=== PATIENT | female | born 1970 | race Caucasian/White ===

== ENCOUNTER 2022-05-29 15:28 | Emergency (ER) | payer OTHER ==
--- OUTSIDE RECORDS SUMMARY | 2022-05-29 15:32 | XMS REPORT | Continuity of Care Document ---
:1970 Author Organization [facility] t Address [address] [place] [address] Care Team Providers Name Role Phone Palomo Novak MD Primary Care Physician Kyung Gomes Attending Clinician Unavailable Palomo Novak MD Attending Clinician CANDIE HAMILTON Attending Clinician Unavailable Jenelle Nix Admitting Clinician Unavailable Kyung Gomes Admitting Clinician Unavailable Anika Harper Admitting Clinician Unavailable Payers Payer Name Policy Type Policy Number Effective Date Expiration Date S ource Problems Condition Condition Condition Status Onset Resolution Last Treating Co mments Source Name Details Category Date Date Treatment Clinician Date Anxiety Anxiety Disease Active Univers 6-05 ity of 00:00: [place] 00 Medical Branch Left lower Left lower Disease Active U nivers quadrant quadrant 6-24 ity of pain pain 00:00: [place] 00 Medical Branch Fatigue Fatigue Disease Active 2016- Univers 6-24 ity of 00:00: 00 Medical Branch Hypothyroi Hypothyroi Disease Active U nivers dism due dism due 6-24 ity of to to 00:00: [place] acquired acquired 00 Medica l atrophy of atrophy of Br anch thyroid thyroid Weight Weight Disease Active Univers loss loss 6-24 ity of 00:00: 00 Medical Branch Allergies, Adverse Reactions, Alerts Allergy Allergy Status Severity Reaction(s) Onset Inactive Treating Comm ents Source Name Type Date Date Clinician Penicill DA Active SV 2019-10 [facility] ins 0-01 [place] 00:00: d 00 [facility] morphine DA Active SV 2019-10 [facility] 0- [place] 00:00: d 00 [facility] codeine DA Active SV 2019-10 [facility] 0- [place] 00:00: d 00 [facility] Penicill DA Active SV RASH, NAUSEA 2019-10 HC A ins AND VOMITING 0- Pear brandie 00:00: d 00 [facility] morphine DA Active SV NAUSEA AND 2019-10 [facility] VOMITING 0- [place] 00:00: d 00 [facility] codeine DA Active SV NAUSEA AND 2019-10 [facility] VOMITING 0-01 [place] 00:00: d 00 [facility] pcn DA Active MO rash 2019- [facility] 7-29 [facility] [place] Morphine Propensi Active Anaphylaxis 2019- U nivers ty to 7-25 ity of adverse 00:00: [place] reaction 00 [facility] Penicill Propensi Active Nausea Univer s ins ty to and/or 7-25 ity of adverse Vomiting 00:00: [place] reaction 00 [facility] morphine DA Active U 2015- [facility] 2-03 [facility] 00:00: [facility] [place] morphine DA Active U nasu 2015- [facility] 2-03 [facility] 00:[facility]: [facility] [place] Codeine Propensi Active Unknown - Univ ers ty to See comments 6-23 ity of adverse 00:00: [place] reaction 00 [facility] codeine DA Active MO 2014-0 [facility] 7-03 [facility] 00:00: [facility] [place] codeine DA Active MO HIVES/RASH 2014- [facility] 7-03 [facility] 00:[facility]: [facility] [place] Social History Social Habit Start Date Stop Date Quantity Comments Source Exposure to 2022-02-05 2022-02-15 Not sure [facility]-CoV-2 00:00:00 11:47:00 [place] Medical (event) Branch Alcohol intake 2022-02-15 2022-02-15 Current University 00:00:00 00:00:00 non-drinker of [facility] alcohol Branch (finding) Tobacco use and 2016-04-01 2016-04-01 Never used Universit y of exposure 00:00:00 [facility] Sex Ass[birth year] At [birth year] [facility] 00:00:00 [facility]:00:00 [facility] Smoking Status Start Date Stop Date Source Never smoker [facility] Branch Medications Ordered Filled Start Stop Current Ordering Indication Dosage Frequency Signature Comments Components Source Medication Medication Date Date Medication? Clinician (SIG) Name Name JEANNETTE 2021- No Take by Un darrell ROJO, 02-15 mouth. ity of VITAMIN 12:11: 00:00 [place] B-12, 18 :00 Medical (VITAMIN Branch B12 ORAL) ERGOCALCIFE 2021- No Take by Un darrell ODW, 02-15 mouth. ity of VITAMIN D2, 12:10: 00:00 [place] (VITAMIN D 51 :00 Medical ORAL) Branch traMADoL 50 Yes [id number] TAKE 1 Univ ers mg tablet - TABLET BY ity o f 00:00: MOUTH [place] 00 EVERY 6 Medical HOURS Branch NEEDED PAIN Indication s: chronic pain ALPRAZolam Yes [id number] .5mg Take 1 Univers 0.5 mg 5-09 tablet by ity of tablet 00:00: mouth 2 00 (two) Medical times Branch daily. ALPRAZOLAM 2021- No [id number] TAKE 1 Univers 0.5 mg 2-04 13- TABLET BY ity of tablet 00:00: 00:00 MOUTH [place] 00 :00 TWICE Medical DAILY Branch traMADoL 50 2021- No 2745 TAKE 1 Uni vers mg tablet 8-08 03- TABLET BY ity of 00:00: 00:00 MOUTH [place] 00 :00 EVERY 6 Medical HOURS Branch NEEDED PAIN Indication s: chronic pain ORILISSA 2021- No TK 1 T PO Uni vers 150 mg Tab 05-09 QD ity of 00:00: 00:00 [place] 00 :00 Medical Branch levothyroxi 2021- No TK 1 T PO Univers ne 50 mcg 05-09 QD ity of tablet 00:00: 00:00 [place] 00 :00 Medical Branch dicyclomine 2021- No [id number] 20mg Take 1 Univers 20 mg 05-03 tablet by ity of tablet 00:00: 00:00 mouth 4 [place] 00 :00 (four) Medical times Branch daily. traMADol 50 2021- No [id number] 50mg Take 1 Univers mg tablet 02-04 tablet by ity of 00:00: 00:00 mouth [place] 00 :00 every 6 Medical (six) Branch hours as needed for Pain (scale 4-6). MULTIVITAMI Yes Take by Uni vers N ORAL 9-10 mouth. ity of 09:55: [place] 45 Medical Branch zolpidem 2016-10- No 10mg Take 1 Univer s (AMBIEN) 10 2-15 - tablet by it y of mg tablet 00:00: 00:00 mouth at [place] as 00 :00 bedtime as Medical needed for Branch Insomnia. loratadine 2015-10 Yes [id number] 10mg Take 1 Univers (CLARITIN) 2-21 tablet by ity of 10 mg 00:00: mouth [place] tablet 00 daily. Medical Branch fluticasone 2015-10 Yes [id number] 1-2 sprays Univers 50 2-21 in each ity of mcg/actuati 00:00: nostril [place] as on nasal 00 daily Medical spray Branch Vital Signs Vital Name Observation Time Observation Value Comments Source Systolic blood 2022-02-15 17:01:00 123 mm[facility]Hg[facility] pressure Medical Branch Diastolic blood 2022-02-15 17:01:00 82 mm[facility]Hg[facility] Branch Heart rate 2022-02-15 17:01:00 78 /min [facility] Body height 2022-02-15 17:01:00 152.4 cm [facility] Body weight 2022-02-15 17:01:00 46.267 kg [facility] BMI 2022-02-15 17:01:00 19.92 kg/m2 [facility] Oxygen saturation 2022-02-15 17:01:00 99 /min [facility] in Arterial blood Medical Br anch by Pulse oximetry Procedures This patient has no known procedures. Encounters Start End Encounter Admission Attending Care Care Encounter Source Date/Time Date/Time Type Type Clinicians Facility Department ID 2021-11-04 Outpatient STLMLC STLMLC [id number] Common 12:13:58 [id number] [facility] 2020-08-31 Inpatient HCAPM [facility] [id number] [facility] 19:31:00 [id number] [facility] 2020-07-24 Inpatient HCAPM [facility] [id number] [facility] 04:15:00 [id number] [facility] 2020-07-23 Inpatient HCAWH [facility] [id number] [facility] 14:07:00 [id number] [facility] [place] 2020-07-19 Inpatient [facility] C[facility] [id number] [facility] 02:17:00 [facility] [place] 2020-07-14 Inpatient EL Gomes, [facility]CAWH DAYS [id number] [facility] 13:00:00 Kyung [facility] [place] 2020-05-07 Inpatient [facility] CRISTAL [id number] [facility] 05:57:00 [id number] [facility] [place] 2022-02-15 2022-02-15 Office LAWRENCE Novak [id number] [place] [address] 12:00:00 12:15:00 Visit [facility] [id number] it y [facility] [id number] [place] as MERCED?BLEA [phone] Tn dicfeli [address] MEDICAL OFFICE BUILDING 2020-09-24 2020-09-24 Outpatient STLMLC STLMLC [id number] Common 00:00:00 00:00:00 [facility] 2020-07-10 2020-07-10 Outpatient Gomes, HCAWH OUTD [id number] [facility] 11:30:00 11:30:00 [facility]ung [facility] [place] 2020-05-15 2020-05-15 Office MICHELLE NovakGEOVANNI [id number] 15:14:59 15:30:50 Visit Palomo rAmenta [id number] Shanna [id number] abdi [id number] nal 044 [facility] 2019-09-12 2019-09-12 Emergency [facility] [id number] 03 [place] 00:00:00 00:00:00 CANDIE Soto Method i st Results Test Description Test Time Test Comments Results Result [facility] e Comments - CT ABD PELVIS 2020-08-31 W/CONT 21:56:00 [facility] 1970 Sex: F Name: DEMETRIO FERNÁNDEZ [facility] : 1970 Age/S: 50 / F [id number] [facility] Unit #: [id number] Loc: [place] [address] Phys: Ernesto Rowley MD Acct: [id number] Dis Date: Status: REG ER PHONE #: [phone] Exam Date: 08/31/2020 2157 FAX #: Reason: diffuse abdominal pain, nausea EXAMS: CPT: [id number] CT ABD PELVIS W/CONT 72342 C3 TIME OF STUDY: 08/31/2020 9:11 PM REASON FOR EXAM: diffuse abdominal pain, nausea COMPARISON: July 23, 2020 TECHNIQUE: Helical post contrast enhanced images were obtained through the abdomen and pelvis. Sagittal and coronal reformats were obtained and reviewed. One or more of the following radiation dose reduction techniques was used: automated exposure control, adjustment of mA and/or KV according to patient size, and/or utilization of iterative reconstruction technique. FINDINGS: CT Abdomen: The included lung bases are clear. No radiopaque calculi are seen in the gallbladder. The liver, pancreas, kidneys, adrenal glands and spleen all have normal appearance. There is no mesenteric or retroperitoneal adenopathy. The bowel loops are nondilated. A normal appendix is not visualized. However, there is no inflammation in the right lower quadrant. There is no free fluid or free air. The osseous structures are age-appropriate. CT Pelvis: The ureters and bladder are grossly normal. There is no free air, free fluid, loculated collection or adenopathy in the pelvis. The osseous and soft tissue structures are age appropriate. IMPRESSION: 1. No acute abnormalities in the abdomen or pelvis. at 2156 Reported and signed by: Efrain Joshi M.D. CC: Jenelle Nix MD Technologist:Karthik Longoria, RT(R)(CT) CTDI: DLP: Trnscb Date/Time: 08/31/2020 (2155) [email or web address] Orig Print D/T: S: 08/31/2020 (0058) PAGE 1 Signed Report - XR ABD ACUTE 2020-08-31 W/CHEST 21:02:00 [facility] : 1970 Sex: F Name: DEMETRIO FERNÁNDEZ [facility] : 1970 Age/S: 50 / F [address] [address] Unit #: [id number] Loc: [place] [address] Phys: Ernesto Rowley MD Acct: [id number] Dis Date: Status: REG ER PHONE #: [phone] Exam Date: 08/31/20202046 FAX #: Reason: diffuse abdominal pain, nausea EXAMS: CPT: [id number] XR ABD ACUTE W/CHEST 14445 Fluoro Time: DAP (Gy m2): Air Kerma (mGy): C3 TIME OF STUDY: 08/31/2020 8:16 PM REASON FOR EXAM: diffuse abdominal pain, nausea COMPARISON: CT July 23, 2020 FINDINGS: Supine and upright views of the abdomen show gaseous dilatation of loops of small bowel measuring up to 3.1 cm there is moderate stool and gas present throughout the colon. No abnormal air fluid levels or collections of free intraperitoneal air are seen. No abnormal extraosseous calcifications are seen. Bony and soft tissue structures are within normal limits. No organomegaly is identified. Accompanying upright chest shows normal heart size and pulmonary vascularity. The lungs are well aerated and clear. No pleural effusion or pneumothorax is seen. IMPRESSION: 1. Mild gaseous dilatation of loops of small bowel. This may be due to ileus versus obstruction. Recommend CT or small bowel study for follow-up. 2. No acute parenchymal abnormalities. at 2101 Reported and signed by: Efrain Joshi M.D. CC: Jenelle Nix MD PAGE 1 Signed Report Name: DEMETRIO FERNÁNDEZ [place] : 1970 Age/S: 50 / F [address] [address] Unit #: [id number] Loc: [place] [address] Phys: Ernesto Rowley MD Acct: [id number] Dis Date: Status: REG ER PHONE #: [phone] Exam Date: 08/31/20202046 FAX #: Reason: diffuse abdominal pain, nausea EXAMS: CPT: [id number] XR ABD ACUTE W/CHEST 48167 Fluoro Time: DAP (Gy m2): Air Kerma (mGy): <Continued> Technologist: Karthik Longoria, RT(R)(CT) Trnscb Date/Time: 08/31/2020 (2101) [email or web address] Orig Print D/T: S: 08/31/2020 (2104) PAGE 2 Signed Report BASIC METABOLIC PANEL 2020-08-31 20:35:00 Test Item Value Reference Range Interpretation Comme nts SODIUM (test code = NA) 138 mmol/L 134-147 N POTASSIUM (test code = K) 4.0 mmol/L 3.4-5.0 N CHLORIDE (test code = CL) 106 mmol/L 100-108 N CARBON DIOXIDE (test code = CO2) 26 mmol/L 21-32 N ANION GAP (test code = GAP) 6.0 GAP calc 4.0-15.0 N GLUCOSE (test code = GLU) 137 MG/DL 70-110 H BLOOD UREA NITROGEN (test code = BUN) 27 MG/DL 7-18 H GLOMERULAR FILTRATION RATE (test code = GFR) >=60 max estimate estG FR >60 CREATININE (test code = CREAT) 0.8 MG/DL 0.6-1.0 N CALCIUM (test code = CA) 9.7 MG/DL 8.5-10.1 N HEPATIC FUNCTION [id number] 20:35:00 Test Item Value Reference Range Interpretation Comments TOTAL PROTEIN (test code = PROT) 8.8 G/DL 6.4-8.2 H ALBUMIN (test code = ALB) 5.1 G/DL 3.4-5.0 H BILIRUBIN TOTAL (test code = BILT) 0.50 MG/DL 0.2-1.2 N BILIRUBIN DIRECT (test code = 0.10 MG/DL 0.00-0.30 N BILD) BILIRUBIN INDIRECT (test code = 0.40 MG/DL 0.2-1.2 N BILIND) SGOT/AST (test code = AST) 22 Unit/L 15-37 N SGPT/ALT (test code = ALT) 48 Unit/L 12-78 N ALKALINE PHOSPHATASE TOTAL (test 83 Unit/L 45-117 N code = ALKP) [id number] 20:35:00 Test Item Value Reference Range Interpretation Comments LIPASE (test code = LIP) 44 Unit/L 114-286 L UA RFLX MICR CULT IF [id number] 20:20:00 Test Item Value Reference Range Interpretation Comments UA COLOR (test code = YELLOW discript YEL/STRAW COLU) UA APPEARANCE (test code CLEAR discript CLEAR = APPU) UA GLUCOSE DIPSTICK (test NEGATIVE mg/dL NEG code = DGLUU) UA BILIRUBIN DIPSTICK 1+ mg/dL NEG A (test code = BILU) UA KETONE DIPSTICK (test 2+ mg/dL NEG A code = KETU) UA SPECIFIC GRAVITY (test >=1.030 SG 1.005-1.030 A code = SGU) UA BLOOD DIPSTICK (test 2+ mg/DL NEG A code = JUAN MANUEL) UA PH DIPSTICK (test code 6.0 pH UNITS 5.0-7.0 = KENDY) UA PROTEIN DIPSTICK (test 1+ mg/dL NEG A code = PROU) UA UROBILINIOGEN DIPSTICK 0.2 mg/dL <2.0 (test code = URO) UA NITRITE DIPSTICK (test NEGATIVE SCREEN NEG code = MARILYN) UA LEUKOCYTE ESTERASE NEGATIVE Leuk/mcL NEGATIVE DIPSTICK (test code = LEUU) UA WBC (test code = WBCU) 1-3 #WBC/HPF 0-3 UA RBC (test code = RBCU) 1-3 #RBC/HPF 0-3 UA BACTERIA (test code = NONE SEEN /HPF NONE-TRACE BACU) UA SQUAMOUS CELLS (test 1+ /HPF NONE A code = SQU) UA CALCIUM OXALATE 2+ /HPF NONE SEEN A CRYSTALS (test code = CAOXU) UA MUCUS (test code = 3+ /LPF NONE SEEN A MUCU) UA CULTURE NEEDED? (test NO, WBC<10 Criteria Culture CHK code = UACULT) Indication for culture: Suprapubic PainCBC W/AUTO [id number] 20:12:00 Test Item Value Reference Range Interpretation Comments WHITE BLOOD CELL (test code = 13.3 K/mm3 3.5-11.0 H WBC) RED BLOOD CELL (test code = 5.00 M/mm3 4.70-6.10 N RBC) HEMOGLOBIN (test code = HGB) 15.9 G/DL 10.4-14.9 H HEMATOCRIT (test code = HCT) 47.0 % 31.5-44.1 H MEAN CELL VOLUME (test code = 94.0 Fl 84.5-98.6 N MCV) MEAN CELL HGB (test code = MCH) 31.8 pg 27.0-34.2 N MEAN CELL HGB CONCETRATION 33.8 G/DL 31.5-34.0 N (test code = MCHC) RED CELL DISTRIBUTION WIDTH 11.8 SD 11.5-14.5 N (test code = RDW) PLATELET COUNT (test code = 477 K/mm3 150-450 H PLT) MEAN PLATELET VOLUME (test code 8.90 fL 7.0-10.5 N = MPV) NEUTROPHIL % (test code = NT%) 83.1 % 40-76 H IMMATURE GRANULOCYTE % (test 0.3 % 0.0-5.0 N code = IG%) LYMPHOCYTE % (test code = LY%) 11.8 % 20.5-51.1 L MONOCYTE % (test code = MO%) 4.4 % 1.7-9.3 N EOSINOPHIL % (test code = EO%) 0.1 % 0.0-6.0 N BASOPHIL % (test code = BA%) 0.3 % 0.0-2.0 N NUCLEATED RBC % (test code = 0.0 /100WBC% 0.0-1.0 N NRBC%) NEUTROPHIL # (test code = NT#) 11.0 K/mm3 1.8-7.6 H IMMATURE GRANULOCYTE # (test 0.04 x10 3/uL 0.00-0.03 H code = IG#) LYMPHOCYTE # (test code = LY#) 1.6 K/mm3 0.6-3.2 N MONOCYTE # (test code = MO#) 0.6 K/mm3 0.3-1.1 N EOSINOPHIL # (test code = EO#) 0.0 K/mm3 0.0-0.4 N BASOPHIL # (test code = BA#) 0.0 K/mm3 0.0-0.1 N NUCLEATED RBC # (test code = 0.0 K/mm3 0.0-0.1 N NRBC#) MANUAL DIFF REQUIRED (test code NO DIFF/SCN CRITERIA = MDIFF) UA RFLX MICR CULT IF [id number] 20:12:00 Test Item Value Reference Range Interpretation Comments UA COLOR (test code = COLU) YELLOW discript YEL/STRAW UA APPEARANCE (test code = CLEAR discript CLEAR APPU) UA GLUCOSE DIPSTICK (test NEGATIVE mg/dL NEG code = DGLUU) UA BILIRUBIN DIPSTICK (test 1+ mg/dL NEG A code = BILU) UA KETONE DIPSTICK (test 2+ mg/dL NEG A code = KETU) UA SPECIFIC GRAVITY (test >=1.030 SG 1.005-1.030 A code = SGU) UA BLOOD DIPSTICK (test 2+ mg/DL NEG A code = JUAN MANUEL) UA PH DIPSTICK (test code = 6.0 pH UNITS 5.0-7.0 KENDY) UA PROTEIN DIPSTICK (test 1+ mg/dL NEG A code = PROU) UA UROBILINIOGEN DIPSTICK 0.2 mg/dL <2.0 (test code = URO) UA NITRITE DIPSTICK (test NEGATIVE SCREEN NEG code = MARILYN) UA LEUKOCYTE ESTERASE NEGATIVE Leuk/mcL NEGATIVE DIPSTICK (test code = LEUU) UA CULTURE NEEDED? (test Criteria Culture CHK code = UACULT) Indication for culture: Suprapubic Pain- CT ABD PELVIS [id number] 17:44:00 [facility] : 1970 Sex: F Patient Name: DEMETRIO FERNÁNDEZ Unit No: [id number] EXAMS: CPT CODE: [id number] CT ABD PELVIS W/CONT 41298 CTABDOMEN AND PELVIS WITH CONTRAST. INDICATION: Diffuse abdominal pain and vomiting after surgery 10 days ago. COMPARISON: 05/07/2020 CT abdomen pelvis TECHNIQUE: Helical imaging was performed from the diaphragm through the pubic symphysis with multiplanar reformations obtained. DOSE: CT imaging performed at this location utilizes radiation dose optimization technique which includes one or more of the followin) Automated exposure control; 2) Adjustment of the mA and/or kV according to patient's size; 3) Use of iterative reconstruction techniques. DLP: 155 mGy-cm IV contrast: 80 mL Isovue-300 GI con trast: 40 mL Gastrografin FINDINGS: LOWER CHEST: Visualized portions of the lung bases are clear. PERITONEUM: No free intraperitoneal air or fluid. RETROPERITONEUM: Abdominal aorta is normal in caliber. No adenopathy appreciated. SOLID ORGANS: The liver, gallbladder, spleen, pancreas, bilateral adrenal glands, and right kidney all appear normal. 3 mm nonobstructing left renal calculus at the lower pole present. PELVIS: Minimal fluid present in the bladder. The uterus is not visualized. No organized fluid collections identified in the pelvis. BOWELS/APPENDIX: There are no abnormally dilated small orlarge bowel loops. The appendix is not identified. MUSCULOSKELETAL: Anterior abdominal wall soft tissue gas is present appearing greater on the right. No organized fluid collection. No suspicious osseous abnormality identified. IMPRESSION: 1. Anterior abdominal wall soft tissue gas, [facility] NAME: DEMETRIO FERNÁNDEZ Radiology Department PHYS: Zen Larios [address] : 1970 AGE: 50 SEX: F [place] [address] LOC: LucyERS PHONE #: [phone] EXAM DATE: 07/23/2020 STATUS: REG ER FAX #: [phone] RAD NO: [id number] Page 1 Signed Report 1 Patient Name: DEMETRIO FERNÁNDEZ Unit No: [id number] EXAMS: CPT CODE: [id number] ABD PELVIS W/CONT 38375 (Continued) presumably postoperative in nature. No organized fluid collection. 2. Nonobstructing left nephrolithiasis. SL: SG-H Electronically Signed by Liang Hill 07/23/2020 at 1744 Reported and signed by: Liang Meredith MD CC: Zen Barth echnologist: Marcela Louis, RT, CT CTDI: 3.33 DLP: 155.32 Trnscrbd D/ (1744) t.[email or web address].[email or web address] NAME: DEMETRIO FERNÁNDEZ Radiology Department PHYS: Zen Larios [address] : 1970 AGE: 50 SEX: F [place] [address] [facility] PHONE #: [phone] EXAM DATE: 07/23/2020 STATUS: REG ER FAX #: [phone] RAD NO: [id number] Page 2 Signed Report 1 Patient Name: DEMETRIO FERNÁNDEZ Unit No: [id number] EXAMS: CPT CODE: [id number] CT ABD PELVIS W/CONT 67331 (Continued) Orig Print D/T: S: 07/23/2020 (1747) [facility] NAME: DEMETRIO FERNÁNDEZ Radiology Department PHYS: Zen Larios [address] : 1970 AGE: 50 SEX: F [place], [place] [address] LOC: LES PHONE #: [phone] EXAM DATE: 07/23/2020 STATUS: REG ER FAX #: [phone] RAD NO: [id number] Page 3 Signed Report 1COMPREHENSIVE METABOLIC PANEL 2020-07-23 16:13:00 Test Item Value Reference Range Interpretation Comments SODIUM (test code = NA) 139 mEq/L 135-145 N POTASSIUM (test code = K) 4.0 mEq/L 3.5-5.0 N CHLORIDE (test code = CL) 102 mEq/L 100-115 N CARBON DIOXIDE (test code = CO2) 28 mEq/L 22-31 N ANION GAP (test code = GAP) 12.80 10-20 N GLUCOSE (test code = GLU) 96 mg/dL 65-110 N BLOOD UREA NITROGEN (test code = 14 mg/dL 7-18 N BUN) GLOMERULAR FILTRATION RATE (test 89 ml/min >60 N code = GFR) CREATININE (test code = CREAT) 0.7 mg/dL 0.5-1.0 N TOTAL PROTEIN (test code = PROT) 7.0 gm/dL 6.3-8.2 N ALBUMIN (test code = ALB) 4.3 gm/dL 3.4-4.8 N CALCIUM (test code = CA) 8.7 mg/dL 8.4-10.2 N BILIRUBIN TOTAL (test code = BILT) 0.5 mg/dL 0.2-1.0 N SGOT/AST (test code = AST) 18 units/L 15-37 N SGPT/ALT (test code = ALT) 29 units/L 12-78 N ALKALINE PHOSPHATASE TOTAL (test 73 units/L 46-116 N code = ALKP) CBC W/AUTO [id number] 15:55:00 Test Item Value Reference Range Interpretation Comments WHITE BLOOD CELL (test code = WBC) 12.2 K/mm3 6.6-12.1 H RED BLOOD CELL (test code = RBC) 4.27 M/mm3 3.45-5.01 N HEMOGLOBIN (test code = HGB) 14.1 g/dL 10.7-13.9 H HEMATOCRIT (test code = HCT) 40.9 % 32.1-42.1 N MEAN CELL VOLUME (test code = MCV) 96 fL 84.1-94.8 H MEAN CELL HGB (test code = MCH) 33.0 pg 27-35 N MEAN CELL HGB CONCETRATION (test 34.5 gm/dL 32.2-34.1 H code = MCHC) RED CELL DISTRIBUTION WIDTH (test 12.0 % 12.4-16.5 L code = RDW) PLATELET COUNT (test code = PLT) 438 K/mm3 133-385 H MEAN PLATELET VOLUME (test code = 9.8 fl 9.1-12.7 N MPV) NEUTROPHIL % (test code = NT%) 78.5 % 56.5-79.4 N LYMPHOCYTE % (test code = LY%) 12.6 % 14.3-34.3 L MONOCYTE % (test code = MO%) 7.6 % 5.1-10.4 N EOSINOPHIL % (test code = EO%) 0.3 % 0.1-3.0 N BASOPHIL % (test code = BA%) 0.6 % 0.1-1.0 N NEUTROPHIL # (test code = NT#) 9.6 K/mm3 LYMPHOCYTE # (test code = LY#) 1.5 K/mm3 MONOCYTE # (test code = MO#) 0.9 K/mm3 EOSINOPHIL # (test code = EO#) 0.04 K/mm3 BASOPHIL # (test code = BA#) 0.1 K/mm3 RBC MORPHOLOGY REQUIRED (test code NORMAL NORMAL = RBCM) PLATELET MORPHOLOGY REQUIRED (test NORMAL NORMAL code = PLTMR) DRUGS OF ABUSE [id number] 15:04:00 Test Item Value Reference Range Interpretation Comments UR COCAINE (test code = NEGATIVE NEGATIVE DETE CTION CUT OFF: COCAU) 150 ng/mL UR CANNABINOIDS (test POSITIVE NEGATIVE A RESULT S CALLED TO code = CANU) DR.ECHEVERRY-GO STEPHENS AD BACK & CONFI RMED? YES.BY F.LAB.TT T 07/23/20 1503. DETECTION CUT O FF: 50 ng/mL UR AMPHETAMINE (test code NEGATIVE NEGATIVE DE TECTION CUT OFF: = AMPHU) 500 ng/mL UR BARBITURATE QUAL (test NEGATIVE NEGATIVE DE TECTION CUT OFF: code = BARBQLU) 200 ng/mL UR BENZODIAZEPINE (test POSITIVE NEGATIVE A DETE CTION CUT OFF: code = BENZU) 150 ng/mL UR OPIATES QUAL (test NEGATIVE NEGATIVE DETECT ION CUT OFF: code = OPIAQLU) 100 ng/mL UR PHENCYCLIDINE (PCP) NEGATIVE NEGATIVE DETEC TION CUT OFF: (test code = PHENCU) 25 ng/m L UA RFLX MICR CULT IF [id number] 14:56:00 Test Item Value Reference Range Interpretation Comments UA COLOR (test code = COLU) YELLOW YELLOW UA APPEARANCE (test code = CLOUDY CLEAR A APPU) UA GLUCOSE DIPSTICK (test NEGATIVE NEG code = DGLUU) UA BILIRUBIN DIPSTICK (test NEGATIVE NEG code = BILU) UA KETONE DIPSTICK (test code 1+ NEG A = KETU) UA SPECIFIC GRAVITY (test 1.012 1.001-1.035 N code = SGU) UA BLOOD DIPSTICK (test code NEG NEG = JUAN MANUEL) UA PH DIPSTICK (test code = 8.0 5-9 KENDY) UA PROTEIN DIPSTICK (test NEGATIVE NEG code = PROU) UA UROBILINIOGEN DIPSTICK NEGATIVE mg/dL NEG (test code = URO) UA NITRITE DIPSTICK (test NEG NEG code = MARILYN) UA LEUKOCYTE ESTERASE NEG NEG DIPSTICK (test code = LEUU) UA WBC (test code = WBCU) NONE SEEN #/hpf NONE SEEN UA RBC (test code = RBCU) NONE SEEN #/hpf NONE SEEN UA EPITHELIAL CELLS (test FEW #/HPF RARE-FEW code = EPIU) UA BACTERIA (test code = RARE /HPF RARE-FEW BACU) UA AMORPHOUS SEDIMENT (test 2+ code = AMORU) Indication for culture: Suprapubic PainSpecimen Description: CLEAN CATCH- US PELVIS LTD OR [id number] 04:30:00 Patient Name: DEMETRIO FERNÁNDEZ Unit No: [id number] EXAMS: CPT CODE: [id number] US PELVIS LTD OR FU [id number] EXAM: US, US PELVIS COMPLETE: 07/19/2020, 0333 hours EXAM: US, US ABDOMEN LTD: 07/19/2020, 0300 hours Clinical Indication: Status post nephrectomy. Pelvic pain. Abdominal pain. Nausea. Vomiting. Comparison: CT scan dated 05/07/2020. Pelvic ultrasound 05/07/2020 TECHNIQUE: Technique: Grayscale, color and Doppler transabdominal imaging of the pelvis was performed with standard technique. FINDINGS: Surgic ally absent. OVARIES: RIGHT: Not visualized. Right adnexa is unremarkable LEFT: Surgically absent byhistory There are no adnexal masses. OTHER FINDINGS: No free fluid in the pelvic cul-de-sac. If there is further concern, followup pelvic sonography or MRI of the pelvis may be performed. IMPRESSION:1. Post hysterectomy and left oophorectomy. 2. Otherwise unremarkable transabdominal pelvic ultrasound. SL: ALEC at 0430 Reported and signed by: Vince Locke M.D. CC: Technologist: Alize oGmes RDMS Probe: Trnscrbd D/ (0430) [email or web address] Orig Print D/T: S: 07/19/2020 (0433) [facility] NAME: DEMETRIO FERNÁNDEZ Radiology Department PHYS: Aakash Porter [address] : 1970 AGE: 50 SEX: F [place], [place] [address] LOC: CHANDNI 3 PHONE #: [phone] EXAM DATE: 07/19/2020STATUS: ADM IN FAX #: [phone] RAD NO: [id number] Page 1 Signed Report Patient Name: DEMETRIO FERNÁNDEZ Unit No: [id number] EXAMS: CPT CODE: [id number] US PELVIS LTD OR FU 00050 (Continued) [facility] NAME: DEMETRIO FERNÁNDEZ Radiology Department PHYS: ALPHONSE Avelar Aakash Cain [address] : 1970 AGE: 50 SEX: F [place], [place] [address] LOC: CHANDNI Flores PHONE #: [phone] EXAM DATE: 07/19/2020 STATUS: ADM IN FAX #: [phone] RAD NO: [id number] Page 2 Signed Report- US ABDOMEN [id number] 04:18:00 Patient Name: DEMETRIO FERNÁNDEZ Unit No: [id number] EXAMS: CPT CODE: [id number] US ABDOMEN COMPLETE [id number] EXAM: US, US ABDOMEN LTD: 07/19/2020, 0300 hours Clinical Indication: Status post nephrectomy. Pelvic pain. Abdominal pain. Nausea. Vomiting. Comparison: CT scan dated 05/07/2020. TECHNIQUE: Grayscale and limited color sonographic evaluation of the abdomen was performed with standard technique. FINDINGS: LIVER: The visualized liver shows normal contour. There is normal liver size, based on sonography at 14.3 cm. There is normal liver parenchymal echotexture. The portal vein region appears unremarkable. BILE DUCTS: The intrahepatic and extrahepatic bile ducts are not dilated with the common bile duct measuring 2 mm. There are no definite ductal stones or wall thickening noted. The distal common bile duct is not well seen. GALLBLADDER: Gallbladder wall thickness is 1.5 mm. There are no gallstones,gallbladder sludge, pericholecystic fluid or wall thickening. PANCREAS: The visualized pancreas appears unremarkable. SPLEEN: Spleen measures 10.7 x 5.7 x 5.1 cm. KIDNEYS: The right kidney measures 9.4x 3.4 x 4.5 cm. Left kidney measures 7.8 x 4.1 x 5.1 There is normal renal contour and morphology, with normal parenchymal echotexture. There is no hydronephrosis. There is a 5 mm x 5 mm x 8 mm echogeni c foci in the left kidney which may represent nonobstructing stone. AORTA AND INFERIOR VENA CAVA: The visualized abdominal aorta and inferior vena cava appear unremarkable. ASCITES: There is no trace free fluid in the right upper quadrant of the abdomen. IMPRESSION: 1. Trace free fluid in the right upper quadrant of the abdomen seen. 2. Possible nonobstructing stone left kidney. No hydronephrosis seen [facility] [place] NAME: DEMETRIO FERNÁNDEZ Radiology Department PHYS: FATEMEHRyne CainMorgan [address] : 1970 AGE: 50 SEX: F [place] [address] LOC: CHANDNI 3 PHONE #: [phone] EXAM DATE: 07/19/2020 STATUS: ADM IN FAX #: [phone] RAD NO: [id number] Page 1 Signed Report (CONTINUED) Patient Name: DEMETRIO FERNÁNDEZ Unit No: [id number] EXAMS: CPT CODE: [id number] US ABDOMEN COMPLETE 43636 (Continued) bilaterally. SL: ALEC at 0418 Reported and signed by: Vince Locke M.D. CC: Technologist: Alize Gomes RDMS Probe: Trnscrbd D/ (0418) [email or web address] Orig Print D/T: S: 07/19/2020 (0422) [facility] NAME: DEMETRIO FERNÁNDEZ Radiology Department PHYS: FATEMEHRyne Avelar Aakash Cain [address] : 1970 AGE: 50 SEX: F [place] [address] LOC: CHANDNI 3 PHONE #: [phone] EXAM DATE: 07/19/2020 STATUS: ADM IN FAX #: [phone] RAD NO: [id number] Page 2 Signed Report Patient Name: DEMETRIO FERNÁNDEZ Unit No: [id number] EXAMS: CPT CODE: [id number] US ABDOMEN COMPLETE 26980 (Continued) [facility] NAME: DEMETRIO FERNÁNDEZ Radiology Department PHYS: GENESISNICO CainAakash [address] : 1970 AGE: 50 SEX: F [place] [address] LOC: CHANDNI 3 PHONE #: [phone] EXAM DATE: 07/19/2020 STATUS: ADM IN FAX #: [phone] RAD NO: [id number] Page 3 Signed ReportHCG [id number] 03:12:00 Test Item Value Reference Range Interpretation Comments HCG SERUM (test 3 INTERPRETATI ON:VALUES BETWEEN code = HCG) 15-20 milliInte rnational units/mL NEED T O BERETESTED WITHIN 48 HOURS . All units for these ranges ar e in milliInternatio nalunits/mL0-1 WK AFTER CONCEP TION 0-50 1-2 WKS AFTER LARRY PTION 40-3002-3 WKS AFTER LARRY PTION 100-1,0003-4 WK S AFTER CONCEPTION 500- 6,0001-2 MONTHS AFTER CONCEPTIO N 5,000-200,0002- 3 MONTHS AFTER CONCEPTION 10,0 00-100,0002ND TRIMESTER 3,000 -50,0003RD TRIMESTER 1,000 -50,000 SPECIMENS WITH AN HCG LEVEL FROM 0-6 milliInternatio nalunits/mL SHOULD BE CONSI DERED NEGATIVE COMPREHENSIVE METABOLIC [id number] 03:07:00 Test Item Value Reference Range Interpretation Comments SODIUM (test code = NA) 138 mEq/L 135-145 N POTASSIUM (test code = K) 3.7 mEq/L 3.5-5.0 N CHLORIDE (test code = CL) 102 mEq/L 100-115 N CARBON DIOXIDE (test code = CO2) 26 mEq/L 22-31 N ANION GAP (test code = GAP) 14.20 10-20 N GLUCOSE (test code = GLU) 140 mg/dL 65-110 H BLOOD UREA NITROGEN (test code = 13 mg/dL 7-18 N BUN) GLOMERULAR FILTRATION RATE (test 89 ml/min >60 N code = GFR) CREATININE (test code = CREAT) 0.7 mg/dL 0.5-1.0 N TOTAL PROTEIN (test code = PROT) 7.2 gm/dL 6.3-8.2 N ALBUMIN (test code = ALB) 3.9 gm/dL 3.4-4.8 N CALCIUM (test code = CA) 8.5 mg/dL 8.4-10.2 N BILIRUBIN TOTAL (test code = BILT) 0.5 mg/dL 0.2-1.0 N SGOT/AST (test code = AST) 17 units/L 15-37 N SGPT/ALT (test code = ALT) 30 units/L 12-78 N ALKALINE PHOSPHATASE TOTAL (test 68 units/L 46-116 N code = ALKP) [id number] 03:07:00 Test Item Value Reference Range Interpretation Comments LIPASE (test code = LIP) 54 units/L 73-393 L DRUGS OF ABUSE [id number] 03:06:00 Test Item Value Reference Range Interpretation Comments UR COCAINE (test code = NEGATIVE NEGATIVE DETE CTION CUT OFF: COCAU) 150 ng/mL UR CANNABINOIDS (test POSITIVE NEGATIVE A RESULT S CALLED TO code = CANU) AMILCAR.READ BACK & CONFIRMED? YES. BY [email or web address] 07/10. DETECTION CUT OFF: 50 ng/mL UR AMPHETAMINE (test code NEGATIVE NEGATIVE DE TECTION CUT OFF: = AMPHU) 500 ng/mL UR BARBITURATE QUAL (test NEGATIVE NEGATIVE DE TECTION CUT OFF: code = BARBQLU) 200 ng/mL UR BENZODIAZEPINE (test POSITIVE NEGATIVE A RESU LTS CALLED TO code = BENZU) AMILCAR.READ BACK & CONFIRMED? YES. BY [email or web address] 07/10. DETECTION CUT OFF: 150 ng/mL UR OPIATES QUAL (test NEGATIVE NEGATIVE DETECT ION CUT OFF: code = OPIAQLU) 100 ng/mL UR PHENCYCLIDINE (PCP) NEGATIVE NEGATIVE DETEC TION CUT OFF: (test code = PHENCU) 25 ng/m L UA RFLX MICR CULT IF [id number] 03:02:00 Test Item Value Reference Range Interpretation Comments UA COLOR (test code = COLU) YELLOW YELLOW UA APPEARANCE (test code = Slightly-Cloudy CLEAR APPU) UA GLUCOSE DIPSTICK (test NEGATIVE NEG code = DGLUU) UA BILIRUBIN DIPSTICK (test NEGATIVE NEG code = BILU) UA KETONE DIPSTICK (test code 2+ NEG A = KETU) UA SPECIFIC GRAVITY (test 1.019 1.001-1.035 N code = SGU) UA BLOOD DIPSTICK (test code NEG NEG = JUAN MANUEL) UA PH DIPSTICK (test code = 7.0 5-9 KENDY) UA PROTEIN DIPSTICK (test NEGATIVE NEG code = PROU) UA UROBILINIOGEN DIPSTICK NEGATIVE mg/dL NEG (test code = URO) UA NITRITE DIPSTICK (test NEG NEG code = MARILYN) UA LEUKOCYTE ESTERASE NEG NEG DIPSTICK (test code = LEUU) UA WBC (test code = WBCU) 0-2 #/hpf NONE SEEN UA RBC (test code = RBCU) 6-10 #/hpf NONE SEEN A UA EPITHELIAL CELLS (test RARE #/HPF RARE-FEW code = EPIU) UA BACTERIA (test code = RARE /HPF RARE-FEW BACU) UA MUCUS (test code = MUCU) 2+ NONE SEEN Indication for culture: Dysuria/FrequencySpecimen Description: CLEAN CATCHCBC W/AUTO [id number] 02:46:00 Test Item Value Reference Range Interpretation Comments WHITE BLOOD CELL (test code = WBC) 10.5 K/mm3 6.6-12.1 N RED BLOOD CELL (test code = RBC) 4.39 M/mm3 3.45-5.01 N HEMOGLOBIN (test code = HGB) 14.2 g/dL 10.7-13.9 H HEMATOCRIT (test code = HCT) 41.4 % 32.1-42.1 N MEAN CELL VOLUME (test code = MCV) 94 fL 84.1-94.8 N MEAN CELL HGB (test code = MCH) 32.3 pg 27-35 N MEAN CELL HGB CONCETRATION (test 34.3 gm/dL 32.2-34.1 H code = MCHC) RED CELL DISTRIBUTION WIDTH (test 11.9 % 12.4-16.5 L code = RDW) PLATELET COUNT (test code = PLT) 392 K/mm3 133-385 H MEAN PLATELET VOLUME (test code = 9.4 fl 9.1-12.7 N MPV) NEUTROPHIL % (test code = NT%) 86.7 % 56.5-79.4 H LYMPHOCYTE % (test code = LY%) 8.6 % 14.3-34.3 L MONOCYTE % (test code = MO%) 4.1 % 5.1-10.4 L EOSINOPHIL % (test code = EO%) 0.0 % 0.1-3.0 L BASOPHIL % (test code = BA%) 0.3 % 0.1-1.0 N NEUTROPHIL # (test code = NT#) 9.1 K/mm3 LYMPHOCYTE # (test code = LY#) 0.9 K/mm3 MONOCYTE # (test code = MO#) 0.4 K/mm3 EOSINOPHIL # (test code = EO#) 0 K/mm3 BASOPHIL # (test code = BA#) 0.0 K/mm3 RBC MORPHOLOGY REQUIRED (test code NORMAL NORMAL = RBCM) PLATELET MORPHOLOGY REQUIRED (test NORMAL NORMAL code = PLTMR) [facility] [id number] 14:56:00 RUN DATE: 07/17/20 [facility] PAGE 1 RUN TIME: 1053 Specimen Inquiry RUN USER: INTERFACE --PATIENT: DEMETRIO FERNÁNDEZ LOC: [facility] U #: [id number] AGE/SX: 50/F ROOM: [facility] RE07/14/20REG DR: Kyung Gomes MD : 72 BED: A DIS: 07/15/20 STATUS: DIS Ekaterina TLOC: SPEC #: [id number] RECD: 07/14/20 STATUS: CAROLANN PALAFOX #: [id number] YUNIEL: 07/14/20- SUBM DR: Kyung Gomes MD ENTERED: 07/15/20 SP TYPE: PELVIC FEDERICO OTHR DR: Aakash Crook MD ORDERED: LEVEL IV/3 CODES: [id number] - FALLOPIAN TUBE [id number] - PELVIC GENITAL COPIES TO: Aakash Crook MD [address] [place] [address] Kyung Gomes MD [address] [place] [address] [email or web address] PROCEDURES: LEVEL IV (Incomplete) TISSUES: PELVIC GENITAL STRUCTURES, NOS - RIGHT PELVIC SIDEWALL AND UTEROSACRAL ENDOMETRIOSIS FALLOPIAN TUBE, NOS - RIGHT FALLOPIAN TUBE AND OVARY CLINICAL HISTORY 50 year old, endometriosis (kr) FINAL DIAGNOSIS Right pelvic sidewall endometriosis, excision: - endometriosis Right uterosacral endometriosis, excision: - soft tissue with fibrosis Right fallopian tube and ovary, salpingo- oophorectomy: - ovary - no significant pathologic alteration - round ligament - no significant pathologic alteration - fallopian tube - no tubal tissue identified CPT code(s): 98819 x3 ls/wpd CONTINUED ON NEXT PAGE RUN DATE: 07/17/20 [facility] PAGE 2 RUN TIME: 1053 Specimen Inquiry RUN USER: INTERFACE SPEC #: [id number] PATIENT: DEMETRIO FERNÁNDEZ #[id number] (Continued) GROSS DESCRIPTION ANATOMIC SOURCE OF TISSUE (per Requisition): 1. Right pelvic sidewall endometriosis 2. Right uterosacral endometriosis 3. Right fallopian tube and ovary Each specimen is labeled with the patient's name and medical record number. Specimen #1 is designated "right pelvic sidewall endometriosis" and consists of a 1 x 0.5 x 0.3 cm wetzel-yellow soft tissue. The tissue is submitted in toto in A1. Specimen #2 is designated "right uterosacral endometriosis" and consists of a 0.7 x 0.5 x 0.2 cm wetzel-pink soft tissue. The tissue is submitted in toto in B1. Specimen #3 is designated "right fallopian tube and ovary" and consists of a 2 x 1.7 x 0.8 cm ovary with attached wetzel-pink soft tissue. No fallopian tube is identified. The ovary is wetzel-yellow to ahumada and lobular. Sectioning reveals a wetzel-pink cut surface. Certified Income Tax Preparer sections are submitted as follows: C1 - ovary, C2 - attached wetzel-pink soft tissue. amanda 07/15/20 The remaining attached soft tissue is submitted in RE1. chel 07/16/20 Signed Carmelina Frost MD 07/16/20 1456 END OF REPORT AG HEPATITIS B [id number] 15:14:00 Test Item Value Reference Range Interpretation Comments AG HEPATITIS B SURFACE (test code NONREACTIVE NONREACTIVE = HBSAG) IS CONSENT FORM SIGNED FOR HIV TESTING? YAB HEPATITIS C [id number] 15:14:00 Test Item Value Reference Range Interpretation Comments AB HEPATITIS C (test code = NONREACTIVE NONREACTIVE HCVAB) SIGNAL TO CUTOFF (test code = 0.11 <0.80 N CUTOFF) IS CONSENT FORM SIGNED FOR HIV TESTING? JORDANB HIV 1 15:14:00 Test Item Value Reference Range Interpretation Comments AB HIV 1 2 (test NONREACTIVE NONREACTIVE [facility] = [id number]) 4th Gen HIV Ag/Ab Combo Screen IS CONSENT FORM SIGNED FOR HIV TESTING? YURINALYSIS [id number] 15:08:00 Test Item Value Reference Range Interpretation Comments UA COLOR (test code = COLU) YELLOW YELLOW UA APPEARANCE (test code = Slightly-Cloudy CLEAR APPU) UA GLUCOSE DIPSTICK (test NEGATIVE NEG code = DGLUU) UA BILIRUBIN DIPSTICK (test NEGATIVE NEG code = BILU) UA KETONE DIPSTICK (test code TRACE NEG A = KETU) UA SPECIFIC GRAVITY (test 1.020 1.001-1.035 N code = SGU) UA BLOOD DIPSTICK (test code 2+ NEG A = JUAN MANUEL) UA PH DIPSTICK (test code = 5.0 5-9 KENDY) UA PROTEIN DIPSTICK (test NEGATIVE NEG code = PROU) UA UROBILINIOGEN DIPSTICK NEGATIVE mg/dL NEG (test code = URO) UA NITRITE DIPSTICK (test NEG NEG code = MARILYN) UA LEUKOCYTE ESTERASE NEG NEG DIPSTICK (test code = LEUU) UA WBC (test code = WBCU) 0-2 #/hpf NONE SEEN UA RBC (test code = RBCU) 6-10 #/hpf NONE SEEN A UA EPITHELIAL CELLS (test RARE #/HPF RARE-FEW code = EPIU) UA BACTERIA (test code = NEGATIVE /HPF RARE-FEW BACU) UA MUCUS (test code = MUCU) 1+ NONE SEEN URINE SAMPLE: CLEAN CATCHCOVID 19 Asymptomatic IH [id number] 15:07:00 Test Item Value Reference Range Interpretation Comments COVID 19 NEGATIVE NEGATIVE This test has b een Asymptomatic IH AG authorize d only for the (test code = detection ofpro teins from COVNONPUIAG) SARS-CoV-2, not for any other viruses orpathogens. Ne gative results should be treated as presumptive andconfirmed wi th a molecular assay , if necessary for patientmanageme nt. Negative result s do not rule out COVID- 19 andshould not b e used as the sole basis for treatment orpat ient management deci sions, including infec tion controldecision s. Negative result s should be considered i n thecontext of a patient's recent exposure s, history and thepresence of clinical signs and symptoms consis tent withCOVID-19. T his test has not been FD A cleared or approved; th e test hasbeen authori judy by FDA under an Emerge ncy Use Authorization(E UA) for use by remaato tamika certified under the CLIA thatmeet the re quirements to perform mode rate, high or waivedcomple xity tests. This dipti t is authorized for use at thePoint of Car e (POC), i.e., in patien t care settingsoperati ng under a CLIA Certificat e of Waiver, Certifi chanell ofCompliance, o r Certificate of Accreditation. This test is only authori zeelis for the duration of thedeclaration that circumstances e xist justifying theauthorizatio n of emergency use o f in vitro diagnostic test sfor detection and/o r diagnosis of CO VID-19 under Ruyioog65 4(b)(1) of the Act, 21 U.S .C. 360bbb-3(b)(1), unless theauthorizatio n is terminated or r evoked sooner. AG HEPATITIS B [id number] 14:51:00 Test Item Value Reference Range Interpretation Comments AG HEPATITIS B SURFACE (test code NONREACTIVE NONREACTIVE = HBSAG) IS CONSENT FORM SIGNED FOR HIV TESTING? YAB HEPATITIS C [id number] 14:51:00 Test Item Value Reference Range Interpretation Comments AB HEPATITIS C (test code = HCVAB) NONREACTIVE SIGNAL TO CUTOFF (test code = CUTOFF) <0.80 IS CONSENT FORM SIGNED FOR HIV TESTING? YAB HIV 1 14:51:00 Test Item Value Reference Range Interpretation Comments AB HIV 1 2 (test code = [id number]) NONREACTIVE IS CONSENT FORM SIGNED FOR HIV TESTING? YCBC W/AUTO [id number] 14:06:00 Test Item Value Reference Range Interpretation Comments WHITE BLOOD CELL (test code = WBC) 8.1 K/mm3 6.6-12.1 N RED BLOOD CELL (test code = RBC) 4.25 M/mm3 3.45-5.01 N HEMOGLOBIN (test code = HGB) 13.9 g/dL 10.7-13.9 N HEMATOCRIT (test code = HCT) 41.8 % 32.1-42.1 N MEAN CELL VOLUME (test code = MCV) 98 fL 84.1-94.8 H MEAN CELL HGB (test code = MCH) 32.7 pg 27-35 N MEAN CELL HGB CONCETRATION (test 33.3 gm/dL 32.2-34.1 N code = MCHC) RED CELL DISTRIBUTION WIDTH (test 12.1 % 12.4-16.5 L code = RDW) PLATELET COUNT (test code = PLT) 378 K/mm3 133-385 N MEAN PLATELET VOLUME (test code = 9.3 fl 9.1-12.7 N MPV) NEUTROPHIL % (test code = NT%) 64.5 % 56.5-79.4 N LYMPHOCYTE % (test code = LY%) 25.6 % 14.3-34.3 N MONOCYTE % (test code = MO%) 8.4 % 5.1-10.4 N EOSINOPHIL % (test code = EO%) 0.6 % 0.1-3.0 N BASOPHIL % (test code = BA%) 0.5 % 0.1-1.0 N NEUTROPHIL # (test code = NT#) 5.2 K/mm3 LYMPHOCYTE # (test code = LY#) 2.1 K/mm3 MONOCYTE # (test code = MO#) 0.7 K/mm3 EOSINOPHIL # (test code = EO#) 0.05 K/mm3 BASOPHIL # (test code = BA#) 0.0 K/mm3 RBC MORPHOLOGY REQUIRED (test code NORMAL NORMAL = RBCM) PLATELET MORPHOLOGY REQUIRED (test NORMAL NORMAL code = PLTMR) T4 (THYROXINE)2020-05-09 14:21:00 Test Item Value Reference Range Interpretation Comments T4 (THYROXINE) (test code = T4) 5.9 mcg/dL 4.7-13.3 N THYROID STIMULATING [id number] 14:21:00 Test Item Value Reference Range Interpretation Comments THYROID STIMULATING 6.43 0.36-3.74 H Test Per formed in HORMONE (test code = MicroIn ternational Units/mL TSH) [id number] 14:21:00 Test Item Value Reference Range Interpretation Comments ESTRADIOL (test 60.9 pg/mL () Adult Femal e: code = ESTRA) Follicular pha se 12.5 - 166.0 Ovulation phase 85.8 - 498.0 Alicja teal phase 43.8 - 21 1.0 Postmenopausal <6.0 - 54.7 1st trimester 215.0 - >4300.0Roche EC MARYANA methodology [id number] 14:21:00 Test Item Value Reference Range Interpretation Comments PROGESTERONE (test 0.7 ng/mL () Follicul ar phase 0.1 - code = PROG) 0.9 Luteal phas e 1.8 - 23.9 Ovulation phase 0.1 - 12.0 Preg nant First trimester 11.0 - 44.3 Second tri mester 25.4 - 83.3 Th ird trimester 58.7 - 214.0 Postmenopausal 0.0 - 0.1Performed At : [facility] [address] [id number] ross Remy MD Ph:[phone] FOLLICLE STIMULATING [id number] 14:21:00 Test Item Value Reference Range Interpretation Comments FOLLICLE STIMULATING 43.2 mIU/mL () Adult Female: HORMONE (test code = Follicu lar phase 3.5 - FSH) 12.5 Ovulation phase 4.7 - 21.5 Lute al phase 1.7 - 7.7 Postmenopausal 25.8 - 134.8 COMPREHENSIVE METABOLIC [id number] 06:03:00 Test Item Value Reference Range Interpretation Comments SODIUM (test code = NA) 138 mEq/L 135-145 N POTASSIUM (test code = K) 3.6 mEq/L 3.5-5.0 N CHLORIDE (test code = CL) 102 mEq/L 100-115 N CARBON DIOXIDE (test code = CO2) 26 mEq/L 22-31 N ANION GAP (test code = GAP) 14.10 10-20 N GLUCOSE (test code = GLU) 119 mg/dL 65-110 H BLOOD UREA NITROGEN (test code = 15 mg/dL 7-18 N BUN) GLOMERULAR FILTRATION RATE (test 89 ml/min >60 N code = GFR) CREATININE (test code = CREAT) 0.7 mg/dL 0.5-1.0 N TOTAL PROTEIN (test code = PROT) 6.1 gm/dL 6.3-8.2 L ALBUMIN (test code = ALB) 3.6 gm/dL 3.4-4.8 N CALCIUM (test code = CA) 8.0 mg/dL 8.4-10.2 L BILIRUBIN TOTAL (test code = BILT) 0.5 mg/dL 0.2-1.0 N SGOT/AST (test code = AST) 16 units/L 15-37 N SGPT/ALT (test code = ALT) 23 units/L 12-78 N ALKALINE PHOSPHATASE TOTAL (test 63 units/L 46-116 code = ALKP) CBC W/AUTO [id number] 05:55:00 Test Item Value Reference Range Interpretation Comments WHITE BLOOD CELL (test code = WBC) 9.4 K/mm3 6.6-12.1 N RED BLOOD CELL (test code = RBC) 4.38 M/mm3 3.45-5.01 N HEMOGLOBIN (test code = HGB) 13.9 g/dL 10.7-13.9 HEMATOCRIT (test code = HCT) 41.9 % 32.1-42.1 N MEAN CELL VOLUME (test code = MCV) 96 fL 84.1-94.8 H MEAN CELL HGB (test code = MCH) 31.7 pg 27-35 N MEAN CELL HGB CONCETRATION (test 33.2 gm/dL 32.2-34.1 N code = MCHC) RED CELL DISTRIBUTION WIDTH (test 11.4 % 12.4-16.5 L code = RDW) PLATELET COUNT (test code = PLT) 350 K/mm3 133-385 N MEAN PLATELET VOLUME (test code = 9.1 fl 9.1-12.7 N MPV) NEUTROPHIL % (test code = NT%) 53.5 % 56.5-79.4 L LYMPHOCYTE % (test code = LY%) 31.2 % 14.3-34.3 N MONOCYTE % (test code = MO%) 12.0 % 5.1-10.4 H EOSINOPHIL % (test code = EO%) 2.3 % 0.1-3.0 N BASOPHIL % (test code = BA%) 0.6 % 0.1-1.0 N NEUTROPHIL # (test code = NT#) 5.0 K/mm3 LYMPHOCYTE # (test code = LY#) 2.9 K/mm3 MONOCYTE # (test code = MO#) 1.1 K/mm3 EOSINOPHIL # (test code = EO#) 0.22 K/mm3 BASOPHIL # (test code = BA#) 0.1 K/mm3 RBC MORPHOLOGY REQUIRED (test code NORMAL NORMAL = RBCM) PLATELET MORPHOLOGY REQUIRED (test NORMAL NORMAL code = PLTMR) T4 (THYROXINE)2020-05-07 21:23:00 Test Item Value Reference Range Interpretation Comments T4 (THYROXINE) (test code = T4) 5.9 mcg/dL 4.7-13.3 N THYROID STIMULATING [id number] 21:23:00 Test Item Value Reference Range Interpretation Comments THYROID STIMULATING 6.43 0.36-3.74 H Test Per formed in HORMONE (test code = MicroIn ternational Units/mL TSH) [id number] 21:23:00 Test Item Value Reference Range Interpretation Comments ESTRADIOL (test code = ESTRA) [id number] 21:23:00 Test Item Value Reference Range Interpretation Comments PROGESTERONE (test code = PROG) FOLLICLE STIMULATING [id number] 21:23:00 Test Item Value Reference Range Interpretation Comments FOLLICLE STIMULATING HORMONE (test code = FSH) Coronavirus 2019 nCoV [id number] 10:34:00 Test Item Value Reference Range Interpretation Comments Coronavirus 2019 nCoV Negative Negative RESUL TS CALLED TO READ Bedside (test code = BACK & CONFIRMED? BY [id number]) [email or web address] 05/07 1034 This result epps s not rule out co-inf ections with otherpatho gens. * False negative results may occur if a specimen isimproperly co llected, transported or handled. False negativer esults may also occur if amplification i nhibitors arepresent in t he specimen or if inadequate leve ls of virusesare pres ent in the specimen. * As with any molecular t est, if the virus mutat es in thetarget regio n, COVID-19 may no t be detected or may bedetected less predictably.DIPTI T PERFORMED UNDER AN EMERGENCY USE AUTHORIZATION F ROM FDA - CT ABD PELVIS [id number] 08:28:00 Patient Name: DEMETRIO FERNÁNDEZ Unit No: [id number] EXAMS: CPT CODE: [id number] CT ABD PELVIS W/CONT [id number] CT ABDOMEN AND PELVIS WITH CONTRAST AND MULTIPLANAR REFORMATS 05/07/2020. INDICATION: Left lower quadrant abdominal/pelvic pain for 6 days. Vomiting. History of endometriosis. COMPARISON: Pelvic ultrasound from the same day and abdomen CT 09/11/2016. TECHNIQUE: Helical imaging was performed diaphragmthrough the symphysis with axial and coronal reformations obtained. IV CONTRAST: 100 mL Isovue-300. GI CONTRAST: 10 mL Gastrografin diluted in water. DLP= 159.2 mGy-cm FINDINGS: LOWER CHEST: The lung bases are clear. No pleural or pericardial effusion. No adenopathy. SOLID ORGANS: Mild diffuse fatty liver infiltration without cirrhosis or enhancing lesion. Patent splenoportal circulation. The gallbladder, spleen, pancreas, adrenal glands and kidneys show no gross focal abnormality. BOWEL: Large volume fecal material in the ascending and transverse colon. No signs of diverticulitis. Nonobstructive bowel gas pattern. No pneumatosis. The appendix is not confidently visualized. There is no pericecal inflammation. PERITONEUM: No free intraperitoneal fluid or air. No adenopathy. RETROPERITONEUM: No adenopathy. The aorta is unremarkable. PELVIS: No pelvic adenopathy, mass or free fluid. Unremarkable bladder. Absent uterus and ovaries. No adnexal masses. No inguinal hernia or adenopathy. Scattered benign bilateral pelvic phleboliths with 2-3 mm phlebolith just laterally to the distal left ureter. No discrete ureteral stone. MUSCULOSKELETAL: No destructive bone lesions. Mild lumbosacral facet arthrosis and SI joint osteoarthritis. [facility] NAME: DEMETRIO FERNÁNDEZ Radiology DepartmentPHYS: Liz Shafer MD [address] : 1970 AGE: 49 SEX: F [place] [id number] LOC: LES PHONE #: [phone] EXAM DATE: 05/07/2020 STATUS: REG ER FAX #: [phone] RAD NO: [id number] Page 1 Signed Report 1 Patient Name: DEMETRIO FERNÁNDEZ Unit No: [id number] EXAMS: CPT CODE: [id number] CT ABD PELVIS W/CONT 76102 (Continued) IMPRESSION: 1. Constipation without acute CT explanation for the patient's symptoms. 2. Specifically, no acute findings are seen in the leftlower quadrant considering history. 3. Hysterectomy and apparent bilateral salpingo-oophorectomy. 4.No pelvic adenopathy, mass or free fluid. 5. No abnormal solid organ enhancement. Fatty liver. ____ CT imaging performed at this location utilizes radiation dose optimization techniques which include one or more of the following: -Automated exposure control -Adjustment of the mA and/or kV according to patient size -Use of iterative reconstruction technique SL: [id number] at 0828 Reported and signed by: Chris Edmonds MD CC: Liz Padilla MD Technologist: Marcela Louis, RT, CT CTDI: 7.77 DLP: 159.20 Trnscrbd D/ (0828) [email or web address] [facility] NAME: DEMETRIO FERNÁNDEZ Radiology Department PHYS: Liz Shafer MD [address] : 1970 AGE: 49 SEX: F [place], [place] [address] LOC: LES PHONE #: [phone] EXAM DATE: 05/07/2020 STATUS: REG ER FAX #: [phone] RAD NO: [id number] Page 2 Signed Report 1 Patient Name: DEMETRIO FERNÁNDEZ Unit No: [id number] EXAMS: CPT CODE: [id number] CT ABD PELVIS W/CONT 75059 (Continued) Orig Print D/T: S: 05/07/2020 (0832) [facility] NAME: DEMETRIO FERNÁNDEZ Radiology Department PHYS: Liz Shafer MD [address] : 1970 AGE:49 SEX: F [place], [place] [address] LOC: LES PHONE #: [phone] EXAM DATE: 05/07/2020 STATUS: REG ER FAX #: [phone] RAD NO: [id number] Page 3 Signed Report 1UA RFLX MICR CULT IF [id number] 08:25:00 Test Item Value Reference Range Interpretation Comments UA COLOR (test code = COLU) NIKKY YELLOW A UA APPEARANCE (test code = Slightly-Cloudy CLEAR APPU) UA GLUCOSE DIPSTICK (test NEGATIVE NEG code = DGLUU) UA BILIRUBIN DIPSTICK (test NEGATIVE NEG code = BILU) UA KETONE DIPSTICK (test code 1+ NEG A = KETU) UA SPECIFIC GRAVITY (test 1.033 1.001-1.035 N code = SGU) UA BLOOD DIPSTICK (test code NEG NEG = JUAN MANUEL) UA PH DIPSTICK (test code = 5.0 5-9 KENDY) UA PROTEIN DIPSTICK (test NEGATIVE NEG code = PROU) UA UROBILINIOGEN DIPSTICK NEGATIVE mg/dL NEG (test code = URO) UA NITRITE DIPSTICK (test NEG NEG code = MARILYN) UA LEUKOCYTE ESTERASE NEG NEG DIPSTICK (test code = LEUU) UA WBC (test code = WBCU) 3-5 #/hpf NONE SEEN A UA RBC (test code = RBCU) 0-2 #/hpf NONE SEEN UA EPITHELIAL CELLS (test MODERATE #/HPF RARE-FEW A code = EPIU) UA CALCIUM OXALATE CRYSTALS 11-15 #/LPF (test code = CAOXU) UA HYALINE CAST (test code = 3-5 #/hpf A HYALU) UA MUCUS (test code = MUCU) 2+ NONE SEEN Indication for culture: Dysuria/FrequencyCHEMISTRY 7 [id number] 08:16:00 Test Item Value Reference Range Interpretation Comments SODIUM (test code = NA) 140 mEq/L 135-145 N POTASSIUM (test code = K) 3.8 mEq/L 3.5-5.0 N CHLORIDE (test code = CL) 98 mEq/L 100-115 L CARBON DIOXIDE (test code = CO2) 29 mEq/L 22-31 N ANION GAP (test code = GAP) 17.00 10-20 N GLUCOSE (test code = GLU) 133 mg/dL 65-110 H BLOOD UREA NITROGEN (test code = 30 mg/dL 7-18 H BUN) GLOMERULAR FILTRATION RATE (test 67 ml/min >60 N code = GFR) CREATININE (test code = CREAT) 0.9 mg/dL 0.5-1.0 N CALCIUM (test code = CA) 9.1 mg/dL 8.4-10.2 N LIVER [id number] 08:16:00 Test Item Value Reference Range Interpretation Comments TOTAL PROTEIN (test code = PROT) 7.8 gm/dL 6.3-8.2 N ALBUMIN (test code = ALB) 4.7 gm/dL 3.4-4.8 N BILIRUBIN TOTAL (test code = BILT) 0.5 mg/dL 0.2-1.0 N BILIRUBIN DIRECT (test code = 0.1 mg/dL <0.2 N BILD) SGOT/AST (test code = AST) 19 units/L 15-37 N SGPT/ALT (test code = ALT) 29 units/L 12-78 N ALKALINE PHOSPHATASE TOTAL (test 85 units/L 46-116 N code = ALKP) [id number] 08:16:00 Test Item Value Reference Range Interpretation Comments LIPASE (test code = LIP) 66 units/L 73-393 L - US TRANSVAGINAL [id number] 08:14:00 Patient Name: DEMETRIO FERNÁNDEZ Unit No: [id number] EXAMS: CPT CODE: [id number] US TRANSVAGINAL [id number] TRANSVAGINAL PELVIC ULTRASOUND 05/07/2020 AT 0 713 HOURS. CLINICAL HISTORY: Abdominal/pelvic pain for 6 days. Vomiting. History of endometriosis. REPORTED LMP: Hysterectomy and left oophorectomy (2009). COMPARISON STUDIES: No recent relevant priors at this institution. Reference is made to the abdomen and pelvis CT 09/11/2016 and the pelvic ultrasound from 02/25/2015. By report the patient has an outside ultrasound from [facility] in [facility] dated 05/05/2020. This study is not available at the time of dictation. FINDINGS: Sonographic evaluation of the uterus and adnexa was performed using a transabdominal and transvaginal approach. Images were obtained using grayscale as well as limited color and pulsed Doppler. TRANSABDOMINAL SCAN: Limited detail assessment by transabdominal scanning. This required transvaginal examination. Partially distended bladder with urine with no filling defects or diverticula. TRANSVAGINAL SCAN: Prior hysterectomy. Ovaries are not visualized. No adnexal masses or free pelvic fluid. IMPRESSION: 1. No sonographic explanation for the patient's symptoms. 2. Hysterectomy and left oophorectomy by history. 3. Nonvisualized right ovary. 4. No free fluid. No adnexal mass. SL: [id number] at 0814 Reported and signed by: Chris Edmonds MD CC: Liz Padilla MD Technologist: Nory Mace RDMS Probe: [id number] Trnscrbd D/ (0814) [email or web address] Orig Print D/T: S: 05/07/2020 (0817) [facility] NAME: DEMETRIO FERNÁNDEZ Radiology Department PHYS: Liz Shafer MD [address] : 1970 AGE: 49 SEX: F [place], [place] [address] LOC: LES PHONE #: [phone] EXAM DATE: 05/07/2020 STATUS: REG ER FAX #: [phone] RAD NO: [id number] Page 1 Signed Report Patient Name: DEMETRIO FERNÁNDEZ Unit No: [id number] EXAMS: CPT CODE: [id number] US TRANSVAGINAL W/PELVIS 73342 (Continued) [facility] NAME: DEMETRIO FERNÁNDEZ Radiology Department PHYS: Liz Shafer MD [address] : 1970 AGE: 49 SEX: F [place], [place] [address] LOC: LES PHONE #: [phone] EXAM DATE: 05/07/2020 STATUS: REG ER FAX #: [phone] RAD NO: [id number] Page 2 Signed Report- US PELVIS [id number] 08:14:00 Patient Name: DEMETRIO FERNÁNDEZ Unit No: [id number] EXAMS: CPT CODE: [id number] US PELVIS COMPLETE 16204 TRANSVAGINAL PELVIC ULTRASOUND 05/07/2020 AT 0 713 HOURS. CLINICAL HISTORY: Abdominal/pelvic pain for 6 days. Vomiting. History of endometriosis. REPORTED LMP: Hysterectomy and left oophorectomy (2009). COMPARISON STUDIES: No recent relevant priors at this institution. Reference is made to the abdomenand pelvis CT 09/11/2016 and the pelvic ultrasound from 02/25/2015. By report the patient has an outside ultrasound from [facility] in [facility] dated 05/05/2020. This study is not available at the time ofdictation. FINDINGS: Sonographic evaluation of the uterus and adnexa was performed using a transabdominal and transvaginal approach. Images were obtained using grayscale as well as limited color and pulsed Doppler. TRANSABDOMINAL SCAN: Limited detail assessment by transabdominal scanning. This required transvaginal examination. Partially distended bladder with urine with no filling defects or diverticula. TRANSVAGINAL SCAN: Prior hysterectomy. Ovaries are not visualized. No adnexal masses or free pelvic fluid. IMPRESSION: 1. No sonographic explanation for the patient's symptoms. 2. Hysterectomy and left oophorectomy by history. 3. Nonvisualized right ovary. 4. No free fluid. No adnexal mass. SL: [id number] at 0814 Reportedand signed by: Chris Edmonds MD CC: Liz Padilla MD Technologist: Nory Mace, RDMSProbe: Trnscrbd D/ (0814) [email or web address] Orig Print D/T: S: 05/07/2020 (0817) [facility] NAME: DEMETRIO FERNÁNDEZ Radiology Department PHYS: Liz Shafer MD [address] : 1970 AGE: 49 SEX: F [place] [address] LOC: Delia.ERS PHONE #: [phone] EXAM DATE: 05/07/2020 STATUS: REG ER FAX #: [phone] RAD NO: [id number] Page 1 Signed Report Patient Name: DEMETRIO FERNÁNDEZ Unit No: [id number] EXAMS: CPT CODE: [id number] US PELVIS COMPLETE 74380 (Continued) [facility] NAME: DEMETRIO FERNÁNDEZ Radiology Department PHYS: Liz Shafer MD [address] : 1970 AGE: 49 SEX: F [place] [address] LOC: .ERS PHONE #: [phone] EXAM DATE: 05/07/2020 STATUS: REG ER FAX #: [phone] RAD NO: [id number] Page 2 Signed ReportCBC W/AUTO [id number] 08:07:00 Test Item Value Reference Range Interpretation Comments WHITE BLOOD CELL (test code = WBC) 14.4 K/mm3 6.6-12.1 H RED BLOOD CELL (test code = RBC) 5.36 M/mm3 3.45-5.01 H HEMOGLOBIN (test code = HGB) 17.4 g/dL 10.7-13.9 H HEMATOCRIT (test code = HCT) 50.8 % 32.1-42.1 H MEAN CELL VOLUME (test code = MCV) 95 fL 84.1-94.8 H MEAN CELL HGB (test code = MCH) 32.5 pg 27-35 N MEAN CELL HGB CONCETRATION (test 34.3 gm/dL 32.2-34.1 H code = MCHC) RED CELL DISTRIBUTION WIDTH (test 11.8 % 12.4-16.5 L code = RDW) PLATELET COUNT (test code = PLT) 472 K/mm3 133-385 H MEAN PLATELET VOLUME (test code = 9.9 fl 9.1-12.7 N MPV) NEUTROPHIL % (test code = NT%) 69.6 % 56.5-79.4 N LYMPHOCYTE % (test code = LY%) 19.3 % 14.3-34.3 N MONOCYTE % (test code = MO%) 9.6 % 5.1-10.4 N EOSINOPHIL % (test code = EO%) 0.8 % 0.1-3.0 N BASOPHIL % (test code = BA%) 0.3 % 0.1-1.0 N NEUTROPHIL # (test code = NT#) 10.1 K/mm3 LYMPHOCYTE # (test code = LY#) 2.8 K/mm3 MONOCYTE # (test code = MO#) 1.4 K/mm3 EOSINOPHIL # (test code = EO#) 0.12 K/mm3 BASOPHIL # (test code = BA#) 0.1 K/mm3 RBC MORPHOLOGY REQUIRED (test code NORMAL NORMAL = RBCM) PLATELET MORPHOLOGY REQUIRED (test NORMAL NORMAL code = PLTMR)
[2022-05-29 16:20] LABS: Hematocrit 44.2 % (36.0-45.0); Lymphocytes % 9.7 % (15.3-44.8); MCV 93.3 fL (80-100); MPV 7.3 fL (7.6-11.3); RBC Red Blood Cell Count 4.73 M/uL (3.86-4.86)
[2022-05-29] MEDS ORDERED: METOCLOPRAMIDE 10 MG/2mL INJ ONE (16:27)
[2022-05-29] MEDS ORDERED: FAMOTIDINE 20 MG/2 ML VIAL IV ONE (16:28)
[2022-05-29] MEDS ORDERED: HYDROMORPHONE HCL 0.5 MG/0.5 ML INJ ONE (16:28)
[2022-05-29] MEDS ORDERED: NA CHLORIDE 0.9% 1,000 ML ONE (16:28)
[2022-05-29] MEDS ORDERED: DIPHENHYDRAMINE 12.5MG/5ML LIQ ONE (16:28)
[2022-05-29] MEDS ORDERED: DIPHENHYDRAMINE 50 MG/ML VIAL ONE (16:29)
[2022-05-29 16:37] LABS: Albumin 4.7 g/dL (3.4-5.0); Bilirubin Total 0.4 mg/dL (0.2-1.0); Potassium 3.4 mmol/L (3.5-5.1); Protein, Total 8.1 g/dL (6.4-8.2)
[2022-05-29 17:09] LABS: Urine Blood 2+ (Negative); Urine Glucose Negative (Negative); Urine Protein 1+ (Negative); Urine Specific Gravity >=1.030 (1.005-1.030)
--- NOTE | 2022-05-29 17:15 | RAD REPORT ---
EXAM DESCRIPTION: CT - Abdomen Pelvis W Contrast - 05/29/2022 4:56 pm CLINICAL HISTORY: abdominal pain COMPARISON: Abdomen Pelvis W Contrast dated 12/04/2017 TECHNIQUE: Biphasic, helical CT imaging of the abdomen and pelvis was performed following 100 ml non -ionic IV contrast. No oral contrast administered. All CT scans are performed using dose optimization technique as appropriate and may include automated exposure control or mA/KV adjustment according to patient size. FINDINGS: No suspicious findings in the lung bases. The liver, spleen, and pancreas show no suspicious findings. Gallbladder and biliary tree are also wi thout suspicious finding. Symmetric renal function is seen with no hydronephrosis or suspicious renal mass. No pyelonephritis o r acute parenchymal process. No bladder abnormalities. No adrenal abnormalities. No dilated bowel loops or bowel wall thickening. Appendix is not identified and surgically absent by history. No free air, free fluid or inflammatory stranding. No hernia, mass or bulky lymphadenopathy . Uterus is absent. Ovaries are absent, atrophic are obscured by non-opacified adjacent bowel. No GROUP UNDERWRITER process seen. No suspicious bony findings. IMPRESSION: Contrast enhanced CT abdomen and pelvis showing no acute or emergent finding.
[2022-05-29] MEDS ORDERED: HYDROMORPHONE HCL 1 MG/ML INJ ONE (18:45)
--- NOTE | 2022-05-29 19:23 | EDPHYS ---
Physician Documentation [facility] Name: Alysha Fernández Age: 52 yrs Sex: Female : 1970 Arrival Date: 05/29/2022 Time: 15:32 Bed 14 Private MD: [place] Physician Ginny Zhou HPI: 05/29 16:00 This 52 yrs old Female presents to ER via Unassigned with complaints of Abdominal Pain. jmm 16:00 Onset: The symptoms/episode began/occurred gradually, 1 day(s) ago. The symptoms do not jmm radiate. Associated signs and symptoms: Pertinent positives: nausea and vomiting. The symptoms are described as achy. Modifying factors: The symptoms are alleviated by nothing, the symptoms are aggravated by nothing. The patient has not experienced similar symptoms in the past. This is a 52-year-old female with history of anxiety the presents emerged part with complaints of abdominal pain which is similar in character to previous episodes. Patient developed nausea and vomiting yesterday. Pain is increased today. Denies diarrhea.. 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 - Social history:: Smoking status: Patient denies any tobacco usage or history of. Patient/guardian denies using tobacco products. ROS: 16:00 Constitutional: Negative for fever, chills, and weight loss, Cardiovascular: Negative jmm for chest pain, palpitations, and edema, Respiratory: Negative for shortness of breath, cough, wheezing, and pleuritic chest pain. 16:00 Abdomen/GI: Positive for abdominal pain, nausea and vomiting. 16:00 All other systems are negative. Exam: 16:00 Constitutional: This is a well developed, well nourished patient who is awake, alert, jmm and in no acute distress. Head/Face: atraumatic. Eyes: EOMI, no conjunctival erythema appreciated ENT: Moist Mucus Membranes Neck: Trachea midline, Supple Chest/axilla: Normal chest wall appearance and motion. Cardiovascular: Regular rate and rhythm. No edema appreciated Respiratory: Normal respirations, no respiratory distress appreciated 16:00 Back: Normal ROM Skin: General appearance color normal MS/ Extremity: Moves all extremities, no obvious deformities appreciated, no edema noted to the lower extremities Neuro: Awake and alert Psych: Behavior is normal, Mood is normal, Patient is cooperative and pleasant 16:00 Abdomen/GI: Inspection: abdomen appears normal, Bowel sounds: normal, Palpation: soft, moderate abdominal tenderness, in the left upper quadrant and left lower quadrant. Vital Signs: 17:10 BP 119 / 85; Pulse 100; Resp 16; Pulse Ox 100% on R/A; Pain 10/10; bm7 18:05 BP 122 / 96; Pulse 96; Resp 16; Pulse Ox 99% on R/A; Pain 2/10; bm7 18:43 BP 119 / 83; Pulse 100; Resp 16; Pulse Ox 99% on R/A; Pain 10/10; bm7 MDM: 16:00 Patient medically screened. [facility] 19:22 Data reviewed: vital signs, nurses notes. Counseling: I had a detailed discussion with sudhakar the patient and/or guardian regarding: the historical points, exam findings, and any diagnostic results supporting the discharge/admit diagnosis, radiology results, the need for outpatient follow up, to return to the emergency department if symptoms worsen or persist or if there are any questions or concerns that arise at home. 19:22 ED course: Patient is alert nontoxic in appearance NAD. Patient states feeling much [facility] better. Patient advised to follow with her dot compliance coordinator and otherwise given strict return precautions. Patient understood agrees plan of care.. 05/29 16:00 Order name: CBC with Diff; Complete Time: 16:33 [facility] 05/29 16:00 Order name: CMP; Complete Time: 16:44 [facility] 05/29 16:00 Order name: Lipase; Complete Time: 16:44 [facility] 05/29 16:06 Order name: CT Abd/Pelvis - IV Contrast Only; Complete Time: 17:19 [facility] 05/29 17:09 Order name: Urine Dipstick-Ancillary; Complete Time: 17:09 [facility] 05/29 17:12 Order name: Urine --Ancillary (enter results); Complete Time: 18:14 05/29 16:00 Order name: IV Saline Lock; Complete Time: 16:44 [facility] 05/29 16:00 Order name: Labs collected and sent; Complete Time: 16:44 [facility] 05/29 16:00 Order name: Urine Dipstick-Ancillary (obtain specimen); Complete Time: 17:10 [facility] 05/29 16:00 Order name: Urine Test (obtain specimen); Complete Time: 17:10 [facility] Administered Medications: 16:33 Drug: NS 0.9% 1000 ml Route: IV; Rate: 1 bolus; Site: right antecubital; bm7 17:59 Follow up: IV Status: Completed infusion; IV Intake: 1000ml bm7 16:33 Drug: Reglan (metoCLOPramide) 20 mg Route: IVP; Site: right antecubital; bm7 17:12 Follow up: Response: No adverse reaction bm7 16:33 Drug: Pepcid (famotidine) 20 mg Route: IVP; Site: right antecubital; bm7 17:12 Follow up: Response: No adverse reaction bm7 16:33 Drug: Dilaudid (HYDROmorphone) 0.5 mg Route: IVP; Site: right antecubital; bm7 17:59 Follow up: Response: Pain is decreased bm7 16:40 Drug: diphenhydrAMINE 12.5 mg Route: IVP; Site: right antecubital; bm7 17:13 Follow up: Response: No adverse reaction bm7 18:43 Drug: Dilaudid (HYDROmorphone) 1 mg Route: IVP; Site: right antecubital; bm7 19:35 Follow up: Response: Pain is decreased bm7 Disposition: 05/30 08:19 STAFF ATTESTATION STATEMENT: I was immediately available onsite in the emergency sd2 department for consultation in the care of this patient. I did not see or examine this patient. Ginny Zhou MD. Disposition Summary: 05/29/22 19:22 Discharge Ordered Location: Home [facility] Condition: Stable jmm Diagnosis - Other abdominal pain jmm Followup: jmm - With: Private Physician - When: 2 - 3 days - Reason: Recheck today's complaints, Continuance of care, Re-evaluation by your physician Discharge Instructions: - Discharge Summary Sheet jmm - Abdominal Pain, Adult jmm Forms: - Medication Reconciliation Form [facility] - Thank You Letter [facility] - Antibiotic Education [facility] - Prescription Opioid Use [facility] Prescriptions: - Pepcid 20 mg Oral Tablet - take 1 tablet by ORAL route every 12 hours for 10 days; 20 tablet; Refills: 0, [facility] Product Selection Permitted - Carafate 1 gram Oral Tablet - take 2 tablets by ORAL route every 12 hours take on an empty stomach, beginning jmm on waking and last dose at bedtime; 100 tablet; Refills: 0, Product Selection Permitted - ondansetron 4 mg Oral tablet,disintegrating - take 1 tablet by ORAL route every 4-6 hours As needed; 20 tablet; Refills: 0, [facility] Product Selection Permitted Signatures: Dispatcher [employer] Edgard Choe PA PA jmm McCarthy, Brittany, RN RN [facility] Ginny Zhou MD MD sd2 Corrections: (The following items were deleted from the chart) 05/29 17:12 16:52 PSHx: None; [place] [id number]
--- NOTE | 2022-05-29 19:23 | ER ---
Nurse's Notes [facility] Name: Alysha Fernández Age: 52 yrs Sex: Female : 1970 Arrival Date: 05/29/2022 Time: 15:32 Bed 14 Private MD: Diagnosis: Other abdominal pain ATTENDING UROLOGIST: 05/29 17:10 LMP N/A - Hysterectomy bm7 Historical: - Allergies: 16:52 Codeine; bm7 16:52 Morphine; bm7 - Home Meds: 16:52 tramadol 50 mg Oral tab [Active]; Xanax 0.5 mg Oral tab [Active]; bm7 - PMHx: 16:52 Anxiety; bm7 - PSHx: 17:11 Total abdominal hysterectomy; Cholecystectomy; bm7 - Immunization history:: Adult Immunizations up to date. - Social history:: Smoking status: Patient denies any tobacco usage or history of. Patient/guardian denies using tobacco products. Screenin:52 Abuse screen: Denies threats or abuse. Nutritional screening: No deficits noted. bm7 Tuberculosis screening: No symptoms or risk factors identified. Fall Risk None identified. Assessment: 16:51 Reassessment: Patient and/or family updated on plan of care and expected duration. Pain bm7 level reassessed. Patient is alert, oriented x 3, equal unlabored respirations, skin warm/dry/pink. General: Appears distressed, uncomfortable, slender, Behavior is anxious, crying, restless. Pain: Complains of pain in left upper quadrant and left lower quadrant Pain does not radiate. Pain currently is 10 out of 10 on a pain scale. Neuro: No deficits noted. Cardiovascular: No deficits noted. Respiratory: No deficits noted. GI: Abdomen is flat, non-distended, Bowel sounds present X 4 quads. Abd is soft X 4 quads Abdomen is tender to palpation in left upper quadrant and left lower quadrant Reports nausea, vomiting. : No deficits noted. No signs and/or symptoms were reported regarding the genitourinary system. EENT: No deficits noted. No signs and/or symptoms were reported regarding the EENT system. Derm: No deficits noted. No signs and/or symptoms reported regarding the dermatologic system. Musculoskeletal: No deficits noted. No signs and/or symptoms reported regarding the musculoskeletal system. 17:12 Reassessment: Patient and/or family updated on plan of care and expected duration. Pain bm7 level reassessed. Patient states feeling better. Patient states symptoms have improved. 18:05 Reassessment: Patient states feeling better. Patient states symptoms have improved. bm7 18:30 Reassessment: Patient and/or family updated on plan of care and expected duration. Pain bm7 level reassessed. Patient is alert, oriented x 3, equal unlabored respirations, skin warm/dry/pink. 18:44 Reassessment: patient complains of a return of pain PA notified. New orders received bm7 and implemented. 19:45 Reassessment: Patient appears in no apparent distress at this time. Patient and/or jb4 family updated on plan of care and expected duration. Pain level reassessed. Patient is alert, oriented x 3, equal unlabored respirations, skin warm/dry/pink. Patient states feeling better. Vital Signs: 17:10 BP 119 / 85; Pulse 100; Resp 16; Pulse Ox 100% on R/A; Pain 10/10; bm7 18:05 BP 122 / 96; Pulse 96; Resp 16; Pulse Ox 99% on R/A; Pain 2/10; bm7 18:43 BP 119 / 83; Pulse 100; Resp 16; Pulse Ox 99% on R/A; Pain 10/10; bm7 ED Course: 15:32 Patient arrived in ED. as 15:36 Edgard Lezama PA is PHCP. [facility] 15:36 Ginny Zhou MD is Attending Physician. [facility] 16:33 Tricia Che, ALINA is Primary Nurse. bm7 16:[address] bm7 16:49 No apparent distress. Resting quietly. bm7 16:49 Patient has correct armband on for positive identification. Placed in gown. Bed in low bm7 position. Call light in reach. Adult w/ patient. Client placed on continuous cardiac and pulse oximetry monitoring. NIBP monitoring applied. Door closed. Noise minimized. Lights dimmed. Warm blanket given. Head of bed lowered. Assisted to bathroom. 16:49 No provider procedures requiring assistance completed. Initial lab(s) drawn, by fabrizio ingram sent to lab. Urine collected: clean catch specimen, clear. Inserted saline lock: 20 gauge in right antecubital area, using aseptic technique. Blood collected. Missed attempt(s): 20 gauge in left antecubital area. Bleeding controlled, band aid applied, catheter tip intact. Patient maintains SpO2 saturation greater than 95% on room air. 16:58 CT Abd/Pelvis - IV Contrast Only In Process Unspecified. EDMS 17:12 [address] back from [address]. bm7 17:42 Assisted to bathroom. bm7 19:34 IV discontinued, intact, bleeding controlled, No redness/swelling at site. Pressure bm7 dressing applied. Administered Medications: 16:33 Drug: NS 0.9% 1000 ml Route: IV; Rate: 1 bolus; Site: right antecubital; bm7 17:59 Follow up: IV Status: Completed infusion; IV Intake: 1000ml bm7 16:33 Drug: Reglan (metoCLOPramide) 20 mg Route: IVP; Site: right antecubital; bm7 17:12 Follow up: Response: No adverse reaction bm7 16:33 Drug: Pepcid (famotidine) 20 mg Route: IVP; Site: right antecubital; bm7 17:12 Follow up: Response: No adverse reaction bm7 16:33 Drug: Dilaudid (HYDROmorphone) 0.5 mg Route: IVP; Site: right antecubital; bm7 17:59 Follow up: Response: Pain is decreased bm7 16:40 Drug: diphenhydrAMINE 12.5 mg Route: IVP; Site: right antecubital; bm7 17:13 Follow up: Response: No adverse reaction bm7 18:43 Drug: Dilaudid (HYDROmorphone) 1 mg Route: IVP; Site: right antecubital; bm7 19:35 Follow up: Response: Pain is decreased bm7 Medication: 16:52 VIS not applicable for this client. bm7 Intake: 17:59 IV: 1000ml; Total: 1000ml. bm7 Outcome: 19:22 Discharge ordered by . sudhakar 19:34 Discharged to home ambulatory. bm7 19:34 Condition: improved 19:34 Discharge instructions given to patient, family, Instructed on discharge instructions, follow up and referral plans. medication usage, Demonstrated understanding of instructions, follow-up care, medications. 19:46 Patient left the ED. jb4 Signatures: Dispatcher [employer] EDMS Edgard Lezama PA PA jmm Martinez, Amelia as Bryson, James, RN RN jb4 Tricia Che RN RN bm7 Corrections: (The following items were deleted from the chart) 17:12 16:52 PSHx: None; bm7 bm7
[2022-05-29 22:27] VITALS: O2SAT 99
[2022-05-29 22:30] VITALS: BP 119/83
== END 2022-05-29 19:46 | disposition home or self-care (01) ==
LOC: ER 15:28
DX: R10.9 Unspecified abdominal pain (principal); R11.2 Nausea with vomiting, unspecified; F41.9 Anxiety disorder, unspecified; Z88.5 Allergy status to narcotic agent
CPT/HCPCS: 96361; 85025; 36415; 81025; 81003; 83690; 80053; 74177; 96375; 96374; 99285; Q9967; J2765; J1200; Q0163; J1170 ×2; J7030

== ENCOUNTER 2022-09-19 16:07 | Emergency (ER) | payer OTHER ==
--- OUTSIDE RECORDS SUMMARY | 2022-09-19 16:11 | XMS REPORT | Continuity of Care Document ---
:1970 Author Organization [facility] t Address [address] [place] [address] Care Team Providers Name Role Phone Palomo Larson MD Primary Care Physician Kyung Gomes Attending Clinician Unavailable Doctor Unassigned, [place] Attending Clinician Unavailable Palomo Larson MD Attending Clinician PALOMO LARSON Attending Clinician Unavailable Marifer Espitia Attending Clinician CANDIE HAMILTON Attending Clinician Unavailable Jenelle Nix Admitting Clinician Unavailable Kyung Gomes Admitting Clinician Unavailable Anika Harper Admitting Clinician Unavailable Payers Payer Name Policy Type Policy Number Effective Date Expiration Date Kong johnson AET[employer]OMAS HMO [id number] 2015 00:00:00 [employer]ET[employer] C1 [id number] Common [facility] Problems Condition Condition Condition Status Onset Resolution Last Treating Co mments Source Name Details Category Date Date Treatment Clinician Date Anxiety Anxiety Disease Active 2016- Univers 605 ity of 00:00: [place] 00 Medical Branch Fatigue Fatigue Disease Active Univers 6 ity of 00:00: [place] [facility] Hypothyroi Hypothyroi Disease Active U nivers dism due dism due 04-02 ity of to to 00:00: [place] acquired acquired 00 Medica l atrophy of atrophy of Br anch thyroid thyroid Weight Weight Disease Active Univers loss loss 04-02 ity of 00:00: Medical [place] [id number] LLQ Problem Active Common abdominal [facility] pain [facility] Kidney Kidney Problem Active Common stone stone [facility] Allergies, Adverse Reactions, Alerts Allergy Allergy Status Severity Reaction(s) Onset Inactive Treating Comm ents Source Name Type Date Date Clinician Penicill DA Active SV 2019-1 [facility] ins 0-01 [place] 00:00: d 00 [facility] morphine DA Active SV 2020-1 [facility] 0-01 [place] 00:00: d 00 [facility] codeine DA Active SV 2020-1 [facility] 0-01 [place] 00:00: d 00 [facility] Penicill DA Active SV RASH, NAUSEA 2019-1 HC A ins AND VOMITING 0-01 Pear brandie 00:00: d 00 [facility] morphine DA Active SV NAUSEA AND 2020-1 [facility] VOMITING 0-01 [place] 00:00: d 00 [facility] codeine DA Active SV NAUSEA AND 2020-1 [facility] VOMITING 0-01 [place] 00:00: d 00 [facility] pcn DA Active MO rash 2020-0 [facility] 7-29 [facility] 00:[facility]: [facility] [place] Morphine Propensi Active Anaphylaxis 2020-0 U nivers ty to 7-25 ity of adverse 00:00: [place] reaction 00 Medical s Branch Penicill Propensi Active Nausea 2020-0 Univer s ins ty to and/or 7-25 ity of adverse Vomiting 00:00: [place] reaction 00 Medical s Branch Codeine Propensi Active Swelling 2019- Metho di ty to 2-04 st adverse 00:00: Hospita reaction 00 l s to drug Morphine Propensi Active Swelling 2018-10 Meth junie ty to 11-13 st adverse 00:00: Hospita reaction 00 l s to drug morphine DA Active U 2015-10 [facility] 2- [facility] 00:00: [facility] [place] morphine DA Active U nasu 2015-10 [facility] 2- Woman's 00:00: [facility] [place] Codeine Propensi Active Unknown - Univ ers ty to See comments 6-23 ity of adverse 00:00: [place] reaction 00 Medical s Branch codeine DA Active MO 2014- [facility] 7- Woman's 00:00: [facility] 00 [facility] [place] codeine DA Active MO HIVES/RASH 2014- [facility] 7- Woman[facility] 00:00: [facility] [place] Social History Social Habit Start Date Stop Date Quantity Comments Source History of [facility] - Tobacco Use [facility] Exposure to 2022-05-24 2022-06-03 Not sure University SARS-CoV-2 00:00:00 13:38:00 [facility] (event) [place] Tobacco use and 2022-06-03 2022-06-03 Smokeless tobacco Un iversity of exposure 00:00:00 00:00:00 non-user [facility] Alcohol intake 2019-09-12 2019-09-[address] [facility] 00:00:00 00:00:00 of alcohol (finding) Sex Ass[birth year] [facility] 00:00:00 00:00:00 Smoking Status Start Date Stop Date Source Never Smoker Common [facility] - [facility] Tobacco smoking consumption [facility] unknown Medications Ordered Filled Start Stop Current Ordering Indication Dosage Frequency Signature Comments Components Source Medication Medication Date Date Medication? Clinician (SIG) Name Name ALPRAZolam Yes [id number] .5mg Take 1 Univers 0.5 mg 8-25 tablet by ity of tablet 00:00: mouth in [place] [address] the Medical morning Branch and 1 tablet in the evening. ALPRAZolam Yes [id number] .5mg Take 1 Univers 0.5 mg 8-25 tablet by ity of tablet 00:00: mouth in [place] [address] the Medical morning Branch and 1 tablet in the evening. HYDROmorpho 2021- No [id number] 2mg Take 1 Uni vers ne 2 mg -06-11 tablet by ity of tablet 00:00: 04:59 mouth [place] 00 :00 every 4 Medical (four) Branch hours as needed for Pain (scale 7-10) for up to 7 days. Indication s: acute pain traMADoL 50 0 Yes 2745 TAKE 1 Univ ers mg tablet 5-09 TABLET BY ity o f 00:00: MOUTH [place] 00 EVERY 6 Medical HOURS Branch NEEDED PAIN Indication s: chronic pain traMADoL 50 Yes 2745 TAKE 1 Univ ers mg tablet 5-09 TABLET BY ity o f 00:00: MOUTH [place] 00 EVERY 6 Medical HOURS Branch NEEDED PAIN Indication s: chronic pain ALPRAZolam 2021- No [id number] .5mg Take 1 Univers 0.5 mg 5-06 17- tablet by ity of tablet 00:00: 00:00 mouth 2 [place] 00 :00 (two) Medical times Branch daily. MULTIVITAMI Yes Take by Uni vers N ORAL 9-10 mouth. ity of 09:55: [address] Branch MULTIVITAMI Yes Take by Uni vers N ORAL 9-10 mouth. ity of 09:55: [address] Branch loratadine 2015-10 Yes [id number] 10mg Take 1 Univers (CLARITIN) 2-21 tablet by ity of 10 mg 00:00: mouth [place] tablet 00 daily. Medical Branch fluticasone 2015-10 Yes [id number] 1-2 sprays Univers 50 2-21 in each ity of mcg/actuati 00:00: nostril [place] as on nasal 00 daily Medical spray Branch loratadine 2015-10 Yes [id number] 10mg Take 1 Univers (CLARITIN) 2-21 tablet by ity of 10 mg 00:00: mouth [place] tablet 00 daily. Medical Branch fluticasone 2015-10 Yes [id number] 1-2 sprays Univers 50 2-21 in each ity of mcg/actuati 00:00: nostril [place] as on nasal 00 daily Medical spray Branch Vitamin E Vitamin E No 1{capsu QD Vitamin E 1000 UNIT 1000 UNIT le} 1000 UNIT tramadol tramadol No tramadol Xanax 0.5 Xanax 0.5 No 1{table BID Xanax 0.5 MG MG t} MG Vital Signs Vital Name Observation Time Observation Value Comments Source Systolic blood 2022-06-03 18:44:00 112 mm[Hg] Univer sity of pressure [facility] Diastolic blood 2022-06-03 18:44:00 74 mm[Hg] Unive rsity of [facility] Heart rate 2022-06-03 18:44:00 84 /[facility] Body height 2022-06-03 18:44:00 152.4 cm [facility] Body weight 2022-06-03 18:44:00 44.634 kg [facility] BMI 2022-06-03 18:44:00 19.22 kg/m2 [facility] Oxygen saturation in 2022-06-03 18:44:00 100 /min [facility] Arterial blood by [facility] Pulse oximetry Branch height 2020-09-24 11:30:00 60 [in_i] [facility] weight 2020-09-24 11:30:00 87 [lb_av] [facility] temperature 2020-09-24 11:30:00 97.7 [degF] [facility] bmi 2020-09-24 11:30:00 16.99 kg/m2 [facility] oximetry 2020-09-24 11:30:00 99 % [facility] blood pressure 2020-09-24 11:30:00 133 mm[Hg] [facility] - systolic [facility] blood pressure 2020-09-24 11:30:00 78 mm[Hg] [facility] - diastolic [facility] Procedures Procedure Date / Time Performed Performing Clinician Sourc e EXTERNAL PROVIDER 2022-06-17 05:01:00 [facility]igned[facility] Plan of Care Planned Activity Planned Date Details Comments Source Future Scheduled 2022-08-15 Screening for [facility] Test 00:58:01 malignant neoplasm of cervix (procedure) [code = 577122189] Future Scheduled 2022-08-15 BREAST CANCER [facility] Test 00:58:01 SCREENING [code = BREAST CANCER SCREENING] Future Scheduled 2022-08-15 COLONOSCOPY SCREENING [facility] Test 00:58:01 [code = COLONOSCOPY SCREENING] Future Scheduled 2022-08-15 SHINGLES VACCINES (1 [facility] Test 00:58:01 of 2) [code = SHINGLES VACCINES (1 of 2)] Future Scheduled 2022-08-15 INFLUENZA VACCINE [facility] Test 00:58:01 [code = INFLUENZA VACCINE] Future Scheduled 2022-08-15 HEPATITIS B VACCINES [facility] Test 00:58:01 (1 of 3 - 3-dose series) [code = HEPATITIS B VACCINES (1 of 3 - 3-dose series)] Future Scheduled 2022-08-15 COVID-19 VACCINE (#1) Me [facility] Test 00:58:01 [code = COVID-19 VACCINE (#1)] Future Scheduled 2022-08-15 Hepatitis C screening [facility] Test 00:58:01 (procedure) [code = 908111871] Encounters Start End Encounter Admission Attending Care Care Encounter Source Date/Time Date/Time Type Type Clinicians Facility Department ID 2021-11-04 Outpatient STLMLC STLC [id number] Common 12:13:58 [id number] [facility] 2021-08-07 Emergency [facility] [id number] Univers 08:48:43 ity of [facility] 2020-08-31 Inpatient HCAPM C[facility]STAL [id number] [facility] 19:31:00 63 [facility] 2020-07-24 Inpatient [facility] [id number] [facility] 04:15:00 80 [facility] 2020-07-23 Inpatient [facility]CAWH [facility] [id number] [facility] 14:07:00 82 [facility] [place] 2020-07-19 Inpatient [facility] [id number] [facility] 02:17:00 70 [facility] [place] 2020-07-14 Inpatient KATHLEEN Gomes, HCAWH DAYS [id number] [facility] 13:00:00 Kyung 53 [facility] [place] 2020-05-07 Inpatient [facility] [id number] [facility] 05:57:00 93 [facility] [place] 2022-06-17 2022-06-17 Orders Doctor MEANS [id number] Univers 00:00:00 00:00:00 Only Unassigned, EDGAR 350.1.13.10 ity of [facility] 4.2.7.2.686 [place] as [phone] [address] 2022-06-03 2022-06-03 [facility] 1.2.840.114 [id number] Univers 13:45:00 14:00:00 Visit [facility] [id number] it y of [place] 4.2.7.2.686 [place] as JOSE CRUZ?BLEA [phone] [address] OFFICE [facility] 2022-06-03 2022-06-03 Outpatient Teresa LARSON [facility] [id number] Univers 13:45:00 13:45:00 [facility] 2022-06-02 2022-06-02 Outpatient [facility] [id number] Univers 12:45:00 12:45:00 [facility] 2022-02-15 2022-02-15 [facility] 1.2.840.114 [id number] Univers 12:00:00 12:15:00 Visit [facility] [id number] it y of [place] 4.2.7.2.686 [place] as JOSE CRUZ?BLEA [phone] [address] MEDICAL OFFICE [facility] 2022-02-15 2022-02-15 Outpatient Teresa LARSON [facility] [id number] Univers 12:00:00 12:00:00 [facility] 2022-02-11 2022-02-11 [facility]angeles [facility] 1.2.840.114 [id number] Univers 00:00:00 00:00:00 [facility] [id number] it y of [facility] 4.2.7.2.686 William as JOSE CRUZ?BLEA [id number] [address] MEDICAL OFFICE [facility] 2021-11-16 2021-11-16 Refangeles [facility] 1.2.840.114 [id number] Univers 00:00:00 00:00:00 Palomo HEALTH 350.1.13.10 it y of [place] 4.2.7.2.686 [place] as JOSE CRUZ?BLEA [phone] [address] MEDICAL OFFICE BUILDING 2021-11-05 2021-11-05 Telephone [facility] 1.2.605.684 [id number] Univers 00:00:00 00:00:00 [place] [facility] 350.1.13.10 it y of [place] 4.2.7.2.686 William as JOSE CRUZ?BLEA [phone] [address] MEDICAL OFFICE BUILDING 2021-11-03 2021-11-03 Orders Doctor MIGUELANGEL 1.2.840.114 [id number] Univers 00:00:00 00:00:00 Only Unassigned, EDGAR 350.1.13.10 ity of [place] [facility] 4.2.7.2.686 William as [phone] [address] 2021-08-17 2021-08-17 Refill [facility] 1.2.840.114 [id number] Univers 00:00:00 00:00:00 [facility] 350.1.13.10 it y of [facility] 4.2.7.2.686 [place] as JOSE CRUZ?BLEA [id number] [address] MEDICAL OFFICE BUILDING 2021-06-08 2021-06-08 Office [facility] 1.2.840.114 [id number] Univers 13:07:03 13:22:03 Visit [facility] 350.1.13.10 it y of [place] 4.2.7.2.686 William as Jose Cruz?Blea [phone] [address] Medical Office [facility] 2021-06-08 2021-06-08 Outpatient R [facility] [id number] Univers 13:00:00 13:00:00 PALOMO itjhonatan [facility] [place] 2021-06-08 2021-06-08 Orders Doctor MIGUELANGEL 1.2.840.114 [id number] Univers 00:00:00 00:00:00 Only Unassigned, EDGAR 350.1.13.10 ity of [place] [facility] 4.2.7.2.686 William as [id number] [address] 2021-06-08 2021-06-08 Orders Doctor MIGUELANGEL 1.2.840.114 [id number] Univers 00:00:00 00:00:00 Only Unassigned, EDGAR 350.1.13.10 ity of [place] [facility] 4.2.7.2.686 William as [id number] [address] 2020-11-13 2020-11-13 Outpatient R KISHORE [facility] [id number] Univers 13:00:00 13:00:00 PALOMO ity [facility] [place] 2020-11-11 2020-11-11 Refill Kishore [facility] 1.2.840.114 [id number] Univers 00:00:00 00:00:00 [facility] 350.1.13.10 it y of [place] 4.2.7.2.686 [place] as Professio [phone] [address] Office [facility] One 2020-09-24 2020-09-24 OFFICE [facility] [id number] Co mmon 00:00:00 00:00:00 VISIT [facility] it PT LEVEL 2 - [facility] 2020-09-08 2020-09-08 Telephone [facility] 1.2.526.144 [id number] Univers 00:00:00 00:00:00 [facility] 350.1.13.10 it y of [place] 4.2.7.2.686 [place] as Professio [phone] [address] Office [facility] One 2020-09-03 2020-09-03 Telephone Kishore [facility] 1.2.591.703 [id number] Univers 00:00:00 00:00:00 [facility] 350.1.13.10 it y of [place] 4.2.7.2.686 [place] as Professio [phone] [address] Office [facility] One 2020-05-22 2020-05-22 Outpatient Teresa LARSON [facility] [id number] Univers 16:00:00 16:00:00 PALOMO jazminjhonatan [facility] [place] 2020-05-15 2020-05-15 Office Kishore [facility] 1.2.840.114 [id number] 15:14:59 15:30:50 Visit Palomo Armenta 350.1.13.10 [place] 4.2.7.2.686 Professio [id number] [address] 2020-05-15 2020-05-15 Office [facility] 1.2.840.114 [id number] Univers 15:14:59 15:30:50 Visit Palomo Armenta 350.1.13.10 i ty of [place]2.7.2.686 [place] Profess[place] [phone] [address] 2020-05-15 2020-05-15 Outpatient R LARSON [facility] [id number] Univers 15:15:00 15:15:00 PALOMO carrion [facility] [place] 2020-05-13 2020-05-13 Refangeles [facility] 1.2.840.114 [id number] Univers 00:00:00 00:00:00 [facility] 350.1.13.10 it y of [place] 4.2.7.2.686 [place] as Professio [id number] [address] 2020-05-09 2020-05-09 [facility] [facility] 1.2.840.114 [id number] Univers 00:00:00 00:00:00 [facility] 350.1.13.10 it y of [place] 4.2.7.2.686 [place] as Professio [phone] [address] 2020-05-06 2020-05-06 [facility] [facility] 1.2.840.114 [id number] Univers 00:00:00 00:00:00 [facility] 350.1.13.10 it y of [place] 4.2.7.2.686 [place] as Professio [id number] [address] One 2020-05-03 2020-05-03 Emergency Marifer Chauhan [facility] 1.2.840.114 [id number] Univers 15:17:13 20:15:00 Donna Kathi 350.1.13.10 i ty of [place] 4[place]2.7.2.686 [place] [phone] [address] 2020-02-07 2020-02-07 Telephone [facility] 1.2.975.732 [id number] Univers 00:00:00 00:00:00 Palomo Kathi 350.1.13.10 i ty of [place].2.7.2.686 [place] Profess[place] [phone] [address] 2020-02-05 2020-02-05 Telephone [facility] 1.2.975.373 [id number] Univers 00:00:00 00:00:00 Palomo Armenta 350.1.13.10 i ty of [place] 4.2.7.2.686 [place] Profess[place] [phone] [address] 2020-02-05 2020-02-05 Orders Doctor MIGUELANGEL 1.2.840.114 [id number] Univers 00:00:00 00:00:00 Only Unassigned, EDGAR 350.1.13.10 ity of [place] [facility] 4.2.7.2.686 William as [id number] [facility] 009 [place] 2020-02-04 2020-02-04 Ref[place]eles [facility] 1.2.840.114 [id number] Univers 00:00:00 00:00:00 [facility] 350.1.13.10 it y of [place] 4.2.7.2.686 [place] as Professio [phone] [address] 2020-01-14 2020-01-14 Martin [facility] 1.2.840.114 [id number] Univers 00:00:00 00:00:00 [facility] 350.1.13.10 it y of [place] 4.2.7.2.686 [place] as Professio [id number] [address] 2020-01-04 2020-01-04 Martin [facility] 1.2.840.114 [id number] Univers 00:00:00 00:00:00 [facility] 350.1.13.10 it y of [place] 4.2.7.2.686 [place] as Professio [phone] [address] 2019-12-26 2019-12-26 Outpatient R KISHORE [facility] [id number] Univers 12:30:00 12:30:00 PALOMO ity of [facility] 2019-12-26 2019-12-26 Refangeles Larson [facility] 1.2.840.114 [id number] Univers 00:00:00 00:00:00 [facility] 350.1.13.10 it y of [place] 4.2.7.2.686 [place] as Professio [phone] [address] Office [facility] One 2019-12-17 2019-12-17 Refangeles Larson [facility] 1.2.840.114 [id number] Univers 00:00:00 00:00:00 [facility] 350.1.13.10 it y of [place] 4.2.7.2.686 [place] as Professio [id number] [address] 2019-09-12 2019-09-12 Emergency [facility] 06 [id number] 03 [place] 00:00:00 00:00:00 CANDIE Soto [facility] 2019-06-19 2019-06-19 Office Kishore [facility] 1.2.840.114 [id number] Univers 09:32:01 10:07:10 Visit [facility] 350.1.13.10 it y of [place] 4.2.7.2.686 [place] as Professio [phone] [address] One 2019-06-19 2019-06-19 Orders Doctor MGIUELANGEL 1.2.840.114 [id number] Univers 00:00:00 00:00:00 Only Unassigned, EDGAR 350.1.13.10 ity of [place] [facility] 4.2.7.2.686 William as [phone] [address] 2019-05-10 2019-05-10 Refangeles Larson [facility] 1.2.840.114 [id number] Univers 00:00:00 00:00:00 [facility] 350.1.13.10 it y of [place] 4.2.7.2.686 [place] as Professio [phone] [address] Office Building One Results Test Description Test Time Test Comments Results Result Sour e Comments - CT ABD PELVIS 2020-08-31 W/CONT 21:56:00 [facility] : 1970 Sex: F Name: DEMETRIO FERNÁNDEZ [facility] : 1970 Age/S: 50 / F [address] [address] Unit #: [id number] Loc: [place] [address] Phys: Ernesto Rowley MD Acct: [id number] Dis Date: Status: REG ER PHONE #: [phone] Exam Date: 08/31/2020 2964 FAX #: Reason: diffuse abdominal pain, nausea EXAMS: CPT: [id number] CT ABD PELVIS W/CONT 18956 C3 TIME OF STUDY: 08/31/2020 9:11 PM [...] RT(R)(CT) CTDI: DLP: Trnscb Date/Time: 08/31/2020 (2155) [email or web address] Orig Print D/T: S: 08/31/2020 (2158) PAGE 1 Signed Report - XR ABD ACUTE 2020-08-31 W/CHEST 21:02:00 [facility] : 1970 Sex: F Name: DEMETRIO FERNÁNDEZ [facility] : 1970 Age/S: 50 / F [address] [facility] Unit #: [id number] Loc: [place] [address] Phys: Ernesto Rowley MD Acct: [id number] Dis Date: Status: REG ER PHONE #: [phone] Exam Date: 08/31/20202046 FAX #: Reason: diffuse abdominal pain, nausea EXAMS: CPT: [id number] XR ABD ACUTE W/CHEST 54455 Fluoro Time: DAP (Gy m2): Air Kerma [...] PAGE 1 Signed Report Name: DEMETRIO FERNÁNDEZ [place] : 1970 Age/S: 50 / F [address] [address] Unit #: [id number] Loc: [place] [address] Phys: Ernesto Rowley MD Acct: [id number] Dis Date: Status: REG ER PHONE #: [phone] Exam Date: 08/31/20202046 FAX #: Reason: diffuse abdominal pain, nausea EXAMS: CPT: [id number] XR ABD ACUTE W/CHEST 93072 Fluoro Time: DAP (Gy m2): Air Kerma (mGy): <Continued> Technologist: Karthik Longoria, RT(R)(CT) Trnscb Date/Time: 08/31/2020 (2101) [email or web address] Orig Print D/T: S: 08/31/2020 (2104) PAGE [...] CA) 9.7 MG/DL 8.5-10.1 N HEPATIC FUNCTION [id number] 20:35:00 Test Item Value Reference Range Interpretation [...] 83 Unit/L 45-117 N code = ALKP) [id number] 20:35:00 Test Item Value Reference Range Interpretation Comments LIPASE (test code = LIP) 44 Unit/L 114-286 L UA RFLX MICR CULT IF [id number] 20:20:00 Test Item Value Reference Range Interpretation [...] UACULT) Indication for culture: Suprapubic PainCBC W/AUTO [id number] 20:12:00 Test Item Value Reference Range Interpretation [...] = MDIFF) UA RFLX MICR CULT IF [id number] 20:12:00 Test Item Value Reference Range Interpretation [...] for culture: Suprapubic Pain- CT ABD PELVIS [id number] 17:44:00 [facility] : 1970 Sex: F Patient Name: DEMETRIO FERNÁNDEZ Unit No: [id number] EXAMS: CPT CODE: [id number] CT ABD PELVIS W/CONT [address] CT ABDOMEN AND PELVIS WITH CONTRAST. INDICATION: Diffuse abdominal [...] abdominal wall soft tissue gas, right greater than left, [facility] NAME: DEMETRIO FERNÁNDEZ Radiology Department PHYS: Zen Larios [address] : 1970 AGE: 50 SEX: F [place], [place] [address] : LucyERS PHONE #: [phone] EXAM DATE: 07/23/2020 STATUS: REG ER FAX #: [phone] RAD NO: [id number] Page 1 Signed Report 1 Patient Name: DEMETRIO FERNÁNDEZ Unit No: [id number] EXAMS: CPT CODE: [id number] CT ABD PELVIS W/CONT 67189 (Continued) presumably postoperative in nature. No organized fluid collection. 2. Nonobstructing left nephrolithiasis. SL: SG-H at 1744 Reported and signed by: Liang Meredith MD CC: Zen Recinos MD Technologist: Marcela Louis, RT, CT CTDI: 3.33 DLP: 155.32 Trnscrbd D/ (1744) [email or web address] NAME: DEMETRIO FERNÁNDEZ Radiology Department PHYS: Zen Larios [address] : 1970 AGE: 50 SEX: F [place], [place] [address] LOC: LES PHONE #: [phone] EXAM DATE: 07/23/2020 STATUS: REG ER FAX #: [phone] RAD NO: [id number] Page 2 Signed Report 1 Patient Name: DEMETRIO FERNÁNDEZ Unit No: [id number] EXAMS: CPT CODE: [id number] CT ABDPELVIS W/CONT 39898 (Continued) Orig Print D/T: S: 07/23/2020 (1747) [facility] NAME: DEMETRIO FERNÁNDEZ Radiology Department PHYS: Zen Larios [address] : 1970 AGE: 50 SEX: F [place], [place] [address] [facility] [id number] LOC: LES PHONE #: [phone] EXAM DATE: 07/23/2020 STATUS: REG ER FAX #: [phone] [facility] NO: [id number] Page 3 Signed Report 1COMPREHENSIVE METABOLIC PANEL [...] 46-116 N code = ALKP) CBC W/AUTO [id number] 15:55:00 Test Item Value Reference Range Interpretation [...] NORMAL code = PLTMR) DRUGS OF ABUSE [id number] 15:04:00 Test Item Value Reference Range Interpretation Comments UR COCAINE (test code = NEGATIVE NEGATIVE DETE CTION CUT OFF: COCAU) 150 ng/mL UR CANNABINOIDS (test POSITIVE NEGATIVE A RESULT S CALLED TO code = CANU) DR.ECHEVERRY-GO STEPHENS AD BACK & CONFI RMED? YES.BY FLambertoLAB.TT T 07/23/20 1503. DETECTION CUT O FF: [...] ng/m L UA RFLX MICR CULT IF [id number] 14:56:00 Test Item Value Reference Range Interpretation [...] Description: CLEAN CATCH- US PELVIS LTD OR [id number] 04:30:00 Patient Name: DEMETRIO FERNÁNDEZ Unit No: [id number] EXAMS: CPT CODE: [id number] PELVIS LTD OR FU 37668 EXAM: US, US PELVIS COMPLETE: 07/19/2020, 0333 hours EXAM: US, US ABDOMEN LTD: 07/19/2020, 0300 hours Clinical Indication: Status post nephrectomy. Pelvic pain. Abdominal pain. Nausea. Vomiting. Comparison: CT scan dated 05/07/2020. Pelvic ultrasound 05/07/2020 TECHNIQUE: Technique: Grayscale, color and Doppler transabdominal imaging of the pelvis was performed with standard technique. FINDINGS: Surgi araceli absent. OVARIES: RIGHT: Not visualized. Right adnexa is unremarkable LEFT: Surgically absent by history There are no adnexal masses. OTHER FINDINGS: No free fluid in the pelvic cul-de-sac. If there is further concern, followup pelvic sonography or MRI of the pelvis may be performed. IMPRESSION: 1. Post hysterectomy and left oophorectomy. 2. Otherwise unremarkable transabdominal pelvic ultrasound. SL: ALEC at 0430 Reported and signed by: Vince Locke M.D. CC: Technologist: Alize Gomes RDMS Probe: Trnscrbd D/ (0430) [email or web address].[email or web address] Orig Print D/T: S: 07/19/2020 (0433) [facility] NAME: DEMETRIO FERNÁNDEZ Radiology Department PHYS: FATEMEHRyne AntAakash [address] : 1970 AGE: 50 SEX: F [place] [address] LOC: CHANDNI 3 PHONE #: [phone] EXAM DATE: 07/19/2020STATUS: ADM IN FAX #: [phone] RAD NO: [id number] Page 1 Signed Report Patient Name: DEMETRIO FERNÁNDEZ Unit No: [id number] EXAMS: CPT CODE: [id number] PELVIS LTD OR FU 63840 (Continued) [facility] NAME: DEMETRIO FERNÁNDEZ Radiology Department PHYS: FATEMEHRyne Rosio AntAakash [address] : 1970 AGE: 50 SEX: F [place] [address] LOC: CHANDNI 3 PHONE #: [phone] EXAM DATE: 07/19/2020 STATUS: ADM IN FAX #: [phone] RAD NO: [id number] Page 2 Signed Report- US ABDOMEN [id number] 04:18:00 Patient Name: DEMETRIO FERNÁNDEZ Unit No: [id number] EXAMS: CPT CODE: [id number] US ABDOMEN COMPLETE 50110 EXAM: US, US ABDOMEN LTD: 07/19/2020, 0300 hours Clinical Indication: Status post nephrectomy. Pelvic pain. Abdominal pain. Nausea. Vomiting. Comparison: CT scan dated 05/07/2020. TECHNIQUE: Grayscaleand limited color sonographic evaluation of the abdomen [...] mm x 5 mm x 8 mm echogenic foci in the left kidney which may [...] stone left kidney. No hydronephrosis seen [facility] NAME: DEMETRIO FERNÁNDEZ Radiology Department PHYS: aAkash Porter [address] : 1970 AGE: 50 SEX: F [place], [place] [address] LOC: CHANDNI 3 PHONE #: [phone] EXAM DATE: 07/19/2020 STATUS: ADM IN FAX #: [phone] RAD NO: [id number] Page 1 Signed Report (CONTINUED) Patient Name: DEMETRIO FERNÁNDEZ Unit No: [id number] EXAMS: CPT CODE: [id number] US ABDOMEN COMPLETE 59909 (Continued) bilaterally. SL: JSYED-H at 0418 Reported and signed by: Vince Locke M.D. CC: Technologist: Alize Gomes RDMS Probe: Trnscrbd D/ (041) [email or web address].[email or web address] Orig Print D/T: S: 07/19/2020 (0422) [facility] NAME: DEMETRIO FERNÁNDEZ Radiology Department PHYS: Aakash Porter [address] : 1970 AGE: 50 SEX: F [place] [address] : CHANDNI 3 PHONE #: [phone] EXAM DATE: 07/19/2020 STATUS: ADM IN FAX #: [phone] RAD NO: [id number] Page 2 Signed Report Patient Name: DEMETRIO FERNÁNDEZ Unit No: [id number] EXAMS: CPT CODE: [id number] US ABDOMEN COMPLETE 41526 (Continued) [facility] NAME: DEMETRIO FERNÁNDEZ Radiology Department PHYS: Jovani Aakash [place] [address] : 1970 AGE: 50 SEX: F [place] [address] LOC: CHANDNI 3 PHONE #: [phone] EXAM DATE: 07/19/2020 STATUS:ADM IN FAX #: [phone] RAD NO: [id number] Page 3 Signed ReportHCG [id number] 03:12:00 Test Item Value Reference Range Interpretation Comments HCG SERUM (test 3 INTERPRETATI ON:VALUES BETWEEN code = HCG) 15-20 milliInte rnational units/mL NEED T O BERETESTED WITHIN 48 HOURS . All units for these ranges ar e in milliInternatio nalunits/mL0-1 WK AFTER CONCEP TION 0-50 1-2 WKS AFTER LARRY PTION 40-3002-3 WKS AFTER LARRY PTION 100-1,0003-4 WK S AFTER CONCEPTION 500 -6,0001-2 MONTHS AFTER CO NCEPTION 5,000-200,0002- 3 MONTHS AFTER CONCEPTION 10,0 00-100,0002ND TRIMESTER 3,000 -50,0003RD TRIMESTER 1,000 -50,000 SPECIMENS WITH AN HCG LEVEL FROM 0-6 milliInternatio nalunits/mL SHOULD BE CONSI DERED NEGATIVE COMPREHENSIVE METABOLIC [id number] 03:07:00 Test Item Value Reference Range Interpretation [...] 68 units/L 46-116 N code = ALKP) [id number] 03:07:00 Test Item Value Reference Range Interpretation Comments LIPASE (test code = LIP) 54 units/L 73-393 L DRUGS OF ABUSE [id number] 03:06:00 Test Item Value Reference Range Interpretation Comments UR COCAINE (test code = NEGATIVE NEGATIVE DETE CTION CUT OFF: COCAU) 150 ng/mL UR CANNABINOIDS (test POSITIVE NEGATIVE A RESULT S CALLED TO code = CANU) AMILCAR.READ BACK & CONFIRMED? YES. BY EfraAS99 07/10. DETECTION CUT OFF: 50 ng/mL UR [...] ng/m L UA RFLX MICR CULT IF [id number] 03:02:00 Test Item Value Reference Range Interpretation [...] for culture: Dysuria/FrequencySpecimen Description: CLEAN CATCHCBC W/AUTO [id number] 02:46:00 Test Item Value Reference Range Interpretation [...] REQUIRED (test NORMAL NORMAL code = PLTMR) PELVIC [id number] 14:56:00 RUN DATE: 07/17/20 [facility] PAGE 1 RUN TIME: 1053 Specimen Inquiry RUN USER: INTERFACE -PATIENT: DEMETRIO FERNÁNDEZ LOC: BRITANY U #: [id number] AGE/SX: 50/F ROOM: [facility], 1928–1983 RE07/14/20REG DR: Kyung Gomes MD : [birth year] BED: A DIS: 07/15/20 STATUS: DIS Ekaterina TLOC: SPEC #: [id number] RECD: 07/14/20 STATUS: CAROLANN REQ #: [id number] YUNIEL: 07/14/20- SUBM DR: Kyung Gomes MD ENTERED: 07/15/20 SP TYPE: PELVIC FEDERICO OTHR DR: Aakash Crook MD ORDERED: LEVEL IV/3 CODES: [id number] - FALLOPIAN TUBE [id number] - PELVIC GENITAL COPIES TO: Aakash Crook MD [address] [place] [address] Kyung Gomes MD [address] [place] [address] [email or web address] PROCEDURES: LEVEL IV (Incomplete) TISSUES: PELVIC GENITAL STRUCTURES, NOS - RIGHT PELVIC SIDEWALL AND UTEROSACRAL ENDOMETRIOSIS FALLOPIAN TUBE, NOS - RIGHT FALLOPIAN TUBE AND OVARY CLINICAL HISTORY 50 year o ld, endometriosis (kr) FINAL DIAGNOSIS Right pelvic sidewall endometriosis, excision: - endometriosis Right uterosacral endometriosis, excision: - soft tissue with fibrosis Right fallopian tube and ovary, salpingo-oophorectomy: - ovary - no significant pathologic alteration - round ligament - no significant pathologic alteration - fallopian tube - no tubal tissue identified CPT code(s): 09294 x3 [facility] CONTINUED ON NEXT PAGE RUN DATE: 07/17/20 [facility] PAGE 2 RUN TIME: 1053 Specimen Inquiry RUN USER: INTERFACE SPEC #: [id number] PATIENT: DEMETRIO FERNÁNDEZ #[id number] (Continued) GROSS DESCRIPTION ANATOMIC SOURCE OF TISSUE [...] to ahumada and lobular. Sectioning reveals a ewtzel-pink cut surface. Purchase Order Checker sections are submitted as follows: C1 - ovary, C2 - attached wetzel-pink soft tissue. marry/rod 07/15/20 The remaining attached soft tissue is submitted in RE1. marry/tara 07/16/20 Signed Carmelina Frost MD 07/16/20 1456 END OF REPORT AG HEPATITIS B [id number] 15:14:00 Test Item Value Reference Range Interpretation Comments AG HEPATITIS B SURFACE (test code NONREACTIVE NONREACTIVE = HBSAG) IS CONSENT FORM SIGNED FOR HIV TESTING? YAB HEPATITIS C [id number] 15:14:00 Test Item Value Reference Range Interpretation Comments AB HEPATITIS C (test code = NONREACTIVE NONREACTIVE HCVAB) SIGNAL TO CUTOFF (test code = 0.11 <0.80 N CUTOFF) IS CONSENT FORM SIGNED FOR HIV TESTING? YAB HIV 1 15:14:00 Test Item Value Reference Range Interpretation Comments AB HIV 1 2 (test NONREACTIVE NONREACTIVE [facility] code = BIP28NY) 4th Gen HIV Ag/Ab Combo Screen IS CONSENT FORM SIGNED FOR HIV TESTING? YURINALYSIS [id number] 15:08:00 Test Item Value Reference Range Interpretation [...] URINE SAMPLE: CLEAN CATCHCOVID 19 Asymptomatic IH [id number] 15:07:00 Test Item Value Reference Range Interpretation [...] or approved; th e test hasbeen authori zed by FDA under an Emerge ncy Use Authorization(E UA) for use by laborato tamika certified under the CLIA thatmeet the re quirements to perform mode rate, high or waivedcomple xity tests. This dipti t is authorized for use at thePoint of Car e (POC), i.e., in patien t care settingsoperati ng under a CLIA Certificat e of Waiver, Certifi chanell ofCompliance, o r Certificate of Accreditation. This test is only authori zed for the duration of thedeclaration that circumstances e xist justifying theauthorizatio n of emergency use o f in vitro diagnostic test sfor detection and/o r diagnosis of CO VID-19 under Rrjomjp51 4(b)(1) of the Act, 21 U.S .C. 360bbb-3(b)(1), unless theauthorizatio n is terminated or r evoked sooner. AG HEPATITIS B [id number] 14:51:00 Test Item Value Reference Range Interpretation Comments AG HEPATITIS B SURFACE (test code NONREACTIVE NONREACTIVE = HBSAG) IS CONSENT FORM SIGNED FOR HIV TESTING? YAB HEPATITIS C [id number] 14:51:00 Test Item Value Reference Range Interpretation Comments AB HEPATITIS C (test code = HCVAB) NONREACTIVE SIGNAL TO CUTOFF (test code = CUTOFF) <0.80 IS CONSENT FORM SIGNED FOR HIV TESTING? YAB HIV 1 14:51:00 Test Item Value Reference Range Interpretation Comments AB HIV 1 2 (test code = SJW61TJ) NONREACTIVE IS CONSENT FORM SIGNED FOR HIV TESTING? YCBC W/AUTO [id number] 14:06:00 Test Item Value Reference Range Interpretation [...] T4) 5.9 mcg/dL 4.7-13.3 N THYROID STIMULATING [id number] 14:21:00 Test Item Value Reference Range Interpretation Comments THYROID STIMULATING 6.43 0.36-3.74 H Test Per formed in HORMONE (test code = MicroIn ternational Units/mL TSH) [id number] 14:21:00 Test Item Value Reference Range Interpretation Comments ESTRADIOL (test 60.9 pg/mL () Adult Femal e: code = ESTRA) Follicular pha se 12.5 - 166.0 Ovulation phase 85.8 - 498.0 Alicja teal phase 43.8 - 21 1.0 Postmenopausal <6.0 - 54.7 1st trimester 215.0 - >4300.0Roche EC MARYANA methodology [id number] 14:21:00 Test Item Value Reference Range Interpretation Comments PROGESTERONE (test 0.7 ng/mL () Follicul ar phase 0.1 - code = PROG) 0.9 Luteal phas e 1.8 - 23.9 Ovulation phase 0.1 - 12.0 Preg nant First trimester 11.0 - 44.3 Second tri mester 25.4 - 83.3 Thi rd trimester 58.7 - 214.0 Postmenopausal 0.0 - 0.1Performed At : [facility] [address] [place], [place] [id number] ross Remy MD Ph:[phone] FOLLICLE STIMULATING [id number] 14:21:00 Test Item Value Reference Range Interpretation Comments FOLLICLE STIMULATING 43.2 mIU/mL () Adult Female: HORMONE (test code = Follicu lar phase 3.5 - FSH) 12.5 Ovulation phase 4.7 - 21.5 Lute al phase 1.7 - 7.7 Postmenopausal 25.8 - 134.8 COMPREHENSIVE METABOLIC [id number] 06:03:00 Test Item Value Reference Range Interpretation [...] units/L 46-116 code = ALKP) CBC W/AUTO [id number] 05:55:00 Test Item Value Reference Range Interpretation [...] T4) 5.9 mcg/dL 4.7-13.3 N THYROID STIMULATING [id number] 21:23:00 Test Item Value Reference Range Interpretation Comments THYROID STIMULATING 6.43 0.36-3.74 H Test Per formed in HORMONE (test code = MicroIn ternational Units/mL TSH) [id number] 21:23:00 Test Item Value Reference Range Interpretation Comments ESTRADIOL (test code = ESTRA) [id number] 21:23:00 Test Item Value Reference Range Interpretation Comments PROGESTERONE (test code = PROG) FOLLICLE STIMULATING [id number] 21:23:00 Test Item Value Reference Range Interpretation Comments FOLLICLE STIMULATING HORMONE (test code = FSH) Coronavirus 2019 nCoV [id number] 10:34:00 Test Item Value Reference Range Interpretation Comments Coronavirus 2019 nCoV Negative Negative RESUL TS CALLED TO READ Bedside (test code = BACK & CONFIRMED? BY [id number]) Z.LAB.AZ 05/07 1034 This result epps s not [...] F ROM FDA - CT ABD PELVIS [id number] 08:28:00 Patient Name: DEMETRIO FERNÁNDEZ Unit No: [id number] EXAMS: CPT CODE: [id number] CT ABD PELVIS W/CONT 64216 CT ABDOMEN AND PELVIS WITH CONTRAST AND [...] facet arthrosis and SI joint osteoarthritis. [facility] NAME: DEMETRIO FERNÁNDEZ Radiology Department PHYS: Liz Shafer MD [address] : 1970 AGE: 49 SEX: F [place], [place] [address] LOC: LES PHONE #: [phone] EXAM DATE: 05/07/2020 STATUS: REG ER FAX #: [phone] RAD NO: [id number] Page 1 Signed Report 1 Patient Name: DEMETRIO FERNÁNDEZ Unit No: [id number] EXAMS: CPT CODE: [id number] CT ABD PELVIS W/CONT 92482 (Continued) IMPRESSION: 1. Constipation without acute CT [...] size -Use of iterative reconstruction technique SL: [id number] at 0828 Reported and signed by: Chris Edmonds MD CC: Liz Padilla MD Technologist: Marcela Louis, RT, CT CTDI: 7.77 DLP: 159.20 Trnscrbd D/ (0828) t.SDR.ERR2 [facility] NAME: DEMETRIO FERNÁNDEZ Radiology Department PHYS: Liz Shafer MD [address] : 1970 AGE: 49 SEX: F [place], [place] [address] LOC: LES PHONE #: [phone] EXAM DATE: 05/07/2020 STATUS: REG ER FAX #: [phone] RAD NO: [id number] Page 2 Signed Report 1 Patient Name: DEMETRIO FERNÁNDEZ Unit No: [id number] EXAMS: CPT CODE: [id number] CT ABD PELVIS W/CONT 74490 (Continued) Orig Print D/T: S: 05/07/2020 (0832) [facility] NAME: DEMETRIO FERNÁNDEZ Radiology Department PHYS: Liz Shafer MD [address] : 1970 AGE: 49 SEX: F [place], [place] [address] LOC: LES PHONE #: [phone] EXAM DATE: 05/07/2020 STATUS: REG ER FAX #: [phone] [facility] NO: [id number] Page 3 Signed Report 1UA RFLX MICR CULT IF [id number] 08:25:00 Test Item Value Reference Range Interpretation [...] NONE SEEN Indication for culture: Dysuria/FrequencyCHEMISTRY 7 [id number] 08:16:00 Test Item Value Reference Range Interpretation [...] = CA) 9.1 mg/dL 8.4-10.2 N LIVER [id number] 08:16:00 Test Item Value Reference Range Interpretation [...] 85 units/L 46-116 N code = ALKP) [id number] 08:16:00 Test Item Value Reference Range Interpretation Comments LIPASE (test code = LIP) 66 units/L 73-393 L - US TRANSVAGINAL [id number] 08:14:00 Patient Name: DEMETRIO FERNÁNDEZ Unit No: [id number] EXAMS: CPT CODE: [id number] US TRANSVAGINAL W/PELVIS 26483 TRANSVAGINAL PELVIC ULTRASOUND 05/07/2020 AT 0 713 HOURS. CLINICAL HISTORY: Abdominal/pelvic pain for 6 days. Vomiting. History of endometriosis. REPORTED LMP: Hysterectomy and left oophorectomy (2009). COMPARISON STUDIES: No recent relevant priors at this institution. Reference is made to the abdomen and pelvis CT 09/11/2016 and the pelvic ultrasound from 02/25/2015. By report the patient has anoutside ultrasound from [facility] dated 05/05/2020. This study is not available [...] No free fluid. No adnexal mass. SL: [id number] at 0814 Reported and signed by: Chris Edmonds MD CC: Liz Padilla MD Technologist: Nory Mace RDMS Probe: [id number] Trnscrbd D/ (0814) t.SDR.ERR2 Orig Print D/T: S: 05/07/2020 (0817)[facility] NAME: DEMETRIO FERNÁNDEZ Radiology Department PHYS: Daniel Shafer MD [address] : 1970 AGE: 49 SEX: F [place] [address] LOC: LucyERS PHONE #: [phone] EXAM DATE: 05/07/2020 STATUS: REG ER FAX #: [phone] RAD NO: [id number] Page 1 Signed Report Patient Name: DEMETRIO FERNÁNDEZ Unit No: [id number] EXAMS: CPT CODE: [id number] US TRANSVAGINAL W/PELVIS 35337 (Continued) [facility] NAME: TOBY,DEMETRIO Radiology Department PHYS: Liz Shafer MD [address] : 1970 AGE: 49 SEX: F [place] [address] LOC: Delia.ERS PHONE #: [phone] EXAM DATE: 05/07/2020 STATUS: REG ER FAX #: [phone] RAD NO: [id number] Page 2 Signed Report- US PELVIS [id number] 08:14:00 Patient Name: DEMETRIO FERNÁNDEZ Unit No: [id number] EXAMS: CPT CODE: [id number] US PELVIS COMPLETE [id number] PELVIC ULTRASOUND 05/07/2020 AT 0 713 HOURS. CLINICAL HISTORY: Abdominal/pelvic pain for6 days. Vomiting. History of endometriosis. REPORTED LMP: Hysterectomy and left oophorectomy (2009).COMPARISON STUDIES: No recent relevant priors at this institution. Reference is made to the abdomen and pelvis CT 09/11/2016 and the pelvic ultrasound from 02/25/2015. By report the patient has an outside ultrasound from [facility] in [facility] dated 05/05/2020. This study is not available at the time of dictation. FINDINGS: Sonographic evaluation of the uterus and adnexa was performed using a transabdominal and transvaginal approach. Images were obtained using grayscale as well as limited color and puls ed Doppler. TRANSABDOMINAL SCAN: Limited detail assessment by transabdominal scanning. This requiredtransvaginal examination. Partially distended bladder with urine with no filling defects or diverticula. TRANSVAGINAL SCAN: Prior hysterectomy. Ovaries are not visualized. No adnexal masses or free pelvic fluid. IMPRESSION: 1. No sonographic explanation for the patient's symptoms. 2. Hysterectomy and left oophorectomy by history. 3. Nonvisualized right ovary. 4. No free fluid. No adnexal mass. SL: [id number] at 0814 Reported andsigned by: Chris Edmonds MD CC: Liz Padilla MD Technologist: Nory Mace RDMS Probe: Trnscrbd D/ (0814) tGILR.ERR2 Orig Print D/T: S: 05/07/2020 (0817) [facility] NAME: DEMETRIO FERNÁNDEZ Radiology Department PHYS: Liz Shafer MD [address] : 1970 AGE: 49 SEX: F [place], [place] [address] LOC: LES PHONE #: [phone] EXAM DATE: 05/07/2020 STATUS: REG ER FAX #: [phone] RAD NO: [id number] Page 1 Signed Report Patient Name: DEMETRIO FERNÁNDEZ Unit No: [id number] EXAMS: CPT CODE: [id number] US PELVIS COMPLETE 12498 (Continued) [facility] NAME: DEMETRIO FERNÁNDEZ Radiology Department PHYS: Liz Shafer MD [address] : 1970 AGE: 49 SEX: F [place], [place] [address] LOC: LES PHONE #: [phone] EXAM DATE: 05/07/2020 STATUS: REG ER FAX #: [phone] RAD NO: [id number] Page 2 Signed ReportCBC W/AUTO [id number] 08:07:00 Test Item Value Reference Range Interpretation [...]
[2022-09-19] MEDS ORDERED: ONDANSETRON 4 MG/2 ML VIAL ONE (16:49)
[2022-09-19] MEDS ORDERED: NA CHLORIDE 0.9% 1,000 ML ONE (16:49)
[2022-09-19] MEDS ORDERED: FAMOTIDINE 20 MG/2 ML VIAL IV ONE (16:49)
[2022-09-19 16:57] LABS: Absolute Lymphocytes (CBC) 1.1 K/uL (0.7-4.9); Hematocrit 40.4 % (36.0-45.0); MCV 92.6 fL (80-100); MPV 7.3 fL (7.6-11.3); RBC Red Blood Cell Count 4.36 M/uL (3.86-4.86)
[2022-09-19 17:14] LABS: Albumin 4.3 g/dL (3.4-5.0); Bilirubin Total 0.4 mg/dL (0.2-1.0); Potassium 3.4 mmol/L (3.5-5.1); Protein, Total 7.4 g/dL (6.4-8.2)
[2022-09-19 17:43] LABS: Urine Blood 2+ (Negative); Urine Glucose Negative (Negative); Urine Protein Trace (Negative); Urine Specific Gravity 1.025 (1.005-1.030); Urine pH 6.5 (5.0-7.0)
--- NOTE | 2022-09-19 17:58 | RAD REPORT ---
EXAM DESCRIPTION: CTAbdomen Pelvis W Contrast - 09/19/2022 5:39 pm CLINICAL HISTORY: left side abdomen pain COMPARISON: <Comparisons> TECHNIQUE: CT of the abdomen and pelvis was performed with IV contrast. All CT scans are performed using dose optimization technique as appropriate and may include automated exposure control or mA/KV adjustment according to patient size. FINDINGS: Lower chest: No acute abnormality. Liver: No acute abnormality or suspicious lesions. Biliary: No biliary ductal dilatation. Stomach: No significant focal abnormality. Duodenum: No significant focal abnormality. Pancreas: No significant abnormality. Spleen: No significant abnormality. Adrenal: No suspicious lesions. Kidney/ureter: No hydronephrosis. 5 mm stone in lower pole left kidney. Retroperitoneum: No retroperitoneal adenopathy. Vascular: No aneurysm. Bowel: No significant focal abnormality. The appendix is surgically absent. Peritoneum: No ascites or free air. Bladder: Bladder wall thickening versus underdistention. Reproductive: Hysterectomy. No adnexal masses. Bones: No acute fracture. Slight superior endplate deformity at L3. This is chronic. Other: n/a IMPRESSION: No acute intra-abdominal or pelvic finding. Nonobstructive left nephrolithiasis.
[2022-09-19 18:15] LABS: Urine Specific Gravity/Preg 1.025 (1.005-1.030)
[2022-09-19 18:19] LABS: Urine Crystals Unidentified Few /HPF (None Seen); Urine Mucus 2+ /HPF (None Seen)
[2022-09-19] MEDS ORDERED: FENTANYL CITR 100 MCG/2 ML ONE (18:26)
[2022-09-19] MEDS ORDERED: POTASSIUM 25 MEQ EFFERV TAB ONE (18:32)
--- NOTE | 2022-09-19 19:10 | EDPHYS ---
Physician Documentation [facility] Name: Alysha Fernández Age: 52 yrs Sex: Female : 1970 Arrival Date: 09/19/2022 Time: 16:08 Bed 15 Private MD: Palomo Novak S ED Physician Reagan Llamas HPI: 09/19 16:35 This 52 yrs old Female presents to ER via Ambulatory with complaints of Abdominal Pain. cp 16:35 The patient presents with abdominal pain in the lower abdomen. cp 16:35 Onset: The symptoms/episode began/occurred yesterday. Associated signs and symptoms: cp Pertinent positives: nausea and vomiting, anorexia, Pertinent negatives: blood in stools, chest pain, constipation, diarrhea, fever, vomiting blood. The symptoms are described as constant. 16:35 The patient has experienced similar episodes in the past, chronically. cp 16:35 Severity of pain: in the emergency department the pain is unchanged despite home cp interventions. LINER CHECKER: 16:28 LMP N/A - Hysterectomy kb3 Historical: - Allergies: 16:28 Codeine; kb3 16:28 Morphine; kb3 16:28 Ceclor; kb3 16:28 PENICILLINS; kb3 - Home Meds: 16:28 tramadol 50 mg Oral tab [Active]; Xanax 0.5 mg Oral tab [Active]; dicyclomine 20 mg kb3 Oral tab 1 tab 3 times per day [Active]; - PMHx: 16:28 Anxiety; chronic abdominal pain; kb3 - PSHx: 16:28 Cholecystectomy; Total abdominal hysterectomy; Appendectomy; kb3 - Immunization history:: Adult Immunizations unknown, Client reports having NOT received the Covid vaccine. Last tetanus immunization: unknown. - Social history:: Smoking status: Patient denies any tobacco usage or history of. ROS: 16:40 Constitutional: Negative for body aches, chills, fever, poor PO intake. cp 16:40 Eyes: Negative for injury, pain, redness, and discharge. cp 16:40 ENT: Negative for drainage from ear(s), ear pain, sore throat, difficulty swallowing, difficulty handling secretions. 16:40 Cardiovascular: Negative for chest pain, edema, palpitations. 16:40 Respiratory: Negative for cough, shortness of breath, wheezing. 16:40 Abdomen/GI: Positive for abdominal pain, nausea and vomiting, Negative for diarrhea, constipation, hematemesis, black/tarry stool, rectal bleeding. 16:40 Back: Negative for pain at rest, pain with movement. 16:40 : Negative for urinary symptoms. 16:40 Neuro: Negative for altered mental status, dizziness, headache, syncope, weakness. 16:40 All other systems are negative. Exam: 16:45 Constitutional: The patient appears in no acute distress, alert, awake, non-toxic, well cp developed, well nourished, uncomfortable. 16:45 Head/Face: Normocephalic, atraumatic. cp 16:45 Eyes: Periorbital structures: appear normal, Conjunctiva: normal, no exudate, no injection, Sclera: no appreciated abnormality, Lids and lashes: appear normal, bilaterally. 16:45 ENT: External ear(s): are unremarkable, Nose: is normal, Mouth: Lips: moist, Oral mucosa: pink and intact, moist, Posterior pharynx: Airway: no evidence of obstruction, patent. 16:45 Chest/axilla: Inspection: normal. 16:45 Cardiovascular: Rate: normal, Rhythm: regular, Edema: is not appreciated, JVD: is not appreciated. 16:45 Respiratory: the patient does not display signs of respiratory distress, Respirations: normal, no use of accessory muscles, no retractions, labored breathing, is not present, Breath sounds: are clear throughout, no decreased breath sounds, no stridor, no wheezing. 16:45 Abdomen/GI: Inspection: abdomen appears normal, Bowel sounds: active, all quadrants, Palpation: soft, in all quadrants, severe abdominal tenderness, in the right lower quadrant and left lower quadrant, rebound tenderness, is not appreciated, involuntary guarding, is not appreciated. 16:45 Back: CVA tenderness, is absent. 16:45 Skin: cellulitis, is not appreciated, no rash present. 16:45 Neuro: Orientation: to person, place \T\ time. Mentation: is normal, Motor: moves all fours, strength is normal, Sensation: is normal. Vital Signs: 16:15 BP 135 / 93; Pulse 92; Pulse Ox 99% ; ko1 16:26 BP 135 / 93; Pulse 92; Resp 20; Pulse Ox 99% ; Weight 40.37 kg; Height 5 ft. 0 in. kb3 (152.40 cm); Pain 9/10; 17:00 BP 132 / 79; Pulse 98; Pulse Ox 99% ; ko1 18:38 BP 119 / 84; Pulse 94; Pulse Ox 99% ; ko1 19:53 BP 123 / 85; Pulse 95; Resp 17; Temp 98.2(O); Pulse Ox 99% ; Pain 0/10; ke1 16:26 Body Mass Index 17.38 (40.37 kg, 152.40 cm) kb3 MDM: 16:18 Patient medically screened. cp 19:08 Data reviewed: vital signs, nurses notes, lab test result(s), radiologic studies, CT cp scan. 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 Response to treatment: the patient's symptoms have markedly improved after treatment, Nausea and pain markedly improved, vomiting resolved. Labs and CT abdomen/pelvis negative for emergent findings. Will discharge to home for continued monitoring. 09/19 16:32 Order name: CBC with Diff; Complete Time: 18:04 cp 09/19 18:04 Interpretation: Normal except: PLT 407; MPV 7.3; KB% 83.0; LYM% 12.0. cp 09/19 16:32 Order name: CMP; Complete Time: 18:04 cp 09/19 18:05 Interpretation: Normal except: K 3.4; GLUC 124. cp 09/19 16:32 Order name: Lipase; Complete Time: 18:04 cp 09/19 16:32 Order name: Urine Microscopic Only; Complete Time: 18:19 cp 09/19 18:19 Interpretation: Normal except: URBC 11-20. cp 09/19 17:44 Order name: Urine Dipstick-Ancillary; Complete Time: 18:04 EDMS 09/19 18:20 Interpretation: Normal except: UKET 4+; UBLD 2+; UPROT Trace. cp 09/19 17:53 Order name: Urine --Ancillary (enter results); Complete Time: 18:19 eb 09/19 16:32 Order name: IV Saline Lock; Complete Time: 16:56 cp 09/19 16:32 Order name: CT Abd/Pelvis - IV Contrast Only; Complete Time: 18:04 cp 09/19 16:32 Order name: Labs collected and sent; Complete Time: 16:56 cp 09/19 16:32 Order name: Urine Dipstick-Ancillary (obtain specimen); Complete Time: 18:20 cp 09/19 16:32 Order name: Urine Test (obtain specimen); Complete Time: 18:20 cp Administered Medications: 16:50 Drug: NS 0.9% 1000 ml Route: IV; Rate: 1 bolus; Site: right antecubital; ko1 18:53 Follow up: Response: No adverse reaction; IV Status: Completed infusion; IV Intake: ko1 1000ml 16:56 Drug: Pepcid (famotidine) 20 mg Route: IVP; Site: right antecubital; ko1 18:53 Follow up: Response: No adverse reaction ko1 16:57 Drug: Zofran (Ondansetron) 4 mg Route: IVP; Site: right antecubital; ko1 18:53 Follow up: Response: No adverse reaction; Nausea is decreased ko1 17:10 Drug: Ketorolac 15 mg Route: IVP; Site: right antecubital; ko1 18:54 Follow up: Response: No adverse reaction; Pain is unchanged, physician notified ko1 18:20 Drug: fentaNYL (PF) 25 mcg Route: IVP; Site: right antecubital; ko1 18:54 Follow up: Response: No adverse reaction; Pain is decreased ko1 18:58 Follow up: Response: No adverse reaction; Pain is decreased ko1 18:34 Drug: Potassium Effervescent Tablet 25 mEq Route: PO; ko1 18:58 Follow up: Response: No adverse reaction ko1 Disposition: 09/20 19:15 Co-signature as Attending Physician, Reagan CORRALES was immediately available onsite ms3 in the emergency department for consultation in the care of the patient. Disposition Summary: 09/19/22 19:09 Discharge Ordered Location: Home cp Problem: an ongoing problem cp Symptoms: have improved cp Condition: Stable cp Diagnosis - Abdominal pain, unspecified cp Followup: cp - With: Bigg Manning MD - When: 2 - 3 days - Reason: Recheck today's complaints Discharge Instructions: - Discharge Summary Sheet cp - Abdominal Pain, Adult cp Forms: - Medication Reconciliation Form cp - Thank You Letter cp - Antibiotic Education cp - Prescription Opioid Use cp Prescriptions: - Reglan 10 mg Oral Tablet - take 1 tablet by ORAL route every 6 hours take 30 minutes before meals and at cp bedtime; 20 tablet; Refills: 0, Product Selection Permitted Signatures: Dispatcher [employer] EDMS Bert Mckeon PA PA cp Sims, Marcus, DO DO ms3 Cecilia Bello, RN RN kb3 Rowena Ramos, RN RN ko1
--- NOTE | 2022-09-19 19:10 | ER ---
Nurse's Notes [facility] Name: Alysha Fernández Age: 52 yrs Sex: Female : 1970 Arrival Date: 09/19/2022 Time: 16:08 Bed 15 Private MD: Palomo Novak S Diagnosis: Abdominal pain, unspecified Presentation: 09/19 16:26 Chief complaint: Patient states: LLQ abdominal pain and vomiting since last night. kb3 Denies fever, diarrhea, constipation. Coronavirus screen: Vaccine status: Patient reports being unvaccinated. Client denies travel out of the [place] in the last 14 days. Ebola Screen: Patient negative for fever greater than or equal to 101.5 degrees Fahrenheit, and additional compatible Ebola Virus Disease symptoms Patient denies exposure to infectious person. Patient denies travel to an Ebola-affected area in the 21 days before illness onset. No symptoms or risks identified at this time. Initial Sepsis Screen: Does the patient meet any 2 criteria? No. Patient's initial sepsis screen is negative. Does the patient have a suspected source of infection? No. Patient's initial sepsis screen is negative. Risk Assessment: Do you want to hurt yourself or someone else? Patient reports no desire to harm self or others. Onset of symptoms was September 18, 2022 at 21:00. 16:26 Method Of Arrival: Ambulatory 3 16:26 Acuity: ROBERTO 3 kb3 Triage Assessment: 16:28 General: Appears in no apparent distress. Behavior is calm, cooperative. Pain: kb3 Complains of pain in left lower quadrant Pain does not radiate. Pain currently is 9 out of 10 on a pain scale. Quality of pain is described as pressure, bloating, twisting Pain began gradually, Is continuous. GI: Reports lower abdominal pain, bloating, nausea, vomiting. 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 Last tetanus immunization: unknown. - Social history:: Smoking status: Patient denies any tobacco usage or history of. Screenin:40 Abuse screen: Denies threats or abuse. Denies injuries from another. Nutritional ko1 screening: No deficits noted. Tuberculosis screening: No symptoms or risk factors identified. Fall Risk 16:40 Fall Risk None identified. No fall in past 12 months (0 pts). ko1 Assessment: 16:40 General: Appears distressed, uncomfortable, ill, Behavior is cooperative, appropriate ko1 for age, anxious. Pain: Complains of pain in abdomen and left lower quadrant. Neuro: No deficits noted. Cardiovascular: No deficits noted. Respiratory: No deficits noted. GI: Bowel sounds present X 4 quads. Abd is soft X 4 quads. : No deficits noted. EENT: No deficits noted. Derm: No deficits noted. Musculoskeletal: No deficits noted. Vital Signs: 16:15 BP 135 / 93; Pulse 92; Pulse Ox 99% ; ko1 16:26 BP 135 / 93; Pulse 92; Resp 20; Pulse Ox 99% ; Weight 40.37 kg; Height 5 ft. 0 in. kb3 (152.40 cm); Pain 9/10; 17:00 BP 132 / 79; Pulse 98; Pulse Ox 99% ; ko1 18:38 BP 119 / 84; Pulse 94; Pulse Ox 99% ; ko1 19:53 BP 123 / 85; Pulse 95; Resp 17; Temp 98.2(O); Pulse Ox 99% ; Pain 0/10; ke1 16:26 Body Mass Index 17.38 (40.37 kg, 152.40 cm) kb3 ED Course: 16:08 Patient arrived in ED. as 16:09 Palomo Novak MD is Private Physician. as 16:10 Bert Mckeon PA is PHCP. cp 16:10 Reagan Llamas DO is Attending Physician. cp 16:28 Triage completed. kb3 16:28 Arm band placed on right wrist. Patient placed in an exam room, on a stretcher. kb3 16:35 Rowena Ramos, RN is Primary Nurse. ko1 16:40 Patient has correct armband on for positive identification. Placed in gown. Bed in low ko1 position. Call light in reach. Side rails up X 1. Pulse ox on. NIBP on. 16:40 Door closed. Noise minimized. Lights dimmed. Warm blanket given. ko1 16:56 CBC with Diff Sent. ko1 16:56 CMP Sent. ko1 16:56 Lipase Sent. ko1 17:20 Initial lab(s) drawn, by nc, sent to lab. Inserted saline lock: 20 gauge in right em1 antecubital area, using aseptic technique. Blood collected. 17:41 CT Abd/Pelvis - IV Contrast Only In Process Unspecified. EDMS 19:09 Bigg Manning MD is Referral Physician. cp 19:30 Primary Nurse role handed off by Rowena Ramos, RN 2 19:53 Ben Howard, ALINA is Primary Nurse. ke1 19:54 No provider procedures requiring assistance completed. IV discontinued. ke1 Administered Medications: 16:50 Drug: NS 0.9% 1000 ml Route: IV; Rate: 1 bolus; Site: right antecubital; ko1 18:53 Follow up: Response: No adverse reaction; IV Status: Completed infusion; IV Intake: ko1 1000ml 16:56 Drug: Pepcid (famotidine) 20 mg Route: IVP; Site: right antecubital; ko1 18:53 Follow up: Response: No adverse reaction ko1 16:57 Drug: Zofran (Ondansetron) 4 mg Route: IVP; Site: right antecubital; ko1 18:53 Follow up: Response: No adverse reaction; Nausea is decreased ko1 17:10 Drug: Ketorolac 15 mg Route: IVP; Site: right antecubital; ko1 18:54 Follow up: Response: No adverse reaction; Pain is unchanged, physician notified ko1 18:20 Drug: fentaNYL (PF) 25 mcg Route: IVP; Site: right antecubital; ko1 18:54 Follow up: Response: No adverse reaction; Pain is decreased ko1 18:58 Follow up: Response: No adverse reaction; Pain is decreased ko1 18:34 Drug: Potassium Effervescent Tablet 25 mEq Route: PO; ko1 18:58 Follow up: Response: No adverse reaction ko1 Medication: 19:55 VIS not applicable for this client. ke1 Intake: 18:53 IV: 1000ml; Total: 1000ml. ko1 Outcome: 19:09 Discharge ordered by . cp 19:53 Patient left the ED. ke1 19:54 Discharged to home ambulatory. ke1 19:54 Condition: good 19:54 Discharge instructions given to patient. Signatures: Dispatcher [employer] EDMS Naheed Dawson Eric em1 Bert Mckeon PA PA cp [place], MyKena mw2 Ben Howard RN RN ke1 Cecilia Bello, RN RN kb3 Rowena Ramos, RN RN ko1
[2022-09-19 19:56] VITALS: O2SAT 99
[2022-09-19 20:00] VITALS: BP 119/84
== END 2022-09-19 19:53 | disposition home or self-care (01) ==
LOC: ER 16:07
DX: R10.32 Left lower quadrant pain (principal); R11.10 Vomiting, unspecified; Z88.0 Allergy status to penicillin; Z88.1 Allergy status to other antibiotic agents; Z88.5 Allergy status to narcotic agent
CPT/HCPCS: 96361; 85025; 36415; 81025; 83690; 80053; 74177; 96375; 96374; 99284; Q9967; J3010; J7030; J2405; 81003; 81015

== ENCOUNTER 2022-09-25 10:00 | Emergency (ER) | payer OTHER ==
--- OUTSIDE RECORDS SUMMARY | 2022-09-25 10:05 | XMS REPORT | Continuity of Care Document ---
:1970 Author Organization [facility] t Address [address] [place] [address] Dr. Viera [address] [place] [address] Care Team Providers Name Role Phone Palomo Larson MD Primary Care Physician [phone] Kyung Gomes Attending Clinician Unavailable Palomo Larson MD Attending Clinician Doctor Unassigned, [place] Attending Clinician Unavailable PALOMO LARSON Attending Clinician Unavailable Marifer Espitia Attending Clinician CANDIE HAMILTON Attending Clinician Unavailable Jenelle Nix Admitting Clinician Unavailable Kyung Gomes Admitting Clinician Unavailable Anika Harper Admitting Clinician Unavailable Payers Payer Name Policy Type Policy Number Effective Date Expiration Date Kong johnson AEANA LUISA HMO [id number] 2015 00:00:00 AETNA C1 [id number] Common [facility] Problems Condition Condition Condition Status Onset Resolution Last Treating Co mments Source Name Details Category Date Date Treatment Clinician Date Anxiety Anxiety Disease Active Univers 605 ity of 00:00: [place] 00 Medical Branch Fatigue Fatigue Disease Active Univers 6 ity of 00:00: [place] [facility] Hypothyroi Hypothyroi Disease Active U nivers dism due dism due 04-02 ity of to to 00:00: [place] acquired acquired 00 Medica l atrophy of atrophy of Br anch thyroid thyroid Weight Weight Disease Active Univers loss loss 04-02 ity of 00:00: [facility] [id number] LLQ Problem Active Common abdominal [facility] pain [facility] Kidney Kidney Problem Active Common stone stone [facility] Allergies, Adverse Reactions, Alerts Allergy Allergy Status Severity Reaction(s) Onset Inactive Treating Comm ents Source Name Type Date Date Clinician Penicill DA Active SV 2019-1 [facility] ins 0-01 [place] 00:00: d 00 [facility] morphine DA Active SV 2019-1 [facility] 0-01 [place] 00:00: d 00 [facility] codeine DA Active SV 2020-1 [facility] 0-01 [place] 00:00: d 00 [facility] Penicill DA Active SV RASH, NAUSEA 2019- HC A ins AND VOMITING 0-01 Pear brandie 00:00: d 00 [facility] morphine DA Active SV NAUSEA AND 2020- [facility] VOMITING 0-01 [place] 00:00: d 00 [facility] codeine DA Active SV NAUSEA AND 2020-1 [facility] VOMITING 0-01 [place] 00:00: d 00 [facility] pcn DA Active MO rash 2020-0 [facility] 7-29 [facility] 00:00: [facility] 00 [facility] [place] Penicill Propensi Active Nausea 2020-0 Univer s ins ty to and/or 7-25 ity of adverse Vomiting 00:00: [place] reaction 00 Medical s Branch Morphine Propensi Active Anaphylaxis 2020-0 U nivers ty to 7-25 ity of adverse 00:00: [place] reaction 00 Medical s Branch Codeine Propensi Active Swelling 2018- Metho di ty to 2-04 st adverse 00:00: Hospita reaction 00 l s to drug Morphine Propensi Active Swelling 2018-10 Meth junie ty to 11-13 st adverse 00:00: Hospita reaction 00 l s to drug morphine DA Active U 2015-10 [facility] 2-03 [facility] 00:00: [facility]osp[facility] 00 l of [place] morphine DA Active U nasu 2015-10 [facility] 2-03 [facility] 00:00: Hospita 00 l of [place] Codeine Propensi Active Unknown - Univ ers ty to See comments 6-23 ity of adverse 00:00: [place] reaction 00 Medical s Branch codeine DA Active MO 2014- [facility] 7- Woman's 00:00: Hospita 00 l of [place] codeine DA Active MO HIVES/RASH 2014- [facility] 7- Woman's 00:00: [facility]ospita 00 l of [place] Social History Social Habit Start Date Stop Date Quantity Comments Source History of [facility] - Tobacco Use [facility] Exposure to 2022-05-24 2022-06-03 Not sure University SARS-CoV-2 00:00:00 13:38:00 [facility] (event) [place] Tobacco use and 2022-06-03 2022-06-03 Smokeless tobacco Un iversity of exposure 00:00:00 00:00:00 non-user [facility] Alcohol intake 2019-09-12 2019-09-12 Current drinker [facility] 00:00:00 00:00:00 of alcohol (finding) Sex Assigned At [address] [facility] 00:00:00 00:00:00 Smoking Status Start Date Stop Date Source Never Smoker Common [facility] Tobacco smoking consumption [facility] unknown Medications Ordered Filled Start Stop Current Ordering Indication Dosage Frequency Signature Comments Components Source Medication Medication Date Date Medication? Clinician (SIG) Name Name ALPRAZolam Yes [id number] .5mg Take 1 Univers 0.5 mg 8-25 tablet by ity of tablet 00:00: mouth in [place] [address] the Medical morning Branch and 1 tablet in the evening. ALPRAZolam Yes [id number] .5mg Take 1 Univers 0.5 mg 8-25 tablet by ity of tablet 00:00: mouth in [place] [address] the Medical morning Branch and 1 tablet in the evening. ALPRAZolam Yes [id number] .5mg Take 1 Univers 0.5 mg 8-25 tablet by ity of tablet 00:00: mouth in [place] 00 the Medical morning Branch and 1 tablet in the evening. ALPRAZolam Yes [id number] .5mg Take 1 Univers 0.5 mg 8-25 tablet by ity of tablet 00:00: mouth in [place] 00 the Medical morning Branch and 1 tablet in the evening. HYDROmorpho 2021- No [id number] 2mg Take 1 Uni vers ne 2 mg 8-25 - tablet by ity of tablet 00:00: 04:59 [...] PAIN Indication s: chronic pain traMADoL 50 2021-0 Yes 2745 TAKE 1 Univ ers mg tablet 5-09 TABLET BY ity o f 00:00: MOUTH [place] 00 EVERY 6 Medical HOURS Branch NEEDED PAIN Indication s: chronic pain traMADoL 50 2021-0 Yes 2745 TAKE 1 Univ ers mg tablet 5-09 TABLET BY ity o f 00:00: MOUTH [place] 00 EVERY 6 Medical HOURS Branch NEEDED PAIN Indication s: chronic pain traMADoL 50 2021-0 Yes 2745 TAKE 1 Univ ers mg tablet 5-09 TABLET BY ity o f 00:00: MOUTH [place] 00 EVERY 6 Medical HOURS Branch NEEDED PAIN Indication s: chronic pain ALPRAZolam 2021- No [id number] .5mg Take 1 Univers 0.5 mg 5-09 08-25 tablet by ity of tablet 00:00: 00:00 mouth 2 [place] 00 :00 (two) Medical times Branch daily. MULTIVITAMI Yes Take by Uni vers N ORAL 9-10 mouth. ity of 09:55: [address] Branch MULTIVITAMI Yes Take by Uni vers N ORAL 9-10 mouth. ity of 09:55: [address] Branch MULTIVITAMI Yes Take by Uni vers N ORAL 9-10 mouth. ity of 09:55: [place] 45 Medical Branch MULTIVITAMI 2018-0 Yes Take by Uni vers N ORAL 9-10 mouth. ity of 09:55: [place] [address] Medical Branch loratadine 2015-10 Yes [id number] 10mg Take 1 Univers (CLARITIN) 2-21 tablet by ity of 10 mg 00:00: mouth [place] tablet 00 daily. Medical Branch fluticasone 2015-10 Yes [id number] 1-2 sprays Univers 50 2-21 in each ity of mcg/actuati 00:00: nostril [place] as on nasal 00 daily Medical spray Branch loratadine 2015-10 Yes [id number] 10mg Take 1 Univers (CLARITIN) 2-21 tablet by ity of 10 mg 00:00: mouth [place] tablet 00 daily. Medical Branch fluticasone 2015-10 Yes [id number] 1-2 sprays Univers 50 2-21 in each ity of mcg/actuati 00:00: nostril [place] as on nasal 00 daily Medical spray Branch loratadine 2015-10 Yes [id number] 10mg Take 1 Univers (CLARITIN) 2-21 tablet by ity of 10 mg 00:00: mouth [place] tablet 00 daily. Medical Branch fluticasone 2015-10 Yes [id number] 1-2 sprays Univers 50 2-21 in each ity of mcg/actuati 00:00: nostril [place] as on nasal 00 daily Medical spray Branch loratadine 2015-10 Yes [id number] 10mg Take 1 Univers (CLARITIN) 2-21 tablet by ity of 10 mg 00:00: mouth [place] tablet 00 daily. Medical Branch fluticasone 2015-10 Yes [id number] 1-2 sprays Univers 50 2-21 in each ity of mcg/actuati 00:00: nostril [place] as on nasal 00 daily Medical spray Branch Xanax 0.5 Xanax 0.5 No 1{table BID Xanax 0.5 MG MG t} MG Vitamin E Vitamin E No 1{capsu QD Vitamin E 1000 UNIT 1000 UNIT le} 1000 UNIT tramadol tramadol No tramadol Vital Signs Vital Name Observation Time Observation Value Comments Source Systolic blood 2022-06-03 18:44:00 112 mm[Hg] Univer sity of pressure [facility] Diastolic blood 2022-06-03 18:44:00 74 mm[Hg] Unive rsity of pressure [facility] Heart rate 2022-06-03 18:44:00 84 /min Universi [facility] Body height 2022-06-03 18:44:00 152.4 cm [facility] Body weight 2022-06-03 18:44:00 44.634 kg [facility] BMI 2022-06-03 18:44:00 19.22 kg/m2 [facility] Oxygen saturation in 2022-06-03 18:44:00 100 /min [facility] Arterial blood by [facility] Pulse oximetry Branch weight 2020-09-24 11:30:00 87 [lb_av] [facility] temperature 2020-09-24 11:30:00 97.7 [degF] [facility] bmi 2020-09-24 11:30:00 16.99 kg/m2 [facility] oximetry 2020-09-24 11:30:00 99 % [facility] blood pressure 2020-09-24 11:30:00 133 mm[Hg] [facility] - systolic [facility] blood pressure 2020-09-24 11:30:00 78 mm[Hg] [facility] - diastolic [facility] height 2020-09-24 11:30:00 60 [in_i] [facility] Procedures Procedure Date / Time Performing Clinician Source Performed RADIOLOGY DOCUMENTATION 2022-09-21 06:01:00 Doctor Unassigned, N o [facility] Branch EXTERNAL PROVIDER 2022-06-17 05:01:00 Doctor Unassigned, No Univ [facility] RECORDS Name [facility] Plan of Care Planned Activity Planned Date Details Comments Source Future Scheduled 2022-08-[address] [facility] Test 00:58:01 SCREENING [code = BREAST CANCER SCREENING] Future Scheduled 2022-08-15 COLONOSCOPY SCREENING [facility] Test 00:58:01 [code = COLONOSCOPY SCREENING] Future Scheduled 2022-08-15 SHINGLES VACCINES ([address] [facility] Test 00:58:01 of 2) [code = SHINGLES VACCINES (1 of 2)] Future Scheduled 2022-08-15 INFLUENZA VACCINE Method [facility] Test 00:58:01 [code = INFLUENZA VACCINE] Future Scheduled 2022-08-15 HEPATITIS B VACCINES Met [facility] Test 00:58:01 (1 of 3 - 3-dose series) [code = HEPATITIS B VACCINES (1 of 3 - 3-dose series)] Future Scheduled 2022-08-15 COVID-19 VACCINE (#1) [facility] Test 00:58:01 [code = COVID-19 VACCINE (#1)] Future Scheduled 2022-08-15 Hepatitis C screening [facility] Test 00:58:01 (procedure) [code = 556270059] Future Scheduled 2022-08-[address] [facility] Test 00:58:01 malignant neoplasm of cervix (procedure) [code = 930800033] Future Scheduled 2022-08-[address] [facility] Test 00:58:01 malignant neoplasm of cervix (procedure) [code = 221096095] Future Scheduled 2022-08-[address] [facility] Test 00:58:01 SCREENING [code = BREAST CANCER SCREENING] Future Scheduled 2022-08-15 COLONOSCOPY SCREENING [facility] Test 00:58:01 [code = COLONOSCOPY SCREENING] Future Scheduled 2022-08-15 SHINGLES VACCINES ([address] [facility] Test 00:58:01 of 2) [code = SHINGLES VACCINES (1 of 2)] Future Scheduled 2022-08-15 INFLUENZA VACCINE Method [facility] Test 00:58:01 [code = INFLUENZA VACCINE] Future Scheduled 2022-08-15 HEPATITIS B VACCINES Met [facility] Test 00:58:01 (1 of 3 - 3-dose series) [code = HEPATITIS B VACCINES (1 of 3 - 3-dose series)] Future Scheduled 2022-08-15 COVID-19 VACCINE (#1) [facility] Test 00:58:01 [code = COVID-19 VACCINE (#1)] Future Scheduled 2022-08-15 Hepatitis C screening [facility] Test 00:58:01 (procedure) [code = 802260022] Encounters Start End Encounter Admission Attending Care Care Encounter Source Date/Time Date/Time Type Type Clinicians Facility Department ID 2021-11-04 Outpatient [facility] [id number] Common 12:13:58 [id number] [facility] 2021-08-07 Emergency [facility] [id number] Univers 08:48:43 ity of [facility] 2020-08-31 Inpatient [facility] [id number] [facility] 19:31:00 63 [facility] 2020-07-24 Inpatient [facility] [id number] [facility] 04:15:00 80 [facility] 2020-07-23 Inpatient [facility] [id number] [facility] 14:07:00 82 [facility] [place] 2020-07-19 Inpatient [facility] [id number] [facility] 02:17:00 70 [facility] [place] 2020-07-14 Inpatient EL Gomes, [facility] DAYS [id number] [facility] 13:00:00 Kyung 53 [facility] [place] 2020-05-07 Inpatient [facility] [id number] [facility] 05:57:00 93 [facility] [place] 2022-09-21 2022-09-21 [facility] [id number] Univers 00:00:00 00:00:00 FanGager (MyBrandz) [id number] it y of [place] 4.2.7.2.686 William as JOSE CRUZ?BLEA [phone] [address] MEDICAL OFFICE BUILDING 2022-09-21 2022-09-21 Orders Doctor MIGUELANGEL [id number] Univers 00:00:00 00:00:00 Only Unassigned, EDGAR [id number] ity of [place] [facility] 4.2.7.2.686 William as [phone] [address] 2022-06-17 2022-06-17 Orders Doctor MIGUELANGEL 1.2.840.114 [id number] Univers 00:00:00 00:00:00 Only Unassigned, EDGAR [id number] ity of [place] [facility] 4.2.7.2.686 William as [id number] [address] 2022-06-03 2022-06-03 Office [facility] 1.2.840.114 [id number] Univers 13:45:00 14:00:00 Visit [facility] 350.1.13.10 it y of [place] 4.2.7.2.686 William as JOSE CRUZ?BLEA [phone] [address] MEDICAL OFFICE [facility] 2022-06-03 2022-06-03 Outpatient R KISHORE [facility] [id number] Univers 13:45:00 13:45:00 [facility] 2022-06-02 2022-06-02 Outpatient R KISHORE [facility] [id number] Univers 12:45:00 12:45:00 [facility] 2022-02-15 2022-02-15 Office [facility] [id number] Univers 12:00:00 12:15:00 Visit [facility] [id number] it y of [place] 4.2.7.2.686 William as JOSE CRUZ?BLEA [phone] [address] OFFICE [facility] 2022-02-15 2022-02-15 Outpatient R KISHORE [facility] [id number] Univers 12:00:00 12:00:00 [facility] 2022-02-11 2022-02-[facility] 1.2.840.114 [id number] Univers 00:00:00 00:00:00 Palomo HEALTH [id number] it y of [place] 4.2.7.2.686 William as JOSE CRUZ?BLEA [id number] [address] MEDICAL OFFICE [facility] 2021-11-16 2021-11-16 Refangeles [facility] 1.2.840.114 [id number] Univers 00:00:00 00:00:00 Palomo HEALTH [id number] it y of [place] 4.2.7.2.686 William as JOSE CRUZ?BLEA [id number] [address] MEDICAL OFFICE [facility] 2021-11-05 2021-11-05 Telephone [facility] [id number] Univers 00:00:00 00:00:00 Palomo HEALTH [id number] it y of [place] 4.2.7.2.686 William as JOSE CRUZ?BLEA [phone] [address] MEDICAL OFFICE [facility] 2021-11-03 2021-11-03 Orders Doctor MIGUELANGEL 1.2.840.114 [id number] Univers 00:00:00 00:00:00 Only Unassigned, EDGAR 350.1.13.10 ity of [place] [facility] 4.2.7.2.686 William as [phone] [address] 2021-08-17 2021-08-17 Refill [facility] 1.2.840.114 [id number] Univers 00:00:00 00:00:00 Palomo HEALTH [id number] 4.2.7.2.686 William as JOSE CRUZ?BLEA [id number] [address] OFFICE [facility] 2021-06-08 2021-06-08 Office [facility] 1.2.840.114 [id number] Univers 13:07:03 13:22:03 Visit [facility] 350.1.13.10 it y of [place] 4.2.7.2.686 William as Jose Cruz?Blea [phone] [address] Office [facility] 2021-06-08 2021-06-08 [facility] [id number] Univers 13:00:00 13:00:00 PALOMO ity of [facility] 2021-06-08 2021-06-08 Orders Doctor MEANS 1.2.840.114 [id number] Univers 00:00:00 00:00:00 Only Unassigned, EDGAR 350.1.13.10 ity of [place] [facility] 4.2.7.2.686 William as [id number] [address] 2021-06-08 2021-06-08 Orders Doctor MEANS 1.2.840.114 [id number] Univers 00:00:00 00:00:00 Only Unassigned, EDGAR 350.1.13.10 ity of [place] [facility] 4.2.7.2.686 William as [phone] [address] 2020-11-13 2020-11-13 [facility] [id number] Univers 13:00:00 13:00:00 PALOMO carrion [facility] 2020-11-11 2020-11-11 Refill [facility] 1.2.840.114 [id number] Univers 00:00:00 00:00:00 Palomo [facility] 350.1.13.10 it y of [place] 4.2.7.2.686 William as Professio [phone] [address] 2020-09-24 2020-09-24 OFFICE [facility] [id number] Co mmon 00:00:00 00:00:00 VISIT NEW Spir it PT LEVEL 2 - [facility] 2020-09-08 2020-09-08 Telephone [facility] [id number] Univers 00:00:00 00:00:00 Palomo [facility] 350.1.13.10 it y of [place] 4.2.7.2.686 [place] as Professio [phone] [address] 2020-09-03 2020-09-03 Telephone [facility] [id number] Univers 00:00:00 00:00:00 [facility] 350.1.13.10 it y of [place] 4.2.7.2.686 [place] as Professio [phone] [address] 2020-05-22 2020-05-22 Outpatient R LARSON [facility] [id number] Univers 16:00:00 16:00:00 PALOMO carrion [facility] 2020-05-15 2020-05-15 Office [facility] 1.2.840.114 [id number] 15:14:59 15:30:50 Visit Palomo Armenta 350.1.13.10 [place] 4.2.7.2.686 Professio [phone] [address] 2020-05-15 2020-05-15 Office [facility] 1.2.840.114 [id number] Univers 15:14:59 15:30:50 Visit Palomo Armenta 350.1.13.10 i ty of [place].2.7.2.686 [place] Profess[place] [phone] [address] 2020-05-15 2020-05-15 Outpatient R KISHORE [facility] [id number] Univers 15:15:00 15:15:00 PALOMO carrion [facility] 2020-05-13 2020-05-13 Refangeles [facility] 1.2.840.114 [id number] Univers 00:00:00 00:00:00 [facility] 350.1.13.10 it y of [place] 4.2.7.2.686 William as Professio [phone] [address] Office [facility] 2020-05-09 2020-05-09 [place] [facility] 1.2.840.114 [id number] Univers 00:00:00 00:00:00 [facility] 350.1.13.10 it y of [place] 4.2.7.2.686 [place] as Professio [phone] [address] Office [facility] 2020-05-06 2020-05-06 [place] [facility] 1.2.840.114 [id number] Univers 00:00:00 00:00:00 [facility] 350.1.13.10 it y of [place] 4.2.7.2.686 [place] as Professio [phone] [address] Office [facility] 2020-05-03 2020-05-03 Emergency Tien, Marifer [facility] 1.2.840.114 [id number] Univers 15:17:13 20:15:00 Donna Armenta 350.1.13.10 i ty of [place] 4.2.7.2.686 [place] [phone] [address] 2020-02-07 2020-02-07 Telephone Kishore [facility] [id number] Univers 00:00:00 00:00:00 Palomo Armenta 350.1.13.10 i ty of [place] 4.2.7.2.686 [place] Profess[place] [phone] [address] 2020-02-05 2020-02-05 Telephone [facility] [id number] [id number] Univers 00:00:00 00:00:00 Palomo [place] 350.1.13.10 i ty of [place] 4.2.7.2.686 [place] Profess[place] [phone] [address] 2020-02-05 2020-02-05 Orders Doctor MIGUELANGEL 1.2.840.114 [id number] Univers 00:00:00 00:00:00 Only Unassigned, EDGAR 350.1.13.10 [facility] 4.2.7.2.686 William as [phone] [address] 2020-02-04 2020-02-04 Martin [facility] 1.2.840.114 [id number] Univers 00:00:00 00:00:00 [facility] 350.1.13.10 it y of [place] 4.2.7.2.686 William as Professio [phone] [address] Office [facility] 2020-01-14 2020-01-14 Martin [facility] 1.2.840.114 [id number] Univers 00:00:00 00:00:00 [facility] 350.1.13.10 it y of [place] 4.2.7.2.686 William as Professio [phone] [address] Office [facility] 2020-01-04 2020-01-04 [facility] 1.2.840.114 [id number] Univers 00:00:00 00:00:00 [facility] 350.1.13.10 it y of [place] 4.2.7.2.686 William as Professio [phone] [address] Office [facility] One 2019-12-26 2019-12-26 Outpatient R KISHORE [facility] [id number] Univers 12:30:00 12:30:00 PALOMO carrion of [facility] 2019-12-26 2019-12-26 Refangeles [facility] 1.2.840.114 [id number] Univers 00:00:00 00:00:00 [facility] 350.1.13.10 it y of [place] 4.2.7.2.686 William as Professio [phone] Mi dical nal 044 [facility] One 2019-12-17 2019-12-17 Refill Kishore [facility] 1.2.840.114 [id number] Univers 00:00:00 00:00:00 [facility] 350.1.13.10 it y of [place] 4.2.7.2.686 William as Professio [phone] [address] One 2019-09-12 2019-09-12 Emergency NUSZEN, [facility] 064 [id number] [place] 00:00:00 00:00:00 CANDIE [facility] [facility] 2019-06-19 2019-06-19 Office Kishore [facility] 1.2.840.114 [id number] [facility] [place] 09:32:01 10:07:10 Visit [facility] 350.1.13.10 it y of [place] 4.2.7.2.686 William as Professio [phone] [facility] nal [address] [place] [address] One 2019-06-19 2019-06-19 Orders Doctor MIGUELANGEL 1.2.840.114 [id number] Univers 00:00:00 00:00:00 Only Unassigned, EDGAR 350.1.13.10 ity of [place] [facility] 4.2.7.2.686 William as [phone] [address] 2019-05-10 2019-05-10 Refill Kishore [facility] 1.2.840.114 [id number] Univers 00:00:00 00:00:00 [facility] 350.1.13.10 it y of [place] 4.2.7.2.686 William as Professio [phone] Mi dical nal 044 [place] Office [facility] One Results Test Description Test Time Test Comments Results Result [facility] e Comments - CT ABD PELVIS 2020-08-31 W/CONT 21:56:00 [facility] : 1970 Sex: F Name: DEMETRIO FERNÁNDEZ : 1970 Age/S: 50 / F [id number] [address] Unit #: [id number] Loc: [place] [address] Phys: Ernesto Rowley MD Acct: [id number] Dis Date: Status: REG ER PHONE #: [phone] Exam Date: 08/31/20202154 FAX #: Reason: diffuse abdominal pain, nausea EXAMS: CPT: [id number] CT ABD PELVIS W/CONT 58130 C3 TIME OF STUDY: 08/31/2020 9:11 PM [...] Longoria, RT(R)(CT) CTDI: DLP: Trnscb Date/Time: 08/31/2020 (2156) [email or web address] Orig Print D/T: S: 08/31/2020 (6805) PAGE 1 Signed Report - XR ABD ACUTE 2020-08-31 W/CHEST 21:02:[address] [facility] : 1970 Sex: F Name: DEMETRIO FERNÁNDEZ [facility] : 1970 Age/S: 50 / F [address] Unit #: [id number] Loc: [place] [address] Phys: Ernesto Rowley MD Acct: [id number] Dis Date: Status: REG ER PHONE #: [phone] Exam Date: 08/31/20202046 FAX #: Reason: diffuse abdominal pain, nausea EXAMS: CPT: [id number] XR ABD ACUTE W/CHEST 48582 Fluoro Time: DAP (Gy m2): Air Kerma [...] MD PAGE 1 Signed Report Name: DEMETRIO FERNÁNDEZland : 1970 Age/S: 50 / F [address] Unit #: [id number] Loc: [place] [address] Phys: Ernesto Rowley MD Acct: [id number] Dis Date: Status: REG ER PHONE #: [phone] Exam Date: 08/31/20202046 FAX #: Reason: diffuse abdominal pain, nausea EXAMS: CPT: [id number] XR ABD ACUTE W/CHEST 03690 Fluoro Time: DAP (Gy m2): Air Kerma [...] CA) 9.7 MG/DL 8.5-10.1 N HEPATIC FUNCTION [id number] 20:35:00 Test Item Value Reference Range Interpretation [...] 83 Unit/L 45-117 N code = ALKP) [id number] 20:35:00 Test Item Value Reference Range Interpretation Comments LIPASE (test code = LIP) 44 Unit/L 114-286 L UA RFLX MICR CULT IF [id number] 20:20:00 Test Item Value Reference Range Interpretation [...] UACULT) Indication for culture: Suprapubic PainCBC W/AUTO [id number] 20:12:00 Test Item Value Reference Range Interpretation [...] = MDIFF) UA RFLX MICR CULT IF [id number] 20:12:00 Test Item Value Reference Range Interpretation [...] for culture: Suprapubic Pain- CT ABD PELVIS [id number] 17:44:00[facility]ET[facility]NDEZ : 1970 Sex: F Patient Name: DEMETRIO FERNÁNDEZ Unit No: [id number] EXAMS: CPT CODE: [id number] CT ABD PELVIS W/CONT 14183 CTABDOMEN AND PELVIS WITH CONTRAST. INDICATION: Diffuse [...] abdominal wall soft tissue gas, right greater thanleft, [facility] NAME: DEMETRIO FERNÁNDEZ Radiology Department PHYS: Zen Larios [address] : 1970 AGE: 50 SEX: F [place], [place] [address] LOC: F.ERS PHONE #: [phone] EXAM DATE: 07/23/2020 STATUS: REG ER FAX #: [phone] RAD NO: [id number] Page 1 Signed Report 1 Patient Name: DEMETRIO FERNÁNDEZ Unit No: [id number] EXAMS: CPT CODE: [id number] ABD PELVIS W/CONT 58996 (Continued) presumably postoperative in nature. No organized fluid collection. 2. Nonobstructing left nephrolithiasis. SL: SG-H at 1744 Reported and signed by: Liang Meredith MD CC: Zen Recinos MD Brigette hnologist: Marcela Louis, RT, CT CTDI: 3.33 DLP: 155.32 Trnscrbd D/ (174) t.SDR.SG9 [facility] NAME: DEMETRIO FERNÁNDEZ Radiology Department PHYS: Zen Larios [address] : 1970 AGE: 50 SEX: F [place] [address] LOC: LucyERSPHONE #: [phone] EXAM DATE: 07/23/2020 STATUS: REG ER FAX #: [phone] RAD NO: [id number] Page 2Signed Report 1 Patient Name: DEMETRIO FERNÁNDEZ Unit No: [id number] EXAMS: CPT CODE: [id number] CT ABD PELVIS W/CONT 66393 (Continued) Orig Print D/T: S: 07/23/2020 (1747) [facility] NAME: DEMETRIO FERNÁNDEZ Radiology Department PHYS: Zen Larios [address] : 1970 AGE: 50 SEX: F [place] [address] LOC: LucyERS PHONE #: [phone] EXAM DATE: 07/23/2020 STATUS: REG ER FAX #: [phone] RAD NO: [id number] Page 3 Signed Report 1COMPREHENSIVE METABOLIC [id number] 16:13:00 Test Item Value Reference Range Interpretation [...] 46-116 N code = ALKP) CBC W/AUTO [id number] 15:55:00 Test Item Value Reference Range Interpretation [...] NORMAL code = PLTMR) DRUGS OF ABUSE [id number] 15:04:00 Test Item Value Reference Range Interpretation [...] ng/m L UA RFLX MICR CULT IF [id number] 14:56:00 Test Item Value Reference Range Interpretation [...] Description: CLEAN CATCH- US PELVIS LTD OR [id number] 04:30:00 Patient Name: DEMETRIO FERNÁNDEZ Unit No: [id number] EXAMS: CPT CODE: [id number] PELVIS LTD OR FU 30082 EXAM: US, US PELVIS COMPLETE: 07/19/2020, 0333 [...] 2. Otherwise unremarkable transabdominal pelvic ultrasound. SL: JSYED-H at 0430 Reported and signed by: Vince Locke M.D. CC: Technologist: Alize Gomes RDMS Probe: Trnscrbd D/ (0430) t.ROGERR.JS38 Orig Print D/T: S: 07/19/2020 (0433) [facility] NAME: DEMETRIO FERNÁNDEZ Radiology Department PHYS: Aakash Porter [address] : 1970 AGE: 50 SEX: F [place] [address] LOC: CHANDNI 3 PHONE #: [phone] EXAM DATE: 07/19/2020 STATUS: ADM IN FAX #: [phone] RAD NO: [id number] Page 1 Signed Report Patient Name: DEMETRIO FERNÁNDEZ Unit No: [id number] EXAMS: CPT CODE: [id number] US PELVIS LTD OR FU 96405 (Continued) [facility] NAME: TOBYDEMETRIO ASHTON Radiology Department PHYS: Aakash Porter [address] : 1970 AGE: 50 SEX: F [place] [address] LOC: CHANDNI 3 PHONE #: EXAM DATE: 07/19/2020 STATUS: ADM IN FAX #: [phone] RAD NO: [id number] Page 2 Signed Report- US ABDOMEN [id number] 04:18:00 Patient Name: DEMETRIO FERNÁNDEZ Unit No: [id number] EXAMS: CPT CODE: [id number] US ABDOMEN COMPLETE 56783 EXAM: US, US ABDOMEN LTD: 07/19/2020, 0300 [...] stone left kidney. No hydronephrosis seen [facility] NAME: DEMETRIO FERNÁNDEZ Radiology Department PHYS: ALPHONSE Avelar AntAakash Ephraim [address] : 1970 AGE: 50 SEX: F [place], [place] [address] LOC: JIGNA 3 PHONE #: [phone] EXAM DATE: 07/19/2020 STATUS: ADM IN FAX #: [phone] RAD NO: [id number] Page 1 Signed Report (CONTINUED) Patient Name: DEMETRIO FERNÁNDEZ Unit No: [id number] EXAMS: CPT CODE: [id number] US ABDOMEN COMPLETE 38788 (Continued) bilaterally. SL: ALEC at 0418 Reported and signed by: Vince Locke M.D. CC: Technologist: Alize Gomes RDMS Probe: Trnscrbd D/ (0418) [email or web address] Orig Print D/T: S: 07/19/2020 (0422) [facility] NAME: DEMETRIO FERNÁNDEZ Radiology Department PHYS: Aakash Porter [address] : 1970 AGE: 50 SEX: F [place] [address] LOC: CHANDNI 3 PHONE #: [phone] EXAM DATE: 07/19/2020 STATUS: ADM IN FAX #: [phone] RAD NO: [id number] Page 2 Signed Report Patient Name: DEMETRIO FERNÁNDEZ Unit No: [id number] EXAMS: CPT CODE: [id number] US ABDOMEN COMPLETE 74151 (Continued) [facility] NAME: DEMETRIO FERNÁNDEZ Radiology Department PHYS: ADDISONAakash Dao [address] : 1970 AGE: 50 SEX: F [place] [address] LOC: CHANDNI 3 PHONE #: [phone] EXAM DATE: 07/19/2020 STATUS: ADM IN FAX #: [phone] RAD NO: [id number] Page 3 Signed ReportHCG [id number] 03:12:00 Test Item Value Reference Range Interpretation [...] SHOULD BE CONSI DERED NEGATIVE COMPREHENSIVE METABOLIC [id number] 03:07:00 Test Item Value Reference Range Interpretation [...] 68 units/L 46-116 N code = ALKP) [id number] 03:07:00 Test Item Value Reference Range Interpretation Comments LIPASE (test code = LIP) 54 units/L 73-393 L DRUGS OF ABUSE [id number] 03:06:00 Test Item Value Reference Range Interpretation Comments UR COCAINE (test code = NEGATIVE NEGATIVE DETE CTION CUT OFF: COCAU) 150 ng/mL UR CANNABINOIDS (test POSITIVE NEGATIVE A RESULT S CALLED TO code = CANU) AMILCAR.READ BACK & CONFIRMED? YES. BY EfraAS99 07/10 2012. DETECTION CUT OFF: 50 ng/mL UR AMPHETAMINE (test code NEGATIVE NEGATIVE DE TECTION CUT OFF: = AMPHU) 500 ng/mL UR BARBITURATE QUAL (test NEGATIVE NEGATIVE DE TECTION CUT OFF: code = BARBQLU) 200 ng/mL UR BENZODIAZEPINE (test POSITIVE NEGATIVE A RESU LTS CALLED TO code = BENZU) AMILCAR.READ BACK & CONFIRMED? YES. BY EfraAS99 07/10 0305. DETECTION CUT OFF: 150 ng/mL UR OPIATES QUAL (test NEGATIVE NEGATIVE DETECT ION CUT OFF: code = OPIAQLU) 100 ng/mL UR PHENCYCLIDINE (PCP) NEGATIVE NEGATIVE DETEC TION CUT OFF: (test code = PHENCU) 25 ng/m L UA RFLX MICR CULT IF [id number] 03:02:00 Test Item Value Reference Range Interpretation [...] for culture: Dysuria/FrequencySpecimen Description: CLEAN CATCHCBC W/AUTO [id number] 02:46:00 Test Item Value Reference Range Interpretation [...] REQUIRED (test NORMAL NORMAL code = PLTMR) [id number] 14:56:00 RUN DATE: 07/17/20 [facility] PAGE 1 RUN TIME: 1053 Specimen Inquiry RUN USER: INTERFACE -PATIENT: DEMETRIO FERNÁNDEZ [id number] AGE/SX: 50/F ROOM: [facility] RE07/14/20REG DR: Kyung Gomes MD : [birth year] BED: A DIS: 07/15/20 STATUS: DIS Ekaterina TLOC: SPEC #: [id number] RECD: 07/14/20 STATUS: CAROLANN REQ #: [id number] YUNIEL: 07/14/20- SUBM DR: Kyung Gomes MD ENTERED: 07/15/20SP TYPE: PELVIC FEDERICO OTHR DR: Aakash Crook MD ORDERED: LEVEL IV/3 CODES: [id number] - FALLOPIAN [id number] - PELVIC GENITAL COPIES TO: Aakash Crook MD [address] [place] [address] Kyung Gomes MD [address] [place] [address] [email or web address] PROCEDURES: LEVEL IV (Incomplete) TISSUES: PELVIC GENITAL [...] - no tubal tissue identified CPT code(s): 86457 x3 [facility] CONTINUED ON NEXT PAGE RUN DATE: 07/17/20 [facility] PAGE 2 RUN TIME: 1053 Specimen Inquiry RUN USER: INTERFACE SPEC #: [id number] PATIENT: DEMETRIO FERNÁNDEZ #[id number] (Continued) GROSS DESCRIPTION ANATOMIC SOURCE OF TISSUE (per Requisition): 1. Right pelvic sidewall endometriosis 2. Right uterosacral endometriosis 3. Right fallopian tube and ovary Each specimen is labeled with the patient's name and medical record number. Specimen #1 is designated "right pelvic sidewall endometriosis" and consists ofa 1 x 0.5 x 0.3 cm wetzel-yellow soft tissue. The tissue is submitted in toto in A1. Specimen #2 is designated "right uterosacral endometriosis" and consists of a 0.7 x 0.5 x 0.2 cm wetzel-pink soft tissue. The tissue is submitted in toto in B1. Specimen #3 is designated "right fallopian tube and ovary" andconsists of a 2 x 1.7 x 0.8 cm ovary with attached wetzel-pink soft tissue. No fallopian tube is identified. The ovary is wetzel-yellow to ahumada and lobular. Sectioning reveals a wetzel-pink cut surface. [employer] sections are submitted as follows: C1 - ovary, C2 - attached wetzel-pink soft tissue. marry/rod 07/15/20 The remaining attached soft tissue is submitted in RE1. marry/tara 07/16/20 Signed Carmelina Frost MD 07/16/20 1456 END OF REPORT AG HEPATITIS B [id number] 15:14:00 Test Item Value Reference Range Interpretation Comments AG HEPATITIS B SURFACE (test code NONREACTIVE NONREACTIVE = HBSAG) IS CONSENT FORM SIGNED FOR HIV TESTING? YAB HEPATITIS C [id number] 15:14:00 Test Item Value Reference Range Interpretation Comments AB HEPATITIS C (test code = NONREACTIVE NONREACTIVE HCVAB) SIGNAL TO CUTOFF (test code = 0.11 <0.80 N CUTOFF) IS CONSENT FORM SIGNED FOR HIV TESTING? YAB HIV 1 15:14:00 Test Item Value Reference Range Interpretation Comments AB HIV 1 2 (test NONREACTIVE NONREACTIVE [facility] U[facility] 4th Gen HIV Ag/Ab Combo Screen IS CONSENT FORM SIGNED FOR HIV TESTING? YURINALYSIS [id number] 15:08:00 Test Item Value Reference Range Interpretation [...] URINE SAMPLE: CLEAN CATCHCOVID 19 Asymptomatic IH [id number] 15:07:00 Test Item Value Reference Range Interpretation [...] cleared or approved; th e test hasbeen authorchadnni kim by FDA under an Emerge ncy Use Authorization(E UA) for use by svetlana lundberg certified under the CLIA thatmeet the re quirements to perform mode rate, high or waivedcomple xity tests. This dipti t is authorized for use at thePoint of Car e (POC), i.e., in patien t care settingsoperati ng under a CLIA Certificat e of Waiver, Certifi chanell ofCompliance, o r Certificate of Accreditation. This test is only authori judy for the duration of thedeclaration that circumstances e xist justifying theauthorizatio n of emergency use o f in vitro diagnostic test sfor detection and/o r diagnosis of CO VID-19 under Gmafwbi08 4(b)(1) of the Act, 21 U.S .C. 360bbb-3(b)(1), unless theauthorizatio n is terminated or r evoked sooner. AG HEPATITIS B [id number] 14:51:00 Test Item Value Reference Range Interpretation Comments AG HEPATITIS B SURFACE (test code NONREACTIVE NONREACTIVE = HBSAG) IS CONSENT FORM SIGNED FOR HIV TESTING? YAB HEPATITIS C [id number] 14:51:00 Test Item Value Reference Range Interpretation Comments AB HEPATITIS C (test code = HCVAB) NONREACTIVE SIGNAL TO CUTOFF (test code = CUTOFF) <0.80 IS CONSENT FORM SIGNED FOR HIV TESTING? YAB HIV 1 14:51:00 Test Item Value Reference Range Interpretation Comments AB HIV 1 2 (test code = NEK36RT) NONREACTIVE IS CONSENT FORM SIGNED FOR HIV TESTING? YCBC W/AUTO [id number] 14:06:00 Test Item Value Reference Range Interpretation [...] T4) 5.9 mcg/dL 4.7-13.3 N THYROID STIMULATING [id number] 14:21:00 Test Item Value Reference Range Interpretation Comments THYROID STIMULATING 6.43 0.36-3.74 H Test Per formed in HORMONE (test code = MicroIn ternational Units/mL TSH) [id number] 14:21:00 Test Item Value Reference Range Interpretation Comments ESTRADIOL (test 60.9 pg/mL () Adult Femal e: code = ESTRA) Follicular pha se 12.5 - 166.0 Ovulatio n phase 85.8 - 498.0 Alicja teal phase 43.8 - 21 1.0 Postmenopausal <6.0 - 54.7 1st trimester 215.0 - >4300.0Roche EC MARYANA methodology [id number] 14:21:00 Test Item Value Reference Range Interpretation Comments PROGESTERONE (test 0.7 ng/mL () Follicul ar phase 0.1 - code = PROG) 0.9 Luteal pha se 1.8 - 23.9 Ovulation phase 0.1 - 12.0 Preg nant First trimester 11.0 - 44.3 Second tr imester 25.4 - 83.3 Thi rd trimester 58.7 - 214.0 Postmenopausal 0.0 - 0.1Performed At : [facility] [address], [place] [id number] ross Remy MD Ph:[phone] FOLLICLE STIMULATING [id number] 14:21:00 Test Item Value Reference Range Interpretation Comments FOLLICLE STIMULATING 43.2 mIU/mL () Adult Female: HORMONE (test code = Follicu lar phase 3.5 - FSH) 12.5 Ovulation phase 4.7 - 21.5 Lute al phase 1.7 - 7.7 Postmenopausal 25.8 - 134.8 COMPREHENSIVE METABOLIC [id number] 06:03:00 Test Item Value Reference Range Interpretation [...] units/L 46-116 code = ALKP) CBC W/AUTO [id number] 05:55:00 Test Item Value Reference Range Interpretation [...] T4) 5.9 mcg/dL 4.7-13.3 N THYROID STIMULATING [id number] 21:23:00 Test Item Value Reference Range Interpretation Comments THYROID STIMULATING 6.43 0.36-3.74 H Test Per formed in HORMONE (test code = MicroIn ternational Units/mL TSH) [id number] 21:23:00 Test Item Value Reference Range Interpretation Comments ESTRADIOL (test code = ESTRA) [id number] 21:23:00 Test Item Value Reference Range Interpretation Comments PROGESTERONE (test code = PROG) FOLLICLE STIMULATING [id number] 21:23:00 Test Item Value Reference Range Interpretation Comments FOLLICLE STIMULATING HORMONE (test code = FSH) Coronavirus 2019 nCoV [id number] 10:34:00 Test Item Value Reference Range Interpretation Comments Coronavirus 2019 nCoV Negative Negative RESUL TS CALLED TO READ Bedside (test code = BACK & CONFIRMED? BY [id number]) Z.LAB.WV 05/07 1034 This result epps s not [...] F ROM FDA - CT ABD PELVIS [id number] 08:28:00 Patient Name: DEMETRIO FERNÁNDEZ Unit No: [id number] EXAMS: CPT CODE: [id number] CT ABD PELVIS W/CONT 66632 CT ABDOMEN AND PELVIS WITH CONTRAST AND [...] facet arthrosis and SI joint osteoarthritis. [facility] NAME: DEMETRIO FERNÁNDEZ Radiology DepartmentPHYS: Liz Shafer MD [address] : 1970 AGE: 49 SEX: F [place], [place] [address] LOC: Delia.ERS PHONE #: [phone] EXAM DATE: 05/07/2020 STATUS: REG ER FAX #: [phone] RAD NO: [id number] Page 1 Signed Report 1 Patient Name: DEMETRIO FERNÁNDEZ Unit No: [id number] EXAMS: CPT CODE: [id number] CT ABD PELVIS W/CONT 25763 (Continued) IMPRESSION: 1. Constipation without acute CT [...] size -Use of iterative reconstruction technique SL: DVVIQ4HAKW73 at 0828 Reported and signed by: Chris Edmonds MD CC: Liz Padilla MD Technologist: Marcela Louis, RT, CT CTDI: 7.77 DLP: 159.20 Trnscrbd D/ (08) t.SDR.ERR2 [facility] NAME: DEMETRIO FERNÁNDEZ Radiology Department PHYS: Liz Shafer MD [address] : 1970 AGE: 49 SEX: F [place] [address] LOC: LucyERS PHONE #: [phone] EXAM DATE: 05/07/2020 STATUS: REG ER FAX #: [phone] RAD NO: [id number] Page 2 Signed Report 1 Patient Name: DEMETRIO FERNÁNDEZ Unit No: [id number] EXAMS: CPT CODE: [id number] CT ABD PELVIS W/CONT 00634 (Continued) Orig Print D/T: S: 05/07/2020 (0832) [facility] NAME: DEMETRIO FERNÁNDEZ Radiology Department PHYS: Liz Shafer MD [address] : 1970 AGE: 49 SEX: F [place] [address] LOC: LucyERS PHONE #: [phone] EXAM DATE: 05/07/2020 STATUS: REG ER FAX #: [phone] RAD NO: [id number] Page 3 Signed Report 1UA RFLX MICR CULT IF [id number] 08:25:00 Test Item Value Reference Range Interpretation [...] NONE SEEN Indication for culture: Dysuria/FrequencyCHEMISTRY 7 [id number] 08:16:00 Test Item Value Reference Range Interpretation [...] = CA) 9.1 mg/dL 8.4-10.2 N LIVER [id number] 08:16:00 Test Item Value Reference Range Interpretation [...] 85 units/L 46-116 N code = ALKP) [id number] 08:16:00 Test Item Value Reference Range Interpretation Comments LIPASE (test code = LIP) 66 units/L 73-393 L - US TRANSVAGINAL W/[id number] 08:14:00 Patient Name: DEMETRIO FERNÁNDEZ Unit No: [id number] EXAMS: CPT CODE: [id number] US TRANSVAGINAL [id number] TRANSVAGINAL PELVIC ULTRASOUND 05/07/2020 AT 0 713 HOURS. CLINICAL HISTORY: Abdominal/pelvic pain for 6 days. Vomiting. History of endometriosis. REPORTED LMP: Hysterectomy and left oophorectomy (2009). COMPARISON STUDIES: No recent relevant priors at this institution. Reference is made to the abdomen and pelvis CT 09/11/2016 and the pelvic ultrasound from 02/25/2015. By report the patient has anoutside ultrasound from [facility] dated 05/05/2020. This study is not [...] ovary. 4. No free fluid. No adnexal mass.SL: [id number] at 0814 Reported and signed by: Chris Edmonds MD CC: Liz Padilla MD Technologist: Nory Mace [facility] Probe: [id number] Trnscrbd D/ (0814) t.SDR.ERR2 Orig Print D/T: S: 05/07/2020 (0817) [facility] NAME: DEMETRIO FERNÁNDEZ Radiology Department PHYS: Liz Shafer MD [address] : 1970 AGE: 49 SEX: F [place] [address] LOC: LucyERS PHONE #: [phone] EXAM DATE: 05/07/2020 STATUS: REG ER FAX #: [phone] RAD NO: [id number] Page 1 Signed Report Patient Name: DEMETRIO FERNÁNDEZ Unit No: [id number] EXAMS: CPT CODE: [id number] US TRANSVAGINAL W/PELVIS 76768 (Continued) [facility] NAME: DEMETRIO FERNÁNDEZ Radiology Department PHYS: Liz Shafer MD [address] : 1970 AGE: 49 SEX: F [place] [address] LOC: LucyERS PHONE #: [phone] EXAM DATE: 05/07/2020 STATUS: REG ER FAX #: [phone] RAD NO: [id number] Page 2 Signed Report- US PELVIS [id number] 08:14:00 Patient Name: DEMETRIO FERNÁNDEZ Unit No: [id number] EXAMS: CPT CODE: [id number] US PELVIS COMPLETE 64342GQYVPTUWLITS PELVIC ULTRASOUND 05/07/2020 AT 0 713 HOURS. CLINICAL HISTORY: Abdominal/pelvic pain for6 days. Vomiting. History of endometriosis. REPORTED LMP: Hysterectomy and left oophorectomy (2009).COMPARISON STUDIES: No recent relevant priors at this institution. Reference is made to the abdomen and pelvis CT 09/11/2016 and the pelvic ultrasound from 02/25/2015. By report the patient has an outside ultrasound from [facility] in [facility] dated 05/05/2020. This study is not [...] No free fluid. No adnexal mass. SL: [id number] at 0814 Reported andsigned by: Chirs Edmonds MD CC: Liz Padilla MD Technologist: Nory Mace RDMS Probe: Trnscrbd D/ (0814) t.SDR.ERR2 Orig Print D/T: S: 05/07/2020 (0817) [facility] NAME: DEMETRIO FERNÁNDEZ Radiology Department PHYS: Liz Shafer MD [address] : 1970 AGE: 49 SEX: F [place], [place] [address] LOC: LucyERS PHONE #: [phone] EXAM DATE: 05/07/2020 STATUS: REG ER FAX #: [phone] RAD NO: [id number] Page 1 Signed Report Patient Name: DEMETRIO FERNÁNDEZ Unit No: [id number] EXAMS: CPT CODE: [id number] US PELVIS COMPLETE 56090 (Continued) [facility] NAME: DEMETRIO FERNÁNDEZ Radiology Department PHYS: Liz Shafer MD [address] : 1970 AGE: 49 SEX: F [place], [place] [address] LOC: LES PHONE #: [phone] EXAM DATE: 05/07/2020 STATUS: REG ER FAX #: [phone] RAD NO: [id number] 2 Signed ReportCBC W/AUTO [id number] 08:07:00 Test Item Value Reference Range Interpretation [...]
[2022-09-25] MEDS ORDERED: METHYLPREDNISOLONE 125 MG INJ ONE (10:26)
[2022-09-25] MEDS ORDERED: ONDANSETRON 4 MG/2 ML VIAL ONE (10:27)
[2022-09-25] MEDS ORDERED: FAMOTIDINE 20 MG/2 ML VIAL IV ONE (10:27)
[2022-09-25] MEDS ORDERED: HYDROMORPHONE HCL 1 MG/ML INJ ONE (10:27)
[2022-09-25] MEDS ORDERED: NA CHLORIDE 0.9% 1,000 ML ONE (10:27)
[2022-09-25 10:38] LABS: Absolute Lymphocytes (CBC) 0.8 K/uL (0.7-4.9); Hematocrit 43.6 % (36.0-45.0); Lymphocytes % 9.3 % (15.3-44.8); MCV 93.9 fL (80-100); MPV 7.5 fL (7.6-11.3); RBC Red Blood Cell Count 4.65 M/uL (3.86-4.86)
[2022-09-25 10:59] LABS: Albumin 4.6 g/dL (3.4-5.0); Bilirubin Total 0.4 mg/dL (0.2-1.0); Potassium 3.6 mmol/L (3.5-5.1); Protein, Total 7.9 g/dL (6.4-8.2)
[2022-09-25 11:07] LABS: Urine Blood 1+ (Negative); Urine Glucose Negative (Negative); Urine Protein 1+ (Negative); Urine Specific Gravity >=1.030 (1.005-1.030); Urine pH 6.5 (5.0-7.0)
[2022-09-25 11:18] LABS: Calcium Oxalate Crystals- Ur Few /HPF (None Seen); Urine Bacteria None Seen /HPF (<20); Urine Mucus 1+ /HPF (None Seen)
--- NOTE | 2022-09-25 11:35 | EDPHYS ---
Physician Documentation [facility] Name: Alysha Fernández Age: 52 yrs Sex: Female : 1970 Arrival Date: 09/25/2022 Time: 10:02 Bed 4 Private MD: [place] Physician John Guidry HPI: 09/25 10:23 This 52 yrs old Female presents to ER via Ambulatory with complaints of Abdominal Pain, rn Vomiting, Dehydrated. 10:23 The patient presents to the emergency department with nausea, vomiting, abdominal pain, rn of the left lower quadrant, described as achy, crampy, and does not radiate. Onset: The symptoms/episode began/occurred 2 day(s) ago. Possible causes: unknown. The symptoms are aggravated by nothing. The symptoms are alleviated by nothing. Associated signs and symptoms: Pertinent positives: abdominal pain, nausea, vomiting, Pertinent negatives: diarrhea, fever, GI bleeding. Severity of symptoms: At their worst the symptoms were moderate in the emergency department the symptoms are unchanged. The patient has experienced similar episodes in the past. The patient has been recently seen by a physician:. Pt reports LLQ abd pain, assoc with nausea/vomiting/constipation. Reports "has this a lot", just seen this past week for same pain with neg w/u and CT abdomen. Reports her pcp warned her about too many ct scans. No fever. Told in past might have inflammatory bowel disease but never f/u with GI for confirmation. Denies bleeding. Significant other states "usually gets fluids/dilaudid/nausea medicine and is a new person". . 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 - Social history:: Smoking status: Patient denies any tobacco usage or history of. - Family history:: not pertinent. - Hospitalizations: : No recent hospitalization is reported. ROS: 10:23 Constitutional: Negative for fever, chills, and weight loss, Eyes: Negative for injury, rn pain, redness, and discharge, Neck: Negative for injury, pain, and swelling, Cardiovascular: Negative for chest pain, palpitations, and edema, Respiratory: Negative for shortness of breath, cough, wheezing, and pleuritic chest pain, Abdomen/GI: + abd pain and nausea/vomiting Back: Negative for injury and pain, : Negative for injury, bleeding, discharge, and swelling, MS/Extremity: Negative for injury and deformity, Skin: Negative for injury, rash, and discoloration, Neuro: Negative for headache, numbness, tingling, and seizure. Exam: 10:23 Constitutional: This is a well developed, well nourished patient who is awake, alert, rn and in no acute distress. Head/Face: Normocephalic, atraumatic. ENT: dry MM Cardiovascular: Regular rate and rhythm. No pulse deficits. Respiratory: No increased work of breathing, no retractions or nasal flaring. Abdomen/GI: soft, mild LLQ tenderness, no peritoneal signs Skin: Warm, dry MS/ Extremity: Pulses equal, no cyanosis. Neuro: Awake and alert, GCS 15 Vital Signs: 10:10 BP 136 / 94; Pulse 113; Resp 18; Temp 97.5; Pulse Ox 100% on R/A; Weight 39.46 kg; ph Height 5 ft. 0 in. (152.40 cm); 10:16 BP 136 / 94; Pulse 100; Resp 18 S; Pulse Ox 98% on R/A; kc6 11:07 BP 138 / 84; Pulse 96; Resp 20 S; Pulse Ox 98% on R/A; Pain 0/10; kc6 10:10 Body Mass Index 16.99 (39.46 kg, 152.40 cm) ph MDM: 10:09 Patient medically screened. rn 10:23 Refusal of service: The patient/guardian displays adequate decision making capability rn and despite a detailed discussion of alternatives, benefits, risks, and consequences refuses: CT Scan. 10:29 ED course: I recommended CT scan of abdomen, explaining every episode could be rn something different, and could miss something new, understands, and refuses CT. . 11:34 Differential diagnosis: Nonspecific abd pain, gastritis, appendicitis, diverticulitis, rn viral gastroenteritis, gastroenteritis. Data reviewed: vital signs, nurses notes, lab test result(s), and as a result, I will discharge patient. Counseling: I had a detailed discussion with the patient and/or guardian regarding: the historical points, exam findings, and any diagnostic results supporting the discharge/admit diagnosis, lab results, the need for outpatient follow up, to return to the emergency department if symptoms worsen or persist or if there are any questions or concerns that arise at home. Response to treatment: the patient's symptoms have markedly improved after treatment, and as a result, I will discharge patient. 09/25 10:19 Order name: CBC with Diff; Complete Time: 11:14 rn 09/25 10:19 Order name: CMP; Complete Time: 11: rn 09/25 10:19 Order name: Lipase; Complete Time: 11:14 rn 09/25 10:19 Order name: Urine Microscopic Only; Complete Time: 11:19 rn 09/25 11:08 Order name: Urine Dipstick-Ancillary; Complete Time: 11:14 EDTX 09/25 10:19 Order name: IV Saline Lock; Complete Time: 10:21 rn 09/25 10:19 Order name: Labs collected and sent; Complete Time: 10: rn 09/25 10:19 Order name: Urine Dipstick-Ancillary (obtain specimen); Complete Time: 11:07 rn Administered Medications: 10:35 Drug: NS 0.9% 1000 ml Route: IV; Rate: 1 bolus; Site: right antecubital; db 11:25 Follow up: Response: No adverse reaction; IV Status: Completed infusion; IV Intake: kc6 1000ml 10:35 Drug: Dilaudid (HYDROmorphone) 1 mg Route: IVP; Site: right antecubital; db 11:24 Follow up: Response: No adverse reaction; Pain is decreased; RASS: Alert and Calm (0) kc6 10:35 Drug: SOLU-Medrol (methylPrednisoLONE) 125 mg Route: IVP; Site: right antecubital; db 11:24 Follow up: Response: No adverse reaction kc6 10:36 Drug: Pepcid (famotidine) 20 mg Route: IVP; Site: right antecubital; db 11:25 Follow up: Response: No adverse reaction kc6 10:36 Drug: Zofran (Ondansetron) 4 mg Route: IVP; Site: right antecubital; db 11:25 Follow up: Response: No adverse reaction; Nausea is decreased kc6 Disposition Summary: 09/25/22 11:34 Discharge Ordered Location: Home rn Problem: an acute exacerbation rn Symptoms: have improved rn Condition: Stable rn Diagnosis - Lower abdominal pain, unspecified rn Followup: rn - With: Private Physician - When: As needed - Reason: Recheck today's complaints, Re-evaluation by your physician Discharge Instructions: - Discharge Summary Sheet rn - Abdominal Pain, Adult rn - Pain Without a Known Cause rn Forms: - Medication Reconciliation Form rn - Thank You Letter rn - Antibiotic 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
--- NOTE | 2022-09-25 11:35 | ER ---
Nurse's Notes [facility] [place] [place] Name: Alysha Fernández Age: 52 yrs Sex: Female : 1970 Arrival Date: 09/25/2022 Time: 10:02 Bed 4 Private MD: Diagnosis: Lower abdominal pain, unspecified Presentation: 09/25 10:10 Chief complaint: Patient states: N/V, constipation, LLQ pain, states that she was seen ph here last Tuesday for similar symptoms, dx w/ likely IBS or Crohns, prescribed Zofran but "can't keep it down". Coronavirus screen: Vaccine status: Patient reports being unvaccinated. Ebola Screen: No symptoms or risks identified at this time. Initial Sepsis Screen: Does the patient meet any 2 criteria? No. Patient's initial sepsis screen is negative. Does the patient have a suspected source of infection? No. Patient's initial sepsis screen is negative. Risk Assessment: Do you want to hurt yourself or someone else? Patient reports no desire to harm self or others. Onset of symptoms was September 25, 2022. 10:10 Method Of Arrival: Ambulatory ph 10:10 Acuity: ROBERTO 3 ph Triage Assessment: 10:12 General: Appears in no apparent distress. uncomfortable, Behavior is cooperative, ph appropriate for age, anxious. Pain: Complains of pain in left lower quadrant. GI: Reports lower abdominal pain, constipation, nausea, vomiting. 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 - Social history:: Smoking status: Patient denies any tobacco usage or history of. - Family history:: not pertinent. - Hospitalizations: : No recent hospitalization is reported. Screenin:[address] [facility] ED Fall Risk Assessment (Adult) History of falling in the last 3 months, kc6 including since admission No falls in past 3 months (0 pts) Confusion or Disorientation No (0 pts) Intoxicated or Sedated No (0 pts) Impaired Gait No (0 pts) Mobility Assist Device Used No (0 pt) Altered Elimination No (0 pt) Score/Fall Risk Level 0 - 2 = Low Risk. Abuse screen: Denies threats or abuse. Denies injuries from another. Nutritional screening: No deficits noted. Tuberculosis screening: No symptoms or risk factors identified. Assessment: 10:12 General: Appears in no apparent distress. uncomfortable, Behavior is cooperative, kc6 appropriate for age, anxious. Pain: Complains of pain in left lower quadrant Pain does not radiate. Pain currently is 10 out of 10 on a pain scale. Quality of pain is described as dull, twisting Pain began suddenly, Is continuous, Alleviated by nothing. Aggravated by eating, drinking, increased activity, repositioning, Noted to be crying, resistant to movement, Also complains of no other associated symptoms. Neuro: Raymond Agitation-Sedation Scale (RASS): 0 - Alert and Calm Level of Consciousness is awake, alert, obeys commands, Oriented to person, place, time, situation, Appropriate for age. Cardiovascular: Heart tones S1 S2 present Capillary refill < 3 seconds. Respiratory: Airway is patent Trachea midline Respiratory effort is even, unlabored, Respiratory pattern is regular, symmetrical, Breath sounds are clear bilaterally. GI: Abdomen is flat, non-distended, Bowel sounds present X 4 quads. Abd is soft X 4 quads Abdomen is tender to palpation in left lower quadrant Reports lower abdominal pain, constipation, nausea, vomiting, Patient currently denies constipation. : No signs and/or symptoms were reported regarding the genitourinary system. EENT: No signs and/or symptoms were reported regarding the EENT system. Derm: No signs and/or symptoms reported regarding the dermatologic system. Skin is intact, Skin is pink, warm \\T\\ dry. Musculoskeletal: No signs and/or symptoms reported regarding the musculoskeletal system. Circulation, motion, and sensation intact. Capillary refill < 3 seconds, Range of motion: intact in all extremities. 11:07 Reassessment: Patient appears in no apparent distress at this time. No changes from kc6 previously documented assessment. Patient and/or family updated on plan of care and expected duration. Pain level reassessed. Patient is alert, oriented x 3, equal unlabored respirations, skin warm/dry/pink. Patient denies pain at this time. Patient states feeling better. Patient states symptoms have improved. Vital Signs: 10:10 BP 136 / 94; Pulse 113; Resp 18; Temp 97.5; Pulse Ox 100% on R/A; Weight 39.46 kg; ph Height 5 ft. 0 in. (152.40 cm); 10:16 BP 136 / 94; Pulse 100; Resp 18 S; Pulse Ox 98% on R/A; kc6 11:07 BP 138 / 84; Pulse 96; Resp 20 S; Pulse Ox 98% on R/A; Pain 0/10; kc6 10:10 Body Mass Index 16.99 (39.46 kg, 152.40 cm) ph ED Course: 10:02 Patient arrived in ED. mr 10:09 John Guidry MD is Attending Physician. rn 10:11 Triage completed. ph 10:12 Delia Hsu, ALINA is Primary Nurse. kc6 10:12 Arm band placed on Patient placed in an exam room, on a stretcher. ph 10:14 Initial lab(s) drawn, by me. Inserted saline lock: 20 gauge in right antecubital area, kj1 using aseptic technique. Blood collected. 10:27 CBC with Diff Sent. kc6 10:27 CMP Sent. kc6 10:27 Lipase Sent. kc6 11:07 Urine Microscopic Only Sent. kc6 11:08 Patient has correct armband on for positive identification. Bed in low position. Call kc6 light in reach. Side rails up X2. Adult w/ patient. 11:47 No provider procedures requiring assistance completed. IV discontinued, intact, kc6 bleeding controlled, No redness/swelling at site. Pressure dressing applied. Administered Medications: 10:35 Drug: NS 0.9% 1000 ml Route: IV; Rate: 1 bolus; Site: right antecubital; db 11:25 Follow up: Response: No adverse reaction; IV Status: Completed infusion; IV Intake: kc6 1000ml 10:35 Drug: Dilaudid (HYDROmorphone) 1 mg Route: IVP; Site: right antecubital; db 11:24 Follow up: Response: No adverse reaction; Pain is decreased; RASS: Alert and Calm (0) kc6 10:35 Drug: SOLU-Medrol (methylPrednisoLONE) 125 mg Route: IVP; Site: right antecubital; db 11:24 Follow up: Response: No adverse reaction kc6 10:36 Drug: Pepcid (famotidine) 20 mg Route: IVP; Site: right antecubital; db 11:25 Follow up: Response: No adverse reaction kc6 10:36 Drug: Zofran (Ondansetron) 4 mg Route: IVP; Site: right antecubital; db 11:25 Follow up: Response: No adverse reaction; Nausea is decreased kc6 Medication: 11:08 VIS not applicable for this client. kc6 Intake: 11:25 IV: 1000ml; Total: 1000ml. kc6 Outcome: 11:34 Discharge ordered by . rn 11:47 Discharged to home via wheelchair, with significant other. kc6 11:47 Condition: stable 11:47 Discharge instructions given to patient, Instructed on discharge instructions, medication usage, Demonstrated understanding of instructions, medications, Prescriptions given X 2. 11:47 Patient left the ED. kc6 Signatures: Dang Mendoza Roman, MD MD rn Hall, Patricia, RN RN Nelson, Delilah kj1 Delia Hsu RN RN kc6 Jackie Campbell RN RN db Corrections: (The following items were deleted from the chart) 10:22 10:12 Pain: Complains of pain in left lower quadrant Pain does not radiate. kc6 kc6
[2022-09-25 12:12] VITALS: TEMP 97.5
[2022-09-25 12:13] VITALS: O2SAT 98
[2022-09-25 12:14] VITALS: BP 138/84
== END 2022-09-25 11:47 | disposition home or self-care (01) ==
LOC: ER 10:00
DX: R10.32 Left lower quadrant pain (principal); R11.2 Nausea with vomiting, unspecified; F41.9 Anxiety disorder, unspecified; Z88.0 Allergy status to penicillin; Z88.1 Allergy status to other antibiotic agents; Z88.5 Allergy status to narcotic agent
CPT/HCPCS: 85025; 36415; 83690; 80053; J1170; J7030; J2930; J2405; 81003; 81015; 96361; 96374; 96375; 99284

== ENCOUNTER 2022-09-29 08:41 | Emergency (ER) | payer OTHER ==
--- OUTSIDE RECORDS SUMMARY | 2022-09-29 08:47 | XMS REPORT | Continuity of Care Document ---
:1970 Author Organization [facility] t Address [address] [place] [address] [address]. [address] [place] [address] Care Team Providers Name Role Phone Palomo Larson MD Primary Care Physician [phone] Kyung Gomes Attending Clinician Unavailable Palomo Larson MD Attending Clinician Doctor Unassigned, [place] Attending Clinician Unavailable PALOMO LARSON Attending Clinician Unavailable Marifer Espitia Attending Clinician CANDIE HAMILTON Attending Clinician Unavailable Jenelle Nix Admitting Clinician Unavailable Kyung Gomes Admitting Clinician Unavailable Anika Harper Admitting Clinician Unavailable Payers Payer Name Policy Type Policy Number Effective Date Expiration Date Kong johnson AEANA LUISA HMO [id number] 2015 00:00:00 AETNA C1 [id number] Common [facility] Problems Condition Condition Condition Status Onset Resolution Last Treating Co mments Source Name Details Category Date Date Treatment Clinician Date Anxiety Anxiety Disease Active Univers 605 ity of 00:00: [place] 00 Medical Branch Fatigue Fatigue Disease Active Univers 6 ity of 00:00: [place] Medical [facility] Hypothyroi Hypothyroi Disease Active U nivers dism due dism due 04-02 ity of to to 00:00: [place] acquired acquired 00 Medica l atrophy of atrophy of Br anch thyroid thyroid Weight Weight Disease Active Univers loss loss 04-02 ity of 00:00: Medical [place] [id number] LLQ Problem Active Common abdominal [facility] pain [facility] Kidney Kidney Problem Active Common stone stone [facility] Allergies, Adverse Reactions, Alerts Allergy Allergy Status Severity Reaction(s) Onset Inactive Treating Comm ents Source Name Type Date Date Clinician Penicill DA Active SV 2019-1 [facility] ins 0-01 [place] 00:00: d 00 [facility] morphine DA Active SV 2019-1 [facility] 0-01 [place] 00:00: d 00 [facility] codeine DA Active SV 2019-1 [facility] 0-01 [place] 00:00: d 00 [facility] Penicill DA Active SV RASH, NAUSEA 2019- HC A ins AND VOMITING 0-01 Pear brandie 00:00: d 00 [facility] morphine DA Active SV NAUSEA AND 2020- [facility] VOMITING 0-01 [place] 00:00: d 00 [facility] codeine DA Active SV NAUSEA AND 2020-1 [facility] VOMITING 0-01 [place] 00:00: d 00 [facility] pcn DA Active MO rash 2020-0 [facility] 7-29 [facility] 00:[facility]: [facility] 00 [facility] [place] Penicill Propensi Active Nausea 2020-0 Univer s ins ty to and/or 7-25 ity of adverse Vomiting 00:00: [place] reaction 00 Medical s Branch Morphine Propensi Active Anaphylaxis 2020-0 U nivers ty to 7-25 ity of adverse 00:00: [place] reaction Medical s Branch Codeine Propensi Active Swelling 2018- Metho di ty to 2-04 st adverse 00:00: Hospita reaction 00 l s to drug Morphine Propensi Active Swelling 2018-10 Meth junie ty to 11-13 st adverse 00:00: Hospita reaction 00 l s to drug morphine DA Active U 2015- [facility] 2- Woman's 00:00: [facility] 00 l [facility] [place] morphine DA Active U nasu 2015-10 [facility] 2-03 [facility] 00:00: [facility] 00 l [facility] [place] Codeine Propensi Active Unknown - Univ ers ty to See comments 6-23 ity of adverse 00:00: [place] reaction 00 Medical s Branch codeine DA Active MO 2014- [facility] 7- Woman's 00:00: [facility]ospita 00 l of [place] codeine DA Active MO HIVES/RASH 2014- [facility] 7- [facility] 00:00: [facility] 00 [facility] [place] Social History Social Habit Start Date Stop Date Quantity Comments Source History of [facility] - Tobacco Use [facility] Exposure to 2022-05-24 2022-06-03 Not sure University SARS-CoV-2 00:00:00 13:38:00 [facility] (event) [place] Tobacco use and 2022-06-03 2022-06-03 Smokeless tobacco Un iversity of exposure 00:00:00 00:00:00 non-user [facility] Alcohol intake 2019-09-12 2019-09-12 Current drinker [facility] 00:00:00 00:00:00 of alcohol (finding) Sex [birth year] [facility] 00:00:00 00:00:00 Smoking Status Start Date Stop Date Source Never Smoker [facility] Tobacco smoking consumption [facility] [place] [facility] unknown Medications Ordered Filled Start Stop Current Ordering Indication Dosage Frequency Signature Comments Components Source Medication Medication Date Date Medication? Clinician (SIG) Name Name ALPRAZolam Yes [id number] .5mg Take 1 Univers 0.5 mg 8-25 tablet by ity of tablet 00:00: mouth in [place] [address] the Medical morning Branch and 1 tablet in the evening. ALPRAZolam Yes [id number] .5mg Take 1 Univers 0.5 mg 8-25 tablet by ity of tablet 00:00: mouth in [place] [address] the Medical morning Branch and 1 tablet in the evening. ALPRAZolam Yes [id number] .5mg Take 1 Univers 0.5 mg 8-25 tablet by ity of tablet 00:00: mouth in [place] 00 the Medical morning Branch and 1 tablet in the evening. ALPRAZolam Yes [id number] .5mg Take 1 Univers 0.5 mg 8-25 [...] NEEDED PAIN Indication s: chronic pain ALPRAZolam 0 2021- No [id number] .5mg Take 1 Univers 0.5 mg 5-09 08-25 tablet by ity of tablet 00:00: 00:00 mouth 2 [place] 00 :00 (two) Medical times Branch daily. MULTIVITAMI Yes Take by Uni vers N ORAL 9-10 mouth. ity of 09:55: [address] Branch MULTIVITAMI Yes Take by Uni vers N ORAL 9-10 mouth. ity of 09:55: [address] Branch MULTIVITAMI Yes Take by Uni vers N ORAL 9-10 mouth. ity of 09:55: [place] 45 Medical Branch MULTIVITAMI 0 Yes Take by Uni vers N ORAL 9-10 mouth. ity of 09:55: [place] [address] Medical Branch loratadine 2015-10 Yes [id number] 10mg Take 1 Univers (CLARITIN) 2-21 tablet by ity of 10 mg 00:00: mouth [place] tablet 00 daily. Medical Branch fluticasone 2015-10 Yes [id number] 1-2 sprays Univers 50 2-21 in each ity of mcg/actuati 00:00: nostril [place] as on nasal 00 daily Medical spray Branch loratadine 2015-10 Yes [id number] 10mg Take 1 Univers (CLARITIN) 2-21 tablet by ity of 10 mg 00:00: mouth [place] tablet 00 daily. Medical Branch fluticasone 2015-10 Yes [id number] 1-2 sprays Univers 50 2-21 in each ity of mcg/actuati 00:00: nostril [place] as on nasal 00 daily Medical spray Branch loratadine 2015-10 Yes [id number] 10mg Take 1 Univers (CLARITIN) 2-21 tablet by ity of 10 mg 00:00: mouth [place] tablet 00 daily. Medical Branch fluticasone 2015-10 Yes [id number] 1-2 sprays Univers 50 2-21 in each ity of mcg/actuati 00:00: nostril [place] as on nasal 00 daily Medical spray Branch loratadine 2015-10 Yes [id number] 10mg Take 1 Univers (CLARITIN) 2-21 tablet by ity of 10 mg 00:00: mouth [place] tablet 00 daily. Medical Branch fluticasone 2015-10 Yes [id number] 1-2 sprays Univers 50 2-21 in each [...] 18:44:00 112 mm[Hg] Univer sity of pressure [facility] Diastolic blood 2022-06-03 18:44:00 74 mm[Hg] Unive rsity of pressure [facility] Heart rate 2022-06-03 18:44:00 84 /min Universi [facility] Body height 2022-06-03 18:44:[address] [facility] Body weight 2022-06-03 18:44:00 [facility]634 [facility] 2022-06-03 18:44:00 19.22 kg/m2 [facility] Oxygen saturation in 2022-06-03 18:44:00 100 [facility] Arter[facility] blood by [facility] Pulse oximetry Branch height 2020-09-24 11:30:00 60 [in_i] [facility] weight 2020-09-24 11:30:00 87 [lb_av] [facility] temperature 2020-09-24 11:30:00 97.7 [degF] [facility] bmi 2020-09-24 11:30:00 16.99 kg/m2 [facility] oximetry 2020-09-24 11:30:00 99 % [facility] blood pressure 2020-09-24 11:30:00 133 mm[Hg] [facility] - systolic [facility] blood pressure 2020-09-24 11:30:00 78 mm[Hg] [facility] - diastolic [facility] Procedures Procedure Date / Time Performing Clinician Source Performed RADIOLOGY DOCUMENTATION 2022-09-21 06:01:00 Doctor Unassigned, N o [facility] EXTERNAL PROVIDER 2022-06-17 05:01:00 Doctor Unassigned, No [facility] Plan of Care Planned Activity Planned Date Details Comments Source Future Scheduled 2022-09-25 COLONOSCOPY SCREENING [facility] Test 11:00:17 [code = COLONOSCOPY SCREENING] Future Scheduled 2022-09-25 SHINGLES VACCINES (1 Met [facility] Test 11:00:17 of 2) [code = SHINGLES VACCINES (1 of 2)] Future Scheduled 2022-09-25 INFLUENZA VACCINE [facility] Test 11:00:17 [code = INFLUENZA VACCINE] Future Scheduled 2022-09-25 COVID-19 VACCINE (#1) [facility] Test 11:00:17 [code = COVID-19 VACCINE (#1)] Future Scheduled 2022-09-25 Hepatitis C screening [facility] Test 11:00:17 (procedure) [code = 400482511] Future Scheduled 2022-09-25 BREAST CANCER [facility] Test 11:00:17 SCREENING [code = BREAST CANCER SCREENING] Future Scheduled 2022-08-15 COVID-19 VACCINE (#1) [facility] Test 00:58:01 [code = COVID-19 VACCINE (#1)] Future Scheduled 2022-08-15 Hepatitis C screening [facility] Test 00:58:01 (procedure) [code = 977882545] Future Scheduled 2022-08-15 Screening for [facility] Test 00:58:01 malignant neoplasm of cervix (procedure) [code = 167284549] Future Scheduled 2022-08-15 BREAST CANCER [facility] Test 00:58:01 SCREENING [code = BREAST CANCER SCREENING] Future Scheduled 2022-08-15 COLONOSCOPY SCREENING [facility] Test 00:58:01 [code = COLONOSCOPY SCREENING] Future Scheduled 2022-08-15 SHINGLES VACCINES (1 Met [facility] Test 00:58:01 of 2) [code = SHINGLES VACCINES (1 of 2)] Future Scheduled 2022-08-15 INFLUENZA VACCINE Method [facility] Test 00:58:01 [code = INFLUENZA VACCINE] Future Scheduled 2022-08-15 HEPATITIS B VACCINES Met [facility] Test 00:58:01 (1 of 3 - 3-dose series) [code = HEPATITIS B VACCINES (1 of 3 - 3-dose series)] Future Scheduled 2022-08-15 COVID-19 VACCINE (#1) [facility] Test 00:58:01 [code = COVID-19 VACCINE (#1)] Future Scheduled 2022-08-15 Hepatitis C screening [facility] Test 00:58:01 (procedure) [code = 796708324] Future Scheduled 2022-08-15 Screening for [facility] Test 00:58:01 malignant neoplasm of cervix (procedure) [code = 803625745] Future Scheduled 2022-08-15 BREAST CANCER [facility] Test 00:58:01 SCREENING [code = BREAST CANCER SCREENING] Future Scheduled 2022-08-15 COLONOSCOPY SCREENING [facility] Test 00:58:01 [code = COLONOSCOPY SCREENING] Future Scheduled 2022-08-15 SHINGLES VACCINES (1 Met [facility] Test 00:58:01 of 2) [code = SHINGLES VACCINES (1 of 2)] Future Scheduled 2022-08-15 INFLUENZA VACCINE Method [facility] Hospital Test 00:58:01 [code = INFLUENZA VACCINE] Future Scheduled 2022-08-15 HEPATITIS B VACCINES Met [facility] Test 00:58:01 (1 of 3 - 3-dose series) [code = HEPATITIS B VACCINES (1 of 3 - 3-dose series)] Encounters Start End Encounter Admission Attending Care Care Encounter Source Date/Time Date/Time Type Type Clinicians Facility Department ID 2021-11-04 Outpatient [facility] [id number] Common 12:13:58 [id number] [facility] 2021-08-07 Emergency [facility] [id number] Univers 08:48:43 ity [facility] 2020-08-31 Inpatient [facility] [id number] [facility] 19:31:00 63 [facility] 2020-07-24 Inpatient [facility] [id number] [facility] 04:15:00 80 [facility] 2020-07-23 Inpatient [facility] [id number] [facility] 14:07:00 82 [facility] [place] 2020-07-19 Inpatient [facility] [id number] [facility] 02:17:00 70 [facility] [place] 2020-07-14 Inpatient EL Goems, [facility] DAYS [id number] [facility] 13:00:00 Kyung 53 [facility] [place] 2020-05-07 Inpatient [facility]STAL [id number] [facility] 05:57:00 93 [facility] [place] 2022-09-21 2022-09-21 Telephone Kishore [facility] [id number] Univers 00:00:00 00:00:00 [facility] [id number] it y of [place] 4.2.7.2.686 [place] as JOSE CRUZ?BLEA [phone] [address] MEDICAL OFFICE BUILDING 2022-09-21 2022-09-21 Orders Doctor MEANS [id number] [id number] Univers 00:00:00 00:00:00 Only Unassigned, EDGAR [id number] ity of [place] [facility] 4.2.7.2.686 William as [phone] [address] 2022-06-17 2022-06-17 Orders Doctor MIGUELANGEL 1.2.840.114 [id number] Univers 00:00:00 00:00:00 Only Unassigned, EDGAR 350.1.13.10 ity of [place] [facility] 4.2.7.2.686 William as [id number] [address] 2022-06-03 2022-06-03 [facility] 1.2.840.114 [id number] Univers 13:45:00 14:00:00 Visit [facility] [id number] it [facility] 4.2.7.2.686 [place] as JOSE CRUZ?BLEA [id number] [address] MEDICAL OFFICE [facility] 2022-06-03 2022-06-03 Outpatient Teresa LARSON [facility] [id number] Univers 13:45:00 13:45:00 [facility] 2022-06-02 2022-06-02 [facility] [id number] Univers 12:45:00 12:45:00 [facility] 2022-02-15 2022-02-15 [facility] 1.2.840.114 [id number] Univers 12:00:00 12:15:00 Visit [facility] [id number] it y [facility] 4.2.7.2.686 William as JOSE CRUZ?BLEA [id number] [address] OFFICE [facility] 2022-02-15 2022-02-15 Outpatient [facility] [id number] Univers 12:00:00 12:00:00 [facility] 2022-02-11 2022-02-11 [facility] 1.2.840.114 [id number] Univers 00:00:00 00:00:00 [facility] [id number] it y of [place] 4.2.7.2.686 William as JOSE CRUZ?BLEA [id number] [address] OFFICE [facility] 2021-11-16 2021-11-16 [facility] 1.2.840.114 [id number] Univers 00:00:00 00:00:00 [facility] [id number] it y of [place] 4.2.7.2.686 William as JOSE CRUZ?BLEA [id number] [address] OFFICE [facility] 2021-11-05 2021-11-[address] [id number] Univers 00:00:00 00:00:00 [facility] [id number] it y [facility] 4.2.7.2.686 William as JOSE CRUZ?BLEA [id number] [address] OFFICE [facility] 2021-11-03 2021-11-03 Orders Doctor MIGUELANGEL 1.2.840.114 [id number] Univers 00:00:00 00:00:00 Only Unassigned, EDGAR 350.1.13.10 ity of [place] [facility] 4.2.7.2.686 William as [id number] [address] 2021-08-17 2021-08-17 [facility]ill [facility] 1.2.840.114 [id number] Univers 00:00:00 00:00:00 [facility] [id number] it y of [place] 4.2.7.2.686 William as JOSE CRUZ?BLEA [id number] [address] OFFICE [facility] 2021-06-08 2021-06-08 Office [facility] 1.2.840.114 [id number] Univers 13:07:03 13:22:03 Visit [facility] 350.1.13.10 it y of [place] 4.2.7.2.686 William as Jose Cruz?Blea [phone] [address] Office [facility] 2021-06-08 2021-06-08 Outpatient R KISHORE [facility] [id number] Univers 13:00:00 13:00:00 PALOMO carrion [facility] 2021-06-08 2021-06-08 Orders Doctor MIGUELANGEL 1.2.840.114 [id number] Univers 00:00:00 00:00:00 Only Unassigned, EDGAR 350.1.13.10 ity of [place] [facility] 4.2.7.2.686 William as [id number] [address] 2021-06-08 2021-06-08 Orders Doctor MIGUELANGEL 1.2.840.114 [id number] Univers 00:00:00 00:00:00 Only Unassigned, EDGAR 350.1.13.10 ity of [place] [facility] 4.2.7.2.686 William as [id number] [address] 2020-11-13 2020-11-13 Outpatient R KISHORE [facility] [id number] Univers 13:00:00 13:00:00 PALOMO jhonatan [facility] 2020-11-11 2020-11-11 [facility]ill [facility] 1.2.840.114 [id number] Univers 00:00:00 00:00:00 [facility] 350.1.13.10 it y of [place] 4.2.7.2.686 [place] as Professio [id number] [address] Office [facility] One 2020-09-24 2020-09-24 OFFICE [facility] [id number] mmon 00:00:00 00:00:00 VISIT [facility] PT LEVEL 2 - [facility] 2020-09-08 2020-09-08 Telephone [facility] [id number] Univers 00:00:00 00:00:00 [facility] 350.1.13.10 it y of [place] 4.2.7.2.686 [place] as Professio [id number] Ar dical nal 044 [place] Office Building One 2020-09-03 2020-09-03 Telephone [facility] [id number] Univers 00:00:00 00:00:00 [facility] 350.1.13.10 it y of [place] 4.2.7.2.686 [place] as Professio [id number] [address] One 2020-05-22 2020-05-22 Outpatient R KISHORE [facility] [id number] Univers 16:00:00 16:00:00 PALOMO carrion [facility] 2020-05-15 2020-05-15 Office [facility] 1.2.840.114 [id number] Univers 15:14:59 15:30:50 Visit Palomo Armenta 350.1.13.10 i ty of [place] 4.2.7.2.686 [place] Profess[place] [id number] [address] 2020-05-15 2020-05-15 Office [facility] 1.2.840.114 [id number] 15:14:59 15:30:50 Visit Palomo Armenta 350.1.13.10 [place] 4.2.7.2.[address] Professio [id number] 2020-05-15 2020-05-15 Outpatient [facility] [id number] Univers 15:15:00 15:15:00 PALOMO carrion [facility] 2020-05-13 2020-05-13 Refangeles [facility] 1.2.840.114 [id number] Univers 00:00:00 00:00:00 [facility] 350.1.13.10 it y of [place] 4.2.7.2.686 [place] as Professio [id number] [address] 2020-05-09 2020-05-09 Refangeles [facility] 1.2.840.114 [id number] Univers 00:00:00 00:00:00 [facility] 350.1.13.10 it y of [place] 4.2.7.2.686 [place] as Professio [id number] [address] 2020-05-06 2020-05-06 Martin [facility] 1.2.840.114 [id number] Univers 00:00:00 00:00:00 [facility] 350.1.13.10 it y of [place] 4.2.7.2.686 [place] as Professio [phone] [address] 2020-05-03 2020-05-03 Emergency Marifer Chauhan [facility] 1.2.840.114 [id number] Univers 15:17:13 20:15:00 Donna Yoshi 350.1.13.10 i ty of [place] 4.2.7.2.686 [place] Emma [id number] [facility] 084 [place] 2020-02-07 2020-02-07 Telephone [facility] [id number] Univers 00:00:00 00:00:00 Palomo Alexandraton 350.1.13.10 i ty of [place] 4.2.7.2.[place] Profess[place] [id number] [address] 2020-02-05 2020-02-05 Telephone [facility] [id number] Univers 00:00:00 00:00:00 Palomosahil Armenta 350.1.13.10 i ty of [place] 4.2.7.2.[place] Profess[place] [id number] [address] 2020-02-05 2020-02-05 Orders Doctor MIGUELANGEL 1.2.840.114 [id number] Univers 00:00:00 00:00:00 Only Unassigned, EDGAR 350.1.13.10 ity of [place] [facility] 4.2.7.2.686 William as [id number] [facility] 009 [place] 2020-02-04 2020-02-04 Refangeles Larson MDGEOVANNI 1.2.840.114 [id number] Univers 00:00:00 00:00:00 [facility] 350.1.13.10 it y of [place] 4.2.7.2.686 [place] as Professio [id number] [address] 2020-01-14 2020-01-14 Refangeles Larson MDGEOVANNI 1.2.840.114 [id number] Univers 00:00:00 00:00:00 [facility] 350.1.13.10 it y of [place] 4.2.7.2.686 [place] as Professio [id number] [address] 2020-01-04 2020-01-04 Refill [facility] 1.2.840.114 [id number] Univers 00:00:00 00:00:00 [facility] 350.1.13.10 it y of [place] 4.2.7.2.686 [place] as Professio [phone] [address] 2019-12-26 2019-12-26 Outpatient R KISHORE [facility] [id number] Univers 12:30:00 12:30:00 PALOMO ity of [facility] 2019-12-26 2019-12-26 Refill [facility] 1.2.840.114 [id number] Univers 00:00:00 00:00:00 [facility] 350.1.13.10 it y of [place] 4.2.7.2.686 William as Professio [id number] [address] 2019-12-17 2019-12-17 Refill [facility] 1.2.840.114 [id number] Univers 00:00:00 00:00:00 [facility] 350.1.13.10 it y of [place] 4.2.7.2.686 William as Professio [id number] [address] 2019-09-12 2019-09-12 Emergency NUSZEN, [facility] [id number] 03 [place] 00:00:00 00:00:00 CANDIE Soto [facility] 2019-06-19 2019-06-19 Office [facility] 1.2.840.114 [id number] Univers 09:32:01 10:07:10 Visit [facility] 350.1.13.10 it y of [place] 4.2.7.2.686 [place] as Professio [phone] [address] Office [facility] 2019-06-19 2019-06-19 Orders Doctor MIGUELANGEL 1.2.840.114 [id number] Univers 00:00:00 00:00:00 Only Unassigned, EDGAR 350.1.13.10 ity of [place] [facility] 4.2.7.2.686 William as [phone] [address] 2019-05-10 2019-05-10 Martin Larson [facility] 1.2.840.114 [id number] Univers 00:00:00 00:00:00 [facility] 350.1.13.10 y vianney [place] 4.2.7.2.686 William as Kris [phone] Ar dical nal [address] Office Building One Results Test Description Test Time Test Comments Results Result [facility] e Comments - CT ABD PELVIS 2020-08-31 W/CONT 21:56:00 [facility] : 1970 Sex: F Name: DEMETRIO FERNÁNDEZ [facility] : 1970 Age/S: 50 / F [id number] [place] Unit #: [id number] Loc: [place] [address] Phys: Ernesto Rowley MD Acct: [id number] Dis Date: Status: REG ER PHONE #: [phone] Exam Date: 08/31/2020 2151 FAX #: Reason: diffuse abdominal pain, nausea EXAMS: CPT: [id number] CT ABD PELVIS W/CONT 54179 C3 TIME OF STUDY: 08/31/2020 9:11 PM [...] (2155) [email or web address] Orig Print D/T: S: 08/31/2020 (2158) PAGE 1 Signed Report - XR ABD ACUTE 2020-08-31 W/CHEST 21:02:00 [facility] : 1970 Sex: F Name: DEMETRIO FERNÁNDEZ [facility] : 1970 Age/S: 50 / F [id number] Unit #: [id number] Loc: [place] [address] Phys: Ernesto Rowley MD Acct: [id number] Dis Date: Status: REG ER PHONE #: [phone] Exam Date: 08/31/20202046 FAX #: Reason: diffuse abdominal pain, nausea EXAMS: CPT: [id number] XR ABD ACUTE W/CHEST 23815 Fluoro Time: DAP (Gy m2): Air Kerma [...] follow-up. 2. No acute parenchymal abnormalities. at 2102 Reported and signed by: Efrain Joshi M.D. CC: Jenelle Nix MD PAGE 1 Signed Report Name: DEMETRIO FERNÁNDEZ : 1970 Age/S: 50 / F [id number] [place] Unit #: [id number] Loc: [place] [address] Phys: Ernesto Rowley MD Acct: [id number] Dis Date: Status: REG ER PHONE #: [phone] Exam Date: 08/31/20202046 FAX #: Reason: diffuse abdominal pain, nausea EXAMS: CPT: [id number] XR ABD ACUTE W/CHEST 94522 Fluoro Time: DAP (Gy m2): Air Kerma (mGy): <Continued> Technologist: Karthik Longoria, RT(R)(CT) Trnscb Date/Time: 08/31/2020 (2101) [email or web address] Orig Print D/T: S: 08/31/2020 (2104) PAGE [...] CA) 9.7 MG/DL 8.5-10.1 N HEPATIC FUNCTION [id number] 20:35:00 Test Item Value Reference Range Interpretation [...] 83 Unit/L 45-117 N code = ALKP) [id number] 20:35:00 Test Item Value Reference Range Interpretation Comments LIPASE (test code = LIP) 44 Unit/L 114-286 L UA RFLX MICR CULT IF [id number] 20:20:00 Test Item Value Reference Range Interpretation [...] UACULT) Indication for culture: Suprapubic PainCBC W/AUTO [id number] 20:12:00 Test Item Value Reference Range Interpretation [...] = MDIFF) UA RFLX MICR CULT IF [id number] 20:12:00 Test Item Value Reference Range Interpretation [...] for culture: Suprapubic Pain- CT ABD PELVIS [id number] 17:44:00 [facility] 1970 Sex: F Patient Name: DEMETRIO FERNÁNDEZ Unit No: [id number] EXAMS: CPT CODE: [id number] CT ABD PELVIS W/CONT 24892 CT ABDOMEN AND PELVIS WITH CONTRAST. INDICATION: Diffuse abdominal pain and vomiting after surgery 10 days ago. COMPARISON: 05/07/2020 CT abdomen pelvis TECHNIQUE: Helical imaging was performed from the diaphragm through the pubic symphysis with multiplanar reformations obtained. DOSE: CT imaging performedat this location utilizes radiation dose optimization technique which includes one or more of the followin) Automated exposure control; 2) Adjustment of the mA and/or kV according to patient's size; 3) Use of iterative reconstruction techniques. DLP: 155 mGy-cm IV contrast: 80 mL Isovue-300 GI cont rast: 40 mL Gastrografin FINDINGS: LOWER CHEST: Visualized portions of the lung bases are clear. PERITONEUM: No free intraperitoneal air or fluid. RETROPERITONEUM: Abdominal aorta is normal in caliber.No adenopathy appreciated. SOLID ORGANS: The liver, gallbladder, spleen, pancreas, bilateral adrenalglands, and right kidney all appear normal. 3 mm nonobstructing left renal calculus at the lower pole present. PELVIS: Minimal fluid present in the bladder. The uterus is not visualized. No organized fluid collections identified in the pelvis. BOWELS/APPENDIX: There are no abnormally dilated small or large bowel loops. The appendix is not identified. MUSCULOSKELETAL: Anterior abdominal wall soft tissue gas is present appearing greater on the right. No organized fluid collection. No suspicious osseous abnormality identified. IMPRESSION: 1. Anterior abdominal wall soft tissue gas, right greater than left, [facility] NAME: DEMETRIO FERNÁNDEZ Radiology Department PHYS: Zen Larios [address] : 1970 AGE: 50 SEX: F [place] [address] LOC: LucyERS PHONE #: [phone] EXAM DATE: 07/23/2020 STATUS: REG ER FAX #: [phone] RAD NO: [id number] Page 1 Signed Report 1 Patient Name: DEMETRIO FERNÁNDEZ Unit No: [id number] EXAMS: CPT CODE: [id number] CT ABD PELVIS W/CONT 66952 (Continued) presumably postoperative in nature. No organized fluid collection. 2. Nonobstructing left nephrolithiasis. SL: SG-H at 1744 Reported and signed by: Liang Meredith MD CC: Zen Recinos MD Technologist: Marcela Louis, RT, CT CTDI: 3.33 DLP: 155.32 Trnscrbd D/ (1744) t.SDR.SG9 [facility] NAME: DMEETRIO FERNÁNDEZ Radiology Department PHYS: Zen Larios [address] : 1970 AGE: 50 SEX: F [place] [address] LOC: LucyERS PHONE #: [phone] EXAM DATE: 07/23/2020 STATUS: REG ER FAX #: [phone] RAD NO: [id number] Page 2 Signed Report 1 Patient Name: DEMETRIO FERNÁNDEZ Unit No: [id number] EXAMS: CPT CODE: [id number] CT ABD PELVIS W/CONT 53222 (Continued) Orig Print D/T: S: 07/23/2020 (1747) [facility] NAME: DEMETRIO FERNÁNDEZ Radiology Department PHYS: Zen Larios [address] : 1970 AGE: 50 SEX: F [place], [place] [address] LOC: LucyERS PHONE #: [phone] EXAM DATE: 07/23/2020 STATUS: REG ER FAX #: [phone] RAD NO: [id number] Page 3 Signed Report 1COMPREHENSIVE METABOLIC [id number] 16:13:00 Test Item Value Reference Range Interpretation [...] 46-116 N code = ALKP) CBC W/AUTO [id number] 15:55:00 Test Item Value Reference Range Interpretation [...] NORMAL code = PLTMR) DRUGS OF ABUSE [id number] 15:04:00 Test Item Value Reference Range Interpretation Comments UR COCAINE (test code = NEGATIVE NEGATIVE DETE CTION CUT OFF: COCAU) 150 ng/mL UR CANNABINOIDS (test POSITIVE NEGATIVE A RESULT S CALLED TO code = CANU) DR.JOSH-GO MEZRE AD BACK & CONFI RMED? YES.BY FLambertoLAB.TT [...] ng/m L UA RFLX MICR CULT IF [id number] 14:56:00 Test Item Value Reference Range Interpretation [...] Description: CLEAN CATCH- US PELVIS LTD OR [id number] 04:30:00 Patient Name: DEMETRIO FERNÁNDEZ Unit No: [id number] EXAMS: CPT CODE: [id number] US PELVIS LTD [place] FU 94003 EXAM: US, US PELVIS COMPLETE: 07/19/2020, 0333 [...] Technologist: Alize Gomes RDMS Probe: Trnscrbd D/ (0430)t.ROGERR.JS38 Orig Print D/T: S: 07/19/2020 (0433) [facility] NAME: DEMETRIO FERNÁNDEZ Rad iology Department PHYS: Aakash Potrer [address] : 1970 AGE: 50 SEX: F [place] [address] LOC: CHANDNI 3 PHONE #: [phone] EXAM DATE: 07/19/2020 STATUS: ADM IN FAX #: [phone] RAD NO: [id number] Page 1 Signed Report Patient Name: DEMETRIO FERNÁNDEZ Unit No: [id number] EXAMS: CPT CODE: [id number] US PELVIS LTD OR FU 54959 (Continued) [facility] NAME: DEMETRIO FERNÁNDEZ Radiology Department PHYS: Aakash Porter [address]: 1970 AGE: 50 SEX: F [place] [id number] [facility]: [id number] LOC: CHANDNI Flores PHONE #: EXAM DATE: 07/19/2020 STATUS: ADM IN FAX #: [phone] [facility] NO: [id number] Page 2 Signed Report- US ABDOMEN [id number] 04:18:00 Patient Name: DEMETRIO FERNÁNDEZ Unit No: [id number] EXAMS: CPT CODE: [id number] US ABDOMEN COMPLETE 34014 EXAM: US, US ABDOMEN LTD: 07/19/2020, 0300 [...] stone left kidney. No hydronephrosis seen [facility] NAME: DEMETRIO FERNÁNDEZ Radiology Department PHYS: Morgan Porter [address] : 1970 AGE: 50 SEX: F [place] [address] LOC: CHANDNI Flores PHONE #: [phone] EXAM DATE: 07/19/2020 STATUS: ADM IN FAX #: [phone] RAD NO: [id number] Page 1 Signed Report (CONTINUED) Patient Name: DEMETRIO FERNÁNDEZ Unit No: [id number] EXAMS: CPT CODE: [id number] US ABDOMEN COMPLETE 86489 (Continued) bilaterally. SL: JSYED-H at 0418 Reported and signed by: Vince Locke M.D. CC: Technologist:Alize Gomes RDMS Probe: Trnscrbd D/ (0418) t.ROGERR.JS38 Orig Print D/T: S: 07/19/2020 (0422) [facility] NAME: DEMETRIO FERNÁNDEZ Radiology Department PHYS: ALPHONSE Avelar AntAakash Ye [address] : 1970 AGE: 50 SEX: Del[place] [address] LOC: CHANDNI Flores PHONE #: [phone] EXAM DATE: 07/19/2020 STATUS: ADM IN FAX #: [phone] RAD NO:[id number] Page 2 Signed Report Patient Name: DEMETRIO FERNÁNDEZ Unit No: [id number] EXAMS: CPT CODE: [id number] US ABDOMEN COMPLETE 85829 (Continued) [facility] NAME: DEMETRIO FERNÁNDEZ Radiology Department PHYS: FATEMEHAakash Foy [address] : 1970 AGE: 50 SEX: Delia [place] [address] LOC: CHANDNI 3 PHONE #: [phone] EXAM DATE: 07/19/2020 STATUS: ADM IN FAX #: [phone] RAD NO: [id number] Page 3 Signed ReportHCG [id number] 03:12:00 Test Item Value Reference Range Interpretation Comments HCG SERUM (test 3 INTERPRETATI ON:VALUES BETWEEN code = HCG) 15-20 milliInte rnational units/mL NEED T O BERETESTED WITHIN 48 HOURS . All units for these ranges ar e in milliInternatio nalunits/mL0-1 WK AFTER CONCEP TION 0-50 1-2 WKS AFTER LARRY PTION 40-3002-3 WKS A FTER CONCEPTION 100-1,0003-4 WK S AFTER CONCEPTION 500- 6,0001-2 MONTHS AFTER CONCEPTIO N 5,000-200,0002- 3 MONTHS AFTER CONCEPTION 10,0 00-100,0002ND TRIMESTER 3,000 -50,0003RD TRIMESTER 1,000 -50,000 SPECIMENS WITH AN HCG LEVEL FROM 0-6 milliInternatio nalunits/mL SHOULD BE CONSI DERED NEGATIVE COMPREHENSIVE METABOLIC [id number] 03:07:00 Test Item Value Reference Range Interpretation [...] 68 units/L 46-116 N code = ALKP) [id number] 03:07:00 Test Item Value Reference Range Interpretation Comments LIPASE (test code = LIP) 54 units/L 73-393 L DRUGS OF ABUSE [id number] 03:06:00 Test Item Value Reference Range Interpretation [...] ng/m L UA RFLX MICR CULT IF [id number] 03:02:00 Test Item Value Reference Range Interpretation [...] for culture: Dysuria/FrequencySpecimen Description: CLEAN CATCHCBC W/AUTO [id number] 02:46:00 Test Item Value Reference Range Interpretation [...] (test NORMAL NORMAL code = PLTMR) PELVIC [id number] 14:56:00 RUN DATE: 07/17/20 [facility] PAGE 1 RUN TIME: 1053 Specimen Inquiry RUN USER: INTERFACE --PATIENT: DEMETRIO FERN[facility]NDEZ [facility] [place]: [id number] AGE/SX: 50/F ROOM: [facility] RE07/14/20REG DR: Kyung Gomes MD : [birth year] BED: A DIS: 07/15/20 STATUS: DIS Ekaterina TLOC: SPEC #: [id number] RECD: 07/14/20 STATUS: CAROLANN [place] #: [id number] YUNIEL: 07/14/20- SUBM DR: Kyung Gomes MD ENTERED: 07/15/20SP TYPE: PELVIC FEDERICO OTHR DR: Aakash Crook MD ORDERED: LEVEL IV/3 CODES: W59174 - FALLOPIAN TUBE VV9618 - PELVIC GENITAL COPIES TO: Aakash Crook MD [address] [place] [address] Kyung Gomes MD [address] [place] [address] [email or web address] PROCEDURES: LEVEL IV (Incomplete) TISSUES: PELVIC GENITAL [...] - no tubal tissue identified CPT code(s): 33010 x3 [facility] CONTINUED ON NEXT PAGE RUN DATE: 07/17/20 [facility] PAGE 2 RUN TIME: 1053 Specimen Inquiry RUN USER: INTERFACE SPEC #: [id number] PATIENT: DEMETRIO FERNÁNDEZ #[id number] (Continued) GROSS DESCRIPTION ANATOMIC SOURCE OF TISSUE [...] x 0.5 x 0.2 cm wetzel-pink soft tissue.The tissue is submitted in toto in B1. Specimen #3 is designated "right fallopian tube and ovary" and consists of a 2 x 1.7 x 0.8 cm ovary with attached wetzel-pink soft tissue. No fallopian tube is identified. The ovary is wetzel-yellow to ahumada and lobular. Sectioning reveals a wetzel-pink cut surface. Motor Vehicle [employer] Car[employer] Sales[employer] sections are submitted as follows: C1 - ovary, C2 - attached wetzel-pink soft tissue. amanda 07/15/20 The remaining attached soft tissue is submitted in RE1. chel 07/16/20 Signed Carmelina Frost MD 07/16/20 1456 END OF REPORT AG HEPATITIS B [id number] 15:14:00 Test Item Value Reference Range Interpretation Comments AG HEPATITIS B SURFACE (test code NONREACTIVE NONREACTIVE = HBSAG) IS CONSENT FORM SIGNED FOR HIV TESTING? ZE HEPATITIS C [id number] 15:14:00 Test Item Value Reference Range Interpretation Comments AB HEPATITIS C (test code = NONREACTIVE NONREACTIVE HCVAB) SIGNAL TO CUTOFF (test code = 0.11 <0.80 N CUTOFF) IS CONSENT FORM SIGNED FOR HIV TESTING? ZE HIV 1 15:14:00 Test Item Value Reference Range Interpretation Comments AB HIV 1 2 (test NONREACTIVE NONREACTIVE Done by [employer] code = [id number]) 4th Gen HIV Ag/Ab Combo Screen IS CONSENT FORM SIGNED FOR HIV TESTING? YURINALYSIS [id number] 15:08:00 Test Item Value Reference Range Interpretation [...] URINE SAMPLE: CLEAN CATCHCOVID 19 Asymptomatic IH [id number] 15:07:00 Test Item Value Reference Range Interpretation [...] and/o r diagnosis of CO VID-19 under Gpaadem12 4(b)(1) of the Act, 21 U.S .C. 360bbb-3(b)(1), unless theauthorizatio n is terminated or r evoked sooner. AG HEPATITIS B [id number] 14:51:00 Test Item Value Reference Range Interpretation Comments AG HEPATITIS B SURFACE (test code NONREACTIVE NONREACTIVE = HBSAG) IS CONSENT FORM SIGNED FOR HIV TESTING? YAB HEPATITIS C [id number] 14:51:00 Test Item Value Reference Range Interpretation Comments AB HEPATITIS C (test code = HCVAB) NONREACTIVE SIGNAL TO CUTOFF (test code = CUTOFF) <0.80 IS CONSENT FORM SIGNED FOR HIV TESTING? YAB HIV 1 14:51:00 Test Item Value Reference Range Interpretation Comments AB HIV 1 2 (test code = HSI70PJ) NONREACTIVE IS CONSENT FORM SIGNED FOR HIV TESTING? YCBC W/AUTO [id number] 14:06:00 Test Item Value Reference Range Interpretation [...] T4) 5.9 mcg/dL 4.7-13.3 N THYROID STIMULATING [id number] 14:21:00 Test Item Value Reference Range Interpretation Comments THYROID STIMULATING 6.43 0.36-3.74 H Test Per formed in HORMONE (test code = MicroIn ternational Units/mL TSH) [id number] 14:21:00 Test Item Value Reference Range Interpretation Comments ESTRADIOL (test 60.9 pg/mL () Adult Femal e: code = ESTRA) Follicular pha se 12.5 - 166.0 Ovulation phase 85.8 - 498.0 Alicja teal phase 43.8 - 21 1.0 Postmenopausal <6.0 - 54.7 1st trimester 215.0 - >4300.0Roche EC MARYANA methodology [id number] 14:21:00 Test Item Value Reference Range Interpretation Comments PROGESTERONE (test 0.7 ng/mL () Follicu lar phase 0.1 code = PROG) - 0.9 Luteal ph ase 1.8 - 23.9 Ovulatio n phase 0.1 - 12.0 Preg nant First trimester 11.0 - 44.3 Second tri mester 25.4 - 83.3 Thi rd trimester 58.7 - 214.0 Postmenopausal 0.0 - 0.1Performed At : [facility] [place] [address] [place], [place] [id number] ross Remy MD Ph:[phone] FOLLICLE STIMULATING [id number] 14:21:00 Test Item Value Reference Range Interpretation Comments FOLLICLE STIMULATING 43.2 mIU/mL () Adult Female: HORMONE (test code = Follicu lar phase 3.5 - FSH) 12.5 Ovulation phase 4.7 - 21.5 Lute al phase 1.7 - 7.7 Postmenopausal 25.8 - 134.8 COMPREHENSIVE METABOLIC [id number] 06:03:00 Test Item Value Reference Range Interpretation [...] units/L 46-116 code = ALKP) CBC W/AUTO [id number] 05:55:00 Test Item Value Reference Range Interpretation [...] T4) 5.9 mcg/dL 4.7-13.3 N THYROID STIMULATING [id number] 21:23:00 Test Item Value Reference Range Interpretation Comments THYROID STIMULATING 6.43 0.36-3.74 H Test Per formed in HORMONE (test code = MicroIn ternational Units/mL TSH) [id number] 21:23:00 Test Item Value Reference Range Interpretation Comments ESTRADIOL (test code = ESTRA) [id number] 21:23:00 Test Item Value Reference Range Interpretation Comments PROGESTERONE (test code = PROG) FOLLICLE STIMULATING [id number] 21:23:00 Test Item Value Reference Range Interpretation Comments FOLLICLE STIMULATING HORMONE (test code = FSH) Coronavirus 2019 nCoV [id number] 10:34:00 Test Item Value Reference Range Interpretation Comments Coronavirus 2019 nCoV Negative Negative RESUL TS CALLED TO READ Bedside (test code = BACK & CONFIRMED? BY [id number]) CHINIA 05/07 1034 This result epps s not [...] F ROM FDA - CT ABD PELVIS [id number] 08:28:00 Patient Name: DEMETRIO FERNÁNDEZ Unit No: [id number] EXAMS: CPT CODE: [id number] CT ABD PELVIS W/CONT 00943 CT ABDOMEN AND PELVIS WITH CONTRAST AND [...] facet arthrosis and SI joint osteoarthritis. [facility] NAME: DEMETRIO FERNÁNDEZ Radiology Department PHYS: Liz Shafer MD [address] : 1970 AGE: 49 SEX: F [place], [place] [address] LOC: LucyERS PHONE #: [phone] EXAM DATE: 05/07/2020 STATUS: REG ER FAX #: [phone] RAD NO: [id number] Page 1 Signed Report 1 Patient Name: DEMETRIO FERNÁNDEZ Unit No: [id number] EXAMS: CPT CODE: [id number] CT ABD PELVIS W/CONT 19860 (Continued) IMPRESSION: 1. Constipation without acute CT explanation for the patient's symptoms. 2. Specifically, no acute findings are seen in the left lower quadrant considering history. 3. Hysterectomy and apparent bilateral salpingo-oophorectomy. 4. No pelvic adenopathy, mass or free fluid. 5. No abnormal solid organ enhancement. Fatty liver. ____ CT imaging performed at [facility] utilizes radiation dose optimization techniques which include one or more of the following:-Automated exposure control -Adjustment of the mA and/or kV according to patient size -Use of iterative reconstruction technique SL: [id number] Electronically Signed by Chris Edmonds MD on05/07/2020 at 0828 Reported and signed by: Chris Edmonds MD CC: Lzi Padilla MD Technologist: RT Nathaly, CT CTDI: 7.77 DLP: 159.20 Trnscrbd D/ (0828) t.SDR.ERR2 [facility] NAME: DEMETRIO FERNÁNDEZ Radiology Department PHYS: Liz Shafer PMD [address] : 1970 AGE: 49 SEX: F [place], [place] [address] LOC: LES PHONE #: [phone] EXAM DATE: 05/07/2020 STATUS: REG ER FAX #: [phone] RAD NO: [id number] Page 2 Signed Report 1 Patient Name: DEMETRIO FERNÁNDEZ Unit No: [id number] EXAMS: CPT CODE: [id number] CT ABD PELVIS W/CONT 04771 (Continued) Orig Print D/T: S: 05/07/2020 (0832) [facility] NAME: DEMETRIO FERNÁNDEZ Radiology Department PHYS: Liz Shafer MD [address] : 1970 AGE: 49 SEX: F [place], [place] [address] LOC: LES PHONE #: [phone] EXAM DATE: 05/07/2020 STATUS: REG ER FAX #: [phone] RAD NO: [id number] Page 3 Signed Report 1UA RFLX MICR CULT IF [id number] 08:25:00 Test Item Value Reference Range Interpretation [...] NONE SEEN Indication for culture: Dysuria/FrequencyCHEMISTRY 7 [id number] 08:16:00 Test Item Value Reference Range Interpretation [...] = CA) 9.1 mg/dL 8.4-10.2 N LIVER [id number] 08:16:00 Test Item Value Reference Range Interpretation [...] 85 units/L 46-116 N code = ALKP) [id number] 08:16:00 Test Item Value Reference Range Interpretation Comments LIPASE (test code = LIP) 66 units/L 73-393 L - US TRANSVAGINAL [id number] 08:14:00 Patient Name: DEMETRIO FERNÁNDEZ Unit No: [id number] EXAMS: CPT CODE: [id number] US TRANSVAGINAL W/PELVIS 28220 TRANSVAGINAL PELVIC ULTRASOUND 05/07/2020 AT 0 713 HOURS. CLINICAL HISTORY: Abdominal/pelvic pain for 6 days. Vomiting. History of endometriosis. REPORTED LMP: Hysterectomy and left oophorectomy (2009). COMPARISON STUDIES: No recent relevant priors at this institution. Reference is made to the abdomen and pelvis CT 09/11/2016 and the pelvic ultrasound from 02/25/2015. By report the patient has anoutside ultrasound from [facility] in [facility] dated 05/05/2020. This study is not [...] 4. No free fluid. No adnexal mass.SL: [id number] at 0814 Reported and signed by: Chris Edmonds MD CC: Liz Padilla MD Technologist: Nory Mace RDMS Probe: [id number] Trnscrbd D/ (0814) t.[email or web address] Orig Print D/T: S: 05/07/2020 (0817)[facility] NAME: DEMETRIO FERNÁNDEZ Radiology Department PHYS: Liz Shafer MD [address] : 1970 AGE: 49 SEX: F [place], [place] [address] LOC: LES PHONE #: [phone] EXAM DATE: 05/07/2020 STATUS: REG ER FAX #: [phone] RAD NO: [id number] Page 1 Signed Report Patient Name: DEMETRIO FERNÁNDEZ Unit No: [id number] EXAMS: CPT CODE: [id number] US TRANSVAGINAL W/PELVIS 77973 (Continued) [facility] NAME: DEMETRIO FERNÁNDEZ Radiology Department PHYS: Liz Shafer MD [address] : 1970 AGE: 49 SEX: F [place], [place] [address] LOC: LES PHONE #: [phone] EXAM DATE: 05/07/2020 STATUS: LEVON ER FAX #: [phone] RAD NO: [id number] Page 2 Signed Report- US PELVIS [id number] 08:14:00 Patient Name: DEMETRIO FERNÁNDEZ Unit No: [id number] EXAMS: CPT CODE: [id number] US PELVIS COMPLETE 75931 TRANSVAGINAL PELVIC ULTRASOUND 05/07/2020 AT 0 713 HOURS. CLINICAL HISTORY: Abdominal/pelvic pain for 6 days. Vomiting. History of endometriosis. REPORTED LMP: Hysterectomy and left oophorectomy (2009). COMPARISON STUDIES: No recent relevant priors at this institution. Reference is made to the abdomenand pelvis CT 09/11/2016 and the pelvic ultrasound from 02/25/2015. By report the patient has an outside ultrasound from [facility] in [facility] dated 05/05/2020. This study is not available at the time ofdictation. FINDINGS: Sonographic evaluation of the uterus and adnexa was performed using a transabdominal and transvaginal approach. Images were obtained using grayscale as well as limited color and pul sed Doppler. TRANSABDOMINAL SCAN: Limited detail assessment by transabdominal scanning. This required transvaginal examination. Partially distended bladder with urine with no filling defects or diverticula. TRANSVAGINAL SCAN: Prior hysterectomy. Ovaries are not visualized. No adnexal masses or free pelvic fluid. IMPRESSION: 1. No sonographic explanation for the patient's symptoms. 2. Hysterectomy andleft oophorectomy by history. 3. Nonvisualized right ovary. 4. No free fluid. No adnexal mass. SL: [id number] at 0814 Reported and signed by: Chris Edmonds MD CC: Liz Padilla MD Technologist: Nory Mace RDMS Probe: Trnscrbd D/ (0814) YeseniaR.[email or web address] Orig Print D/T: S: 05/07/2020 (0817) [facility] NAME: DEMETRIO FERNÁNDEZ Radiology Department PHYS: Liz Shafer MD [address] : 1970 AGE: 49 SEX: F [place], [place] [address] LOC: Delia.ERS PHONE #: [phone] EXAM DATE: 05/07/2020 STATUS: REG ER FAX #: [phone] RAD NO: [id number] Page 1 Signed Report Patient Name: DEMETRIO FERNÁNDEZ Unit No: [id number] EXAMS: CPT CODE: [id number] US PELVIS COMPLETE 86480 (Continued) [facility] NAME: DEMETRIO FERNÁNDEZ Radiology Department PHYS: Liz Shafer MD [address] : 1970 AGE: 49 SEX: F [place] [address] LOC: Delia.ERS PHONE #: [phone] EXAM DATE: 05/07/2020 STATUS: REG ER FAX #: [phone] RAD NO: [id number] Page 2 Signed ReportCBC W/AUTO [id number] 08:07:00 Test Item Value Reference Range Interpretation [...]
[2022-09-29 09:03] LABS: Urine Blood Trace-intact (Negative); Urine Glucose Negative (Negative); Urine Protein Negative (Negative)
[2022-09-29] MEDS ORDERED: DICYCLOMINE HCL 20 MG/2 ML AMP IM ONE (09:07)
[2022-09-29] MEDS ORDERED: ONDANSETRON 4 MG/2 ML VIAL ONE (09:07)
[2022-09-29] MEDS ORDERED: NA CHLORIDE 0.9% 1,000 ML ONE (09:08)
[2022-09-29] MEDS ORDERED: FAMOTIDINE 20 MG/2 ML VIAL IV ONE (09:08)
[2022-09-29 09:22] LABS: Urine Bacteria None Seen /HPF (<20); Urine RBC <5 /HPF (None Seen)
[2022-09-29 09:34] LABS: Absolute Lymphocytes (CBC) 1.3 K/uL (0.7-4.9); MCV 93.6 fL (80-100); MPV 7.3 fL (7.6-11.3); RBC Red Blood Cell Count 4.59 M/uL (3.86-4.86)
[2022-09-29 09:54] LABS: Albumin 4.4 g/dL (3.4-5.0); Bilirubin Total 0.4 mg/dL (0.2-1.0); Potassium 3.6 mmol/L (3.5-5.1); Protein, Total 7.6 g/dL (6.4-8.2)
--- NOTE | 2022-09-29 09:56 | RAD REPORT ---
EXAM DESCRIPTION: CTAbdomen Pelvis W Contrast - 09/29/2022 9:42 am CLINICAL HISTORY: Abdominal pain. LLQ abdominal pain COMPARISON: Abdomen Pelvis W Contrast dated 09/19/2022; Abdomen Pelvis W Contrast dated ; Abdomen Pelvis W Contrast dated 12/04/2017 TECHNIQUE: Biphasic CT imaging of the abdomen and pelvis was performed with 100 ml non-ionic IV cont rast. All CT scans are performed using dose optimization technique as appropriate and may include automated exposure control or mA/KV adjustment according to patient size. FINDINGS: The lung bases are clear. The liver, spleen, pancreas, adrenal glands and right kidney are within normal limits. Left nephrolit hiasis without hydronephrosis. No bowel obstruction, free air, free fluid or abscess. Absent appendix. No evidence of significant lymphadenopathy. No suspicious bony findings. IMPRESSION: No acute intra-abdominal or pelvic finding. Left renal calculi without hydronephrosis.
--- NOTE | 2022-09-29 10:06 | EDPHYS ---
Physician Documentation [facility] Name: Alysha Fernández Age: 52 yrs Sex: Female : 1970 Arrival Date: 09/29/2022 Time: 08:44 Bed 8 Private MD: ED Physician Oliver Jones HPI: 09/29 08:57 This 52 yrs old Female presents to ER via Wheelchair with complaints of Abdominal Pain. 7 08:57 The patient presents with abdominal pain in the left lower quadrant. Onset: The jh7 symptoms/episode began/occurred yesterday. The symptoms do not radiate. Associated signs and symptoms: Pertinent positives: nausea and vomiting, constipation. The symptoms are described as crampy. Patient reports abdominal pain, nausea vomiting, and constipation since yesterday. Reports that she has been unable to keep anything down since yesterday. Denies any abdominal surgeries. Reports a history of IBS. Denies fever, urinary symptoms, or diarrhea. Reports that she has seen GI, and that they told her that she had an abnormal curvature in her small intestine. Last BM this morning but patient describes it as small and hard stool.. 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 - Social history:: Smoking status: Patient denies any tobacco usage or history of. ROS: 08:57 Constitutional: Negative for fever, chills, and weight loss, Eyes: Negative for injury, jh7 pain, redness, and discharge, Neck: Negative for injury, pain, and swelling, Cardiovascular: Negative for chest pain, palpitations, and edema, Respiratory: Negative for shortness of breath, cough, wheezing, and pleuritic chest pain, Back: Negative for injury and pain, MS/Extremity: Negative for injury and deformity, Skin: Negative for injury, rash, and discoloration, Neuro: Negative for headache, weakness, numbness, tingling, and seizure. 08:57 Abdomen/GI: Positive for abdominal pain, nausea and vomiting, constipation, Negative for diarrhea, black/tarry stool, rectal pain, rectal bleeding. 08:57 All other systems are negative. Exam: 08:57 Head/Face: Normocephalic, atraumatic. Eyes: Pupils equal round and reactive to light, jh7 extra-ocular motions intact. Lids and lashes normal. Conjunctiva and sclera are non-icteric and not injected. Cornea within normal limits. Periorbital areas with no swelling, redness, or edema. Neck: Trachea midline, no thyromegaly or masses palpated, and no cervical lymphadenopathy. Supple, full range of motion without nuchal rigidity, or vertebral point tenderness. No Meningismus. Cardiovascular: Regular rate and rhythm with a normal S1 and S2. No gallops, murmurs, or rubs. Normal PMI, no JVD. No pulse deficits. Respiratory: Lungs have equal breath sounds bilaterally, clear to auscultation and percussion. No rales, rhonchi or wheezes noted. No increased work of breathing, no retractions or nasal flaring. Back: No spinal tenderness. No costovertebral tenderness. Full range of motion. Skin: Warm, dry with normal turgor. Normal color with no rashes, no lesions, and no evidence of cellulitis. MS/ Extremity: Pulses equal, no cyanosis. Neurovascular intact. Full, normal range of motion. Neuro: Awake and alert, GCS 15, oriented to person, place, time, and situation. Motor strength 5/5 in all extremities. Sensory grossly intact. Normal gait. 08:57 Constitutional: The patient appears alert, awake, in obvious pain. 08:57 Abdomen/GI: Inspection: abdomen appears normal, Bowel sounds: normal, in all quadrants, Palpation: mild abdominal tenderness, in the left lower quadrant. Vital Signs: 08:58 BP 136 / 97; Pulse 101; Resp 16; Temp 97.9; Pulse Ox 99% on R/A; Pain 9/10; iw 09:15 BP 135 / 83; Pulse 95; Resp 17; Pulse Ox 100% ; Pain 9/10; jl7 10:59 BP 126 / 88; Pulse 90; Resp 15; Pulse Ox 100% ; [facility] MDM: 08:45 Patient medically screened. [facility] 10:25 Differential diagnosis: bowel obstruction, diverticulitis, Irritable bowel syndrome, [facility] non-specific abd pain, urinary tract infection. Data reviewed: vital signs, nurses notes, lab test result(s), radiologic studies, CT scan. Data interpreted: Pulse oximetry: is 100 %. Interpretation: normal. Counseling: I had a detailed discussion with the patient and/or guardian regarding: the historical points, exam findings, and any diagnostic results supporting the discharge/admit diagnosis, to return to the emergency department if symptoms worsen or persist or if there are any questions or concerns that arise at home. Response to treatment: the patient's symptoms have markedly improved after treatment. 09/29 08:53 Order name: CBC with Diff; Complete Time: 09:39 [facility] 09/29 08:53 Order name: CMP; Complete Time: 09:56 [facility] 09/29 08:53 Order name: Lipase; Complete Time: 09:56 [facility] 09/29 08:53 Order name: Urine Microscopic Only; Complete Time: 09:26 [facility] 09/29 08:53 Order name: CT Abd/Pelvis - IV Contrast Only; Complete Time: 09:59 [facility] 09/29 09:03 Order name: Urine Dipstick-Ancillary; Complete Time: 09:26 [facility] 09/29 08:53 Order name: IV Saline Lock; Complete Time: 10:15 [facility] 09/29 08:53 Order name: Labs collected and sent; Complete Time: 10:15 [facility] 09/29 08:53 Order name: Urine Dipstick-Ancillary (obtain specimen); Complete Time: 09:03 [facility] Administered Medications: 09:10 Drug: NS 0.9% 1000 ml Route: IV; Rate: 1 bolus; Site: right antecubital; [facility] 11:00 Follow up: Response: No adverse reaction; IV Status: Completed infusion; IV Intake: [facility] 1000ml 09:10 Drug: Pepcid (famotidine) 20 mg Route: IVP; Site: right antecubital; 7 11:01 Follow up: Response: No adverse reaction [facility] 09:12 Drug: Zofran (Ondansetron) 4 mg Route: IVP; Site: right antecubital; 7 11:01 Follow up: Response: No adverse reaction 7 09:20 Drug: Bentyl (dicyclomine) 20 mg Route: IM; Site: right ventrogluteal; jl7 10:00 Follow up: Response: No adverse reaction; Pain is unchanged, physician notified 7 10:14 Drug: Dilaudid (HYDROmorphone) 0.5 mg {Note: administered in NS bolus per VO from ERP jl7 and pt request.} Route: IVP; Site: right antecubital; 11:00 Follow up: Response: No adverse reaction; Pain is decreased jl7 Disposition: 10:38 Co-signature as Attending Physician, Oliver Jones MD I agree with the assessment and rt plan of care. Disposition Summary: 09/29/22 10:05 Discharge Ordered Location: Home [facility] Problem: an ongoing problem [facility] Symptoms: have improved [facility] Condition: Stable [facility] Diagnosis - Nausea with vomiting, unspecified [facility] - Lower abdominal pain, unspecified [facility] Followup: [facility] - With: Private Physician - When: 2 - 3 days - Reason: Recheck today's complaints Discharge Instructions: - Discharge Summary Sheet [facility] - Irritable Bowel Syndrome, Adult [facility] - Nausea and Vomiting, Adult [facility] - Abdominal Pain, Adult, [id number] [facility] Forms: - Medication Reconciliation Form [facility] - Thank You Letter [facility] Prescriptions: - ondansetron 4 mg Oral tablet,disintegrating - place 1 tablet by TRANSLINGUAL route 4 times per day As needed; 20 tablet; [facility] Refills: 0, Product Selection Permitted - Levsin 0.125 mg Oral Tablet - take 1 tablet by ORAL route every 8 hours; 30 tablet; Refills: 0, Product [facility] Selection Permitted Signatures: Dispatcher [employer] Mishel Whipple RN RN Judi Melchor RN RN jl7 Becky Pate, IMPREGNATOR OPERATOR IMPREGNATOR OPERATOR Oliver Venegas MD MD rt Corrections: (The following items were deleted from the chart) 09:07 08:57 Patient reports abdominal pain, nausea vomiting, and constipation since [facility] yesterday. Reports that she has been unable to keep anything down since yesterday. Denies any abdominal surgeries. Reports a history of IBS. Denies fever, urinary symptoms, or diarrhea. Reports that she has seen GI, and that they told her that she had an abnormal curvature in her small intestine.. jh7
--- NOTE | 2022-09-29 10:06 | ER ---
Nurse's Notes [facility] Name: Alysha Fernández Age: 52 yrs Sex: Female : 1970 Arrival Date: 09/29/2022 Time: 08:44 Bed 8 Private MD: Diagnosis: Nausea with vomiting, unspecified;Lower abdominal pain, unspecified Presentation: 09/29 08:54 Chief complaint: Patient states: hx of IBS with constipation, c/o low abd pain, iw vomiting, constipation, was seen here recently for same problem. Ebola Screen: Patient negative for fever greater than or equal to 101.5 degrees Fahrenheit, and additional compatible Ebola Virus Disease symptoms Patient denies exposure to infectious person. Patient denies travel to an Ebola-affected area in the 21 days before illness onset. No symptoms or risks identified at this time. Initial Sepsis Screen: Does the patient meet any 2 criteria? No. Patient's initial sepsis screen is negative. Does the patient have a suspected source of infection? No. Patient's initial sepsis screen is negative. Risk Assessment: Do you want to hurt yourself or someone else? Patient reports no desire to harm self or others. Onset of symptoms was September 28, 2022. 08:54 Method Of Arrival: Wheelchair iw 08:54 Acuity: ROBERTO 3 iw 11:00 Coronavirus screen: At this time, the client does not indicate any symptoms associated jl7 with coronavirus-19. 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 - Social history:: Smoking status: Patient denies any tobacco usage or history of. Screenin:00 [facility] ED Fall Risk Assessment (Adult) History of falling in the last 3 months, jl7 including since admission No falls in past 3 months (0 pts) Confusion or Disorientation No (0 pts) Intoxicated or Sedated No (0 pts) Impaired Gait No (0 pts) Mobility Assist Device Used No (0 pt) Altered Elimination No (0 pt) Score/Fall Risk Level 0 - 2 = Low Risk Oriented to surroundings, Maintained a safe environment. Humpty Dumpty Scale Fall Assessment Tool (age< 18yrs) Gender Female (1 pt). Abuse screen: Denies threats or abuse. Denies injuries from another. Nutritional screening: No deficits noted. Tuberculosis screening: No symptoms or risk factors identified. Fall Risk No fall in past 12 months (0 pts). No secondary diagnosis (0 pts). IV access (20 points). Ambulatory Aid- None/Bed Rest/Nurse Assist (0 pts). Gait- Weak (10 pts.). Mental Status- Oriented to own ability (0 pts). Total Oates Fall Scale indicates Low Risk Score (25-44 pts). Fall prevention measures have been instituted. Side Rails Up X 2 Placed close to Nursing Station Frequent Obs/Assesments occuring As available Patient and Family Educated on Fall Prevention Program and strategies. Assessment: 09:00 General: Appears in no apparent distress. uncomfortable, Behavior is calm, cooperative, jl7 appropriate for age. Pain: Complains of pain in left lower quadrant Pain currently is 9 out of 10 on a pain scale. Quality of pain is described as crampy, Is intermittent. Neuro: Raymond Agitation-Sedation Scale (RASS): +1 Restless Level of Consciousness is awake, alert, obeys commands, Oriented to person, place, time, situation. Cardiovascular: Patient's skin is warm and dry. Respiratory: Airway is patent Respiratory effort is even, unlabored, Respiratory pattern is regular, symmetrical. GI: Abdomen is flat, non-distended, Bowel sounds present X 4 quads. Abd is soft X 4 quads Abdomen is tender to palpation in left lower quadrant Reports constipation, nausea, vomiting. Derm: Skin is pink, warm \T\ dry. 10:17 Reassessment: Pt will be discharged once fluids are done infusing. jl7 10:59 Reassessment: Patient appears in no apparent distress at this time. Pain rated 6/10 on jl7 discharge Patient states symptoms have improved. Vital Signs: 08:58 BP 136 / 97; Pulse 101; Resp 16; Temp 97.9; Pulse Ox 99% on R/A; Pain 9/10; iw 09:15 BP 135 / 83; Pulse 95; Resp 17; Pulse Ox 100% ; Pain 9/10; jl7 10:59 BP 126 / 88; Pulse 90; Resp 15; Pulse Ox 100% ; jl7 ED Course: 08:44 Patient arrived in ED. rg4 08:45 [facility]ate F[facility] jh7 08:45 Oliver Jones MD is Attending Physician. jh7 08:55 Triage completed. iw 09:00 Patient has correct armband on for positive identification. Bed in low position. Call jl7 light in reach. Side rails up X2. Pulse ox on. NIBP on. Warm blanket given. 09:03 Judi Melchor RN is Primary Nurse. jl7 09:10 No provider procedures requiring assistance completed. Initial lab(s) drawn, by ak, jl7 sent to lab. Inserted saline lock: 20 gauge in right antecubital area, using aseptic technique. Blood collected. 09:30 Warm blanket given. jl7 09:44 CT Abd/Pelvis - IV Contrast Only In Process Unspecified. EDMS 09:45 Warm blanket given. jl7 10:25 Arm band placed on right wrist. jl7 10:59 IV discontinued, intact, bleeding controlled, No redness/swelling at site. Pressure jl7 dressing applied. Administered Medications: 09:10 Drug: NS 0.9% 1000 ml Route: IV; Rate: 1 bolus; Site: right antecubital; jl7 11:00 Follow up: Response: No adverse reaction; IV Status: Completed infusion; IV Intake: jl7 1000ml 09:10 Drug: Pepcid (famotidine) 20 mg Route: IVP; Site: right antecubital; jl7 11:01 Follow up: Response: No adverse reaction jl7 09:12 Drug: Zofran (Ondansetron) 4 mg Route: IVP; Site: right antecubital; jl7 11:01 Follow up: Response: No adverse reaction jl7 09:20 Drug: Bentyl (dicyclomine) 20 mg Route: IM; Site: right ventrogluteal; jl7 10:00 Follow up: Response: No adverse reaction; Pain is unchanged, physician notified jl7 10:14 Drug: Dilaudid (HYDROmorphone) 0.5 mg {Note: administered in NS bolus per VO from ERP jl7 and pt request.} Route: IVP; Site: right antecubital; 11:00 Follow up: Response: No adverse reaction; Pain is decreased jl7 Medication: 09:15 VIS not applicable for this client. jl7 Intake: 11:00 IV: 1000ml; Total: 1000ml. jl7 Outcome: 10:05 Discharge ordered by . jh7 10:59 Discharged to home ambulatory, with family. jl7 10:59 Condition: stable 10:59 Discharge instructions given to patient, family, Instructed on discharge instructions, follow up and referral plans. medication usage, Demonstrated understanding of instructions, follow-up care, medications, Prescriptions given X 2. 11:07 Patient left the ED. jl7 Signatures: Dispatcher [employer] Mishel Whipple, RN Justa Jameson rg4 Judi Melchor RN RN jl7 Becky Pate, WELFARE VISITOR WELFARE VISITOR Viki
[2022-09-29] MEDS ORDERED: HYDROMORPHONE HCL 0.5 MG/0.5 ML INJ ONE (10:10)
[2022-09-29 11:30] VITALS: TEMP 97.9
[2022-09-29 11:32] VITALS: O2SAT 100
[2022-09-29 11:33] VITALS: BP 126/88
== END 2022-09-29 11:07 | disposition home or self-care (01) ==
LOC: ER 08:41
DX: R10.32 Left lower quadrant pain (principal); R11.2 Nausea with vomiting, unspecified; Z88.0 Allergy status to penicillin; Z88.1 Allergy status to other antibiotic agents; Z88.5 Allergy status to narcotic agent
CPT/HCPCS: 85025; 36415; 83690; 80053; 74177; Q9967; J0500; J1170; J7030; J2405; 81003; 81015

== ENCOUNTER 2022-09-30 08:17 | Emergency (ER) | payer OTHER ==
--- OUTSIDE RECORDS SUMMARY | 2022-09-30 08:23 | XMS REPORT | Continuity of Care Document ---
:1970 Author Organization [facility] t Address [address] [place] [address] Dr. Elias. [address] [place] [address] Care Team Providers Name Role Phone Palomo Larson MD Primary Care Physician [phone] Kyung Gomes Attending Clinician Unavailable Palomo Larson MD Attending Clinician Doctor Unassigned, [place] Attending Clinician Unavailable PALOMO LARSON Attending Clinician Unavailable Marifer Espitia Attending Clinician CANDIE HAMILTON Attending Clinician Unavailable Jenelle Nix Admitting Clinician Unavailable Kyung Gomes Admitting Clinician Unavailable Anika Harper Admitting Clinician Unavailable Payers Payer Name Policy Type Policy Number Effective Date Expiration Date Kong johnson AEANA LUISA HMO [id number] 2015 00:00:00 AETNA C1 [id number] [facility] Problems Condition Condition Condition Status Onset Resolution Last Treating Co mments Source Name Details Category Date Date Treatment Clinician Date Anxiety Anxiety Disease Active Univers 605 ity of 00:00: [place] 00 Medical Branch Fatigue Fatigue Disease Active Univers 6 ity of 00:00: [place] Medical [facility] Hypothyroi Hypothyroi Disease Active U nivers dism due dism due 04-02 ity of to to 00:00: [place] acquired acquired 00 Medica l atrophy of atrophy of Br anch thyroid thyroid Weight Weight Disease Active Univers loss loss 04-02 ity of 00:00: Medical [place] [id number] LLQ Problem Active Common abdominal [facility] pain [facility] Kidney Kidney Problem Active Common stone stone [facility] Allergies, Adverse Reactions, Alerts Allergy Allergy Status Severity Reaction(s) Onset Inactive Treating Comm ents Source Name Type Date Date Clinician Penicill DA Active SV 2019-1 [facility] ins 0-01 [place] 00:00: d 00 [facility] morphine DA Active SV 2019-1 [facility] 0-01 [place] 00:00: d 00 [facility] codeine DA Active SV 2019-1 [facility] 0-01 [place] 00:00: d 00 [facility] Penicill DA Active SV RASH, NAUSEA 2019- HC A ins AND VOMITING 0-01 Pear brandie 00:00: d 00 [facility] morphine DA Active SV NAUSEA AND 2020- [facility] VOMITING 0-01 [place] 00:00: d 00 [facility] codeine DA Active SV NAUSEA AND 2020-1 [facility] VOMITING 0-01 [place] 00:00: d 00 [facility] pcn DA Active MO rash 2020-0 [facility] [...] 2-03 [facility] [place] Codeine Propensi Active Unknown - Univ ers ty to See comments 6-23 ity of adverse 00:00: [place] reaction 00 Medical s Branch codeine DA Active MO 2014- [facility] 7- [facility] 00:00: [facility] [place] codeine DA Active MO HIVES/RASH 2014- [facility] 7- [facility] 00:[facility]: [facility] [place] Social History Social Habit Start Date Stop Date Quantity Comments Source History of [facility] - Tobacco Use [facility] Exposure to 2022-05-24 2022-06-03 Not sure University SARS-CoV-2 00:00:00 13:38:00 [facility] (event) [place] Tobacco use and 2022-06-03 2022-06-03 Smokeless tobacco Un iversity of exposure 00:00:00 00:00:00 non-user [facility] Alcohol intake 2019-09-12 2019-09-12 Current drinker [facility] 00:00:00 00:00:00 of alcohol (finding) Sex Assigned At [address] 1970 [facility] 00:00:00 00:00:00 Smoking Status Start Date Stop Date Source Never Smoker Common [facility] Tobacco smoking consumption [facility] unknown Medications Ordered Filled Start Stop Current Ordering Indication Dosage Frequency Signature Comments Components Source Medication Medication Date Date Medication? Clinician (SIG) Name Name ALPRAZolam Yes [id number] .5mg Take 1 Univers 0.5 mg 8-25 tablet by ity of tablet 00:00: mouth in [place] [address] the Medical morning Branch and 1 tablet in the evening. ALPRAZolam Yes [id number] .5mg Take 1 Univers 0.5 mg 8-25 tablet by ity of tablet 00:00: mouth in [place] [address] the Medical morning Branch and 1 tablet in the evening. ALPRAZolam Yes [id number] .5mg Take 1 Univers 0.5 mg 8-25 tablet by ity of tablet 00:00: mouth in [place] 00 the Medical morning Branch and 1 tablet in the evening. ALPRAZolam Yes [id number] .5mg Take 1 Univers 0.5 mg 8-25 [...] s: chronic pain ALPRAZolam 0 2021- No [id number] .5mg Take 1 Univers 0.5 mg 5-09 08-25 tablet by ity of tablet 00:00: 00:00 mouth 2 [place] 00 :00 (two) Medical times Branch daily. MULTIVITAMI Yes Take by Uni vers N ORAL 9-10 mouth. ity of 09:55: [address] Branch MULTIVITAMI Yes Take by Uni vers N ORAL 9-10 mouth. ity of 09:55: [address] Branch MULTIVITAMI Yes Take by Uni vers N ORAL 9-10 mouth. ity of 09:55: [place] 45 Medical Branch MULTIVITAMI 0 Yes Take by Uni vers N ORAL 9-10 mouth. ity of 09:55: [place] [address] Medical Branch loratadine 2015-10 Yes [id number] 10mg Take 1 Univers (CLARITIN) 2-21 tablet by ity of 10 mg 00:00: mouth [place] tablet 00 daily. Medical Branch fluticasone 2015-10 Yes [id number] 1-2 sprays Univers 50 2-21 in each ity of mcg/actuati 00:00: nostril [place] on nasal 00 daily Medical spray Branch loratadine 2015-10 Yes [id number] 10mg Take 1 Univers (CLARITIN) 2-21 tablet by ity of 10 mg 00:00: mouth [place] tablet 00 daily. Medical Branch fluticasone 2015-10 Yes [id number] 1-2 sprays Univers 50 2-21 in each ity of mcg/actuati 00:00: nostril [place] as on nasal 00 daily Medical spray Branch loratadine 2015-10 Yes [id number] 10mg Take 1 Univers (CLARITIN) 2-21 tablet by ity of 10 mg 00:00: mouth [place] tablet 00 daily. Medical Branch fluticasone 2015-10 Yes [id number] 1-2 sprays Univers 50 2-21 in each ity of mcg/actuati 00:00: nostril [place] as on nasal 00 daily Medical spray Branch loratadine 2015-10 Yes [id number] 10mg Take 1 Univers (CLARITIN) 2-21 tablet by ity of 10 mg 00:00: mouth [place] tablet 00 daily. Medical Branch fluticasone 2015-10 Yes [id number] 1-2 sprays Univers 50 2-21 in each [...] 18:44:00 112 mm[Hg] Univer sity of pressure [facility] Diastolic blood 2022-06-03 18:44:00 74 mm[Hg] Unive rsity of pressure [facility] Heart rate 2022-06-03 18:44:00 84 /min [facility] Body height 2022-06-03 18:44:00 152.4 cm [facility] Body weight 2022-06-03 18:44:00 44.634 [facility] BMI 2022-06-03 18:44:00 19.22 kg/m2 [facility] Oxygen saturation in 2022-06-03 18:44:00 100 /min [facility] Arterial blood by [facility] Pulse oximetry Branch height 2020-09-24 11:30:00 60 [in_i] [facility] weight 2020-09-24 11:30:00 87 [lb_av] [facility] temperature 2020-09-24 11:30:00 97.7 [degF] [facility] bmi 2020-09-24 11:30:00 16.99 kg/m2 [facility] oximetry 2020-09-24 11:30:00 99 % [facility] blood pressure 2020-09-24 11:30:00 133 mm[Hg] [facility] - systolic [facility] blood pressure 2020-09-24 11:30:00 78 mm[Hg] [facility] - diastolic [facility] Procedures Procedure Date / Time Performing Clinician Source Performed RADIOLOGY DOCUMENTATION 2022-09-21 06:01:00 Doctor Unassigned, N o [facility] Branch EXTERNAL PROVIDER 2022-06-17 05:01:00 Doctor Unassigned, No [facility] Plan of Care Planned Activity Planned Date Details Comments Source Future Scheduled 2022-09-25 [facility]FLU[facility]ZA VACCINE [facility] 11:00:17 [code = INFLUENZA VACCINE] Future Scheduled 2022-09-25 COLONOSCOPY SCREENING [facility] Test 11:00:17 [code = COLONOSCOPY SCREENING] Future Scheduled 2022-09-25 SHINGLES VACCINES (1 Met [facility] Test 11:00:17 of 2) [code = SHINGLES VACCINES (1 of 2)] Future Scheduled 2022-09-25 INFLUENZA VACCINE [facility] 11:00:17 [code = INFLUENZA VACCINE] Future Scheduled 2022-09-25 COVID-19 VACCINE (#1) [facility] Test 11:00:17 [code = COVID-19 VACCINE (#1)] Future Scheduled 2022-09-25 Hepatitis C screening [facility] Test 11:00:17 (procedure) [code = 070192313] Future Scheduled 2022-09-[address] [facility] Test 11:00:17 SCREENING [code = BREAST CANCER SCREENING] Future Scheduled 2022-09-25 COVID-19 VACCINE (#1) [facility] Test 11:00:17 [code = COVID-19 VACCINE (#1)] Future Scheduled 2022-09-25 Hepatitis C screening [facility] Test 11:00:17 (procedure) [code = 407205544] Future Scheduled 2022-09-[address] [facility] Test 11:00:17 SCREENING [code = BREAST CANCER SCREENING] Future Scheduled 2022-09-25 COLONOSCOPY SCREENING [facility] Test 11:00:17 [code = COLONOSCOPY SCREENING] Future Scheduled 2022-09-25 SHINGLES VACCINES (1 Met [facility] Test 11:00:17 of 2) [code = SHINGLES VACCINES (1 of 2)] Future Scheduled 2022-08-[address] [facility] Test 00:58:01 SCREENING [code = BREAST CANCER SCREENING] Future Scheduled 2022-08-15 COLONOSCOPY SCREENING [facility] Test 00:58:01 [code = COLONOSCOPY SCREENING] Future Scheduled 2022-08-15 SHINGLES VACCINES (1 Met [facility] Test 00:58:01 of 2) [code = SHINGLES VACCINES (1 of 2)] Future Scheduled 2022-08-15 INFLUENZA VACCINE Method [facility] Test 00:58:01 [code = INFLUENZA VACCINE] Future Scheduled 2022-08-15 HEPATITIS B VACCINES Met [facility] Test 00:58:01 (1 of 3 - 3-dose series) [code = HEPATITIS B VACCINES (1 of 3 - 3-dose series)] Future Scheduled 2022-08-15 COVID-19 VACCINE (#1) [facility] Test 00:58:01 [code = COVID-19 VACCINE (#1)] Future Scheduled 2022-08-15 Hepatitis C screening [facility] Test 00:58:01 (procedure) [code = 004250260] Future Scheduled 2022-08-[address] [facility] Test 00:58:01 malignant neoplasm of cervix (procedure) [code = 705583469] Future Scheduled 2022-08-[address] [facility] Test 00:58:01 SCREENING [code = BREAST CANCER SCREENING] Future Scheduled 2022-08-15 COLONOSCOPY SCREENING [facility] Test 00:58:01 [code = COLONOSCOPY SCREENING] Future Scheduled 2022-08-15 SHINGLES VACCINES (1 Met [facility] Test 00:58:01 of 2) [code = SHINGLES VACCINES (1 of 2)] Future Scheduled 2022-08-15 INFLUENZA VACCINE Method [facility] Test 00:58:01 [code = INFLUENZA VACCINE] Future Scheduled 2022-08-15 HEPATITIS B VACCINES Met [facility] Test 00:58:01 (1 of 3 - 3-dose series) [code = HEPATITIS B VACCINES (1 of 3 - 3-dose series)] Future Scheduled 2022-08-15 COVID-19 VACCINE (#1) [facility] Test 00:58:01 [code = COVID-19 VACCINE (#1)] Future Scheduled 2022-08-15 Hepatitis C screening [facility] Test 00:58:01 (procedure) [code = 671254846] Future Scheduled 2022-08-[address] [facility] Test 00:58:01 malignant neoplasm of cervix (procedure) [code = 187314301] Encounters Start End Encounter Admission Attending Care Care Encounter Source Date/Time Date/Time Type Type Clinicians Facility Department ID 2021-11-04 [id number] Common 12:13:58 [id number] [facility] 2021-08-07 Emergency [facility] [id number] Univers [facility] [id number] [facility] 19:31:00 63 [facility] 2020-07-24 Inpatient [facility] [id number] [facility] 04:15:00 80 [facility] 2020-07-23 Inpatient [facility] [id number] [facility] 14:07:00 82 [facility] 2020-07-19 Inpatient [facility] [id number] [facility] 02:17:00 70 [facility] [place] 2020-07-14 Inpatient KATHLEEN Gomes, [facility] DAYS [id number] [facility] 13:00:00 Kyung 53 [facility] [place] 2020-05-07 Inpatient [facility] [id number] [facility] 05:57:00 93 [facility] [place] 2022-09-21 2022-09-21 Ion Larson [facility] [id number] Univers 00:00:00 00:00:00 [facility] [id number] it y of [place] 4.2.7.2.686 William as JOSE CRUZ?BLEA [phone] [address] MEDICAL OFFICE [facility] 2022-09-21 2022-09-21 Orders Doctor MIGUELANGEL [id number] Univers 00:00:00 00:00:00 Only Unassigned, EDGAR [id number] ity of [place] [facility] 4.2.7.2.686 William as [phone] [address] 2022-06-17 2022-06-17 Orders Doctor MIGUELANGEL 1.2.840.114 [id number] Univers 00:00:00 00:00:00 Only Unassigned, ED[place] [id number] ity of [place] [facility] 4.2.7.2.686 William as [phone] [address] 2022-06-03 2022-06-03 [facility] 1.2.840.114 [id number] Univers 13:45:00 14:00:00 Visit [facility] [id number] it y of [place] 4.2.7.2.686 William as JOSE RCUZ?BLEA [phone] [address] MEDICAL OFFICE [facility] 2022-06-03 2022-06-03 Outpatient Teresa LARSON [facility] [id number] Univers 13:45:00 13:45:00 PALOMO carrion [facility] 2022-06-02 2022-06-02 Outpatient Teresa LARSON [facility] [id number] Univers 12:45:00 12:45:00 PALOMO carrion [facility] 2022-02-15 2022-02-15 [facility] 1.2.840.114 [id number] Univers 12:00:00 12:15:00 Visit [facility] [id number] it y of [place] 4.2.7.2.686 William as JOSE CRUZ?BLEA [id number] [address] MEDICAL OFFICE [facility] 2022-02-15 2022-02-15 Outpatient R KISHORE [facility] [id number] Univers 12:00:00 12:00:00 PALOMO carrion [facility] 2022-02-11 2022-02-11 [place] [facility] 1.2.840.114 [id number] Univers 00:00:00 00:00:00 [facility] [id number] it y [facility] 4.2.7.2.686 William as JOSE CRUZ?BLEA [id number] [address] OFFICE [facility] 2021-11-16 2021-11-16 [place] [facility] 1.2.840.114 [id number] Univers 00:00:00 00:00:00 [facility] [id number] it y [facility] 4.2.7.2.686 William as JOSE CRUZ?BLEA [id number] [address] OFFICE [facility] 2021-11-05 2021-11-05 Telephone Kishore [facility] [id number] Univers 00:00:00 00:00:00 [facility] [id number] it y of [facility] 4.2.7.2.686 William as JOSE CRUZ?BLEA [id number] [address] OFFICE [facility] 2021-11-03 2021-11-03 Orders Doctor MIGUELANGEL 1.2.840.114 [id number] Univers 00:00:00 00:00:00 Only Unassigned, EDGAR 350.1.13.10 ity of [place] [facility] 4.2.7.2.686 William as [phone] [address] 2021-08-17 2021-08-17 [place] [facility] 1.2.840.114 [id number] Univers 00:00:00 00:00:00 [facility] [id number] it y of [place] 4.2.7.2.686 William as JOSE CRUZ?BLEA [id number] [address] OFFICE [facility] 2021-06-08 2021-06-08 Office [facility] 1.2.840.114 [id number] Univers 13:07:03 13:22:03 Visit [facility] [id number] it y of [place] 4.2.7.2.686 William as Jose Cruz?Blea [phone] [address] Office [facility] 2021-06-08 2021-06-08 [facility]patient [facility] [id number] Univers 13:00:00 13:00:00 [facility] 2021-06-08 2021-06-08 Orders Doctor MEANS 1.2.840.114 [id number] Univers 00:00:00 00:00:00 Only Unassigned, EDGAR 350.1.13.10 ity of [place] [facility] 4.2.7.2.686 William as [phone] [address] 2021-06-08 2021-06-08 Orders Doctor MIGUELANGEL 1.2.840.114 [id number] Univers 00:00:00 00:00:00 Only Unassigned, EDGAR 350.1.13.10 ity of [place] [facility] 4.2.7.2.686 William as [phone] [address] 2020-11-13 2020-11-13 Outpatient Teresa LARSON [facility] [id number] Univers 13:00:00 13:00:00 [facility] 2020-11-11 2020-11-11 [place] [facility] 1.2.840.114 [id number] Univers 00:00:00 00:00:00 [facility] [id number] it y of [place] 4.2.7.2.686 William as Professio [phone] [address] Office [facility] One 2020-09-24 2020-09-24 [facility] [id number] mmon 00:00:00 00:00:00 VISIT NEW Spir it PT LEVEL 2 - [facility] 2020-09-08 2020-09-08 Telephone Kishore [facility] [id number] Univers 00:00:00 00:00:00 Palomo Fitzpatrick 350.1.13.10 it y of [place] 4.2.7.2.686 [place] as Professio [phone] [address] 2020-09-03 2020-09-03 Telephone [facility] [id number] Univers 00:00:00 00:00:00 [facility] 350.1.13.10 it y of [place] 4.2.7.2.686 [place] as Professio [phone] [address] 2020-05-22 2020-05-22 Outpatient Teresa BE[facility]MLARSON [facility] [id number] Univers 16:00:00 16:00:00 PALOMO carrion [facility] 2020-05-15 2020-05-15 Office [facility] 1.2.840.114 [id number] Univers 15:14:59 15:30:50 Visit Palomo Kathi 350.1.13.10 i ty of [place] 4[place]2.7.2.686 [place] Profess[place] [phone] [address] 2020-05-15 2020-05-15 Office [facility] 1.2.840.114 [id number] 15:14:59 15:30:50 Visit Palomo Armenta 350.1.13.10 [place] 4.2.7.2.686 Professio [phone] [address] 2020-05-15 2020-05-15 Outpatient [facility] [id number] Univers 15:15:00 15:15:00 PALOMO carrion [facility] 2020-05-13 2020-05-13 Refill [facility] 1.2.840.114 [id number] Univers 00:00:00 00:00:00 [facility] 350.1.13.10 it y of [place] 4.2.7.2.686 [place] as Professio [id number] [address] 2020-05-09 2020-05-09 [place] [facility] 1.2.840.114 [id number] Univers 00:00:00 00:00:00 [facility] 350.1.13.10 it y of [place] 4.2.7.2.686 [place] as Professio [phone] [address] 2020-05-06 2020-05-06 [facility] 1.2.840.114 [id number] Univers 00:00:00 00:00:00 [facility] 350.1.13.10 it y of [place] 4.2.7.2.686 William as Professio [id number] [address] 2020-05-03 2020-05-03 Emergency Marifer Chauhan [facility] 1.2.840.114 [id number] Univers 15:17:13 20:15:00 Donna Armenta 350.1.13.10 i ty of [place] 4.2.7.2.686 [place] [phone] [facility] [address] [place] [address] 2020-02-07 2020-02-07 Telephone [facility] [id number] [id number] Univers 00:00:00 00:00:00 Palomo Armenta 350.1.13.10 i ty of [place] 4.2.7.2.686 [place] Profess[place] [phone] [address] 2020-02-05 2020-02-05 Telephone [facility] [id number] Univers 00:00:00 00:00:00 Palomo Armenta 350.1.13.10 i ty of [place] 4.2.7.2.686 [place] Profess[place] [phone] [address] 2020-02-05 2020-02-05 Orders Doctor MIGUELANGEL 1.2.840.114 [id number] Univers 00:00:00 00:00:00 Only Unassigned, EDGAR 350.1.13.10 ity of [place] [facility] 4.2.7.2.686 William as [phone] [address] 2020-02-04 2020-02-04 Martin [facility] 1.2.840.114 [id number] Univers 00:00:00 00:00:00 [facility] 350.1.13.10 it y of [place] 4.2.7.2.686 [place] as Professio [phone] [address] Office Building One 2020-01-14 2020-01-14 Martin [facility] 1.2.840.114 [id number] Univers 00:00:00 00:00:00 [facility] 350.1.13.10 it y of [place] 4.2.7.2.686 William as Professio [phone] [address] One 2020-01-04 2020-01-04 Martin [facility] 1.2.840.114 [id number] Univers 00:00:00 00:00:00 [facility] 350.1.13.10 it y of [place] 4.2.7.2.686 [place] as Professio [phone] [address] Office [facility] One 2019-12-26 2019-12-26 Outpatient [facility] [id number] Univers 12:30:00 12:30:00 PALOMO ity of [facility] 2019-12-26 2019-12-26 [facility] 1.2.840.114 [id number] Univers 00:00:00 00:00:00 [facility] 350.1.13.10 it y of [place] 4.2.7.2.686 William as Professio [phone] [address] Office [facility] One 2019-12-17 2019-12-17 [facility] 1.2.840.114 [id number] Univers 00:00:00 00:00:00 [facility] 350.1.13.10 it y of [place] 4.2.7.2.686 William as Professio [phone] [address] Office [facility] One 2019-09-12 2019-09-12 Emergency [facility] 064 [id number] [place] 00:00:00 00:00:00 CANDIE [address] 2019-06-19 2019-06-19 Office Kishore [facility] 1.2.840.114 [id number] Univers 09:32:01 10:07:[address] [facility] 350.1.13.10 it y of [place] 4.2.7.2.686 William as Professio [phone] Ma dical nal [address] [place] Office Building One 2019-06-19 2019-06-19 Orders Doctor MIGUELANGEL 1.2.840.114 [id number] Univers 00:00:00 00:00:00 Only Unassigned, EDGAR 350.1.13.10 ity of [place] [facility] 4.2.7.2.686 William as [phone] [address] 2019-05-10 2019-05-10 Refill [facility] 1.2.840.114 [id number] Univers 00:00:00 00:00:00 [facility] 350.1.13.10 it y of [place] 4.2.7.2.686 [place] as Professio [phone] Ma dical nal [address] [place] Office Building One Results Test Description Test Time Test Comments Results Result [facility] e Comments - CT ABD PELVIS 2020-08-31 W/CONT 21:56[facility]00 [facility] 1970 Sex: F Name: DEMETRIO FERNÁNDEZ [facility] : 1970 Age/S: 50 / F [id number] Unit #: [id number] Loc: [place] [address] Phys: Ernesto Rowley MD Acct: [id number] Dis Date: Status: REG ER PHONE #: [phone] Exam Date: 08/31/20202154 FAX #: Reason: diffuse abdominal pain, nausea EXAMS: CPT: [id number] CT ABD PELVIS W/CONT 55879 C3 TIME OF STUDY: 08/31/2020 9:11 PM [...] - XR ABD ACUTE 2020-08-31 W/CHEST 21:02:00 [facility] : 1970 Sex: F Name: DEMETRIO FERNÁNDEZ [place] : 1970 Age/S: 50 / F [id number] Unit #: [id number] Loc: [place] [address] Phys: Ernesto Rowley MD Acct: [id number] Dis Date: Status: REG ER PHONE #: [phone] Exam Date: 08/31/20202046 FAX #: Reason: diffuse abdominal pain, nausea EXAMS: CPT: [id number] XR ABD ACUTE W/CHEST 20788 Fluoro Time: DAP (Gy m2): Air Kerma [...] FERNÁNDEZ : 1970 Age/S: 50 / F [id number] [address] Unit #: [id number] Loc: [place] [address] Phys: Ernesto Rowley MD Acct: [id number] Dis Date: Status: REG ER PHONE #: [phone] Exam Date: 08/31/20202046 FAX #: Reason: diffuse abdominal pain, nausea EXAMS: CPT: [id number] XR ABD ACUTE W/CHEST 09249 Fluoro Time: DAP (Gy m2): Air Kerma (mGy): <Continued> Technologist: Karthik Longoria RT(R)(CT) Trnscb Date/Time: 08/31/2020 (2101) [id number] Orig [...] CA) 9.7 MG/DL 8.5-10.1 N HEPATIC FUNCTION [id number] 20:35:00 Test Item Value Reference Range Interpretation [...] 83 Unit/L 45-117 N code = ALKP) [id number] 20:35:00 Test Item Value Reference Range Interpretation Comments LIPASE (test code = LIP) 44 Unit/L 114-286 L UA RFLX MICR CULT IF [id number] 20:20:00 Test Item Value Reference Range Interpretation [...] UACULT) Indication for culture: Suprapubic PainCBC W/AUTO [id number] 20:12:00 Test Item Value Reference Range Interpretation [...] = MDIFF) UA RFLX MICR CULT IF [id number] 20:12:00 Test Item Value Reference Range Interpretation [...] for culture: Suprapubic Pain- CT ABD PELVIS [id number] 17:44:00 [facility] : 1970 Sex: F Patient Name: DEMETRIO FERNÁNDEZ Unit No: [id number] EXAMS: CPT CODE: [id number] CT ABD PELVIS W/CONT 10851 CTABDOMEN AND PELVIS WITH CONTRAST. INDICATION: Diffuse [...] abdominal wall soft tissue gas, right greater thanle, [facility] NAME: DEMETRIO FERNÁNDEZ Radiology Department PHYS: Zen Larios [address] : 1970 AGE: 50 SEX: F [place], [place] [address] LOC: LES PHONE #: [phone] EXAM DATE: 07/23/2020 STATUS: REG ER FAX #: [phone] RAD NO: [id number] Page 1 Signed Report 1 Patient Name: DEMETRIO FERNÁNDEZ Unit No: [id number] EXAMS: CPT CODE: [id number] ABD PELVIS W/CONT 35138 (Continued) presumably postoperative in nature. No organized fluid collection. 2. Nonobstructing left nephrolithiasis. SL: SG-H at 1744 Reported and signed by: Liang Meredith MD CC: Zen Recinos MD Te chnologist: Marcela Louis, RT, CT CTDI: 3.33 DLP: 155.32 Trnscrbd D/ (1744) [email or web address] [facility] NAME: DEMETRIO FERNÁNDEZ Radiology Department PHYS: Zen Larios [address] : 1970 AGE: 50 SEX: F [place], [place] [address] LOC: LucyERS PHONE #: [phone] EXAM DATE: 07/23/2020 STATUS: REG ER FAX #: [phone] RAD NO: [id number] Page 2 Signed Report 1 Patient Name: DEMETRIO FERNÁNDEZ Unit No: [id number] EXAMS: CPT CODE: [id number] CT ABD PELVIS W/CONT 87974 (Continued) Orig Print D/T: S: 07/23/2020 (1747) [facility] NAME: DEMETRIO FERNÁNDEZ Radiology Department PHYS: Zen Larios [address] : 1970 AGE: 50 SEX: F [place] [address] LOC: LucyERS PHONE #: [phone] EXAM DATE: 07/23/2020 STATUS: REG ER FAX #: [phone] RAD NO: [id number] Page 3 Signed Report 1COMPREHENSIVE METABOLIC PANEL [...] 46-116 N code = ALKP) CBC W/AUTO [id number] 15:55:00 Test Item Value Reference Range Interpretation [...] NORMAL code = PLTMR) DRUGS OF ABUSE [id number] 15:04:00 Test Item Value Reference Range Interpretation [...] ng/m L UA RFLX MICR CULT IF [id number] 14:56:00 Test Item Value Reference Range Interpretation [...] Description: CLEAN CATCH- US PELVIS LTD OR [id number] 04:30:00 Patient Name: DEMETRIO FERNÁNDEZ Unit No: [id number] EXAMS: CPT CODE: [id number] US PELVIS LTD [place] FU 92180 EXAM: US, US PELVIS COMPLETE: 07/19/2020, 0333 [...] Alize Gomes RDMS Probe: Trnscrbd D/ (0430) BushraJS38 Orig Print D/T: S: 07/19/2020 (8933) [facility] NAME: DEMETRIO FERNÁNDEZ Radiology Department PHYS: Aakash Porter [address] : 1970 AGE: 50 SEX: F [place] [address] LOC: CHANDNI 3 PHONE #: [phone] EXAM DATE: 07/19/2020 STATUS: ADM IN FAX #: [phone] RAD NO: [id number] Page 1 Signed Report Patient Name: DEMETRIO FERNÁNDEZ Unit No: [id number] EXAMS: CPT CODE: [id number] US PELVIS LTD OR FU 05753 (Continued) [facility] NAME: DEMETRIO FERNÁNDEZ Radiology Department PHYS: Aakash Porter [address] : 1970 AGE: 50 SEX: F [place], [place] [address] LOC: CHANDNI 3 PHONE #: EXAM DATE: 07/19/2020 STATUS: ADM IN FAX #: [phone] RAD NO: [id number] Page 2 Signed Report- US ABDOMEN [id number] 04:18:00 Patient Name: DEMETRIO FERNÁNDEZ Unit No: [id number] EXAMS: CPT CODE: [id number] US ABDOMEN COMPLETE 91096 EXAM: US, US ABDOMEN LTD: 07/19/2020, 0300 [...] stone left kidney. No hydronephrosis seen [facility] NAME: DEMETRIO FERNÁNDEZ Radiology Department PHYS: GENESISSuhail LeungGénesispricilla [address] : 1970 AGE: 50 SEX: F [place] [address] LOC: CHANDNI 3 PHONE #: [phone] EXAM DATE: 07/19/2020 STATUS: ADM IN FAX #: [phone] RAD NO: [id number] Page 1 Signed Report (CONTINUED) Patient Name: DEMETRIO FERNÁNDEZ Unit No: [id number] EXAMS: CPT CODE: [id number] US ABDOMEN COMPLETE 31458 (Continued) bilaterally. SL: ALEC at 0418 Reported and signed by: Vince Locke M.D. CC: Technologist: Alize Gomes RDMS Probe: Trnscrbd D/ (0418) BushraJS38 Orig Print D/T: S: 07/19/2020 (0422) [facility] NAME: DEMETRIO FERNÁNDEZ Radiology Department PHYS: FATEMEHSuhail Foyjalen Ye [address] : 1970 AGE: 50 SEX: F [place] [address] : CHANDNI 3 PHONE #: [phone] EXAM DATE: 07/19/2020 STATUS: ADM IN FAX #: [phone] RAD NO: [id number] Page 2 Signed Report Patient Name: DEMETRIO FERNÁNDEZ Unit No: [id number] EXAMS: CPT CODE: [id number] US ABDOMEN COMPLETE 30811 (Continued) [facility] NAME: DEMETRIO FERNÁNDEZ Radiology Department PHYS: Aakash Porter [address] : 1970 AGE: 50 SEX: F [place], [place] [address] LOC: JIGNASU 3 PHONE #: [phone] EXAM DATE: 07/19/2020 STATUS: ADM IN FAX #: [phone] RAD NO: [id number] Page 3 Signed ReportHCG [id number] 03:12:00 Test Item Value Reference Range Interpretation [...] SHOULD BE CONSI DERED NEGATIVE COMPREHENSIVE METABOLIC [id number] 03:07:00 Test Item Value Reference Range Interpretation [...] 68 units/L 46-116 N code = ALKP) [id number] 03:07:00 Test Item Value Reference Range Interpretation Comments LIPASE (test code = LIP) 54 units/L 73-393 L DRUGS OF ABUSE [id number] 03:06:00 Test Item Value Reference Range Interpretation [...] BENZU) AMILCAR.READ BACK & CONFIRMED? YES. BY FLambertoAS99 07/10. DETECTION CUT OFF: 150 ng/mL UR OPIATES QUAL (test NEGATIVE NEGATIVE DETECT ION CUT OFF: code = OPIAQLU) 100 ng/mL UR PHENCYCLIDINE (PCP) NEGATIVE NEGATIVE DETEC TION CUT OFF: (test code = PHENCU) 25 ng/m L UA RFLX MICR CULT IF [id number] 03:02:00 Test Item Value Reference Range Interpretation [...] for culture: Dysuria/FrequencySpecimen Description: CLEAN CATCHCBC W/AUTO [id number] 02:46:00 Test Item Value Reference Range Interpretation [...] REQUIRED (test NORMAL NORMAL code = PLTMR) [place] [id number] 14:56:00 RUN DATE: 07/17/20 [facility] PAGE 1 RUN TIME: 1053 Specimen Inquiry RUN USER: INTERFACE --PATIENT: DEMETRIO FERNÁNDEZ LOC: [facility] U #: [id number] AGE/SX: 50/F ROOM: [facility] RE07/14/20REG DR: Kyung Gomes MD : [birth year] BED: A DIS: 07/15/20 STATUS: DIS Ekaterina TLOC: SPEC #: [id number] RECD: 07/14/20 STATUS: CAROLANN REQ #: [id number] YUNIEL: 07/14/20- SUBM DR: Kyung Gomes MD ENTERED: 07/15/20 SP TYPE: PELVIC FEDERICO OTHR DR: Aakash Crook MD ORDERED: LEVEL IV/3 CODES: T41054 - FALLOPIAN [id number] - PELVIC GENITAL COPIES TO: Aakash Crook MD [address] [place] [address] Kyung Gomes MD [address] [place] [id number] [email or web address] PROCEDURES: LEVEL IV (Incomplete) TISSUES: PELVIC [...] - no tubal tissue identified CPT code(s): 59253 x3 ls/wpd CONTINUED ON NEXT PAGE RUN DATE: 07/17/20 [facility] PAGE 2 RUN TIME: 1053 Specimen Inquiry RUN USER: INTERFACE SPEC #: [id number] PATIENT: DEMETRIO FERNÁNDEZ #[id number] (Continued) GROSS DESCRIPTION ANATOMIC SOURCE OF TISSUE (per Requisition): 1. Right pelvic sidewall endometriosis 2. Right uterosacralendometriosis 3. Right fallopian tube and ovary Each specimen is labeled with the patient's name andmedical record number. Specimen #1 is designated "right pelvic sidewall endometriosis" and consistsof a 1 x 0.5 x 0.3 cm [...] lobular. Sectioning reveals a wetzel-pink cut surface. Budget Examiner sections are submitted as follows: C1 - ovary, C2 - attached wetzel-pink soft tissue. amanda 10/6/20 The remaining attached soft tissue is submitted in RE1. nz/wpd 07/16/20 Signed Carmelina Frost MD 07/16/20 1456 END OF REPORT AG HEPATITIS B SURFACE 2020-07-10 15:14:00 Test Item Value Reference Range Interpretation Comments AG HEPATITIS B SURFACE (test code NONREACTIVE NONREACTIVE = HBSAG) IS CONSENT FORM SIGNED FOR HIV TESTING? YAB HEPATITIS C [id number] 15:14:00 Test Item Value Reference Range Interpretation Comments AB HEPATITIS C (test code = NONREACTIVE NONREACTIVE HCVAB) SIGNAL TO CUTOFF (test code = 0.11 <0.80 N CUTOFF) IS CONSENT FORM SIGNED FOR HIV TESTING? B HIV 1 15:14:00 Test Item Value Reference Range Interpretation Comments AB HIV 1 2 (test NONREACTIVE NONREACTIVE Done by [facility] code = TUQ54JS) 4th Gen HIV Ag/Ab Combo Screen IS CONSENT FORM SIGNED FOR HIV TESTING? YURINALYSIS [id number] 15:08:00 Test Item Value Reference Range Interpretation [...] URINE SAMPLE: CLEAN CATCHCOVID 19 Asymptomatic IH [id number] 15:07:00 Test Item Value Reference Range Interpretation [...] and/o r diagnosis of CO VID-19 under Zitwbqv58 4(b)(1) of the Act, 21 U.S .C. 360bbb-3(b)(1), unless theauthorizatio n is terminated or r evoked sooner. AG HEPATITIS B [id number] 14:51:00 Test Item Value Reference Range Interpretation Comments AG HEPATITIS B SURFACE (test code NONREACTIVE NONREACTIVE = HBSAG) IS CONSENT FORM SIGNED FOR HIV TESTING? YAB HEPATITIS C [id number] 14:51:00 Test Item Value Reference Range Interpretation Comments AB HEPATITIS C (test code = HCVAB) NONREACTIVE SIGNAL TO CUTOFF (test code = CUTOFF) <0.80 IS CONSENT FORM SIGNED FOR HIV TESTING? YAB HIV 1 14:51:00 Test Item Value Reference Range Interpretation Comments AB HIV 1 2 (test code = VSC34BR) NONREACTIVE IS CONSENT FORM SIGNED FOR HIV TESTING? YCBC W/AUTO [id number] 14:06:00 Test Item Value Reference Range Interpretation [...] T4) 5.9 mcg/dL 4.7-13.3 N THYROID STIMULATING [id number] 14:21:00 Test Item Value Reference Range Interpretation Comments THYROID STIMULATING 6.43 0.36-3.74 H Test Per formed in HORMONE (test code = MicroIn ternational Units/mL TSH) [id number] 14:21:00 Test Item Value Reference Range Interpretation Comments ESTRADIOL (test 60.9 pg/mL () Adult Femal e: code = ESTRA) Follicular pha se 12.5 - 166.0 Ovulation phase 85.8 - 498.0 Alicja teal phase 43.8 - 21 1.0 Postmenopausal <6.0 - 54.7 1st trimester 215.0 - >4300.0Roche EC MARYANA methodology [id number] 14:21:00 Test Item Value Reference Range Interpretation Comments PROGESTERONE (test 0.7 ng/mL () Follicul ar phase 0.1 - code = PROG) 0.9 Luteal phas e 1.8 - 23.9 Ovulation phase 0.1 - 12.0 Preg nant First trimester 11.0 - 44.3 Second tri mester 25.4 - 83.3 Thi rd trimester 58.7 - 214.0 Postmenopausal 0.0 - 0.1Performed At : [facility] [address] [place], [place] [id number] ross Remy MD Ph:[phone] FOLLICLE STIMULATING [id number] 14:21:00 Test Item Value Reference Range Interpretation Comments FOLLICLE STIMULATING 43.2 mIU/mL () Adult Female: HORMONE (test code = Follicu lar phase 3.5 - FSH) 12.5 Ovulation phase 4.7 - 21.5 Lute al phase 1.7 - 7.7 Postmenopausal 25.8 - 134.8 COMPREHENSIVE METABOLIC [id number] 06:03:00 Test Item Value Reference Range Interpretation [...] units/L 46-116 code = ALKP) CBC W/AUTO [id number] 05:55:00 Test Item Value Reference Range Interpretation [...] T4) 5.9 mcg/dL 4.7-13.3 N THYROID STIMULATING [id number] 21:23:00 Test Item Value Reference Range Interpretation Comments THYROID STIMULATING 6.43 0.36-3.74 H Test Per formed in HORMONE (test code = MicroIn ternational Units/mL TSH) [id number] 21:23:00 Test Item Value Reference Range Interpretation Comments ESTRADIOL (test code = ESTRA) [id number] 21:23:00 Test Item Value Reference Range Interpretation Comments PROGESTERONE (test code = PROG) FOLLICLE STIMULATING [id number] 21:23:00 Test Item Value Reference Range Interpretation Comments FOLLICLE STIMULATING HORMONE (test code = FSH) Coronavirus 2019 nCoV [id number] 10:34:00 Test Item Value Reference Range Interpretation Comments Coronavirus 2019 nCoV Negative Negative RESUL TS CALLED TO READ Bedside (test code = BACK & CONFIRMED? BY TPDKY24GJMBK) Z.LAB.NE 05/07 1034 This result epps s not [...] F ROM FDA - CT ABD PELVIS [id number] 08:28:00 Patient Name: DEMETRIO FERNÁNDEZ Unit No: [id number] EXAMS: CPT CODE: [id number] CT ABD PELVIS W/CONT 46536 CT ABDOMEN AND PELVIS WITH CONTRAST AND MULTIPLANAR REFORMATS 05/07/2020. INDICATION: Left lower quadrant abdominal/pelvic pain for 6 days. Vomiting. History of endometriosis. COMPARISON: Pelvic ultrasound from the same day and abdomen CT 09/11/2016. TECHNIQUE: Helical imaging was performed diaphragm through the symphysis with axial and coronal reformations [...] No destructive bone lesions. Mild lumbosacral facet arthrosisand SI joint osteoarthritis. [facility] NAME: DEMETRIO FERNÁNDEZ Radiology Department PHYS: Liz Shafer MD [address] : 1970 AGE: 49 SEX: F [place], [place] [address] LOC: LucyERS PHONE #: [phone] EXAM DATE: 05/07/2020 STATUS: REG ER FAX #: [phone] RAD NO: [id number] Page 1 Signed Report 1 Patient Name: DEMETRIO FERNÁNDEZ Unit No: [id number] EXAMS: CPT CODE: [id number] CT ABD PELVIS W/CONT 30848 (Continued) IMPRESSION: 1. Constipation without acute CT [...] kV according to patient size -Use of iterativereconstruction technique SL: [id number] at 0828 Reported and signed by: Chris Edmonds MD CC: Liz Padilla MD Technologist: Marcela Louis, RT, CT CTDI: 7.77 DLP: 159.20 Trnscrbd D/ (0828) [email or web address].[email or web address] [facility] NAME: DEMETRIO FERNÁNDEZ Radiology Department PHYS: Liz Shafer MD [address] : 1970 AGE: 49 SEX: F [place] [address] LOC: F.ERS PHONE#: [phone] EXAM DATE: 05/07/2020 STATUS: REG ER FAX #: [phone] RAD NO: [id number] Page 2 Signed Report 1 Patient Name: DEMETRIO FERNÁNDEZ Unit No: [id number] EXAMS: CPT CODE: [id number] CT ABD PELVIS W/CONT 82451 (Continued) Orig Print D/T: S: 05/07/2020 (0832) [facility] NAME: DEMETRIO FERNÁNDEZ Radiology Department PHYS: Liz Shafer MD [address] : 1970 AGE: 49 SEX: F [place] [address] LOC: Delia.ERS PHONE #: [phone] EXAM DATE: 05/07/2020 STATUS: REG ER FAX #: [phone] RAD NO: [id number] Page 3 Signed Report 1UA RFLX MICR CULT IF [id number] 08:25:00 Test Item Value Reference Range Interpretation [...] NONE SEEN Indication for culture: Dysuria/FrequencyCHEMISTRY 7 [id number] 08:16:00 Test Item Value Reference Range Interpretation [...] = CA) 9.1 mg/dL 8.4-10.2 N LIVER [id number] 08:16:00 Test Item Value Reference Range Interpretation [...] 85 units/L 46-116 N code = ALKP) [id number] 08:16:00 Test Item Value Reference Range Interpretation Comments LIPASE (test code = LIP) 66 units/L 73-393 L - US TRANSVAGINAL [id number] 08:14:00 Patient Name: DEMETRIO FERNÁNDEZ Unit No: [id number] EXAMS: CPT CODE: [id number] US TRANSVAGINAL W/PELVIS 55874 TRANSVAGINAL PELVIC ULTRASOUND 05/07/2020 AT 0 713 HOURS. CLINICAL HISTORY: Abdominal/pelvic pain for 6 days. Vomiting. History of endometriosis. REPORTED LMP: Hysterectomy and left oophorectomy (2009). COMPARISON STUDIES: No recent relevant priors at this institution. Reference is made to the abdomen and pelvis CT 09/11/2016 and the pelvic ultrasound from 02/25/2015. By report the patient has anoutside ultrasound from [facility] in [facility] dated 05/05/2020. This study is not available [...] No free fluid. No adnexal mass. SL: [id number] at 0814 Reported and signed by: Chris Edmonds MD CC: Liz Padilla MD Technologist: Nory Mace RDMS Probe: [id number] Trnscrbd D/ (0814) t.SDR.ERR2 Orig Print D/T: S: 05/07/2020 (0817) [facility] NAME: DEMETRIO FERNÁNDEZ Radiology Department PHYS: Liz Shafer MD [address] : 1970 AGE: 49 SEX: F [place], [place] [address] LOC: LucyERS PHONE #: [phone] EXAM DATE: 05/07/2020 STATUS: REG ER FAX #: [phone] RAD NO: [id number] Page 1 Signed Report Patient Name: DEMETRIO FERNÁNDEZ Unit No: [id number] EXAMS: CPT CODE: [id number] US TRANSVAGINAL W/PELVIS 07182 (Continued) [facility] NAME: DEMETRIO FERNÁNDEZ Radiology Department PHYS: Liz Shafer MD [address] : 1970 AGE: 49 SEX: F [place], [place] [address] LOC: LucyERS PHONE #: [phone] EXAM DATE: 05/07/2020 STATUS: REG ER FAX #:[phone] RAD NO: [id number] Page 2 Signed Report- US PELVIS [id number] 08:14:00 Patient Name: DEMETRIO FERNÁNDEZ Unit No: [id number] EXAMS: CPT CODE: [id number] US PELVIS COMPLETE 21287 TRANSVAGINAL PELVIC ULTRASOUND 05/07/2020 AT 0 713 HOURS. CLINICAL HISTORY: Abdominal/pelvic pain for 6 days. Vomiting. History of endometriosis. REPORTED LMP: Hysterectomy and left oophorectomy (2009). COMPARISON STUDIES: No recent relevant priors at this institution. Reference is made to the abdomenand pelvis CT 09/11/2016 and the pelvic ultrasound from 02/25/2015. By report the patient has an outside ultrasound from [facility] in [facility] dated 05/05/2020. This study is not available [...] No free fluid. No adnexal mass. SL: [id number] at 0814 Reported and signed by: Chris Edmonds MD CC: Liz Padilla MD Technologist: Nory Mace RDMS Probe: Trnscrbd D/ (0814) t.SDR.ERR2 Orig Print D/T: S: 05/07/2020 (0817) [facility] NAME: STEVE FERNÁNDEZLA Radiology Department PHYS: Liz Shafer MD [address] : 1970 AGE: 49 SEX: F [place] [address] LOC: LucyERS PHONE #: [phone] EXAM DATE: 05/07/2020 STATUS: REG ER FAX #: [phone] RAD NO: [id number] Page 1 Signed ReportPatient Name: DEMETRIO FERNÁNDEZ Unit No: [id number] EXAMS: CPT CODE: [id number] US PELVIS COMPLETE 06796(Continued) [facility] NAME: TOBY,DEMETRIO Radiology Department PHYS: Liz Shafer MD [address] : 1970 AGE: 49 SEX: F [place] [address] LOC: LucyERS PHONE #: [phone] EXAM DATE: 05/07/2020 STATUS: REG ER FAX #: [phone] RAD NO:[id number] Page 2 Signed Report CBC W/AUTO [id number] 08:07:00 Test Item Value Reference Range Interpretation [...]
[2022-09-30] MEDS ORDERED: ONDANSETRON 4 MG/2 ML VIAL ONE (08:31)
[2022-09-30] MEDS ORDERED: NA CHLORIDE 0.9% 1,000 ML ONE (08:31)
[2022-09-30 08:42] LABS: Urine Blood Trace-lysed (Negative); Urine Glucose Negative (Negative); Urine Protein Negative (Negative)
[2022-09-30 08:43] LABS: Absolute Lymphocytes (CBC) 1.7 K/uL (0.7-4.9); Hematocrit 39.2 % (36.0-45.0); MCV 92.8 fL (80-100); RBC Red Blood Cell Count 4.22 M/uL (3.86-4.86)
[2022-09-30] MEDS ORDERED: DIPHENHYDRAMINE 50 MG/ML VIAL ONE (08:57)
[2022-09-30] MEDS ORDERED: FAMOTIDINE 20 MG/2 ML VIAL IV ONE (08:57)
[2022-09-30 08:58] LABS: Albumin 4.2 g/dL (3.4-5.0); Bilirubin Total 0.4 mg/dL (0.2-1.0); Potassium 3.6 mmol/L (3.5-5.1)
[2022-09-30] MEDS ORDERED: KETAMINE HCL 500 MG/5 ML VIAL ONE (09:27)
[2022-09-30] MEDS ORDERED: NA CHLORIDE 0.9% 250 ML ONE (10:13)
[2022-09-30] MEDS ORDERED: HYDROMORPHONE HCL 0.5 MG/0.5 ML INJ ONE (10:44)
[2022-09-30] MEDS ORDERED: METOCLOPRAMIDE 10 MG/2mL INJ ONE (11:07)
[2022-09-30] MEDS ORDERED: NA CHLORIDE 0.9% 50 ML IV ONE (11:08)
--- NOTE | 2022-09-30 11:58 | EDPHYS ---
Physician Documentation [facility] Name: Alysha Fernández Age: 52 yrs Sex: Female : 1970 Arrival Date: 09/30/2022 Time: 08:21 Bed 7 Private MD: ED Physician Nhan Hung HPI: 09/30 08:25 This 52 yrs old Female presents to ER via Wheelchair with complaints of Abdominal Pain. jmm 08:25 The patient presents with abdominal pain. Onset: The symptoms/episode began/occurred jmm gradually. The symptoms do not radiate. This is a 52 year old female with a history of anxiety, IBS that presents to the ED with complaints of left sided abdominal pain. Patient has had similar episodes in the past. States imaging studies are always negative with this presentation. Patient seen yesterday with normal labs and imaging studies. . PROPOSAL ANALYST: 08:35 LMP N/A - Hysterectomy vg1 Historical: - Allergies: 08:35 Ceclor; vg1 08:35 Codeine; vg1 08:35 Morphine; vg1 08:35 PENICILLINS; vg1 - PMHx: 08:35 Anxiety; Chronic Abdominal Pain; vg1 - PSHx: 08:35 Appendectomy; Cholecystectomy; Total abdominal hysterectomy; vg1 - Immunization history:: Client reports having NOT received the Covid vaccine. - Social history:: Smoking status: Patient denies any tobacco usage or history of. ROS: 08:25 Constitutional: Negative for fever, chills, and weight loss, Cardiovascular: Negative jmm for chest pain, palpitations, and edema, Respiratory: Negative for shortness of breath, cough, wheezing, and pleuritic chest pain. 08:25 Abdomen/GI: Positive for abdominal pain. 08:25 All other systems are negative. Exam: 08:25 Head/Face: atraumatic. Eyes: EOMI, no conjunctival erythema appreciated ENT: Moist jmm Mucus Membranes Neck: Trachea midline, Supple Chest/axilla: Normal chest wall appearance and motion. Cardiovascular: Regular rate and rhythm. No edema appreciated Respiratory: Normal respirations, no respiratory distress appreciated 08:25 Skin: General appearance color normal MS/ Extremity: Moves all extremities, no obvious deformities appreciated, no edema noted to the lower extremities Neuro: Awake and alert Psych: Behavior is normal, Mood is normal, Patient is cooperative and pleasant 08:25 Constitutional: The patient appears alert, awake, uncomfortable. 08:25 Abdomen/GI: Inspection: abdomen appears normal, Bowel sounds: normal, Palpation: soft, mild abdominal tenderness, in the left upper quadrant and left lower quadrant. Vital Signs: 08:33 BP 130 / 92; Pulse 103; Resp 17; Temp 97.7; Pulse Ox 98% ; Weight 40.82 kg; Pain 9/10; vg1 09:25 BP 129 / 75; Pulse 110; Resp 22 S; Pulse Ox 100% on R/A; aa5 09:28 Pulse 140; Resp 26 S; Pulse Ox 100% on R/A; aa5 09:30 BP 158 / 107; Pulse 129; Resp 24 S; Pulse Ox 99% on R/A; aa5 10:04 BP 130 / 83; Pulse 99; Resp 16 S; Pulse Ox 99% on R/A; aa5 10:43 BP 146 / 90; Pulse 103; Resp 21 S; Pulse Ox 99% on R/A; Pain 9/10; kc6 11:10 BP 124 / 82; Pulse 100; Resp 16 S; Temp 98.2(TE); Pulse Ox 99% on R/A; aa5 12:34 BP 119 / 75; Pulse 89; Resp 15; Pulse Ox 99% ; vg1 MDM: 08:39 Patient medically screened. love 11:57 Data reviewed: vital signs, nurses notes. Counseling: I had a detailed discussion with sudhakar the patient and/or guardian regarding: the historical points, exam findings, and any diagnostic results supporting the discharge/admit diagnosis, the need for outpatient follow up, to return to the emergency department if symptoms worsen or persist or if there are any questions or concerns that arise at home. 09/30 08:25 Order name: CBC with Diff; Complete Time: 09:[address] [facility] 09/30 08:25 Order name: CMP; Complete Time: 09:[address] [facility] 09/30 08:25 Order name: Lipase; Complete Time: 09:[address] [facility] 09/30 08:42 Order name: Urine Dipstick-Ancillary; Complete Time: 08:43 [facility] 09/30 08:55 Order name: Urine --Ancillary (enter results); Complete Time: 09:10 09/30 08:25 Order name: IV Saline Lock; Complete Time: 08:[address] [facility] 09/30 08:25 Order name: Labs collected and sent; Complete Time: 08:[address] [facility] Administered Medications: 08:39 Drug: NS 0.9% 1000 ml Route: IV; Rate: 1 bolus; Site: right antecubital; aa5 09:27 Follow up: IV Status: Completed infusion; IV Intake: 1000ml aa5 08:39 Drug: Zofran (Ondansetron) 4 mg Route: IVP; Site: right antecubital; aa5 08:45 Follow up: Response: No adverse reaction aa5 08:59 Drug: Pepcid (famotidine) 20 mg Route: IVP; Site: right antecubital; aa5 09:15 Follow up: Response: No adverse reaction aa5 08:59 Drug: diphenhydrAMINE 12.5 mg Route: IVP; Site: right antecubital; aa5 09:15 Follow up: Response: No adverse reaction aa5 09:13 CANCELLED (Physician Discretion): Ativan (LORazepam) 0.5 mg IVP once aa5 09:14 CANCELLED (Physician Discretion): Dilaudid (HYDROmorphone) 0.5 mg IVP once aa5 09:27 Drug: Ketamine 10 mg Route: IVP; Site: right antecubital; aa5 09:28 Follow up: Response: Other; See nursing notes. aa5 10:17 Drug: NS 0.9% 250 ml Route: IV; Rate: bolus; Site: right antecubital; aa5 10:46 Follow up: IV Status: Completed infusion; IV Intake: 250ml aa5 10:46 Drug: Dilaudid (HYDROmorphone) 0.5 mg Route: IVP; Site: right antecubital; aa5 12:33 Follow up: Response: No adverse reaction; Marked relief of symptoms vg1 11:09 Drug: Reglan (metoCLOPramide) 10 mg Route: IVP; Site: right antecubital; aa5 12:33 Follow up: Response: No adverse reaction; Marked relief of symptoms vg1 Disposition Summary: 09/30/22 11:57 Discharge Ordered Location: Home [facility] Condition: Stable jmm Diagnosis - Lower abdominal pain, unspecified jmm Followup: m - With: Private Physician - When: 2 - 3 days - Reason: Recheck today's complaints, Continuance of care, Re-evaluation by your physician Discharge Instructions: - Discharge Summary Sheet [facility] - Abdominal Pain, Adult [facility] Forms: - Medication Reconciliation Form [facility] - Thank You Letter [facility] - Antibiotic Education [facility] - Prescription Opioid Use [facility] Prescriptions: - Reglan 10 mg Oral Tablet - take 1 tablet by ORAL route every 6 hours take 30 minutes before meals and at [facility] bedtime; 20 tablet; Refills: 0, Product Selection Permitted Signatures: Dispatcher [employer] EDEdgard Valerio PA PA jmm Calderon, Audri, RN RN aa5 Concepcion Stark RN RN vg1 Corrections: (The following items were deleted from the chart) 09:13 09:12 Ativan (LORazepam) 0.5 mg IVP once ordered. sudhakar merida5 09:14 09:12 Dilaudid (HYDROmorphone) 0.5 mg IVP once ordered. sudhakar merida5 09:18 08:25 Urine Test ordered. sudhakar aa5
--- NOTE | 2022-09-30 11:58 | ER ---
Nurse's Notes [facility] Name: Alysha Fernández Age: 52 yrs Sex: Female : 1970 Arrival Date: 09/30/2022 Time: 08:21 Bed 7 Private MD: Diagnosis: Lower abdominal pain, unspecified Presentation: 09/30 08:33 Chief complaint: Patient states: Was seen yesterday for ABD pain and NV, stated pain vg1 has not subsided and continues to have NV. Coronavirus screen: Vaccine status: Patient reports being unvaccinated. Client denies travel out of the [place] in the last 14 days. Ebola Screen: Patient negative for fever greater than or equal to 101.5 degrees Fahrenheit, and additional compatible Ebola Virus Disease symptoms. Initial Sepsis Screen: Does the patient meet any 2 criteria? HR > 90 bpm. Does the patient have a suspected source of infection? No. Patient's initial sepsis screen is negative. Risk Assessment: Do you want to hurt yourself or someone else? Patient reports no desire to harm self or others. Onset of symptoms was September 29, 2022. 08:33 Method Of Arrival: Wheelchair vg1 08:33 Acuity: ROBERTO 3 vg1 Triage Assessment: 08:35 General: Appears in no apparent distress. uncomfortable, Behavior is cooperative, vg1 crying. Pain: Complains of pain in left lower quadrant Pain currently is 9 out of 10 on a pain scale. Pain began 2-3 days ago. GI: Abdomen is flat, Abdomen is tender to palpation in left lower quadrant Reports nausea, vomiting. MANAGER NEW PRODUCT: 08:35 LMP N/A - Hysterectomy vg1 Historical: - Allergies: 08:35 Ceclor; vg1 08:35 Codeine; vg1 08:35 Morphine; vg1 08:35 PENICILLINS; vg1 - PMHx: 08:35 Anxiety; Chronic Abdominal Pain; vg1 - PSHx: 08:35 Appendectomy; Cholecystectomy; Total abdominal hysterectomy; vg1 - Immunization history:: Client reports having NOT received the Covid vaccine. - Social history:: Smoking status: Patient denies any tobacco usage or history of. Screenin:[facility] ED Fall Risk Assessment (Adult) History of falling in the last 3 months, vg1 including since admission No falls in past 3 months (0 pts) Confusion or Disorientation No (0 pts) Intoxicated or Sedated No (0 pts) Impaired Gait No (0 pts) Mobility Assist Device Used No (0 pt) Altered Elimination No (0 pt) Score/Fall Risk Level 0 - 2 = Low Risk Oriented to surroundings, Maintained a safe environment, Educated pt \\T\\ family on fall prevention, incl call for assistance when getting out of bed, Assessed \\T\\ reinforced patient's understanding of fall precautions. Abuse screen: Denies threats or abuse. Nutritional screening: Has had N/V for 3 or more days. Tuberculosis screening: No symptoms or risk factors identified. Assessment: 08:25 General: Appears uncomfortable, Behavior is cooperative, anxious. Pain: Complains of aa5 pain in right lower quadrant and left lower quadrant Pain currently is 9 out of 10 on a pain scale. Quality of pain is described as crampy, Pain began approximately 1 week ago Is intermittent, lasting a few seconds. Neuro: Level of Consciousness is awake, alert, obeys commands, Oriented to person, place, time, situation. Cardiovascular: Heart tones S1 S2 present Rhythm is regular. Respiratory: Airway is patent Respiratory effort is even, unlabored, Respiratory pattern is regular, symmetrical. GI: Abdomen is flat, non-distended, Last BM was September 30, 2022. Bowel sounds present X 4 quads. Abdomen is tender to palpation in right lower quadrant and left lower quadrant Reports nausea, vomiting. : No signs and/or symptoms were reported regarding the genitourinary system. EENT: No signs and/or symptoms were reported regarding the EENT system. Derm: Skin is pink, warm \\T\\ dry. Musculoskeletal: Range of motion: intact in all extremities. 09:00 Reassessment: Patient is alert, oriented x 3, equal unlabored respirations, skin aa5 warm/dry/pink. Patient states symptoms have not improved. 09:25 Reassessment: Patient is alert, oriented x 3, equal unlabored respirations, skin aa5 warm/dry/pink. General: Appears uncomfortable. Pain: Pain currently is 10 out of 10 on a pain scale. 09:42 Reassessment: Post Ketamine administration pt appeared anxious, pt yelling "I'm dying, aa5 I'm dying", HR increased to 140bpm. Pt was verbally reassured and I stayed with pt for 15 minutes post Ketamine administration, pt more calm now and HR down to 115 bpm. Pt currently resting with eyes closed, respirations even and unlabored. Provider was notified. . 10:15 Reassessment: Patient is alert, oriented x 3, equal unlabored respirations, skin aa5 warm/dry/pink. Pt states "I didn't like the feeling the medicine (ketamine) gave me, I felt like I was walking through a tunnel and felt like I was going to ". . General: Appears comfortable, Behavior is calm, cooperative. 10:43 Reassessment: assisted client to bedside commode. kc6 10:45 Reassessment: Patient is alert, oriented x 3, equal unlabored respirations, skin aa5 warm/dry/pink. Pt states "the pain is back" . General: Appears uncomfortable. Pain: Pain currently is 10 out of 10 on a pain scale. 10:55 Reassessment: Patient is alert, oriented x 3, equal unlabored respirations, skin aa5 warm/dry/pink. Patient states feeling better. Patient states symptoms have improved. 11:09 Reassessment: Patient is alert, oriented x 3, equal unlabored respirations, skin aa5 warm/dry/pink. Patient denies pain at this time. Patient states feeling better. Patient states symptoms have improved. 12:33 Reassessment: Patient is alert, oriented x 3, equal unlabored respirations, skin aa5 warm/dry/pink. Patient denies pain at this time. Patient states feeling better. Patient states symptoms have improved. Vital Signs: 08:33 BP 130 / 92; Pulse 103; Resp 17; Temp 97.7; Pulse Ox 98% ; Weight 40.82 kg; Pain 9/10; vg1 09:25 BP 129 / 75; Pulse 110; Resp 22 S; Pulse Ox 100% on R/A; aa5 09:28 Pulse 140; Resp 26 S; Pulse Ox 100% on R/A; aa5 09:30 BP 158 / 107; Pulse 129; Resp 24 S; Pulse Ox 99% on R/A; aa5 10:04 BP 130 / 83; Pulse 99; Resp 16 S; Pulse Ox 99% on R/A; aa5 10:43 BP 146 / 90; Pulse 103; Resp 21 S; Pulse Ox 99% on R/A; Pain 9/10; kc6 11:10 BP 124 / 82; Pulse 100; Resp 16 S; Temp 98.2(TE); Pulse Ox 99% on R/A; aa5 12:34 BP 119 / 75; Pulse 89; Resp 15; Pulse Ox 99% ; vg1 ED Course: 08:21 Patient arrived in ED. rg4 08:24 Edgard Lezama PA is PHCP. jmm 08:24 Nhan Hung MD is Attending Physician. [facility] 08:25 Patient has correct armband on for positive identification. Bed in low position. Call aa5 light in reach. Side rails up X 1. Adult w/ patient. Arm band placed on. 08:35 Triage completed. vg1 08:35 Initial lab(s) drawn, by ED staff, sent to lab. Inserted saline lock: 20 gauge in right aa5 antecubital area, using aseptic technique. IV inserted by POLI Mazariegos. 08:39 Alba Damon, RN is Primary Nurse. aa5 12:33 No provider procedures requiring assistance completed. IV discontinued, intact, aa5 bleeding controlled, No redness/swelling at site. Pressure dressing applied. Administered Medications: 08:39 Drug: NS 0.9% 1000 ml Route: IV; Rate: 1 bolus; Site: right antecubital; aa5 09:27 Follow up: IV Status: Completed infusion; IV Intake: 1000ml aa5 08:39 Drug: Zofran (Ondansetron) 4 mg Route: IVP; Site: right antecubital; aa5 08:45 Follow up: Response: No adverse reaction aa5 08:59 Drug: Pepcid (famotidine) 20 mg Route: IVP; Site: right antecubital; aa5 09:15 Follow up: Response: No adverse reaction aa5 08:59 Drug: diphenhydrAMINE 12.5 mg Route: IVP; Site: right antecubital; aa5 09:15 Follow up: Response: No adverse reaction aa5 09:13 CANCELLED (Physician Discretion): Ativan (LORazepam) 0.5 mg IVP once aa5 09:14 CANCELLED (Physician Discretion): Dilaudid (HYDROmorphone) 0.5 mg IVP once aa5 09:27 Drug: Ketamine 10 mg Route: IVP; Site: right antecubital; aa5 09:28 Follow up: Response: Other; See nursing notes. aa5 10:17 Drug: NS 0.9% 250 ml Route: IV; Rate: bolus; Site: right antecubital; aa5 10:46 Follow up: IV Status: Completed infusion; IV Intake: 250ml aa5 10:46 Drug: Dilaudid (HYDROmorphone) 0.5 mg Route: IVP; Site: right antecubital; aa5 12:33 Follow up: Response: No adverse reaction; Marked relief of symptoms vg1 11:09 Drug: Reglan (metoCLOPramide) 10 mg Route: IVP; Site: right antecubital; aa5 12:33 Follow up: Response: No adverse reaction; Marked relief of symptoms vg1 Medication: 08:37 VIS not applicable for this client. vg1 Intake: 09:27 IV: 1000ml; Total: 1000ml. aa5 10:46 IV: 250ml; Total: 1250ml. aa5 Outcome: 11:57 Discharge ordered by . sudhakar 12:33 Discharged to home ambulatory, with significant other. aa5 12:33 Condition: improved 12:33 Discharge instructions given to patient, significant other, Instructed on discharge instructions, follow up and referral plans. medication usage, Demonstrated understanding of instructions, follow-up care, medications, Prescriptions given X 1. 12:35 Patient left the ED. aa5 Signatures: Edgard Lezama PA PA jmm Calderon, Audri RN RN aa5 Justa Stark Victoria, RN RN vg1 Delia Hsu RN RN kc6 Corrections: (The following items were deleted from the chart) 10:08 08:35 Arm band placed on vg1 aa5 10:08 08:36 Patient has correct armband on for positive identification. Bed in low position. aa5 Call light in reach. Side rails up X 1. Adult w/ patient. vg1
[2022-09-30 12:45] VITALS: TEMP 97.7
[2022-09-30 13:07] VITALS: O2SAT 99
[2022-09-30 13:10] VITALS: BP 119/75
== END 2022-09-30 12:35 | disposition home or self-care (01) ==
LOC: ER 08:17
DX: R10.32 Left lower quadrant pain (principal); R11.2 Nausea with vomiting, unspecified; Z88.0 Allergy status to penicillin; Z88.5 Allergy status to narcotic agent; Z88.8 Allergy status to other drugs, medicaments and biological substances
CPT/HCPCS: 96365; 96361; 85025; 36415; 81025; 81003; 83690; 80053; 96375; 99284; J2765; J1200; J1170; J7050; J7030; J2405

== ENCOUNTER 2022-11-26 17:01 | Emergency (ER) | payer OTHER ==
--- OUTSIDE RECORDS SUMMARY | 2022-11-26 17:05 | XMS REPORT | Continuity of Care Document ---
:1970 Author Organization [facility] t Address [address] [place] [address] [address]. [address] [place] [address] Care Team Providers Name Role Phone Palomo Larson MD Primary Care Physician [phone] Kyung Gomes Attending Clinician Unavailable Palomo Larson MD Attending Clinician PALOMO LARSON Attending Clinician Unavailable Doctor Unassigned, [place] Attending Clinician Unavailable Marifer Espitia Attending Clinician CANDIE HAMILTON Attending Clinician Unavailable Jenelle Nix Admitting Clinician Unavailable Kyung Gomes Admitting Clinician Unavailable Anika Harper Admitting Clinician Unavailable Payers Payer Name Policy Type Policy Number Effective Date Expiration Date Kong johnson AET[employer]OMAS HMO [id number] 2015 00:00:00 [employer]ET[employer] C1 [id number] Common [facility] Problems Condition Condition Condition Status Onset Resolution Last Treating Co mments Source Name Details Category Date Date Treatment Clinician Date Anxiety Anxiety Disease Active Univers 6 ity of 00:00: [place] 00 Medical Branch Fatigue Fatigue Disease Active Univers 6 ity of 00:00: [place] [facility] Hypothyroi Hypothyroi Disease Active U nivers dism due dism due 04-02 ity of to to 00:00: [place] acquired acquired 00 Medica l atrophy of atrophy of Br anch thyroid thyroid Weight Weight Disease Active Univers loss loss 04-02 ity of 00:00: [facility] [id number] LLQ Problem Active Common abdominal [facility] pain [facility] Kidney Kidney Problem Active Common stone stone [facility] Allergies, Adverse Reactions, Alerts Allergy Allergy Status Severity Reaction(s) Onset Inactive Treating Comm ents Source Name Type Date Date Clinician Penicill DA Active SV 2019-1 [facility] ins 0-01 [place] 00:00: d 00 [facility] morphine DA Active SV 2019- [facility] 0-01 [place] 00:00: d 00 [facility] codeine DA Active SV 2019-1 [facility] 0-01 [place] 00:00: d 00 [facility] Penicill DA Active SV RASH, NAUSEA 2019- HC A ins AND VOMITING 0-01 [place] brand[place] 00:00: d 00 [facility] morphine DA Active SV NAUSEA AND 2020 [facility] VOMITING 0-01 [place] 00:00: d 00 [facility] codeine DA Active SV NAUSEA AND 2019-10 [facility] VOMITING 0-01 [place] 00:00: d 00 [facility] pcn DA Active MO rash 2019- [facility] 7-29 [facility] [place] Penicill Propensi Active Nausea 2019- Other Univer s ins ty to and/or 05-03 reaction( ity of adverse Vomiting 00:00: s): [place] reaction 00 Unknown Medical s Branch MORPHINE DRUG Active Anaphylaxis 2019- Uni vers INGREDI 7- ity of 00:00: [place] 00 Medical Branch PENICILL Drug Active N/V Univers INS Class 7- ity of 00:00: [place] 00 Medical Branch Morphine Propensi Active Anaphylaxis 2019-0 U nivers ty to 7 ity of adverse 00:00: [place] reaction 00 Medical s Branch Morphine Propensi Active Swelling 2018-10 Other Univ ers ty to 2 reaction( ity of adverse 00:00: s): [place] reaction 00 Unknown Medical s Branch MORPHINE DRUG Active Anaphylaxis 2018-10 Uni vers INGREDI 11-13 ity of 00:00: [place] 00 Medical Branch Codeine Propensi Active Swelling 2018-10 Metho di ty to 11-13 st adverse 00:00: Hospita reaction 00 l s to drug Morphine Propensi Active Swelling 2018-10 Meth junie ty to 11-13 st adverse 00:00: Hospita reaction 00 l s to drug morphine DA Active U 2015-10 [facility] 2- [facility] 00:[facility]: [facility] [place] morphine DA Active U nasu 2015-10 [facility] 2- [facility] 00:00: [facility] [place] Codeine Propensi Active Swelling Other Unive rs ty to 04-01 reaction( ity of adverse 00:00: s): [place] reaction 00 Unknown Medical s Branch CODEINE DRUG Active Unknown-Cmnt Uni vers INGREDI 6 ity of 00:00: [place] 00 Medical Branch codeine DA Active MO 2014- [facility] 7-03 [facility] 00:[facility]: [facility] [place] codeine DA Active MO HIVES/RASH 2014- [facility] 7-03 [facility] 00:[facility]: [facility] [place] Social History Social Habit Start Date Stop Date Quantity Comments Source History of [facility] - Tobacco Use [facility] Exposure to 2022-09-27 2022-10-07 Not sure University of SARS-CoV-2 00:00:00 12:46:00 [place] Medical (event) Branch Tobacco use and 2022-06-03 2022-06-03 Smokeless tobacco Un iversity of exposure 00:00:00 00:00:00 non-user [facility] Branch Alcohol intake 2019-09-12 2019-09-12 Current drinker [facility] 00:00:00 00:00:00 of alcohol (finding) Sex [birth year] [facility] 00:00:00 00:00:00 Smoking Status Start Date Stop Date Source Never smoked tobacco [facility] Tobacco smoking consumption [facility] unknown Medications Ordered Filled Start Stop Current Ordering Indication Dosage Frequency Signature Comments Components Source Medication Medication Date Date Medication? Clinician (SIG) Name Name ALPRAZolam 2021-10 Yes [id number] .5mg Take 1 Univers 0.5 mg 2-29 tablet by ity of tablet 00:00: mouth in [place] 00 the Medical morning Branch and 1 tablet in the evening. traMADoL 50 2021-10 Yes [id number] TAKE 1 Univ ers mg tablet 2-29 TABLET BY ity o f 00:00: MOUTH [place] 00 EVERY 6 Medical HOURS Branch NEEDED PAIN Indication s: chronic pain ALPRAZolam 2021-10 Yes [id number] .5mg Take 1 Univers 0.5 mg 2-29 tablet by ity of tablet 00:00: mouth in [place] 00 the Medical morning Branch and 1 tablet in the evening. traMADoL 50 2021-10 Yes 2745 TAKE 1 Univ ers mg tablet 2-29 TABLET BY ity o f 00:00: MOUTH [place] 00 EVERY 6 Medical HOURS Branch NEEDED PAIN Indication s: chronic pain hyoscyamine 2021-10 Yes .125mg Take 0.125 Univers 0.125 mg 2-22 mg by ity of tablet 00:00: mouth [place] 00 every 8 Medical (eight) Branch hours. metoclopram 2021-10 Yes Univer s chris HCl 10 2-22 ity of mg tablet 00:00: [place] 00 Medical Branch hyoscyamine 2021-10 Yes .125mg Take 0.125 Univers 0.125 mg 2-22 mg by ity of tablet 00:00: mouth [place] 00 every 8 Medical (eight) Branch hours. metoclopram 2021-10 Yes Univer s chris HCl 10 2-22 ity of mg tablet 00:00: [place] 00 Medical Branch ondansetron 2021-[address] 1 Uni vers 4 mg 2-21 TABLET ity of disintegrat 00:00: [place]ER THE [place] tablet 00 TONGUE Medical FOUR TIMES Branch DAILY NEEDED ondansetron 2021-[address] 1 Uni vers 4 mg 2-21 TABLET ity of disintegrat 00:00: [place] THE [place] tablet 00 TONGUE Medical FOUR TIMES Branch DAILY NEEDED proMETHazin 2021-10 Yes TAKE 1 Univ ers e 25 mg 2-17 TABLET BY ity of tablet 00:00: MOUTH [place] 00 EVERY 6 Medical HOURS Branch NEEDED FOR NAUSEA methylPREDN 2021-10 Yes FOLLOW Univ ers ISolone 4 2-17 PACKAGE ity of mg tablets 00:00: DIRECTIONS [address] Branch proMETHazin 2021-10 Yes TAKE 1 Univ ers e 25 mg 2-17 TABLET BY ity of tablet 00:00: MOUTH [place] [address] EVERY 6 Medical HOURS Branch NEEDED FOR NAUSEA methylPREDN 2021-10 Yes FOLLOW Univ ers ISolone 4 2-17 PACKAGE ity of mg tablets 00:00: DIRECTIONS [address] Branch ALPRAZolam 2021-0 Yes [id number] .5mg Take 1 Univers 0.5 mg 8-25 tablet by ity of tablet 00:00: mouth in [place] [address] the Medical morning Branch and 1 tablet in the evening. ALPRAZolam 2021-0 Yes [id number] .5mg Take 1 Univers 0.5 mg 8-25 tablet by ity of tablet 00:00: mouth in [place] 00 the Medical morning Branch and 1 tablet in the evening. ALPRAZolam 2021-0 Yes [id number] .5mg Take 1 Univers 0.5 mg 8-25 tablet by ity of tablet 00:00: mouth in [place] 00 the Medical morning Branch and 1 tablet in the evening. ALPRAZolam 2021-0 Yes [id number] .5mg Take 1 Univers 0.5 mg 8-25 tablet by ity of tablet 00:00: mouth in [place] 00 the Medical morning Branch and 1 tablet in the evening. ALPRAZolam 2021-0 Yes [id number] .5mg Take 1 Univers 0.5 mg 8-25 tablet by ity of tablet 00:00: mouth in [place] 00 the Medical morning Branch and 1 tablet in the evening. ALPRAZolam 2-0 2022- No [id number] .5mg Take 1 Univers 0.5 mg 8-25 12-29 tablet by ity of tablet 00:00: 00:00 mouth in [place] 00 :00 the Medical morning Branch and 1 tablet in the evening. ALPRAZolam 2-0 2022- No [id number] .5mg Take 1 Univers 0.5 mg 8-25 12-29 tablet by ity of tablet 00:00: 00:00 mouth in [place] 00 :00 the Medical morning Branch and 1 tablet in the evening. HYDROmorpho 2021- No [id number] 2mg Take 1 Uni vers ne 2 mg 06-03 tablet by ity of tablet 00:00: 04:59 [...] Indication s: chronic pain traMADoL 50 2021-0 2021- No 2745 TAKE 1 Uni vers mg tablet 02-15 TABLET BY ity of 00:00: 00:00 MOUTH [place] 00 :00 EVERY 6 Medical HOURS Branch NEEDED PAIN Indication s: chronic pain traMADoL 50 2021-0 2021- No 2745 TAKE 1 Uni vers mg tablet 02-15- TABLET BY ity of 00:00: 00:00 MOUTH [place] 00 :00 EVERY 6 Medical HOURS Branch NEEDED PAIN Indication s: chronic pain ALPRAZolam 2021-0 2021- No [id number] .5mg Take 1 Univers 0.5 mg 02-15 tablet by ity of tablet 00:00: 00:00 mouth 2 [place] 00 :00 (two) Medical times Branch daily. MULTIVITAMI 2018- Yes Take by Uni vers N ORAL 9-10 mouth. ity of 09:55: [place] 45 Medical Branch MULTIVITAMI Yes Take by Uni vers N ORAL 9-10 mouth. ity of 09:55: [address] MULTIVITAMI Yes Take by Uni vers N ORAL 9-10 mouth. ity of 09:55: [address] MULTIVITAMI Yes Take by Uni vers N ORAL 9-10 mouth. ity of 09:55: [address] MULTIVITAMI Yes Take by Uni vers N ORAL 9-10 mouth. ity of 09:55: [address] MULTIVITAMI Yes Take by Uni vers N ORAL 9-10 mouth. ity of 09:55: [address] MULTIVITAMI Yes Take by Uni vers N ORAL 9-10 mouth. ity of 09:55: [address] loratadine 2015-10 Yes [id number] 10mg Take 1 Univers (CLARITIN) 2-21 tablet by ity of 10 mg 00:00: mouth [place] tablet 00 daily. Medical Branch fluticasone 2015-10 Yes [id number] 1-2 sprays Univers 50 2-21 in each ity of mcg/actuati 00:00: nostril [place] on nasal 00 daily Medical spray Branch loratadine 2015-10 Yes [id number] 10mg Take 1 Univers (CLARITIN) 2-21 tablet by ity of 10 mg 00:00: mouth [place] tablet 00 daily. Medical Branch fluticasone 2015-10 Yes [id number] 1-2 sprays Univers 50 2-21 in each ity of mcg/actuati 00:00: nostril [place] on nasal 00 daily Medical spray Branch loratadine 2015-10 Yes [id number] 10mg Take 1 Univers (CLARITIN) 2-21 tablet by ity of 10 mg 00:00: mouth [place] tablet 00 daily. Medical Branch fluticasone 2015-10 Yes [id number] 1-2 sprays Univers 50 2-21 in each ity of mcg/actuati 00:00: nostril [place] on nasal 00 daily Medical spray Branch loratadine 2015-10 Yes [id number] 10mg Take 1 Univers (CLARITIN) 2-21 tablet by ity of 10 mg 00:00: mouth [place] tablet 00 daily. Medical Branch fluticasone 2015-10 Yes [id number] 1-2 sprays Univers 50 2-21 in each ity of mcg/actuati 00:00: nostril [place] on nasal 00 daily Medical spray Branch loratadine 2015-10 Yes [id number] 10mg Take 1 Univers (CLARITIN) 2-21 tablet by ity of 10 mg 00:00: mouth [place] tablet 00 daily. Medical Branch fluticasone 2015-10 Yes [id number] 1-2 sprays Univers 50 2-21 in each ity of mcg/actuati 00:00: nostril [place] on nasal 00 daily Medical spray Branch loratadine 2015-10 Yes [id number] 10mg Take 1 Univers (CLARITIN) 2-21 tablet by ity of 10 mg 00:00: mouth [place] tablet 00 daily. Medical Branch fluticasone 2015-10 Yes [id number] 1-2 sprays Univers 50 2-21 in each ity of mcg/actuati 00:00: nostril [place] on nasal 00 daily Medical spray Branch loratadine 2015-10 Yes [id number] 10mg Take 1 Univers (CLARITIN) 2-21 tablet by ity of 10 mg 00:00: mouth [place] tablet 00 daily. Medical Branch fluticasone 2015-10 Yes [id number] 1-2 sprays Univers 50 2-21 in each [...] Time Observation Value Comments Source Systolic blood 2022-10-07 18:47:00 103 mm[Hg] Univer sity [facility] Diastolic blood 2022-10-07 18:47:00 69 [facility]Hg[facility] 2022-10-07 18:47:00 80 /min [facility] Body height 2022-10-07 18:47:00 152.4 cm [facility] Body weight 2022-10-07 18:47:00 42.956 kg [facility] BMI 2022-10-07 18:47:00 18.49 kg/m2 Universi ty [facility] Oxygen saturation in 2022-10-07 18:47:00 100 /min University of Arterial blood by [facility] Pulse oximetry Branch Systolic blood 2022-06-03 18:44:00 112 mm[Hg] Univer sity of pressure [facility] Diastolic blood 2022-06-03 18:44:00 74 mm[Hg] Unive rsity of pressure [facility] Heart rate 2022-06-03 18:44:00 84 /min Universi ty [facility] Body height 2022-06-03 18:44:[address] [facility] Body weight 2022-06-03 18:44:[address] [facility] BMI 2022-06-03 18:44:00 19.22 kg/m2 Universi ty [facility] Oxygen saturation in 2022-06-03 18:44:00 100 /min University of Arterial blood by [facility] Pulse oximetry Branch height 2020-09-24 11:30:00 60 [in_i] [facility] weight 2020-09-24 11:30:00 87 [lb_av] [facility] temperature 2020-09-24 11:30:00 97.7 [degF] [facility] bmi 2020-09-24 11:30:00 16.99 kg/m2 [facility] oximetry 2020-09-24 11:30:00 99 % [facility] blood pressure 2020-09-24 11:30:00 133 mm[Hg] [facility] systolic [facility] blood pressure 2020-09-24 11:30:00 78 mm[Hg] [facility] - diastolic [facility] Procedures Procedure Date / Time Performing Clinician Source Performed ASSIGNMENT OF BENEFITS 2022-10-07 18:48:27 Doctor Unassigned, No [facility] RADIOLOGY DOCUMENTATION 2022-09-21 06:01:00 Doctor Unassigned, N o [facility] EXTERNAL PROVIDER 2022-06-17 05:01:00 Doctor Unassigned, No [facility] [place] RECORDS Name Medical Branch Plan of Care Planned Activity Planned Date Details Comments Source Future Scheduled 2022-10-23 COLONOSCOPY SCREENING Me [facility] [place] Test 15:21:50 [code = COLONOSCOPY SCREENING] Future Scheduled 2022-10-23 SHINGLES VACCINES (1 Met [facility] Test 15:21:50 of 2) [code = SHINGLES VACCINES (1 of 2)] Future Scheduled 2022-10-23 INFLUENZA VACCINE Method [facility] Test 15:21:50 [code = INFLUENZA VACCINE] Future Scheduled 2022-10-23 COVID-19 VACCINE (#1) Me [facility] [place] Test 15:21:50 [code = COVID-19 VACCINE (#1)] Future Scheduled 2022-10-23 Screening for [facility] Test 15:21:50 malignant neoplasm of cervix (procedure) [code = 722030835] Future Scheduled 2022-10-23 BREAST CANCER [facility] Test 15:21:50 SCREENING [code = BREAST CANCER SCREENING] Future Scheduled 2022-09-25 COLONOSCOPY SCREENING [facility] Test 11:00:17 [code = COLONOSCOPY SCREENING] Future Scheduled 2022-09-25 SHINGLES VACCINES (1 Met [facility] Test 11:00:17 of 2) [code = SHINGLES VACCINES (1 of 2)] Future Scheduled 2022-09-25 INFLUENZA VACCINE [facility] Test 11:00:17 [code = INFLUENZA VACCINE] Future Scheduled 2022-09-25 COVID-19 VACCINE (#1) [facility] Test 11:00:17 [code = COVID-19 VACCINE (#1)] Future Scheduled 2022-09-25 Hepatitis C screening [facility] Test 11:00:17 (procedure) [code = 583957520] Future Scheduled 2022-09-25 BREAST CANCER [facility] Test 11:00:17 SCREENING [code = BREAST CANCER SCREENING] Future Scheduled 2022-09-25 COLONOSCOPY SCREENING [facility] Test 11:00:17 [code = COLONOSCOPY SCREENING] Future Scheduled 2022-09-25 SHINGLES VACCINES (1 Met [facility] Test 11:00:17 of 2) [code = SHINGLES VACCINES (1 of 2)] Future Scheduled 2022-09-25 INFLUENZA VACCINE [facility] Test 11:00:17 [code = INFLUENZA VACCINE] Future Scheduled 2022-09-25 COVID-19 VACCINE (#1) [facility] Test 11:00:17 [code = COVID-19 VACCINE (#1)] Future Scheduled 2022-09-25 Hepatitis C screening [facility] Test 11:00:17 (procedure) [code = 174070847] Future Scheduled 2022-09-25 BREAST CANCER [facility] Test 11:00:17 SCREENING [code = BREAST CANCER SCREENING] Future Scheduled 2022-08-15 BREAST CANCER [facility] Test 00:58:01 SCREENING [code = BREAST CANCER SCREENING] Future Scheduled 2022-08-15 COLONOSCOPY SCREENING [facility] Test 00:58:01 [code = COLONOSCOPY SCREENING] Future Scheduled 2022-08-15 SHINGLES VACCINES (1 Met [facility] Test 00:58:01 of 2) [code = SHINGLES VACCINES (1 of 2)] Future Scheduled 2022-08-15 INFLUENZA VACCINE [facility] Test 00:58:01 [code = INFLUENZA VACCINE] Future Scheduled 2022-08-15 HEPATITIS B VACCINES Met [facility] Test 00:58:01 (1 of 3 - 3-dose series) [code = HEPATITIS B VACCINES (1 of 3 - 3-dose series)] Future Scheduled 2022-08-15 COVID-19 VACCINE (#1) [facility] Test 00:58:01 [code = COVID-19 VACCINE (#1)] Future Scheduled 2022-08-15 Hepatitis C screening [facility] Test 00:58:01 (procedure) [code = 549300910] Future Scheduled 2022-08-15 Screening for [facility] Test 00:58:01 malignant neoplasm of cervix (procedure) [code = 528011460] Future Scheduled 2022-08-15 BREAST CANCER [facility] Test 00:58:01 SCREENING [code = BREAST CANCER SCREENING] Future Scheduled 2022-08-15 COLONOSCOPY SCREENING [facility] Test 00:58:01 [code = COLONOSCOPY SCREENING] Future Scheduled 2022-08-15 SHINGLES VACCINES (1 Met [facility] Test 00:58:01 of 2) [code = SHINGLES VACCINES (1 of 2)] Future Scheduled 2022-08-15 INFLUENZA VACCINE [facility] Test 00:58:01 [code = INFLUENZA VACCINE] Future Scheduled 2022-08-15 HEPATITIS B VACCINES Met [facility] Test 00:58:01 (1 of 3 - 3-dose series) [code = HEPATITIS B VACCINES (1 of 3 - 3-dose series)] Future Scheduled 2022-08-15 COVID-19 VACCINE (#1) [facility] Test 00:58:01 [code = COVID-19 VACCINE (#1)] Future Scheduled 2022-08-15 Hepatitis C screening [facility] Test 00:58:01 (procedure) [code = 659951140] Future Scheduled 2022-08-15 Screening for [facility] Test 00:58:01 malignant neoplasm of cervix (procedure) [code = 872235282] Encounters Start End Encounter Admission Attending Care Care Encounter Source Date/Time Date/Time Type Type Clinicians Facility Department ID 2021-11-04 Outpatient [facility] [id number] Common 12:13:58 [id number] [facility] 2021-08-07 Emergency [facility] [id number] Univers 08:48:[address] [facility] 2020-08-31 Inpatient [facility] [id number] [facility] 19:31:00 63 [facility] 2020-07-24 Inpatient [facility] [id number] [facility] 04:15:00 80 [facility] 2020-07-23 Inpatient [facility] [id number] [facility] 14:07:00 82 [facility] [place] 2020-07-19 Inpatient [facility] [id number] [facility] 02:17:00 70 [facility] [place] 2020-07-14 Inpatient KATHLEEN Gomes, [facility] DAYS [id number] [facility] 13:00:00 Kyung 53 [facility] [place] 2020-05-07 Inpatient [facility] [id number] [facility] 05:57:00 93 [facility] [place] 2022-10-07 2022-10-07 [facility] [id number] Univers 13:15:00 13:30:00 Visit [facility] [id number] it y of [place] [id number] [place] as JOSE CRUZ?BLEA [phone] [address] MEDICAL OFFICE BUILDING 2022-10-07 2022-10-07 Outpatient R KISHORE [facility] [id number] Univers 13:15:00 13:15:[address] [facility] 2022-10-07 2022-10-07 Orders Doctor MIGUELANGEL [id number] Univers 00:00:00 00:00:00 Only Unassigned, EDGAR [id number] ity of [place] [facility] [id number] William as [phone] [address] 2022-09-21 2022-09-21 Telephone [facility] [id number] Univers 00:00:00 00:00:00 Palomo HEALTH [id number] it y of [place] [id number] William as JOSE CRUZ?BLEA [id number] [address] MEDICAL OFFICE [facility] 2022-09-21 2022-09-21 Orders Doctor MIGUELANGEL [id number] Univers 00:00:00 00:00:00 Only Unassigned, EDGAR [id number] ity of [place] [facility] [id number] William as [phone] [address] 2022-06-17 2022-06-17 Orders Doctor MIGUELANGEL [id number] Univers 00:00:00 00:00:00 Only Unassigned, EDGAR [id number] ity of [place] [facility]PITAL [id number] William as [id number] [address] 2022-06-03 2022-06-03 [facility] [id number] Univers 13:45:00 14:00:00 Visit Palomo HEALTH [id number] it y of [place] [id number] [place] as JOSE CRUZ?BLEA [phone] [address] MEDICAL OFFICE [facility] 2022-06-03 2022-06-03 Outpatient Teresa LARSON [facility] [id number] Univers 13:45:00 13:45:[address] [facility] 2022-06-02 2022-06-02 Outpatient R KISHORE [facility] [id number] Univers 12:45:00 12:45:[address] [facility] 2022-02-15 2022-02-15 [facility] [id number] Univers 12:00:00 12:15:00 Visit [facility] [id number] it y of [place] [id number] William as JOSE CRUZ?BLEA [id number] [address] MEDICAL OFFICE [facility] 2022-02-15 2022-02-15 Outpatient R KISHORE [facility] [id number] Univers 12:00:00 12:00:[address] [facility] 2022-02-11 2022-02-11 Refang[place] [facility] 1.2.840.114 [id number] Univers 00:00:00 00:00:00 Palomo HEALTH [id number] it y of [facility] [id number] William as JOSE CRUZ?BLEA [id number] [address] OFFICE [facility] 2021-11-16 2021-11-16 [facility] 1.2.840.114 [id number] Univers 00:00:00 00:00:00 Palomo HEALTH 350.1.13.10 it y of [place] [id number] William as JOSE CRUZ?BLEA [phone] [address] OFFICE [facility] 2021-11-05 2021-11-05 Telephone [facility] [id number] Univers 00:00:00 00:00:00 Palomo HEALTH 350.1.13.10 it y of [place] 4.2.7.2.686 William as JOSE CRUZ?BLEA [phone] [address] MEDICAL OFFICE [facility] 2021-11-03 2021-11-03 Orders Doctor MIGUELANGEL [id number] [id number] Univers 00:00:00 00:00:00 Only Unassigned, EDGAR 350.1.13.10 ity of [place] [facility] 4.2.7.2.686 William as [phone] [address] 2021-08-17 2021-08-17 [facility]ang[place] [facility] 1.2.840.114 [id number] Univers 00:00:00 00:00:00 Palomo HEALTH [id number] it y of [facility] [id number] William as JOSE CRUZ?BLEA [id number] [address] OFFICE [facility] 2021-06-08 2021-06-08 Office [facility] 1.2.840.114 [id number] Univers 13:07:03 13:22:03 Visit [facility] 350.1.13.10 it y of [place] 4.2.7.2.686 William as Jose Cruz?Blea [phone] [address] Office [facility] 2021-06-08 2021-06-08 [facility] [id number] Univers 13:00:00 13:00:00 [facility] 2021-06-08 2021-06-08 Orders Doctor MEANS 1.2.840.114 [id number] Univers 00:00:00 00:00:00 Only Unassigned, EDGAR 350.1.13.10 ity of [place] [facility] [id number] William as [id number] [address] 2021-06-08 2021-06-08 Orders Doctor MEANS 1.2.840.114 [id number] Univers 00:00:00 00:00:00 Only Unassigned, EDGAR 350.1.13.10 ity of [place] [facility] [id number] Wililam as [phone] [address] 2020-11-13 2020-11-13 Outpatient Teresa LARSON [facility] [id number] Univers 13:00:00 13:00:00 [facility] 2020-11-11 2020-11-11 [facility] [facility] 1.2.840.114 [id number] Univers 00:00:00 00:00:00 [facility] 350.1.13.10 it y of [place] 4.2.7.2.686 William as Professio [phone] De dic[address] Office [facility] 2020-09-24 2020-09-24 OFFICE [facility] [id number] Co mmon 00:00:00 00:00:00 VISIT NEW Spir it PT LEVEL 2 - [facility] 2020-09-08 2020-09-08 Telephone [facility] 1.2.429.138 [id number] 3740 Univers 00:00:00 00:00:00 [facility] 350.1.13.10 it y of [place] 4.2.7.2.686 [place] as Professio [phone] [address] 2020-09-03 2020-09-03 Telephone [facility] 1.2.730.642 9409 5468 Univers 00:00:00 00:00:00 [facility] 350.1.13.10 it y of [place] 4.2.7.2.686 [place] as Professio [phone] [address] 2020-05-22 2020-05-22 [facility]patient [facility] [id number] 843 Univers 16:00:00 16:00:[address] [facility] 2020-05-15 2020-05-15 Office [facility] 1.2.840.114 [id number] 41 Univers 15:14:59 15:30:50 Visit Palomo Armenta 350.1.13.10 i ty of [place] 4.2.7.2.686 [place] Profess[place] [phone] [address] 2020-05-15 2020-05-15 Office [facility] 1.2.840.114 [id number] 41 15:14:59 15:30:50 Visit Palomo Armenta 350.1.13.10 [place] 4.2.7.2.686 Professio [phone] [address] 2020-05-15 2020-05-15 Outpatient R [facility] [id number] 140 Univers 15:15:00 15:15:[address] [facility] 2020-05-13 2020-05-13 Refill [facility] 1.2.840.114 [id number] Univers 00:00:00 00:00:00 [facility] 350.1.13.10 it y of [place] 4.2.7.2.686 [place] as Professio [phone] De dical nal 044 [facility] 2020-05-09 2020-05-09 [place] [facility] 1.2.840.114 [id number] 02 Univers 00:00:00 00:00:00 [facility] 350.1.13.10 it y of [place] 4.2.7.2.686 [place] as Professio [phone] De dical nal [address] [place] [address] 2020-05-06 2020-05-06 [facility] 1.2.840.114 [id number] 87 Univers 00:00:00 00:00:00 [facility] 350.1.13.10 it y of [place] 4.2.7.2.686 William as Professio [phone] [facility] nal [address] [place] [address] 2020-05-03 2020-05-03 Emergency Marifer Chauhan [facility] 1.2.840.114 [id number] Univers 15:17:13 20:15:00 Donna Armenta 350.1.13.10 i ty of [place] 4.2.7.2.686 [place] [phone] [address] 2020-02-07 2020-02-07 Telephone [facility] 1.2.428.796 [id number] 1266 Univers 00:00:00 00:00:00 Palomo Alexandraton 350.1.13.10 i ty of [place] 4[place]2.7.2.[place] Profess[place] [phone] De dicfl nal [address] [place] [address] 2020-02-05 2020-02-05 Telephone [facility] 1.2.344.300 2238 0061 Univers 00:00:00 00:00:00 Palomo Armenta 350.1.13.10 i ty of [place] 4[place]2.7.2.[place] Profess[place] [phone] [facility] nal [address] [place] [address] 2020-02-05 2020-02-05 Orders Doctor MEANS 1.2.840.114 [id number] Univers 00:00:00 00:00:00 Only Unassigned, EDGAR 350.1.13.10 ity of [place] [facility] 4.2.7.2.686 William as [phone] [address] 2020-02-04 2020-02-04 Martin [facility] 1.2.840.114 [id number] 18 Univers 00:00:00 00:00:00 [facility] 350.1.13.10 it y of [place] 4.2.7.2.686 [place] as Professio [phone] [address] Office [facility] 2020-01-14 2020-01-14 Martin [facility] 1.2.840.114 [id number] 16 Univers 00:00:00 00:00:00 [facility] 350.1.13.10 it y of [place] 4.2.7.2.686 [place] as Professio [phone] [address] Office [facility] 2020-01-04 2020-01-04 [facility] 1.2.840.114 [id number] 48 Univers 00:00:00 00:00:00 [facility] 350.1.13.10 it y of [place] 4.2.7.2.686 [place] as Professio [phone] [address] Office [facility] 2019-12-26 2019-12-26 Outpatient R [facility] [id number] 543 Univers 12:30:00 12:30:00 PALOMO ity of [facility] 2019-12-26 2019-12-26 [facility] 1.2.840.114 [id number] 38 Univers 00:00:00 00:00:00 [facility] 350.1.13.10 it y of [place] 4.2.7.2.686 [place] as Professio [phone] [address] Office [facility] 2019-12-17 2019-12-17 Martin [facility] 1.2.840.114 [id number] 85 Univers 00:00:00 00:00:00 [facility] 350.1.13.10 it y of [place] 4.2.7.2.686 [place] as Professio [phone] De dical nal [address] [facility] 2019-09-12 2019-09-12 Emergency JOY, [facility] 064 [id number] 03 [place] 00:00:00 00:00:[address]ANDIE [address] 2019-06-19 2019-06-19 Office Kishore [facility] 1.2.840.114 [id number] 63 Univers 09:32:01 10:07:10 Visit [facility] 350.1.13.10 it y of [place] 4.2.7.2.686 [place] as Professio [phone] De dical nal [address] [facility] 2019-06-19 2019-06-19 Orders Doctor MIGUELANGEL 1.2.840.114 [id number] 98 Univers 00:00:00 00:00:00 Only Unassigned, EDGAR 350.1.13.10 ity of [place] [facility] 4.2.7.2.686 William as [phone] [address] 2019-05-10 2019-05-10 Refill [facility] 1.2.840.114 [id number] 44 Univers 00:00:00 00:00:00 [facility] 350.1.13.10 it y of [place] 4.2.7.2.686 William as Professio [phone] [facility] nal [address] [facility] Results Test Description Test Time Test Comments Results Result [facility] e Comments - CT ABD PELVIS 2020-08-31 W/CONT 21:56:00 [facility] 1970 Sex: F Name: DEMETRIO FERNÁNDEZ [facility] : 1970 Age/S: 50 / F [address] Unit #: [id number] Loc: [place] [address] Phys: Ernesto Rowley MD Acct: [id number] Dis Date: Status: REG ER PHONE #: [phone] Exam Date: 08/31/20202154 FAX #: Reason: diffuse abdominal pain, nausea EXAMS: CPT: [id number] CT ABD PELVIS W/CONT 73830 C3 TIME OF STUDY: 08/31/2020 9:11 PM [...] RT(R)(CT) CTDI: DLP: Trnscb Date/Time: 08/31/2020 (2155) [email or web address] Orig Print D/T: S: 08/31/2020 (2158) PAGE 1 Signed Report - XR ABD ACUTE 2020-08-31 W/CHEST 21:02:00 [facility] : 1970 Sex: F Name: DEMETRIO FERNÁNDEZ [place] : 1970 Age/S: 50 / F [address] Unit #: [id number] Loc: [place] [address] Phys: Ernesto Rowley MD Acct: [id number] Dis Date: Status: REG ER PHONE #: [phone] Exam Date: 08/31/20202046 FAX #: Reason: diffuse abdominal pain, nausea EXAMS: CPT: [id number] XR ABD ACUTE W/CHEST 39392 Fluoro Time: DAP (Gy m2): Air Kerma [...] PAGE 1 Signed Report Name: DEMETRIO FERNÁNDEZ [place] : 1970 Age/S: 50 / F [address] Unit #: [id number] Loc: [place] [address] Phys: Ernesto Rowley MD Acct: [id number] Dis Date: Status: REG ER PHONE #: [phone] Exam Date: 08/31/20202046 FAX #: Reason: diffuse abdominal pain, nausea EXAMS: CPT: [id number] XR ABD ACUTE W/CHEST 52951 Fluoro Time: DAP (Gy m2): Air Kerma [...] CA) 9.7 MG/DL 8.5-10.1 N HEPATIC FUNCTION [id number] 20:35:00 Test Item Value Reference Range Interpretation [...] 83 Unit/L 45-117 N code = ALKP) [id number] 20:35:00 Test Item Value Reference Range Interpretation Comments LIPASE (test code = LIP) 44 Unit/L 114-286 L UA RFLX MICR CULT IF [id number] 20:20:00 Test Item Value Reference Range Interpretation [...] UACULT) Indication for culture: Suprapubic PainCBC W/AUTO [id number] 20:12:00 Test Item Value Reference Range Interpretation [...] = MDIFF) UA RFLX MICR CULT IF [id number] 20:12:00 Test Item Value Reference Range Interpretation [...] for culture: Suprapubic Pain- CT ABD PELVIS W/[id number] 17:44:00 [facility] TO[facility] : 1970 Sex: F Patient Name: DEMETRIO FERNÁNDEZ Unit No: [id number] EXAMS: CPT CODE: [id number] CT ABD PELVIS W/CONT 45189 CT ABDOMEN AND PELVIS WITH CONTRAST. INDICATION: [...] mGy-cm IV contrast: 80 mL Isovue-300 GI co ntrast: 40 mL Gastrografin FINDINGS: LOWER CHEST: Visualized [...] bladder. The uterus is not visualized. No organizedfluid collections identified in the pelvis. BOWELS/APPENDIX: There are no abnormally dilated small or large bowel loops. The appendix is not identified. MUSCULOSKELETAL: Anterior abdominal wall soft tissue gas is present appearing greater on the right. No organized fluid collection. No suspicious osseous abnormality identified. IMPRESSION: 1. Anterior abdominal wall soft tissue gas, right greater than left, [facility] NAME: DEMETRIO FERNÁNDEZ Radiology Department PHYS: Zen Larios [address] : 1970 AGE: 50 SEX: F [place], [place] [address] LOC: LES PHONE #: [phone] EXAM DATE: 07/23/2020 STATUS: LVEON ER FAX #: [phone] RAD NO: [id number] Page 1 Signed Report 1 Patient Name: DEMETRIO FERNÁNDEZ Unit No: [id number] EXAMS: CPT CODE: [id number] CT ABD PELVIS W/CONT 42558 (Continued) presumably postoperative in nature. No organized fluid collection. 2. Nonobstructing left nephrolithiasis. SL: SG-H Electronically Signed by Liang Hill 07/23/2020 at 1744 Reported and signed by: Liang Meredith MD CC: Zen Florence chnologist: Marcela Louis, RT, CT CTDI: 3.33 DLP: 155.32 Trnscrbd D/ (1744) [email or web address] [facility] NAME: DEMETRIO FERNÁNDEZ Radiology Department PHYS: Zen Larios [address] : 1970 AGE: 50 SEX: F [place] [address] LOC: LucyERS PHONE #: [phone] EXAM DATE: 07/23/2020 STATUS: REG ER FAX #: [phone] RAD NO: [id number] Page2 Signed Report 1 Patient Name: DEMETRIO FERNÁNDEZ Unit No: [id number] EXAMS: CPT CODE: [id number] CT ABDPELVIS W/CONT 08386 (Continued) Orig Print D/T: S: 07/23/2020 (1747) [facility] NAME: TOBYDEMETRIO ASHTON Radiology Department PHYS: Stepan Lariosiro [address] : 1970 AGE: 50 SEX: F [place] [address] LOC: Delia.ERS PHONE #: [phone] EXAM DATE: 07/23/2020 STATUS: REG ER FAX #: [phone] RAD NO: [id number] Page 3 Signed Report 1COMPREHENSIVE METABOLIC PANEL [...] 46-116 N code = ALKP) CBC W/AUTO [id number] 15:55:00 Test Item Value Reference Range Interpretation [...] NORMAL code = PLTMR) DRUGS OF ABUSE [id number] 15:04:00 Test Item Value Reference Range Interpretation [...] ng/m L UA RFLX MICR CULT IF [id number] 14:56:00 Test Item Value Reference Range Interpretation [...] Description: CLEAN CATCH- US PELVIS LTD OR [id number] 04:30:00 Patient Name: DEMETRIO FERNÁNDEZ Unit No: [id number] EXAMS: CPT CODE: [id number] [place] PELVIS LTD [place] FU 88767 EXAM: US, US PELVIS COMPLETE: 07/19/2020, 0333 [...] Alize Gomes RDMS Probe: Trnscrbd D/ (0430) [email or web address] Orig Print D/T: S: 07/19/2020 (0433) [facility] NAME: DEMETRIO FERNÁNDEZ Radiology Department PHYS: Aakash Porter [address] : 1970 AGE: 50 SEX: [place], [place] [address] LOC: CHANDNI 3 PHONE #: [phone] EXAM DATE: 07/19/2020 STATUS: ADM IN FAX #: [phone] RAD NO: [id number] Page 1 Signed Report Patient Name: DEMETRIO FERNÁNDEZ Unit No: [id number] EXAMS: CPT CODE: [id number] US PELVIS LTD OR FU 25929 (Continued) [facility] NAME: DEMETRIO FERNÁNDEZ Radiology Department PHYS: Aakash Porter [address] : 1970 AGE: 50 SEX: [place], [place] [address] LOC: CHANDNI 3 PHONE #: [phone] EXAM DATE: 07/19/2020 STATUS: ADM IN FAX #: [phone] RAD NO: [id number] Page 2 Signed Report- US ABDOMEN [id number] 04:18:00 Patient Name: DEMETRIO FERNÁNDEZ Unit No: [id number] EXAMS: CPT CODE: [id number] US ABDOMEN COMPLETE 03771 EXAM: US, US ABDOMEN LTD: 07/19/2020, 0300 hours Clinical Indication: Status post nephrectomy. Pelvic pain. Abdominal pain. Nausea. Vomiting. Comparison: CT scan dated 05/07/2020. TECHNIQUE: Grayscale and limited color sonographic evaluation of the abdomen was performed with standard technique. FINDINGS: LIVER: The visualized liver shows normal contour. There is normal liver size, based on sonographyat 14.3 cm. There is normal liver parenchymal echotexture. The portal vein region appears unremarkable. BILE DUCTS: The intrahepatic and extrahepatic bile ducts are not dilated with the common bile duct measuring 2 mm. There are no definite ductal stones or wall thickening noted. The distal common bile duct is not well seen. GALLBLADDER: Gallbladder wall thickness is 1.5 mm. There are no gallstones, gallbladder sludge, pericholecystic fluid or wall thickening. PANCREAS: The visualized pancreas appears unremarkable. SPLEEN: Spleen measures 10.7 x 5.7 x 5.1 cm. KIDNEYS: The right kidney measures 9.4 x 3.4 x 4.5 cm. Left kidney measures 7.8 x 4.1 x 5.1 There is normal renal contour and morphology, with normal parenchymal echotexture. There is no hydronephrosis. There is a 5 mm x 5 mm x 8 mm echogenic foci in the left kidney which may represent nonobstructing stone. AORTA AND INFERIOR VENA CAVA: Thevisualized abdominal aorta and inferior vena cava appear unremarkable. ASCITES: There is no trace free fluid in the right upper quadrant of the abdomen. IMPRESSION: 1. Trace free fluid in the right uppe r quadrant of the abdomen seen. 2. Possible nonobstructing stone left kidney. No hydronephrosis [facility]: DEMETRIO FERNÁNDEZ Radiology Department PHYS: Aakash Porter [address] : 1970 AGE: 50 SEX: F [place], [place] [address] LOC: JIGNA 3 PHONE #: [phone] EXAM DATE: 07/19/2020 STATUS: ADM IN FAX #: [phone] RAD NO: [id number] 1 Signed Report (CONTINUED) Patient Name: DEMETRIO FERNÁNDEZ Unit No: [id number] EXAMS: CPT CODE: [id number] US ABDOMEN COMPLETE 41862 (Continued) bilaterally. SL: ALEC at 0418 Reported and signed by: Vince Locke M.D. CC: Technologist: Alize Gomes RDMS Probe: Trnscrbd D/ (0418) [id number] Orig Print D/T: S: 07/19/2020 (0422) [facility] NAME: DEMETRIO FERNÁNDEZ Radiology Department PHYS: Aakash Porter [address] : 1970 AGE: 50 SEX: F [place], [place] [address] LOC:CHANDNI 3 PHONE #: [phone] EXAM DATE: 07/19/2020 STATUS: ADM IN FAX #: [phone] RAD NO: [id number] Page 2 Signed Report Patient Name: DEMETRIO FERNÁNDEZ Unit No: [id number] EXAMS: CPT CODE: [id number] US ABDOMEN COMPLETE 24632 (Continued) [facility] NAME: DEMETRIO FERNÁNDEZ Radiology Department PHYS: Aakash Porter [address] : 1970 AGE: 50 SEX: F [place], [place] [address] LOC: CHANDNI 3 PHONE #: [phone] EXAM DATE: 07/19/2020 STATUS: ADM IN FAX #: [phone] RAD NO: [id number] Page 3 Signed ReportHCG [id number] 03:12:00 Test Item Value Reference Range Interpretation [...] SHOULD BE CONSI DERED NEGATIVE COMPREHENSIVE METABOLIC [id number] 03:07:00 Test Item Value Reference Range Interpretation [...] 68 units/L 46-116 N code = ALKP) [id number] 03:07:00 Test Item Value Reference Range Interpretation Comments LIPASE (test code = LIP) 54 units/L 73-393 L DRUGS OF ABUSE [id number] 03:06:00 Test Item Value Reference Range Interpretation [...] ng/m L UA RFLX MICR CULT IF [id number] 03:02:00 Test Item Value Reference Range Interpretation [...] for culture: Dysuria/FrequencySpecimen Description: CLEAN CATCHCBC W/AUTO [id number] 02:46:00 Test Item Value Reference Range Interpretation [...] REQUIRED (test NORMAL NORMAL code = PLTMR) [id number] 14:56:00 RUN DATE: 07/17/20 [facility] PAGE 1 RUN TIME: 1053 Specimen Inquiry RUN USER: INTERFACE -PATIENT: DEMETRIO FERNÁNDEZ LOC: U #: [id number] AGE/SX: 50/F ROOM: [facility] RE07/14/20REG DR: Kyung Gomes MD : [birth year] BED: A DIS: 07/15/20 STATUS: DIS Ekaterina TLOC: SPEC #: [id number] RECD: 07/14/20 STATUS: CAROLANN REVeena #: [id number] YUNIEL: 07/14/20- SUBM DR: Kyung Gomes MD ENTERED: 07/15/20 SP TYPE: PELVIC FEDERICO OTHR DR: Aakash Crook MD ORDERED: LEVEL IV/3 CODES: B91106 - FALLOPIAN TUBE AV6154 - PELVIC GENITAL COPIES TO: Aakash Crook MD [address] [place] [address] Kyung Gomes MD [address] [place] [address] [email or web address] PROCEDURES: LEVEL IV (Incomplete) TISSUES: PELVIC GENITAL STRUCTURES, NOS - RIGHT PELVIC SIDEWALL AND UTEROSACRAL ENDOMETRIOSIS FALLOPIAN TUBE, NOS - RIGHT FALLOPIAN TUBE AND OVARY CLINICAL HISTORY 50 year ol d, endometriosis (kr) FINAL DIAGNOSIS Right pelvic sidewall endometriosis, excision: - endometriosisRight uterosacral endometriosis, excision: - soft tissue with fibrosis Right fallopian tube and ovary, salpingo-oophorectomy: - ovary - no significant pathologic alteration - round ligament - no significant pathologic alteration - fallopian tube - no tubal tissue identified CPT code(s): 05593 x3 lsh/wpd CONTINUED ON NEXT PAGE RUN DATE: 07/17/20 [facility] PAGE 2 RUN TIME: 1053 Specimen Inquiry RUN USER: INTERFACE SPEC #: [id number] PATIENT: DEMETRIO FERNÁNDEZ #[id number] (Continued) GROSS DESCRIPTION ANATOMIC SOURCE OF TISSUE [...] lobular. Sectioning reveals a wetzel-pink cut surface. Surgical Services Coordinator sections are submitted as follows: C1 - ovary, C2 - attached wetzel-pink soft tissue. marry/rod 07/15/20 The remaining attached soft tissue is submitted in RE1. marry/tara 07/16/20 Signed Carmelina Frost MD 07/16/20 1456 END OF REPORT AG HEPATITIS B [id number] 15:14:00 Test Item Value Reference Range Interpretation Comments AG HEPATITIS B SURFACE (test code NONREACTIVE NONREACTIVE = HBSAG) IS CONSENT FORM SIGNED FOR HIV TESTING? YAB HEPATITIS C [id number] 15:14:00 Test Item Value Reference Range Interpretation Comments AB HEPATITIS C (test code = NONREACTIVE NONREACTIVE HCVAB) SIGNAL TO CUTOFF (test code = 0.11 <0.80 N CUTOFF) IS CONSENT FORM SIGNED FOR HIV TESTING? YAB HIV 1 15:14:00 Test Item Value Reference Range Interpretation Comments AB HIV 1 2 (test NONREACTIVE NONREACTIVE Done by [facility] code = [id number]) 4th Gen HIV Ag/Ab Combo Screen IS CONSENT FORM SIGNED FOR HIV TESTING? YURINALYSIS [id number] 15:08:00 Test Item Value Reference Range Interpretation [...] URINE SAMPLE: CLEAN CATCHCOVID 19 Asymptomatic IH [id number] 15:07:00 Test Item Value Reference Range Interpretation [...] and/o r diagnosis of CO VID-19 under Lwklluy40 4(b)(1) of the Act, 21 U.S .C. 360bbb-3(b)(1), unless theauthorizatio n is terminated or r evoked sooner. AG HEPATITIS B [id number] 14:51:00 Test Item Value Reference Range Interpretation Comments AG HEPATITIS B SURFACE (test code NONREACTIVE NONREACTIVE = HBSAG) IS CONSENT FORM SIGNED FOR HIV TESTING? YAB HEPATITIS C [id number] 14:51:00 Test Item Value Reference Range Interpretation Comments AB HEPATITIS C (test code = HCVAB) NONREACTIVE SIGNAL TO CUTOFF (test code = CUTOFF) <0.80 IS CONSENT FORM SIGNED FOR HIV TESTING? YAB HIV 1 14:51:00 Test Item Value Reference Range Interpretation Comments AB HIV 1 2 (test code = WKV47FZ) NONREACTIVE IS CONSENT FORM SIGNED FOR HIV TESTING? YCBC W/AUTO [id number] 14:06:00 Test Item Value Reference Range Interpretation [...] T4) 5.9 mcg/dL 4.7-13.3 N THYROID STIMULATING [id number] 14:21:00 Test Item Value Reference Range Interpretation Comments THYROID STIMULATING 6.43 0.36-3.74 H Test Per formed in HORMONE (test code = MicroIn ternational Units/mL TSH) [id number] 14:21:00 Test Item Value Reference Range Interpretation Comments ESTRADIOL (test 60.9 pg/mL () Adult Femal e: code = ESTRA) Follicular pha se 12.5 - 166.0 Ovulation phase 85.8 - 498.0 Alicja teal phase 43.8 - 21 1.0 Postmenopausal <6.0 - 54.7 1st trimester 215.0 - >4300.0Roche EC MARYANA methodology [id number] 14:21:00 Test Item Value Reference Range Interpretation Comments PROGESTERONE (test 0.7 ng/mL () Follicul ar phase 0.1 - code = PROG) 0.9 Luteal phas e 1.8 - 23.9 Ovulation phase 0.1 - 12.0 Preg nant First trimester 11.0 - 44.3 Second tri mester 25.4 - 83.3 Thi rd trimester 58.7 - 214.0 Postmenopausal 0.0 - 0.1Performed At : [facility] [address] [place], [place] [id number] ross Remy MD Ph:[phone] FOLLICLE STIMULATING [id number] 14:21:00 Test Item Value Reference Range Interpretation Comments FOLLICLE STIMULATING 43.2 mIU/mL () Adult Female: HORMONE (test code = Follicu lar phase 3.5 - FSH) 12.5 Ovulation phase 4.7 - 21.5 Lute al phase 1.7 - 7.7 Postmenopausal 25.8 - 134.8 COMPREHENSIVE METABOLIC [id number] 06:03:00 Test Item Value Reference Range Interpretation [...] units/L 46-116 code = ALKP) CBC W/AUTO [id number] 05:55:00 Test Item Value Reference Range Interpretation [...] T4) 5.9 mcg/dL 4.7-13.3 N THYROID STIMULATING [id number] 21:23:00 Test Item Value Reference Range Interpretation Comments THYROID STIMULATING 6.43 0.36-3.74 H Test Per formed in HORMONE (test code = MicroIn ternational Units/mL TSH) [id number] 21:23:00 Test Item Value Reference Range Interpretation Comments ESTRADIOL (test code = ESTRA) [id number] 21:23:00 Test Item Value Reference Range Interpretation Comments PROGESTERONE (test code = PROG) FOLLICLE STIMULATING [id number] 21:23:00 Test Item Value Reference Range Interpretation Comments FOLLICLE STIMULATING HORMONE (test code = FSH) Coronavirus 2019 nCoV [id number] 10:34:00 Test Item Value Reference Range Interpretation Comments Coronavirus 2019 nCoV Negative Negative RESUL TS CALLED TO READ Bedside (test code = BACK & CONFIRMED? BY [id number]) Z.LAB.OK 05/07 1034 This result epps s not [...] F ROM FDA - CT ABD PELVIS [id number] 08:28:00 Patient Name: DEMETRIO FERNÁNDEZ Unit No: [id number] EXAMS: CPT CODE: [id number] CT ABD PELVIS W/CONT 27170 CT ABDOMEN AND PELVIS WITH CONTRAST AND [...] facet arthrosis and SI joint osteoarthritis. [facility] NAME: DEMETRIO FERNÁNDEZ Radiology Department PHYS: Liz Shafer MD [address] : 1970 AGE: 49 SEX: F [place], [place] [address] LOC: LES PHONE #: [phone] EXAM DATE: 05/07/2020 STATUS: REG ER FAX #: [phone] RAD NO: [id number] Page 1 Signed Report 1 Patient Name: DEMETRIO FERNÁNDEZ Unit No: [id number] EXAMS: CPT CODE: [id number] CT ABD PELVIS W/CONT 91741 (Continued) IMPRESSION: 1. Constipation without acute CT [...] size -Use of iterative reconstruction technique SL: [id number] at 0828 Reported and signed by: Chris Edmonds MD CC: Liz Padilla MD Technologist: Marcela Louis, RT, CT CTDI: 7.77 DLP: 159.20 Trnscrbd D/ (08) t.SDR.ERR2 [facility] NAME: DEMETRIO FERNÁNDEZ Radiology Department PHYS: Liz Shafer MD[address] : 1970 AGE: 49 SEX: F [place] [address] LOC: LucyERS PHONE #: [phone] EXAM DATE: 05/07/2020 STATUS: REG ER FAX #: [phone] RAD NO: [id number] Page 2 Signed Report 1 Patient Name: DEMETRIO FERNÁNDEZ Unit No: [id number] EXAMS: CPT CODE: [id number] CT ABD PELVIS W/CONT 90182 (Continued) Orig Print D/T: S: 05/07/2020 (0832) [facility] NAME:DEMETRIO FERNÁNDEZ Radiology Department PHYS: Liz Shafer MD [address] : 1970 AGE: 49 SEX: F [place] [address] LOC: [facility] PHONE #: [phone] EXAM DATE: 05/07/2020 STATUS: REG ER FAX #: [phone] RAD NO: [id number] Page 3 Signed Report 1UA RFLX MICR CULT IF [id number] 08:25:00 Test Item Value Reference Range Interpretation [...] NONE SEEN Indication for culture: Dysuria/FrequencyCHEMISTRY 7 [id number] 08:16:00 Test Item Value Reference Range Interpretation [...] = CA) 9.1 mg/dL 8.4-10.2 N LIVER [id number] 08:16:00 Test Item Value Reference Range Interpretation [...] 85 units/L 46-116 N code = ALKP) [id number] 08:16:00 Test Item Value Reference Range Interpretation Comments LIPASE (test code = LIP) 66 units/L 73-393 L - US TRANSVAGINAL [id number] 08:14:00 Patient Name: DEMETRIO FERNÁNDEZ Unit No: [id number] EXAMS: CPT CODE: [id number] US TRANSVAGINAL [id number] TRANSVAGINAL PELVIC ULTRASOUND 05/07/2020 AT 0 713 HOURS. CLINICAL HISTORY: Abdominal/pelvic pain for 6 days. Vomiting. History of endometriosis. REPORTED LMP: Hysterectomy and left oophorectomy (2009). COMPARISON STUDIES: No recent relevant priors at this institution. Reference is made to the abdomen and pelvis CT 09/11/2016 and the pelvic ultrasound from 02/25/2015. By report the patient has an outside ultrasound from [facility] in [facility] dated 05/05/2020. This study is [...] 4. No free fluid. No adnexal mass.SL: [id number] at 0814 Reported and signed by: Chris Edmonds MD CC: Liz Padilla MD Technologist: Nory Mace RDMS Probe: [id number] Trnscrbd D/ (0814) [email or web address] Orig Print D/T: S: 05/07/2020 (0817) [facility] NAME: DEMETRIO FERNÁNDEZ Radiology Department PHYS: Liz Shafer PMD [address] : 1970 AGE: 49 SEX: F [place] [address] [facility] PHONE #: [phone] EXAM DATE: 05/07/2020 STATUS: REG ER FAX #: [phone] RAD NO: [id number] Page 1 Signed Report Patient Name: DEMETRIO FERNÁNDEZ Unit No: [id number] EXAMS: CPT CODE: [id number] US TRANSVAGINAL W/PELVIS 41828 (Continued) [facility] NAME: DEMETRIO FERNÁNDEZ Radiology Department PHYS: Liz Shafer MD [address] : 1970 AGE: 49 SEX: F [place], [place] [address] LOC: ERS PHONE #: [phone] EXAM DATE: 05/07/2020 STATUS: REG ER FAX #: [phone] RAD NO: [id number] Page 2 Signed Report- US PELVIS [id number] 08:14:00 Patient Name: DEMETRIO FERNÁNDEZ Unit No: [id number] EXAMS: CPT CODE: [id number] US PELVIS COMPLETE 00487 TRANSVAGINAL PELVIC ULTRASOUND 05/07/2020 AT 0 713 HOURS. CLINICAL HISTORY: Abdominal/pelvic pain for 6 days. Vomiting. History of endometriosis. REPORTED LMP: Hysterectomy and left oophorectomy (2009). COMPARISON STUDIES: No recent relevant priors at this institution. Reference is made to the abdomenand pelvis CT 09/11/2016 and the pelvic ultrasound from 02/25/2015. By report the patient has an outside ultrasound from [facility] in [facility] dated 05/05/2020. This study is [...] No free fluid. No adnexal mass. SL: [id number] at 0814 Reported and signed by: Chris Edmonds MD CC: Liz Padilla MD Technologist: Nory Mace RDMS Probe: Trnscrbd D/ (813) [email or web address] Orig Print D/T: S: 05/07/2020 (0817) [facility] NAME: DEMETRIO FERNÁNDEZ Radiology Department PHYS: Liz Shafer MD [address] : 1970 AGE: 49 SEX: F [place] [address] LOC: [facility]ERS PHONE #: [phone] EXAM DATE: 05/07/2020 STATUS: REG ER FAX #: [phone] RAD NO: [id number] Page 1 Signed Report Patient Name: DEMETRIO FERNÁNDEZ Unit No: [id number] EXAMS: CPT CODE: [id number] US PELVIS COMPLETE [id number] (Continued) [facility] NAME: TOBYDEMETRIO Radiology Department PHYS: Liz Shafer MD [address] : 1970 AGE: 49 SEX: F [place] [address] LOC: Delia.ERS PHONE #: [phone] EXAM DATE: 05/07/2020 STATUS: REG ER FAX #: [phone] [facility] NO: [id number] Page 2 Signed ReportC W/AUTO [id number] 08:07:00 Test Item Value Reference Range Interpretation [...]
[2022-11-26] MEDS ORDERED: NA CHLORIDE 0.9% 500 ML ONE (17:49)
[2022-11-26] MEDS ORDERED: FAMOTIDINE 20 MG/2 ML VIAL IV ONE (17:49)
[2022-11-26] MEDS ORDERED: NA CHLORIDE 0.9% 100 ML ONE (17:49)
[2022-11-26] MEDS ORDERED: METOCLOPRAMIDE 10 MG/2mL INJ ONE (17:49)
[2022-11-26] MEDS ORDERED: DIPHENHYDRAMINE 50 MG/ML VIAL ONE (17:49)
[2022-11-26 18:20] LABS: Absolute Lymphocytes (CBC) 1.1 K/uL (0.7-4.9); Hematocrit 38.9 % (36.0-45.0); MCV 91.3 fL (80-100); MPV 7.2 fL (7.6-11.3); RBC Red Blood Cell Count 4.26 M/uL (3.86-4.86)
[2022-11-26 18:34] LABS: Albumin 4.3 g/dL (3.4-5.0); Bilirubin Total 0.4 mg/dL (0.2-1.0); Potassium 3.5 mmol/L (3.5-5.1); Protein, Total 7.3 g/dL (6.4-8.2)
[2022-11-26] MEDS ORDERED: ONDANSETRON 4 MG/2 ML VIAL ONE ×2 (18:53→19:42)
[2022-11-26] MEDS ORDERED: FENTANYL CITR 100 MCG/2 ML ONE (18:53)
--- NOTE | 2022-11-26 19:29 | EDPHYS ---
Physician Documentation [facility] Name: Alysha Fernández Age: 52 yrs Sex: Female : 1970 Arrival Date: 11/26/2022 Time: 17:03 Bed 13 Private MD: [place] Physician Oliver Jones HPI: 11/26 17:20 This 52 yrs old Female presents to ER via Wheelchair with complaints of Abdominal cp Cramping. 17:20 The patient presents with abdominal pain. cp 17:20 Onset: The symptoms/episode began/occurred this morning. Associated signs and symptoms: cp Pertinent positives: nausea and vomiting, Pertinent negatives: chest pain, constipation, diarrhea, fever, vomiting blood. The symptoms are described as constant. The patient has experienced similar episodes in the past, chronically. Historical: - Allergies: 17:15 Ceclor; iw 17:15 Codeine; iw 17:15 Morphine; iw 17:15 PENICILLINS; iw - Home Meds: 17:15 dicyclomine 20 mg Oral tab 1 tab 3 times per day [Active]; tramadol 50 mg Oral tab iw [Active]; Xanax 0.5 mg Oral tab [Active]; - PMHx: 17:15 Chronic Abdominal Pain; Anxiety; iw - PSHx: 17:15 Appendectomy; Cholecystectomy; Total abdominal hysterectomy; iw - Immunization history:: Client reports having NOT received the Covid vaccine. - Social history:: Smoking status: Patient denies any tobacco usage or history of. ROS: 17:25 Constitutional: Negative for body aches, chills, fever. cp 17:25 Eyes: Negative for injury, pain, redness, and discharge. cp 17:25 ENT: Negative for drainage from ear(s), ear pain, sore throat, difficulty swallowing, difficulty handling secretions. 17:25 Cardiovascular: Negative for chest pain. 17:25 Respiratory: Negative for cough, shortness of breath, wheezing. 17:25 Abdomen/GI: Positive for abdominal pain, nausea and vomiting, Negative for diarrhea, constipation, hematemesis, black/tarry stool, rectal bleeding. 17:25 Back: Negative for pain at rest, pain with movement. 17:25 Skin: Negative for cellulitis, rash. 17:25 Neuro: Negative for altered mental status, dizziness, headache, weakness. 17:25 All other systems are negative. Exam: 17:30 Constitutional: The patient appears in no acute distress, alert, awake, cp non-diaphoretic, non-toxic, well developed, thin 17:30 Head/Face: Normocephalic, atraumatic. cp 17:30 Eyes: Periorbital structures: appear normal, Conjunctiva: normal, no exudate, no injection, Sclera: no appreciated abnormality, Lids and lashes: appear normal, bilaterally. 17:30 ENT: External ear(s): are unremarkable, Nose: is normal, Mouth: Lips: moist, Oral mucosa: moist, Posterior pharynx: Airway: no evidence of obstruction, patent. 17:30 Chest/axilla: Inspection: normal. 17:30 Cardiovascular: Rate: tachycardic, Rhythm: regular, Edema: is not appreciated, JVD: is not appreciated. 17:30 Respiratory: the patient does not display signs of respiratory distress, Respirations: normal, no use of accessory muscles, no retractions, labored breathing, is not present, Breath sounds: are clear throughout, no decreased breath sounds, no stridor, no wheezing. 17:30 Abdomen/GI: Inspection: abdomen appears normal, Bowel sounds: active, all quadrants, Palpation: soft, in all quadrants, moderate abdominal tenderness, in all quadrants, rebound tenderness, is not appreciated, involuntary guarding, is not appreciated. 17:30 Back: CVA tenderness, is absent. 17:30 Neuro: Orientation: to person, place \T\ time. Mentation: is normal, Cerebellar function: is grossly normal, Motor: moves all fours, strength is normal, Sensation: is normal. Vital Signs: 17:14 BP 132 / 100; Pulse 118; Resp 16; Pulse Ox 95% on R/A; Weight 39.01 kg; Height 5 ft. iw (152.40 cm); 18:34 BP 127 / 83; Pulse 105; Resp 18; Pulse Ox 98% on R/A; ph 19:47 BP 132 / 81; Pulse 96; Resp 17; Temp 98.5; Pulse Ox 100% ; Pain 0/10; ke1 17:14 Body Mass Index 16.80 (39.01 kg, 152.40 cm) iw MDM: 17:18 Patient medically screened. cp 18:00 Differential diagnosis: gastritis, non-specific abd pain, pancreatitis, Pyelonephritis, cp Ureterolithiasis, urinary tract infection, chronic pain. 19:28 Data reviewed: vital signs, nurses notes, lab test result(s), radiologic studies, CT cp scan. 19:28 Consideration of Admission/Observation Escalation of care including cp admission/observation considered. I considered the following discharge prescriptions or medication management in the emergency department Medications were administered in the Emergency Department. See MAR. Test considered but Not performed: CT: abdomen/pelvis. Care significantly affected by the following chronic conditions: abdominal pain. Counseling: I had a detailed discussion with the patient and/or guardian regarding: the historical points, exam findings, and any diagnostic results supporting the discharge/admit diagnosis, lab results, to return to the emergency department if symptoms worsen or persist or if there are any questions or concerns that arise at home. Response to treatment: the patient's symptoms have markedly improved after treatment, and as a result, I will. Special discussion: Based on the patient's Hx, exam, and Dx evaluation, there is no indication for emergent surgery or inpatient Tx. It is understood by the patient/guardian that if the Sx's persist or worsen they need to return immediately for re-evaluation. 11/26 17:17 Order name: CBC with Diff; Complete Time: 18:34 cp 11/26 18:34 Interpretation: Normal except: RDW 11.8; MPV 7.2; KB% 78.9; LYM% 15.0. cp 11/26 17:17 Order name: CMP; Complete Time: 18:42 cp 11/26 18:42 Interpretation: Normal except: CL 109; GLUC 113; BUN 20. cp 11/26 17:17 Order name: Lipase; Complete Time: 18:42 cp 11/26 18:43 Interpretation: Abnormal: LIP 57. cp 11/26 17:17 Order name: Urine Microscopic Only; Complete Time: 12:01 cp 11/26 19:40 Order name: Urine Dipstick-Ancillary; Complete Time: 12:01 EDMS 11/26 17:17 Order name: IV Saline Lock; Complete Time: 18:01 cp 11/26 17:17 Order name: Labs collected and sent; Complete Time: 18:01 cp 11/26 17:17 Order name: Urine Dipstick-Ancillary (obtain specimen); Complete Time: 19:39 cp 11/26 17:17 Order name: Urine Test (obtain specimen); Complete Time: 19:39 cp 11/26 19:03 Order name: PO challenge; Complete Time: 19:39 cp Administered Medications: 18:00 Drug: NS 0.9% 500 ml Route: IV; Rate: 500 ml/hr; Site: right forearm; ph 19:39 Follow up: Response: No adverse reaction; IV Status: Completed infusion; IV Intake: ph 500ml 18:02 Drug: Pepcid (famotidine) 20 mg Route: IVP; Site: right forearm; ph 19:40 Follow up: Response: No adverse reaction ph 18:02 Drug: Reglan (metoCLOPramide) 10 mg Route: IVP; Site: right forearm; ph 19:40 Follow up: Response: No adverse reaction ph 18:02 Drug: Benadryl (diphenhydrAMINE) 12.5 mg Route: IVP; Site: right forearm; ph 19:40 Follow up: Response: No adverse reaction ph 18:50 Drug: fentaNYL (PF) 25 mcg Route: IVP; Site: right forearm; ph 19:39 Follow up: Response: No adverse reaction; Pain is decreased; RASS: Drowsy (-1) ph 19:46 Drug: Zofran (Ondansetron) 4 mg Route: IVP; Site: right forearm; ke1 19:47 Follow up: Response: Medication administered at discharge. ke1 Disposition: 11/27 14:33 Co-signature as Attending Physician, Oliver Jones MD I reviewed the patient's care rt provided by the Advanced Practice Provider and agree with the diagnosis and treatment plan. Disposition Summary: 11/26/22 19:28 Discharge Ordered Location: Home cp Problem: an acute exacerbation cp Symptoms: have improved cp Condition: Stable cp Diagnosis - Nausea with vomiting, unspecified cp - Abdominal pain, unspecified cp Followup: cp - With: Private Physician - When: 1 - 2 days - Reason: Recheck today's complaints Discharge Instructions: - Discharge Summary Sheet cp - Abdominal Pain, Adult cp - Nausea and Vomiting, Adult cp Forms: - Medication Reconciliation Form cp - Thank You Letter cp - Antibiotic Education cp - Prescription Opioid Use cp Prescriptions: - promethazine 25 mg Rectal suppository - insert 1 suppository by RECTAL route every 6 hours; 15 suppository; Refills: 0, cp Product Selection Permitted Signatures: Dispatcher [employer] Mishel Whipple, RN RN Tran Hernandez RN RN Bert Mak PA PA cp Ebrottie, Kouassi RN RN ke1 Oliver Jones MD MD rt
--- NOTE | 2022-11-26 19:29 | ER ---
Nurse's Notes [facility] Name: Alysha Fernández Age: 52 yrs Sex: Female : 1970 Arrival Date: 11/26/2022 Time: 17:03 Bed 13 Private MD: Diagnosis: Nausea with vomiting, unspecified;Abdominal pain, unspecified Presentation: 11/26 17:14 Chief complaint: Patient states: abd cramping, n/v/d since this morning. Coronavirus iw screen: At this time, the client does not indicate any symptoms associated with coronavirus-19. Ebola Screen: Patient negative for fever greater than or equal to 101.5 degrees Fahrenheit, and additional compatible Ebola Virus Disease symptoms Patient denies exposure to infectious person. Patient denies travel to an Ebola-affected area in the 21 days before illness onset. No symptoms or risks identified at this time. Initial Sepsis Screen: Does the patient meet any 2 criteria? No. Patient's initial sepsis screen is negative. Does the patient have a suspected source of infection? No. Patient's initial sepsis screen is negative. Risk Assessment: Do you want to hurt yourself or someone else? Patient reports no desire to harm self or others. Onset of symptoms was November 26, 2022. 17:14 Method Of Arrival: Wheelchair iw 17:14 Acuity: ROBERTO 3 iw Triage Assessment: 19:40 General: Appears in no apparent distress. Behavior is appropriate for age. Pain: Denies ke1 pain. Historical: - Allergies: 17:15 Ceclor; iw 17:15 Codeine; iw 17:15 Morphine; iw 17:15 PENICILLINS; iw - Home Meds: 17:15 dicyclomine 20 mg Oral tab 1 tab 3 times per day [Active]; tramadol 50 mg Oral tab iw [Active]; Xanax 0.5 mg Oral tab [Active]; - PMHx: 17:15 Chronic Abdominal Pain; Anxiety; iw - PSHx: 17:15 Appendectomy; Cholecystectomy; Total abdominal hysterectomy; iw - Immunization history:: Client reports having NOT received the Covid vaccine. - Social history:: Smoking status: Patient denies any tobacco usage or history of. Screenin:02 [facility] ED Fall Risk Assessment (Adult) History of falling in the last 3 months, ph including since admission No falls in past 3 months (0 pts) Confusion or Disorientation No (0 pts) Intoxicated or Sedated No (0 pts) Impaired Gait No (0 pts) Mobility Assist Device Used No (0 pt) Altered Elimination No (0 pt) Score/Fall Risk Level 0 - 2 = Low Risk Oriented to surroundings, Maintained a safe environment, Hourly rounding (assess needs \T\ fall precautionary measures) done. Abuse screen: Denies threats or abuse. Denies injuries from another. Nutritional screening: No deficits noted. Tuberculosis screening: No symptoms or risk factors identified. Assessment: 18:00 General: Appears in no apparent distress. uncomfortable, slender, Behavior is ph cooperative, anxious, fussy. Pain: Complains of pain in left upper quadrant and left lower quadrant. Neuro: 18:33 Reassessment: Patient appears in no apparent distress at this time. Patient and/or ph family updated on plan of care and expected duration. Pain level reassessed. Patient is alert, oriented x 3, equal unlabored respirations, skin warm/dry/pink. Pt continues to c/o abdominal pain 10/10 and nausea, ERP notified, no further orders at this time. 19:00 Reassessment: Patient appears in no apparent distress at this time. Patient and/or ph family updated on plan of care and expected duration. Pain level reassessed. Patient is alert, oriented x 3, equal unlabored respirations, skin warm/dry/pink. Pt states that fentanyl helped her pain, currently rates 3/10, denies nausea. 19:05 Reassessment: Pt given ice chips for PO challenge, tolerating well at this time. ph 19:40 GI: Reports nausea. ke1 19:41 GI: Bowel sounds present X 4 quads. Abd is soft and non tender X 4 quads. ke1 Vital Signs: 17:14 BP 132 / 100; Pulse 118; Resp 16; Pulse Ox 95% on R/A; Weight 39.01 kg; Height 5 ft. iw (152.40 cm); 18:34 BP 127 / 83; Pulse 105; Resp 18; Pulse Ox 98% on R/A; ph 19:47 BP 132 / 81; Pulse 96; Resp 17; Temp 98.5; Pulse Ox 100% ; Pain 0/10; ke1 17:14 Body Mass Index 16.80 (39.01 kg, 152.40 cm) iw ED Course: 17:03 Patient arrived in ED. as 17:05 Bert Mckeon PA is PHCP. cp 17:05 Oliver Jones MD is Attending Physician. cp 17:15 Triage completed. iw 17:15 Arm band placed on. iw 18:01 Tran Grant, ALINA is Primary Nurse. ph 18:02 Initial lab(s) drawn, by me, sent to lab. Missed attempt(s): 22 gauge in right ph antecubital area. Bleeding controlled, band aid applied, catheter tip intact. Inserted saline lock: 22 gauge in right forearm, using aseptic technique. Blood collected. 19:39 Urine Microscopic Only Sent. ph 19:41 Patient has correct armband on for positive identification. Bed in low position. ke1 19:41 No provider procedures requiring assistance completed. ke1 19:50 IV discontinued. ke1 Administered Medications: 18:00 Drug: NS 0.9% 500 ml Route: IV; Rate: 500 ml/hr; Site: right forearm; ph 19:39 Follow up: Response: No adverse reaction; IV Status: Completed infusion; IV Intake: ph 500ml 18:02 Drug: Pepcid (famotidine) 20 mg Route: IVP; Site: right forearm; ph 19:40 Follow up: Response: No adverse reaction ph 18:02 Drug: Reglan (metoCLOPramide) 10 mg Route: IVP; Site: right forearm; ph 19:40 Follow up: Response: No adverse reaction ph 18:02 Drug: Benadryl (diphenhydrAMINE) 12.5 mg Route: IVP; Site: right forearm; ph 19:40 Follow up: Response: No adverse reaction ph 18:50 Drug: fentaNYL (PF) 25 mcg Route: IVP; Site: right forearm; ph 19:39 Follow up: Response: No adverse reaction; Pain is decreased; RASS: Drowsy (-1) ph 19:46 Drug: Zofran (Ondansetron) 4 mg Route: IVP; Site: right forearm; ke1 19:47 Follow up: Response: Medication administered at discharge. ke1 Medication: 19:41 VIS not applicable for this client. ke1 Intake: 19:39 IV: 500ml; Total: 500ml. ph Outcome: 19:28 Discharge ordered by . cp 19:50 Discharged to home ambulatory. ke1 19:50 Condition: good 19:50 Discharge instructions given to patient. 19:51 Patient left the ED. ke1 Signatures: Naheed Dawson Irene RN Tran Taylor RN RN Bert Mak PA PA cp Ebrottie, Kouassi, RN RN ke1
[2022-11-26 19:40] LABS: Urine Blood 1+ (Negative); Urine Glucose Negative (Negative); Urine Protein Negative (Negative); Urine pH 6.5 (5.0-7.0)
[2022-11-26 19:46] LABS: Urine Bacteria <20 /HPF (<20); Urine Crystals Unidentified Few /HPF (None Seen); Urine Mucus Slight /HPF (None Seen)
[2022-11-26 20:04] VITALS: BP 132/81; TEMP 98.5; O2SAT 100
== END 2022-11-26 19:51 | disposition home or self-care (01) ==
LOC: ER 17:01
DX: R11.2 Nausea with vomiting, unspecified (principal); R10.9 Unspecified abdominal pain; F41.9 Anxiety disorder, unspecified; Z88.0 Allergy status to penicillin; Z88.5 Allergy status to narcotic agent
CPT/HCPCS: 96361; 85025; 36415; 83690; 80053; 96375; 96374; 99283; J2765; J1200; J3010; J7040; J2405 ×2; 81003; 81015

== ENCOUNTER 2024-08-29 07:58 | Emergency (ER) | payer OTHER ==
--- NOTE | 2024-08-29 08:27 | RAD REPORT ---
EXAM: XR of the abdomen HISTORY: Abdominal pain ABD PAIN COMPARISON: None FINDINGS: XR of the abdomen shows a nonspecific, nonobstructive bowel gas pattern. No suspicious bettye cifications are seen. The bones are unremarkable. IMPRESSION: Unremarkable exam
[2024-08-29] MEDS ORDERED: ONDANSETRON 4 MG/2 ML VIAL ONE (09:13)
[2024-08-29] MEDS ORDERED: NA CHLORIDE 0.9% 1,000 ML ONE (09:13)
[2024-08-29] MEDS ORDERED: FAMOTIDINE 20 MG/2 ML VIAL IV ONE (09:13)
[2024-08-29 09:23] LABS: Calcium Oxalate Crystals- Ur Few /HPF (None Seen); Sqamous Epithelial <5 /HPF (None Seen); Urine Bacteria None Seen /HPF (<20); Urine Bilirubin NEGATIVE (Negative); Urine Blood 2+ (Negative); Urine Clarity Turbid (Clear); Urine Color Yellow (Yellow); Urine Culture Reflex Order NOT NEEDED; Urine Glucose NEGATIVE (Negative); Urine Ketones 1+ (Negative); Urine Microscopic Reflex YN ORDER UMIC; Urine Mucus 2+ /HPF (None Seen); Urine Nitrite NEGATIVE (Negative); Urine Protein 1+ (Negative); Urine Urobilinogen Normal (Normal); Urine WBC <5 /HPF (<5)
[2024-08-29 09:26] LABS: Absolute Lymphocytes (CBC) 1.2 K/uL (0.7-4.9); Absolute Monocytes 0.5 K/uL (0.1-1.3); Absolute Neutrophil 9.6 K/uL (1.8-8.0); Basophils % 0.2 % (0-1.3); Eosinophils % 0.1 % (0-4.4); Hematocrit 44.3 % (36.0-45.0); Hemoglobin 14.9 g/dL (12.0-15.0); Lymphocytes % 10.5 % (15.3-44.8); MCHC 33.7 g/dL (32.0-36.0); MCV 94.9 fL (80-100); MPV 7.1 fL (7.6-11.3); Monocytes % 4.8 % (3.3-12.3); Neutrophils % 84.4 % (41.7-73.7); Platelets 451 thou/uL (152-406); RBC Red Blood Cell Count 4.67 M/uL (3.86-4.86); Red Cell Distribution Width 12.4 % (12.1-15.2)
[2024-08-29] MEDS ORDERED: HYDROMORPHONE HCL 1 MG/ML INJ ONE (09:32)
[2024-08-29 09:33] LABS: Albumin 4.4 g/dL (3.4-5.0); Albumin/Globulin Ratio 1.3 (1.1-1.8); Anion Gap 10.8 mEq/L (5.0-15.0); Bilirubin Total 0.7 mg/dL (0.2-1.0); Globulin 3.5 g/dL (2.3-3.5); Potassium 3.8 mEq/L (3.5-5.1); Protein, Total 7.9 g/dL (6.4-8.2)
--- NOTE | 2024-08-29 11:01 | ER ---
Nurse's Notes [facility] Name: Alysha Fernández Age: 54 yrs Sex: Female : 1970 Arrival Date: 08/29/2024 Time: 07:58 Bed 15 Private MD: Diagnosis: Abdominal tenderness;Vomiting Presentation: 08/29 08:06 Chief complaint: Patient states: Abdominal pain since Tuesday with N/V. Coronavirus ll1 screen: Client denies travel out of the [place] in the last 14 days. At this time, the client does not indicate any symptoms associated with coronavirus-19. Ebola Screen: Patient denies travel to an Ebola-affected area in the 21 days before illness onset. Initial Sepsis Screen: Does the patient meet any 2 criteria? No. Patient's initial sepsis screen is negative. Does the patient have a suspected source of infection? No. Patient's initial sepsis screen is negative. Risk Assessment: Do you want to hurt yourself or someone else? Patient reports no desire to harm self or others. Onset of symptoms was August 27, 2024. 08:06 Method Of Arrival: Wheelchair ll1 08:06 Acuity: ROBERTO 3 ll1 Triage Assessment: 08:07 General: Appears uncomfortable, ill, Behavior is calm, cooperative, appropriate for 2 age. Pain: Complains of pain in abdomen Quality of pain is described as aching. Neuro: No deficits noted. Cardiovascular: No deficits noted. GI: Reports lower abdominal pain, upper abdominal pain, cramping, nausea, vomiting. Historical: - Allergies: 08:00 Ceclor; ll1 08:00 Codeine; ll1 08:00 Morphine; ll1 08:00 PENICILLINS; ll1 08:06 KETAMINE; ll1 - PMHx: 08:00 Anxiety; Chronic Abdominal Pain; ll1 - PSHx: 08:00 Appendectomy; Cholecystectomy; Total abdominal hysterectomy; ll1 - Immunization history:: Adult Immunizations up to date. - Social history:: Smoking status: Patient denies any tobacco usage or history of. - Family history:: not pertinent. Screenin:20 [facility] ED Fall Risk Assessment (Adult) History of falling in the last 3 months, kc6 including since admission No falls in past 3 months (0 pts) Confusion or Disorientation No (0 pts) Intoxicated or Sedated No (0 pts) Impaired Gait No (0 pts) Mobility Assist Device Used No (0 pt) Altered Elimination No (0 pt) Score/Fall Risk Level 0 - 2 = Low Risk Oriented to surroundings. Abuse screen: Denies threats or abuse. Denies injuries from another. Nutritional screening: No deficits noted. Tuberculosis screening: No symptoms or risk factors identified. Assessment: 09:20 General: Appears in no apparent distress. comfortable, slender, well groomed, Behavior kc6 is cooperative, appropriate for age, crying. Pain: Complains of pain in abdomen diffusely. Neuro: Level of Consciousness is awake, alert, obeys commands, Oriented to person, place, time, situation, Appropriate for age. Cardiovascular: Capillary refill < 3 seconds. Respiratory: Airway is patent Trachea midline Respiratory effort is even, unlabored, Respiratory pattern is regular, symmetrical. GI: Abdomen is flat, non-distended, Reports lower abdominal pain, upper abdominal pain, nausea, vomiting, Patient currently denies diarrhea. : No signs and/or symptoms were reported regarding the genitourinary system. Urine is clear. EENT: No signs and/or symptoms were reported regarding the EENT system. Derm: No signs and/or symptoms reported regarding the dermatologic system. Skin is intact, is healthy with good turgor, Skin is pink, warm \T\ dry. Musculoskeletal: No signs and/or symptoms reported regarding the musculoskeletal system. Circulation, motion, and sensation intact. Capillary refill < 3 seconds, Range of motion: intact in all extremities. 10:27 Reassessment: Patient appears in no apparent distress at this time. No changes from kc6 previously documented assessment. Patient and/or family updated on plan of care and expected duration. Pain level reassessed. Patient is alert, oriented x 3, equal unlabored respirations, skin warm/dry/pink. 11:10 Reassessment: Patient appears in no apparent distress at this time. No changes from kc6 previously documented assessment. Patient and/or family updated on plan of care and expected duration. Pain level reassessed. Patient is alert, oriented x 3, equal unlabored respirations, skin warm/dry/pink. pt refusing CT with contrast. made aware. Vital Signs: 08:06 BP 134 / 88; Pulse 115; Resp 18; Temp 97.5; Pulse Ox 97% on R/A; Weight 40.82 kg; ll1 Height 5 ft. 0 in. ; Pain 8/10; 09:21 BP 132 / 90; Pulse 112; Resp 18 S; Pulse Ox 98% on R/A; kc6 10:27 BP 125 / 88; Pulse 91; Resp 16 S; Pulse Ox 96% on R/A; kc6 08:06 Body Mass Index 17.58 (40.82 kg, 152.4 cm) ll1 08:06 Pain Scale: Adult ll1 ED Course: 08:00 Patient arrived in ED. mr 08:00 Arm band placed on. ll1 08:[address] MD is Attending Physician. abdirahman 08:07 Triage completed. ll1 08:22 Abdomen with Erect XRAY In Process Unspecified. EDMS 08:43 Patient placed in an exam room, on a stretcher. kc6 08:46 Delia Hsu, ALINA is Primary Nurse. kc6 09:19 Patient has correct armband on for positive identification. Bed in low position. Call kc6 light in reach. Side rails up X 1. Adult w/ patient. Pulse ox on. NIBP on. Door closed. Noise minimized. Lights dimmed. Warm blanket given. Pillow given. 09:19 Inserted saline lock: 20 gauge in right antecubital area, using aseptic technique. kc6 Blood collected. Flushed with 10 mL NS. Patient maintains SpO2 saturation greater than 95% on room air. 09:22 Patient requests pain medication. kc6 11:01 Bigg Manning MD is Referral Physician. [facility] 11:16 No provider procedures requiring assistance completed. IV discontinued, intact, kc6 bleeding controlled, No redness/swelling at site. Pressure dressing applied. Administered Medications: 09:20 Drug: Famotidine IVP 20 mg IVP once; dilute with 10 mL 0.9% NaCl; give over 2 minutes kc6 Route: IVP; Site: right antecubital; 09:35 Follow up: Response: No adverse reaction kc6 09:20 Drug: Ondansetron IVP 4 mg IVP once; over 2 minutes Route: IVP; Site: right antecubital;kc6 09:35 Follow up: Response: No adverse reaction kc6 09:20 Drug: NS 0.9% IV 1000 ml IV at 1 bolus Per protocol; to be given as a bolus over 60 kc6 minutes Route: IV; Rate: 1 bolus; Site: right antecubital; 10:27 Follow up: Response: No adverse reaction; IV Status: Completed infusion; IV Intake: kc6 1000ml 09:35 Drug: HYDROmorphone IVP 1 mg IVP once Route: IVP; Site: right antecubital; kc6 10:27 Follow up: Response: No adverse reaction; Pain is decreased; RASS: Alert and Calm (0) kc6 Medication: 11:16 VIS not applicable for this client. kc6 Intake: 10:27 IV: 1000ml; Total: 1000ml. kc6 Outcome: 11:01 Discharge ordered by MD. gary 11:16 Discharged to home ambulatory, with significant other, kc6 11:16 Condition: good 11:16 Discharge instructions given to patient, significant other, Instructed on discharge instructions, follow up and referral plans. no drinking with medication, no driving heavy equipment, medication usage, Demonstrated understanding of instructions, follow-up care, medications, Prescriptions given X 3, 11:16 Patient left the ED. kc6 Signatures: Dispatcher [employer] EDMS Bert Lane MD MD cha Rivera, Mary, Reg Reg mr Jeff Valentin, RN RN ll1 Delia Hsu RN RN kc6
--- NOTE | 2024-08-29 11:01 | EDPHYS ---
Physician Documentation [facility] Name: Alysha Fernández Age: 54 yrs Sex: Female : 1970 Arrival Date: 08/29/2024 Time: 07:58 Bed 15 Private MD: ED Physician Bert Lane HPI: 08/29 10:40 This 54 yrs old Female presents to ER via Wheelchair with complaints of abdirahman Abdominal Pain. 10:40 The patient presents with abdominal pain in the left lower quadrant. Onset: The abdirahman symptoms/episode began/occurred 3 day(s) ago. The patient presents to the emergency department with nausea, vomiting, that is intermittent, abdominal pain, of the left lower quadrant, described as constant, crampy. Onset: The symptoms/episode began/occurred 3 day(s) ago. Possible causes: unknown. The symptoms are aggravated by nothing. The symptoms are alleviated by nothing. Associated signs and symptoms: The patient has no apparent associated signs or symptoms. The symptoms do not radiate. The symptoms are described as constant, crampy, steady. Historical: - Allergies: 08:00 Ceclor; ll1 08:00 Codeine; ll1 08:00 Morphine; ll1 08:00 PENICILLINS; ll1 08:06 KETAMINE; ll1 - PMHx: 08:00 Anxiety; Chronic Abdominal Pain; ll1 - PSHx: 08:00 Appendectomy; Cholecystectomy; Total abdominal hysterectomy; ll1 - Immunization history:: Adult Immunizations up to date. - Social history:: Smoking status: Patient denies any tobacco usage or history of. - Family history:: not pertinent. ROS: 10:40 Constitutional: Negative for fever, chills, and weight loss, Eyes: Negative for injury, abdirahman pain, redness, and discharge, ENT: Negative for injury, pain, and discharge, Neck: Negative for injury, pain, and swelling, Cardiovascular: Negative for chest pain, palpitations, and edema, Respiratory: Negative for shortness of breath, cough, wheezing, and pleuritic chest pain, Abdomen/GI: Negative for abdominal pain, nausea, vomiting, diarrhea, and constipation, : Negative for injury, bleeding, discharge, and swelling, MS/Extremity: Negative for injury and deformity, Skin: Negative for injury, rash, and discoloration, Neuro: Negative for headache, weakness, numbness, tingling, and seizure, Psych: Negative for depression, anxiety, suicide ideation, homicidal ideation, and hallucinations, Allergy/Immunology: Negative for hives, rash, and allergies, Endocrine: Negative for neck swelling, polydipsia, polyuria, polyphagia, and marked weight changes, Hematologic/Lymphatic: Negative for swollen nodes, abnormal bleeding, and unusual bruising, 10:40 Abdomen/GI: Positive for abdominal pain, nausea and vomiting, abdominal cramps, of the left lower quadrant, 10:40 Back: Negative for injury or acute deformity, decreased range of motion, pain at rest, Exam: 10:40 Constitutional: This is a well developed, well nourished patient who is awake, alert, abdirahman and in no acute distress. Head/Face: Normocephalic, atraumatic. Eyes: Pupils equal round and reactive to light, extra-ocular motions intact. Lids and lashes normal. Conjunctiva and sclera are non-icteric and not injected. Cornea within normal limits. Periorbital areas with no swelling, redness, or edema. ENT: Nares patent. No nasal discharge, no septal abnormalities noted. Tympanic membranes are normal and external auditory canals are clear. Oropharynx with no redness, swelling, or masses, exudates, or evidence of obstruction, uvula midline. Mucous membranes moist. Neck: Trachea midline, no thyromegaly or masses palpated, and no cervical lymphadenopathy. Supple, full range of motion without nuchal rigidity, or vertebral point tenderness. No Meningismus. Chest/axilla: Normal chest wall appearance and motion. Nontender with no deformity. No lesions are appreciated. Cardiovascular: Regular rate and rhythm with a normal S1 and S2. No gallops, murmurs, or rubs. Normal PMI, no JVD. No pulse deficits. Respiratory: Lungs have equal breath sounds bilaterally, clear to auscultation and percussion. No rales, rhonchi or wheezes noted. No increased work of breathing, no retractions or nasal flaring. Back: No spinal tenderness. No costovertebral tenderness. Full range of motion. Skin: Warm, dry with normal turgor. Normal color with no rashes, no lesions, and no evidence of cellulitis. MS/ Extremity: Pulses equal, no cyanosis. Neurovascular intact. Full, normal range of motion. Neuro: Awake and alert, GCS 15, oriented to person, place, time, and situation. Cranial nerves II-XII grossly intact. Motor strength 5/5 in all extremities. Sensory grossly intact. Cerebellar exam normal. Normal gait. Psych: Awake, alert, with orientation to person, place and time. Behavior, mood, and affect are within normal limits. 10:40 Abdomen/GI: Inspection: abdomen appears normal, Bowel sounds: normal, Palpation: mild abdominal tenderness, moderate abdominal tenderness, in the left lower quadrant, Liver: no appreciated palpable abnormalities, Hernia: not appreciated, Vital Signs: 08:06 BP 134 / 88; Pulse 115; Resp 18; Temp 97.5; Pulse Ox 97% on R/A; Weight 40.82 kg; ll1 Height 5 ft. 0 in. ; Pain 8/10; 09:21 BP 132 / 90; Pulse 112; Resp 18 S; Pulse Ox 98% on R/A; kc6 10:27 BP 125 / 88; Pulse 91; Resp 16 S; Pulse Ox 96% on R/A; kc6 08:06 Body Mass Index 17.58 (40.82 kg, 152.4 cm) ll1 08:06 Pain Scale: Adult ll1 MDM: 08:06 Medical Screening Exam initiated [facility] 08/29 08:07 Order name: CBC with Diff; Complete Time: 10:39 [facility] 08/29 08:07 Order name: CMP; Complete Time: 10:39 [facility] 08/29 08:07 Order name: Lipase; Complete Time: 10:39 [facility] 08/29 08:07 Order name: Urinalysis w/ reflexes; Complete Time: 09:25 [facility] 08/29 08:07 Order name: Abdomen with Erect XRAY; Complete Time: 09:25 [facility] 08/29 08:07 Order name: IV Saline Lock; Complete Time: 09:10 [facility] 08/29 08:07 Order name: Labs collected and sent; Complete Time: 09:10 [facility] Administered Medications: 09:20 Drug: Famotidine IVP 20 mg IVP once; dilute with 10 mL 0.9% NaCl; give over 2 minutes kc6 Route: IVP; Site: right antecubital; 09:35 Follow up: Response: No adverse reaction 6 09:20 Drug: Ondansetron IVP 4 mg IVP once; over 2 minutes Route: IVP; Site: right antecubital;kc6 09:35 Follow up: Response: No adverse reaction kc6 09:20 Drug: NS 0.9% IV 1000 ml IV at 1 bolus Per protocol; to be given as a bolus over 60 kc6 minutes Route: IV; Rate: 1 bolus; Site: right antecubital; 10:27 Follow up: Response: No adverse reaction; IV Status: Completed infusion; IV Intake: kc6 1000ml 09:35 Drug: HYDROmorphone IVP 1 mg IVP once Route: IVP; Site: right antecubital; kc6 10:27 Follow up: Response: No adverse reaction; Pain is decreased; RASS: Alert and Calm (0) kc6 Disposition Summary: 08/29/24 11:01 Discharge Ordered Notes: Location: Home abdirahman Problem: new abdirahman Symptoms: have improved abdirahman Condition: Stable abdirahman Diagnosis - Abdominal tenderness abdirahman - Vomiting abdirahman Followup: abdirahman - With: Private Physician - When: 2 - 3 days - Reason: Recheck today's complaints, Continuance of care, Re-evaluation by your physician Followup: abdirahman - With: Bigg Manning MD - When: 2 - 3 days - Reason: Recheck today's complaints, Re-evaluation by your physician Discharge Instructions: - Discharge Summary Sheet abdirahman - Abdominal Pain, Adult abdirahman - Abdominal Pain, Adult, [id number] abdirahman - Vomiting, Adult [facility] Forms: - Medication Reconciliation Form [facility] - Antibiotic Education abdirahman - Prescription Opioid Use abdirahman - Patient Portal Instructions [facility] - Leadership Thank You Letter [facility] Prescriptions: - ondansetron 4 mg Oral Tablet,disintegrating - take 1 tablet ORAL route every 8 hours for 5 days prn nausea/ vomiting; 20 abdirahman tablet; Refills: 0, Product Selection Permitted - Pepcid 20 mg Oral Tablet - take 1 tablet ORAL route every 12 hours for 10 days; 20 tablet; Refills: 0, [facility] Product Selection Permitted - dicyclomine 20 mg Oral tablet - take 1 tablet ORAL route 4 times per day; 28 tablet; Refills: 0, Product [facility] Selection Permitted Signatures: Dispatcher [employer] Bert Chandler MD MD cha Lewis, Lynsay RN RN ll1 Delia Hsu RN RN kc6 Corrections: (The following items were deleted from the chart) 08: 08:07 CBC+H.LAB.BRZ ordered. EDMS EDMS 08:07 08:07 COMPREHENSIVE METABOLIC PANEL+C.LAB.BRZ ordered. EDMS EDMS 08:07 08:07 LIPASE+C.LAB.BRZ ordered. EDMS EDMS 08:07 08:07 Urinalysis+U.LAB.BRZ ordered. EDMS EDMS 08:07 08:07 Abdomen With Erect+RAD.RAD.BRZ ordered. EDMS EDMS 10:40 10:40 Abdomen Pelvis W Con+CT.RAD.BRZ ordered. EDMS EDMS
[2024-08-29 11:35] VITALS: TEMP 97.5
[2024-08-29 11:42] VITALS: BP 125/88; O2SAT 96
== END 2024-08-29 11:16 | disposition home or self-care (01) ==
LOC: ER 07:58
DX: R10.814 Left lower quadrant abdominal tenderness (principal); R11.10 Vomiting, unspecified; F41.9 Anxiety disorder, unspecified
CPT/HCPCS: 85025; 81001; 36415; 83690; 80053; 74019; J1171; J2405; J7030